=== PATIENT | female | born 1950 | race Caucasian/White ===

== ENCOUNTER 2017-09-16 13:12 | Emergency (ER) | payer MEDICARE, SELFPAY ==
[2017-09-16 13:31] VITALS: BP 121/88; PULSE 79; RESP 16; TEMP 36.8; O2SAT 97; BMI 25.8
--- NOTE | 2017-09-16 13:51 | HMH.EDUTC ---
[facility] Clinical Impression: Arm pain Disposition: Still a Patient Condition on Discharge: Good Referrals: Davey Nj MD [Primary Care Provider] - Time of Disposition: 14:27 Medical Decision Making - Medical Records Medical records reviewed: Yes: I reviewed the patient's medical records. Vital Signs: 09/16/17 13:31 Temperature 98.2 F Temperature Source Temporal Artery Scan Pulse Rate [Right] 79 Respiratory Rate 16 Blood Pressure [Right Arm] 121/88 Blood Pressure Mean [Right Arm] 99 Blood Pressure Source [Right Arm] Automatic Cuff Blood Pressure Position [Right Arm] Sitting 02 Sat by Pulse Oximetry 97 Oxygen Delivery Method Room Air - Adryan Inquiry Pt receiving controlled substance: No Adryan was queried for this patient: No - Reevaluation(s) Time: 14:22 Reevaluation #1: Patient appears very uncomfortable in exam chair, patient still denies chest pain, ekg done and due to pain in upper left arm and patient appearing so uncomfortable call ER physician Dr Marie and discussed patient and patient to be transfered to ER for further work up and evaluation to rule out Cardiac Report given to Dr Marie and patient transfered to ER room 6 [facility] [place] General Stated complaint: left arm pain Mode of Arrival: Ambulatory Source of Information: Patient Limitations: No Limitations Description of Symptoms (Recalled from Triage Doc. by RN): FELL 3 MONTHS AGO, LEFT ARM PAIN HEENT Symptoms (Recalled from RN notes): No Resp Symptoms (Recalled from RN notes): No Skin Symptoms (Recalled from RN notes): No MS Symptoms (Recalled from RN notes): Yes Functional Status (Recalled from RN notes): N - History of Present Illness Provider Complaint: Patient states that about 3 months ago she fell at home and landed on her left arm State that arm was sore for several days then felt better States that this morning when she woke up having dull achey toothache like pain in left arm that would radiate up into her shoulder, state she would have pain shoot up the arm when she would try to move it, state that pain in arm is like a dull ache State that at times feel like it goes up into her shoulder area state that she has taken over the counter Aleeve but no relief denies radiation to jaw area however state that pain has been constant. - Related Data Home Medications Medication Instructions Recorded Confirmed furosemide 20 mg tablet 10 mg PO QDAY tab 09/06/17 levothyroxine 25 mcg tablet 25 mcg PO QDAY tab 09/06/17 Allergies Allergy/AdvReac Type Severity Reaction Status Date / Time No Known Allergies Allergy Verified 09/16/17 13:35 - Worker's Comp Is this a Worker's Comp case?: No [facility] History I have reviewed the patient's past medical history: Yes Other Surgeries: Yes: Hysterectomy-Total - *Social History Smoking Status: Never smoker Alcohol Intake: never - Psychiatric History Expresses thoughts of harming self/others: None Suicide Plan Description: No Plan *Family Hx:: Hypertension, Heart Attack ROS Obtained: Yes All systems reviewed & no additional complaints - Cardiovascular Cardiovascular: Denies chest pain, Denies chest pain with activity - Musculoskeletal Musculoskeletal: Reports other (Dull achey pain in left upper arm and shoulder since around 3am this juanita) Physical Exam - General General appearance: alert, other (Moving around on exam table appears to be in pain) - Chest Chest inspection: Present: normal inspection, symmetric chest wall rise. Absent: tenderness - Respiratory Respiratory exam: Present: normal lung sounds bilaterally. Absent: respiratory distress - Cardiovascular Cardiovascular exam: Present: regular rate, normal rhythm. Absent: JVD - Extremities Exam Extremities exam: Present: other - Expanded Upper Extremity Exam Left Arm exam: Present: tenderness, other Vascular exam: Normal: capillary refill (Pain in left upper arm that worsens
--- NOTE | 2017-09-16 13:59 | ED_ITS ---
[facility] [place] Clinical Impression: Arm pain Disposition: Still a Patient Condition on Discharge: Good Referrals: Davey Nj MD [Primary Care Provider] - Time of Disposition: 14:27 Medical Decision Making - Medical Records Medical records reviewed: Yes: I reviewed the patient's medical records. Vital Signs: 09/16/17 13:31 Temperature 98.2 F Temperature Source Temporal Artery Scan Pulse Rate [Right] 79 Respiratory Rate 16 Blood Pressure [Right Arm] 121/88 Blood Pressure Mean [Right Arm] 99 Blood Pressure Source [Right Arm] Automatic Cuff Blood Pressure Position [Right Arm] Sitting 02 Sat by Pulse Oximetry 97 Oxygen Delivery Method Room Air - Adryan Inquiry Pt receiving controlled substance: No Adryan was queried for this patient: No - Reevaluation(s) Time: 14:22 Reevaluation #1: Patient appears very uncomfortable in exam chair, patient still denies chest pain, ekg done and due to pain in upper left arm and patient appearing so uncomfortable call ER physician Dr Marie and discussed patient and patient to be transfered to ER for further work up and evaluation to rule out Cardiac Report given to Dr Marie and patient transfered to ER room 6 [facility] [place] - General Stated complaint: left arm pain Mode of Arrival: Ambulatory Source of Information: Patient Limitations: No Limitations Description of Symptoms (Recalled from Triage Doc. by RN): FELL 3 MONTHS AGO, LEFT ARM PAIN HEENT Symptoms (Recalled from RN notes): No Resp Symptoms (Recalled from RN notes): No Skin Symptoms (Recalled from RN notes): No MS Symptoms (Recalled from RN notes): Yes Functional Status (Recalled from RN notes): N - History of Present Illness Provider Complaint: Patient states that about 3 months ago she fell at home and landed on her left arm State that arm was sore for several days then felt better States that this morning when she woke up having dull achey toothache like pain in left arm that would radiate up into her shoulder, state she would have pain shoot up the arm when she would try to move it, state that pain in arm is like a dull ache State that at times feel like it goes up into her shoulder area state that she has taken over the counter Aleeve but no relief denies radiation to jaw area however state that pain has been constant. - Related Data Home Medications Medication Instructions Recorded Confirmed furosemide 20 mg tablet 10 mg PO QDAY tab 09/06/17 levothyroxine 25 mcg tablet 25 mcg PO QDAY tab 09/06/17 Allergies Allergy/AdvReac Type Severity Reaction Status Date / Time No Known Allergies Allergy Verified 09/16/17 13:35 - Worker's Comp Is this a Worker's Comp case?: No [facility] History I have reviewed the patient's past medical history: Yes Other Surgeries: Yes: Hysterectomy-Total - *Social History Smoking Status: Never smoker Alcohol Intake: never - Psychiatric History Expresses thoughts of harming self/others: None Suicide Plan Description: No Plan *Family Hx:: Hypertension, Heart Attack ROS Obtained: Yes All systems reviewed & no additional complaints - Cardiovascular Cardiovascular: Denies chest pain, Denies chest pain with activity - Musculoskeletal Musculoskeletal: Reports other (Dull achey pain in left upper arm and shoulder since around 3am ilya grant) Physical Exam - General Gener
--- NOTE | 2017-09-16 14:06 | XR_ITS ---
XR humerus LT CLINICAL INDICATION: ITS.REASON: arm pain ORDERING PHYSICIAN: Rebekah Marie MD PATIENT AGE: 66 years COMPARISON: None FINDINGS: No fracture or dislocation. No lytic or blastic change. There is subacromial stenosis with some irregularity of the humeral head at the greater tuberosity consistent with subcortical cystic changes. These findings may be seen with rotator cuff disease and may be better evaluated with MRI if clinically warranted. Minimal osteoarthritic change of the glenohumeral joint. IMPRESSION: 1. Osteoarthritic change of the glenohumeral joint with subacromial stenosis and subcortical cystic change of the humeral head which may be seen with rotator cuff disease. 2. Otherwise negative left humerus
[2017-09-16 14:13] VITALS: BP 145/100; PULSE 80; RESP 19; O2SAT 99
--- NOTE | 2017-09-16 14:29 | XR_ITS ---
XR chest 2V HISTORY: ITS.REASON: LEFT ARM PAIN ORDERING PHYSICIAN: Rebekah Marie MD PATIENT AGE: 66 years COMPARISON: 06/28/2015 FINDINGS: The cardiomediastinal silhouette and pulmonary vascularity are within normal limits. The lungs are clear without infiltrates, suspicious nodules, or pleural effusions. No acute bony abnormalities. IMPRESSION: Negative chest, no acute finding
[2017-09-16 14:33] VITALS: BP 140/72; PULSE 85; RESP 16; TEMP 36.7; O2SAT 98; BMI 34.3
[2017-09-16 14:58] LABS: Basophils % 0.4 % (0.1-2.0); Eosinophils # 0.1 K/mm3 (0.0-0.4); Eosinophils % 1.8 % (0.1-12.0); Hematocrit 42.2 % (37.0-47.0); Hemoglobin 14.2 g/dL (12.2-16.2); Lymphocytes # 2.2 K/mm3 (0.7-4.5); Lymphocytes % 33.2 K/mm3 (10-50); Mean Corpuscular HGB Conc 33.7 g/dL (31.8-35.4); Mean Corpuscular Hemoglobin 31.6 pg (27.0-31.2); Mean Corpuscular Volume 93.8 fl (81-99); Mean Platelet Volume 7.7 fl (7.4-10.4); Monocytes # 0.5 K/mm3 (0.1-1.0); Monocytes % 6.9 % (1.7-9.3); Neutrophils # 3.8 K/mm3 (1.8-7.8); Neutrophils % 57.8 % (37.0-80.0); Platelet Count 288 K/mm3 (142-424); White Blood Count 6.5 K/mm3 (4.8-10.8)
--- NOTE | 2017-09-16 15:03 | HMH.EDGENADL ---
ED Disposition Clinical Impression: Arm pain Qualifiers: Laterality: left Qualified Code(s): M79.602 - Pain in left arm Disposition: Home, Self-Care Condition on Discharge: Good Instructions: DI for Acute Pain -- Adult Additional Instructions: Naproxen, moist heat, see Dr. Nj in one to two days for recheck and further evaluation. Prescriptions: Naproxen [EC-Naprosyn] 500 mg PO BID PRN #20 tablet.dr PALM Reason: Pain Per Pt ([employer] Use Only) Referrals: Davey Nj MD [Primary Care Provider] - - Critical Care Critical Care Time: No Attestation: On 09/16/17, the high probability of a clinically significant, sudden or life threatening deterioration of the following system(s) required my full and direct attention, intervention and personal management. The time I documented below is in addition to time spent performing reported procedures but includes the following listed in this critical care notation. Medical Decision Making Vital Signs: 09/16/17 13:31 09/16/17 14:13 09/16/17 14:33 Temperature 98.2 F 98.0 F Temperature Source Temporal Artery Scan Oral Pulse Rate [Right] 79 80 85 Respiratory Rate 16 19 16 Blood Pressure [Right Arm] 121/88 145/100 140/72 Blood Pressure Mean [Right Arm] 99 115 94 Blood Pressure Source [Right Arm] Automatic Cuff Automatic Cuff Automatic Cuff Blood Pressure Position [Right Arm] Sitting Sitting Sitting 02 Sat by Pulse Oximetry 97 99 98 Oxygen Delivery Method Room Air Room Air Room Air - Lab Data Lab results reviewed: Yes: I reviewed the patient's lab results. Lab Results 09/16/17 14:36: WBC 6.5, RBC 4.50, Hgb 14.2, Hct 42.2, MCV 93.8, MCH 31.6 H, MCHC 33.7, RDW 13.0, Plt Count 288, MPV 7.7, Neut % (Auto) 57.8, Lymph % (Auto) 33.2, [place] % (Auto) 6.9, Eos % (Auto) 1.8, Baso % (Auto) 0.4, Neut # (Auto) 3.8, Lymph # (Auto) 2.2, [place] # (Auto) 0.5, Eos # (Auto) 0.1, Baso # (Auto) 0.0 09/16/17 14:36: Sodium 141, Potassium 3.6, Chloride 104, Carbon Dioxide 28, Anion Gap 12.6, BUN 12, Creatinine 0.69, Estimated Creat Clear 79, Estimated GFR 85, Est GFR ( Amer) 103, Glucose 107 H, Calcium 9.1, Total Bilirubin 0.5, AST 21, ALT 27, Alkaline Phosphatase 75, Total Creatine Kinase 54, CK-MB (CK-2) < 0.5, CK-MB (CK-2) Rel Index 0.9, Troponin I < 0.02, Total Protein 7.6, Albumin 4.2, Globulin 3.4 H, Albumin/Globulin Ratio 1.2 Result diagrams: 09/16/17 14:36 09/16/17 14:36 Orders (Tests/Meds): ED MEDICATIONS Discontinued Medications Generic Name Dose Route Start Last Admin Trade Name Freq PRN Reason Stop Dose Admin Ketorolac Tromethamine 15 mg 09/16/17 16:17 Toradol 30mg/Ml Vial IV 09/16/17 16:18 ONCE ONE - Radiology Data #1 Image(s): Chest, Shoulder Image Reviewed: Yes I reviewed the patient's radiology results Preliminary Findings: Normal/NAD, No Fracture Seen, No Infiltrates Seen, Normal Lung Inflation Jd, Normal Heart Size (DJD) - ECG Data Tracing #1 I reviewed this ECG and interpreted as documented below: ECG initial impression date: 09/16/17 ECG initial impression time: 14:25 ECG normal with no acute: arrhythmias, ischemia, conduction abnormalities, chamber hypertrophy - Adryan Inquiry Pt receiving controlled substance: No Medical Decision Making Narrative: TC to lab at 1600; still running cardiac enzymes. General Adult HPI - General Chief complaint: PAIN Stated complaint: left arm pain Mode of Arrival: Wheelchair Limitations: No Limitations Description of Symptoms (Recalled from ER Triage Doc. by RN): LEFT ARM TOOTHACHE PAIN - History of Present Illness HPI narrative: She states that she woke up in the middle of the night last night with left arm pain that felt dull. Worse with change in vision. Acute trauma but she did fall some months ago, without any residual pain since then. She denies any short of breath or diaphoresis. Alex chest pain or palpitations. She denies any cardiac history. She denies
--- NOTE | 2017-09-16 15:06 | ED_ITS ---
ED Disposition Clinical Impression: Arm pain Qualifiers: Laterality: left Qualified Code(s): M79.602 - Pain in left arm Disposition: Home, Self-Care Condition on Discharge: Good Instructions: DI for Acute Pain -- Adult Additional Instructions: Naproxen, moist heat, see Dr. Nj in one to two days for recheck and further evaluation. Prescriptions: Naproxen [EC-Naprosyn] 500 mg PO BID PRN #20 tablet.dr PALM Reason: Pain Per Pt ([employer] Use Only) Referrals: Davey Nj MD [Primary Care Provider] - - Critical Care Critical Care Time: No Attestation: On 09/16/17, the high probability of a clinically significant, sudden or life threatening deterioration of the following system(s) required my full and direct attention, intervention and personal management. The time I documented below is in addition to time spent performing reported procedures but includes the following listed in this critical care notation. Medical Decision Making Vital Signs: 09/16/17 13:31 09/16/17 14:13 09/16/17 14:33 Temperature 98.2 F 98.0 F Temperature Source Temporal Artery Scan Oral Pulse Rate [Right] 79 80 85 Respiratory Rate 16 19 16 Blood Pressure [Right Arm] 121/88 145/100 140/72 Blood Pressure Mean [Right Arm] 99 115 94 Blood Pressure Source [Right Arm] Automatic Cuff Automatic Cuff Automatic Cuff Blood Pressure Position [Right Arm] Sitting Sitting Sitting 02 Sat by Pulse Oximetry 97 99 98 Oxygen Delivery Method Room Air Room Air Room Air - Lab Data Lab results reviewed: Yes: I reviewed the patient's lab results. Lab Results 09/16/17 14:36: WBC 6.5, RBC 4.50, Hgb 14.2, Hct 42.2, MCV 93.8, MCH 31.6 H, MCHC 33.7, RDW 13.0, Plt Count 288, MPV 7.7, Neut % (Auto) 57.8, Lymph % (Auto) 33.2, Brown % (Auto) 6.9, Eos % (Auto) 1.8, Baso % (Auto) 0.4, Neut # (Auto) 3.8 , Lymph # (Auto) 2.2, Brown # (Auto) 0.5, Eos # (Auto) 0.1, Baso # (Auto) 0.0 09/16/17 14:36: Sodium 141, Potassium 3.6, Chloride 104, Carbon Dioxide 28, Anion Gap 12.6, BUN 12, Creatinine 0.69, Estimated Creat Clear 79, Estimated GFR 85, Est GFR ( Amer) 103, Glucose 107 H, Calcium 9.1, Total Bilirubin 0.5, AST 21, ALT 27, Alkaline Phosphatase 75, Total Creatine Kinase 54, CK-MB ( CK-2) < 0.5, CK-MB (CK-2) Rel Index 0.9, Troponin I < 0.02, Total Protein 7.6, Albumin 4.2, Globulin 3.4 H, Albumin/Globulin Ratio 1.2 Result diagrams: 09/16/17 14:36 09/16/17 14:36 Orders (Tests/Meds): ED MEDICATIONS Discontinued Medications Generic Name Dose Route Start Last Admin Trade Name Freq PRN Reason Stop Dose Admin Ketorolac Tromethamine 15 mg 09/16/17 16:17 Toradol 30mg/Ml Vial IV 09/16/17 16:18 ONCE ONE - Radiology Data #1 Image(s): Chest, Shoulder Image Reviewed: Yes I reviewed the patient's radiology results Preliminary Findings: Normal/NAD, No Fracture Seen, No Infiltrates Seen, Normal Lung Inflation Jd, Normal Heart Size (DJD) - ECG Data Tracing #1 I reviewed this ECG and interpreted as documented below: ECG initial impression date: 09/16/17 ECG initial impression time: 14:25 ECG normal with no acute: arrhythmias, ischemia, conduction abnormalities, chamber hypertrophy - Adryan Inquiry Pt receiving controlled substance: No Medical Decision Making Narrative: TC to lab at 1600; still running cardiac enzymes. General Adult HPI - General Chief co
[2017-09-16 16:05] LABS: Alanine Aminotransferase 27 U/L (12-78); Albumin Level 4.2 gm/dL (3.4-5.0); Albumin/Globulin Ratio 1.2 (1.1-1.8); Alkaline Phosphatase 75 U/L (46-116); Anion Gap 12.6 mEq/L (5-15); Aspartate Amino Transferase 21 U/L (15-37); Bilirubin,Total 0.5 mg/dL (0.2-1.0); Blood Urea Nitrogen 12 mg/dL (7-18); CKMB Relative Index 0.9 U/L (0-4.0); Calcium 9.1 mg/dL (8.5-10.1); Carbon Dioxide 28 mmol/L (21.0-32.0); Chloride 104 mmol/L (98-107); Creatine Kinase 54 U/L (26-192); Creatine Kinase MB < 0.5 mg/ml (0.0-3.6); Creatinine Clearance Estimated 79 mL/min (0-300); Creatinine,Serum 0.69 mg/dL (0.55-1.02); Estimated Glomerular Filt Rate 85 ml/min (>60); GFR (African American) 103 ML/MIN (>60); Globulin 3.4 gm/dl (1.3-3.2); Glucose 107 mg/dL (74-106); Potassium 3.6 mmoL/L (3.5-5.1); Sodium 141 mmol/L (136-145); Total Protein,Serum 7.6 gm/dL (6.4-8.2); Troponin I < 0.02 ng/ml (0.00-0.06)
[2017-09-16 16:41] VITALS: BP 139/76; PULSE 80; O2SAT 98
== END 2017-09-16 16:41 | disposition home or self-care (01) ==
LOC: UTC 13:18 → ER 14:21
PROVIDERS: Emergency Provider Emergency Medicine; Family Provider Emergency Medicine; PCP Emergency Medicine
DX: M79.603 Pain in arm, unspecified (principal); Z90.710 Acquired absence of both cervix and uterus
CPT/HCPCS: 71046; 73060; 80053; 82550; 82553; 84484; 85025; 93005; 96372; 99283

== ENCOUNTER → 2018-07-19 09:59 | Outpatient (CLI) | payer MEDICARE, SELFPAY ==
--- NOTE | 2018-07-19 10:04 | XR_ITS ---
XR foot wt bearing RT 3V, XR foot wt bearing LT 3V Ordering Physician: Khushboo Franz DPM Patient Age: 67 years: Female HISTORY: ITS.REASON: pain Bilateral foot pain TECHNIQUE: . RIGHt Foot and LEFT Foot: 3 view weightbearing both feet : AP, lateral and oblique views both feet COMPARISON : None prior to today LEFT FOOT Moderate Hallux valgus deformity with degenerative arthritic changes first MTP joint .. Joint space narrowing at the first MTP joint with sclerosis and mild hypertrophic buttressing a reflects such degenerative arthritic changes Also Flexion developing hammertoe deformity noted here on the left-most evident at the left second toe. . metatarsals unremarkable. Tarsals satisfactory.adequate plantar arch bilaterally A nearly 9 mm plantar calcaneal spur also noted on the left. No irregularity no inflammation here. No foreign bodies IMPRESSION left foot moderate hallux valgus deformity at left foot. Developing arthritic changes first MTP joint. RIGHT FOOT . Degenerative arthritic changes developing at the first MTP joint. Joint space narrowing at the first MTP joint with sclerosis and mild hypertrophic buttressing a reflects degenerative arthritic change Nearly 9 mm plantar calcaneal spur. . Only Borderline hallux valgus on right withScant lateral tilt of the distal phalanx great toe. The toes appear intact, metatarsals unremarkable. Tarsals satisfactory.. IMPRESSION: Right foot Arthritic changes first MTP joint
== END ==
PROVIDERS: PCP Emergency Medicine; Visit Provider Podiatrist
DX: M79.672 Pain in left foot (principal); M79.673 Pain in unspecified foot
CPT/HCPCS: 73630

== ENCOUNTER → 2018-08-24 11:27 | Outpatient (CLI) | payer MEDICARE, SELFPAY ==
--- NOTE | 2018-08-24 11:31 | XR_ITS ---
XR hip LT 2-3V w/pelvis HISTORY: Low back and left hip pain ITS.REASON: pain ORDERING PHYSICIAN: Ginger Alberts PATIENT AGE: 67 years COMPARISON: None FINDINGS: No fracture or dislocation is evident. An AP view of the pelvis shows moderate osteoarthritic changes of the right hip. Left hip however have an unremarkable appearance. No fracture or dislocation. No lytic or blastic change. IMPRESSION: 1. Negative left hip. 2. Moderate osteoarthritis of the right hip
--- NOTE | 2018-08-24 11:31 | XR_ITS ---
EXAM: XR lumbar spine min 4V HISTORY: Low back pain ITS.REASON: pain ORDERING PHYSICIAN: Ginger Alberts PATIENT AGE: 67 years COMPARISON: None FINDINGS: Normal alignment. No fracture or dislocation. No lytic or blastic change. There is degenerative disc disease at L4-5 and L5-S1 and to a lesser degree at L2-L3. Mild degenerative disc disease is present in the lower thoracic spine. Incidental vascular calcification noted. There are mild osteoarthritic changes of the right hip. IMPRESSION: Degenerative changes of the lumbar spine and right hip
== END ==
PROVIDERS: PCP Emergency Medicine; Visit Provider Nurse Practitioner Family
DX: M25.552 Pain in left hip (principal); M54.9 Dorsalgia, unspecified
CPT/HCPCS: 72110; 73502

== ENCOUNTER → 2018-11-29 14:48 | Outpatient (CLI) | payer MEDICARE, SELFPAY ==
--- NOTE | 2018-11-29 14:51 | XR_ITS ---
XR chest 2V HISTORY: Shortness of air and cough ITS.REASON: cough ORDERING PHYSICIAN: Ginger Alberts PATIENT AGE: 68 years COMPARISON: 09/16/2017 FINDINGS: The cardiomediastinal silhouette and pulmonary vascularity are within normal limits. The lungs are clear without infiltrates, suspicious nodules, or pleural effusions. No acute bony abnormalities. IMPRESSION: Negative chest, no acute finding
[2018-11-29 15:49] LABS: Basophils % 0.8 % (0.1-2.0); Eosinophils # 0.1 K/mm3 (0.0-0.4); Eosinophils % 2.4 % (0.1-12.0); Hematocrit 41.6 % (37.0-47.0); Hemoglobin 14.2 g/dL (12.2-16.2); Lymphocytes % 37.4 % (10-50); Mean Corpuscular HGB Conc 34.1 g/dL (31.8-35.4); Mean Corpuscular Hemoglobin 31.8 pg (27.0-31.2); Mean Corpuscular Volume 93.2 fl (81-99); Mean Platelet Volume 7.3 fl (7.4-10.4); Monocytes # 0.2 K/mm3 (0.1-1.0); Monocytes % 4.2 % (1.7-9.3); Neutrophils # 2.9 K/mm3 (1.8-7.8); Neutrophils % 55.2 % (37.0-80.0); Platelet Count 252 K/mm3 (142-424); Red Blood Count 4.46 M/mm3 (4.20-5.40); Red Cell Distribution Width 13.5 % (11.5-17.5); White Blood Count 5.3 K/mm3 (4.8-10.8)
[2018-11-29 17:39] LABS: Alanine Aminotransferase 28 U/L (12-78); Albumin/Globulin Ratio 1.4 (1.1-1.8); Alkaline Phosphatase 71 U/L (46-116); Anion Gap 11.4 mEq/L (5-15); Aspartate Amino Transferase 19 U/L (15-37); Bilirubin,Total 0.4 mg/dL (0.2-1.0); Blood Urea Nitrogen 9 mg/dL (7-18); Calcium 9.4 mg/dL (8.5-10.1); Carbon Dioxide 30 mmol/L (21.0-32.0); Chloride 105 mmol/L (98-107); Creatinine,Serum 0.67 mg/dL (0.55-1.02); Estimated Glomerular Filt Rate 88 ml/min (>60); GFR (African American) 106 ML/MIN (>60); Globulin 2.9 gm/dl (1.3-3.2); Glucose 108 mg/dL (74-106); Potassium 3.4 mmoL/L (3.5-5.1); Sodium 143 mmol/L (136-145); Thyroid Stimulating Hormone 2.64 uIU/ml (0.358-3.740); Total Protein,Serum 6.9 gm/dL (6.4-8.2)
[2018-12-01 12:44] LABS: Vitamin D 25 Hydroxy 24.4 ng/mL (30.0-100.0)
== END ==
PROVIDERS: PCP Emergency Medicine; Visit Provider Nurse Practitioner Family
DX: R05 Cough (principal); R53.83 Other fatigue; E03.9 Hypothyroidism, unspecified; R06.02 Shortness of breath
CPT/HCPCS: 36415; 71046; 80053; 82652; 83880; 84443; 85025

== ENCOUNTER → 2019-02-08 15:22 | Outpatient (CLI) | payer MEDICARE, SELFPAY ==
--- NOTE | 2019-02-08 15:25 | US_ITS ---
US thyroid HISTORY: ITS.REASON: thyroi nodule ORDERING PHYSICIAN: Jack Montanez MD PATIENT AGE: 68 years Comparison: None FINDINGS: Right lobe measures 1.8 x 4.1 x 1.6 cm. Left lobe measures 1.8 x 3.9 x 1.8 cm. There is normal-appearing blood flow to both thyroid lobes and the echogenicity of the thyroid gland is stable and otherwise normal. It should be noted the measurement of the isthmus nodule on the prior study is axial measurement and was 1.0 cm however on today's study this is measured in the sagittal plane and measures 1.5 cm. Therefore this may not necessarily be larger since there is a difference in the measuring technique. The other small hypoechoic nodules bilaterally are stable however there is a subtle hypoechoic nodule in the lower posterior right thyroid lobe and this measures 0.56 cm. This was not identified on the prior study. IMPRESSION: Suggest another 6 month follow-up thyroid ultrasound with measurements of the isthmus nodule in the axial and sagittal plane since there is a difference between the measurements between the study on 04/01/2017 and 02/08/2019. Subtle small solid posterior right thyroid lobe nodule not mentioned on the prior study. There is no definite suspicious nodule at this time.
== END ==
PROVIDERS: PCP Emergency Medicine; Visit Provider Otolaryngology
DX: E03.9 Hypothyroidism, unspecified (principal); E04.1 Nontoxic single thyroid nodule
CPT/HCPCS: 76536

== ENCOUNTER → 2019-02-08 15:44 | Outpatient (CLI) | payer MEDICARE, SELFPAY ==
[2019-02-08 18:18] LABS: Free T4 (Free Thyroxine) 0.85 ng/dl (0.76-1.46); T4 (Thyroxine) 5.6 ug/dl (4.7-13.3); Thyroid Stimulating Hormone 3.04 uIU/ml (0.358-3.740); Triiodothryronine (T3) Uptake 35 % (31-39)
[2019-02-10 19:11] LABS: Thyroid Peroxidase Antibodies 34 IU/mL (0-34)
[2019-02-11 11:34] LABS: Thyroid Stimulating Immunoglob <0.10 IU/L (0.00-0.55)
== END ==
PROVIDERS: Visit Provider Otolaryngology
DX: E03.9 Hypothyroidism, unspecified (principal); E04.1 Nontoxic single thyroid nodule
CPT/HCPCS: 36415; 76536; 84436; 84439; 84443; 84445; 84479; 86376

== ENCOUNTER → 2019-02-14 09:29 | Outpatient (CLI) | payer MEDICARE, SELFPAY ==
--- NOTE | 2019-02-14 09:30 | FL_ITS ---
EXAM: Barium swallow/esophagram. INDICATION: ITS.REASON: Dysphagia ORDERING PHYSICIAN: Jack Montanez MD PATIENT AGE: 68 years COMPARISON: None TECHNIQUE: In the upright position the patient was observed to swallow barium in both the AP and lateral view. The cervical esophagus was examined under fluoroscopy with images obtained. The patient was then placed prone in the right anterior oblique position and was observed to swallow barium with Valsalva technique . FLUOROSCOPY TIME: 1 minute and 10 seconds FINDINGS: The cervical esophagus is midline without evidence of deviation. There is mild spasm of the cricopharyngeus muscle. There is a small sliding hiatal hernia. No annular constricting lesions. IMPRESSION: 1. Small sliding hiatal hernia. 2. Mild cricopharyngeal spasm
== END ==
PROVIDERS: PCP Emergency Medicine; Visit Provider Otolaryngology
DX: R13.10 Dysphagia, unspecified (principal)
CPT/HCPCS: 74220

== ENCOUNTER → 2019-05-04 13:01 | Outpatient (CLI) | payer MEDICARE, SELFPAY ==
--- NOTE | 2019-05-04 13:08 | XR_ITS ---
PROCEDURE: XR HIP RT 2-3V W/PELVIS CLINICAL INDICATION: right hip pain COMPARISON: [id number] XR hip LT 2-3V w/pelvis from 08/24/2018 FINDINGS: Severe osteoarthritic changes are present involving the right hip with decrease in joint space, osteosclerosis, and osteophyte formation. No fracture or dislocation. IMPRESSION: Severe osteoarthritis of the right hip not significantly changed Dictated by: Bob Henderson MD 05/04/2019 15:01 Electronically signed by Bob Henderson MD in [place] 05/04/2019 15:01
--- NOTE | 2019-05-04 13:08 | XR_ITS ---
PROCEDURE: XR KNEE LT 4V CLINICAL INDICATION: left knee pain COMPARISON: [id number] KNEE-4 OR 5 VIEWS-RT from 11/08/2014 FINDINGS: No fracture or dislocation. No lytic or blastic change. There is normal mineralization. There are mild osteoarthritic changes of the medial and lateral compartment. No fracture or dislocation is evident. There is a 9 mm loose body along the posterior and central aspect of the medial femoral condyle in the medial popliteal fossa region. IMPRESSION: Mild osteoarthritis. Small loose body overlies the posterior aspect of the medial femoral condyle proximally Dictated by: Bob Henderson MD 05/04/2019 15:06 Electronically signed by Bob Henderson MD in [place] 05/04/2019 15:06
--- NOTE | 2019-05-04 13:08 | XR_ITS ---
PROCEDURE: XR KNEE RT 4V CLINICAL INDICATION: right knee pain COMPARISON: [id number] KNEE-4 OR 5 VIEWS-RT from 11/08/2014 FINDINGS: There are mild osteoarthritic changes involving all 3 compartments slightly greater at the medial compartment. No fracture or dislocation. No lytic or blastic change. IMPRESSION: Mild osteoarthritis otherwise negative Dictated by: Bob Henderson MD 05/04/2019 15:03 Electronically signed by Bob Henderson MD in [place] 05/04/2019 15:03
== END ==
PROVIDERS: PCP Emergency Medicine; Visit Provider Orthopaedic Surgery
DX: M25.562 Pain in left knee (principal); M25.561 Pain in right knee; M25.551 Pain in right hip
CPT/HCPCS: 73502; 73564

== ENCOUNTER → 2019-05-30 09:27 | Outpatient (CLI) | payer MEDICARE, SELFPAY ==
--- NOTE | 2019-05-30 | CA_ITS ---
APPROVED REPORT Exam: Pharmacologic Technologist: Sonia Willams Ht: 5 ft 5 in Wt: 172 lbs BSA: 1.86 m2 HR: 64 bpm BP: 168/89 mmHg Indications: Chest pain, Edema, Dizziness Medical History Medications: Lisinopril,,,,, Levothyroxine,,,,, Aspirin,,,,, Escitalopram,,,,, FluTICASONE,,,,, Fanotidine,,,,, Stress Test Details Test: LEXISCAN HR Resting HR: 68 bpm Max Heart Rate (APMHR): 152 bpm Max HR Achieved: 122 bpm Target HR (85% APMHR): 129 bpm % of APMHR: 80 Recovery HR: 75 bpm BP Resting BP: 168.0/89.0 mmHg Max BP: 168.0/89.0 mmHg Recovery BP: 138.0/81.0 mmHg ECG Clinical Exercise duration: 04:06 min Highest Stage Achieved: Exercise capacity: 1.0 METs Stress ECG Conclusion Resting ECG: Sinus bradycardia Lexiscan portion complete. Patient complained of dizziness at peak infusion. Patient became hypotensive in recovery. Resolved 11 minutes in recovery. Symptoms: Dizziness at peak infusion. No chest pain, no shortness of breath. Arrhythmias/Ectopy: Occasional PVC. ST-T Changes: Less than 1.[address] depression. Conclusion: Non-diagnostic. Images to follow. Test Summary RECOVERY 08:00 . . 78 . 90/ 70 . . REST 03:57 . . 68 . 168/ 89 . . Stage 1 . . . . . . . Myoview Injected Stage 1 01:00 . . 115 . . . . Stage 2 01:00 . . 92 . 129/ 59 . . Stage 3 01:00 . . 79 . . . . Stage 4 01:00 . . 81 . 74/ 44 . . Stage 4 01:06 . . 78 . 74/ 44 . Stop exercise at 04:06 RECOVERY 01:00 . . 66 . 85/ 62 . . RECOVERY 02:00 . . 66 . 85/ 62 . . RECOVERY 03:00 . . 79 . 90/ 70 . . RECOVERY 04:00 . . 69 . 90/ 70 . . RECOVERY 05:00 . . 67 . 85/ 50 . . RECOVERY 06:00 . . 71 . 85/ 50 . . RECOVERY 07:00 . . 72 . 90/ 70 . . RECOVERY 08:00 . . 78 . 90/ 70 . . RECOVERY 09:00 . . 82 . 90/ 70 . . RECOVERY 10:00 . . 74 . 115/ 78 . . RECOVERY 11:00 . . 88 . 114/ 76 . . RECOVERY 11:18 . . 0 . 114/ 76 . . Electronically signed by : Shane Reyna, 05/30/2019 21:23:16
--- NOTE | 2019-05-30 09:29 | CA_ITS ---
APPROVED REPORT Auto Job Estimator: DAMARIS Laterality: Bilateral Study Quality: Good Indications: pre op, dizziness Doppler Spectral Velocity Analysis ECA (R) 86.40/ cm/s ECA (L) 68.40/ cm/s dICA (R) 99.80/38.50 cm/s dICA (L) 66.30/22.90 cm/s Thais (R) 70.70/26.70 cm/s Thais (L) 58.90/26.70 cm/s pICA (R) 72.30/24.40 cm/s pICA (L) 76.20/29.10 cm/s dCCA (R) 55.00/17.30 cm/s dCCA (L) 69.10/22.80 cm/s pCCA (R) 97.40/21.20 cm/s pCCA (L) 47.10/17.30 cm/s Vert (R) 42.40/ cm/s Vert (L) 27.50/ cm/s ICA/CCA 1.81 ICA/CCA 1.10 Findings Duplex evaluation demonstrates stenosis of the right proximal internal carotid artery <20% with PSV <140 cm/sec, EDV <100 cm/sec, and IC/CC Ratio <4.0.Duplex evaluation demonstrates stenosis of the left proximal internal carotid artery <20% with PSV <140 cm/sec, EDV <100 cm/sec, and IC/CC Ratio <4.0.Antegrade flow seen bilateral vertebral arteries. Conclusion No increased velocities to suggest hemodynamically significant stenosis in either internal carotid artery. Electronically signed by : Bob Henderson MD 05/31/2019 11:20:55
--- NOTE | 2019-05-30 09:29 | CA_ITS ---
APPROVED REPORT EXAM: Comprehensive 2D, Doppler, and color-flow Echocardiogram Fitness Sales Consultant: Moraima Tyler CRT Ht: 5 ft 5 in Wt: 172lbs BSA: 1.86 BP: 132/75 mmHg Indications: Chest Pain, Shortness of Breath, Hyperlipidemia, Hypertension/HDD, edema, brain tumor 2D Dimensions LVOT 1.80 cm (M/F) 1.5-2.5 M-Mode Dimensions RVDd 2.00 cm (0.9-2.6) LA Diam 3.80 cm (1.9-4.0) LVDd 4.50 cm (3.5-5.7) Ao Diam 2.80 cm (2.0-3.7) LVDs 2.80 cm (3.5-5.7) AV Cusp 2.00 cm (1.5-2.6) IVSd 1.40 cm (0.6-1.1) PWd 0.80 cm (0.6-1.1) EF (Teich) 68.00% FS 37.80% EDV (Teich) 92.40 mL ESV (Teich) 29.60 mL LV Diastology E/A Ratio 0.80 MED E' 4.78 (< 7 cm/sec) E'/MED E' Ratio 14.70 (>14) LAT E' 5.07 (<10 cm/sec) E/LAT E' Ratio 13.80 (>14) Aortic Valve AoV Peak Marek. 121.00 (50-130 cm/s) AI PHT 655.00 ms AO Peak GR. 6.00 mmHg Mitral Valve MV E Max Marek. 70.10 (40-130 cm/s) MV A Velocity 84.40 (40-130 cm/s) E/A Ratio 0.80 Pulmonary Valve PA Accel Time 169.00 (>120 msec) Tricuspid Valve TR P. Velocity 189.00 cm/s Left Ventricle Left atrium is mildly enlarged, left ventricle is normal size, mild concentric left ventricular hypertrophy, visually estimated ejection fraction 55% with no regional wall motion abnormality. Grade 1 diastolic dysfunction seen with tissue Doppler evidence of raise left atrial pressure. Right Ventricle Right atrium and right ventricular normal size and contractility. Aortic Valve Aortic valve is thickened and calcified leaflet continue to display good mobility, there is no aortic stenosis, there is mild aortic insufficiency. Mitral Valve Mitral valve is grossly normal, there is no mitral stenosis, there is mild mitral regurgitation. Tricuspid Valve Tricuspid valve is grossly normal, there is mild tricuspid regurgitation. Tricuspid regurgitation jet velocity is inadequate for calculation of the right ventricular systolic pressure. Pulmonic Valve Pulmonic valve is poorly visualized. Great Vessels Aortic root is normal size. Pericardium No significant pericardial effusion noted. Conclusion 1. Mildly enlarged left atrium, normal left ventricular size, mild concentric left ventricular hypertrophy, visually estimated ejection fraction 55% with no regional wall motion abnormality, grade 1 diastolic dysfunction seen with tissue Doppler evidence of raise left atrial pressure. 2. Thickened and calcified aortic valve without aortic stenosis, there is mild aortic insufficiency. 3. Mild mitral and tricuspid regurgitation 4. No significant pericardial effusion noted. Electronically signed by : Shane Reyna, 05/31/2019 06:09:38
--- NOTE | 2019-05-30 12:00 | NM_ITS ---
APPROVED REPORT Exam: Nuclear Stress Test Indication: hyperlipidemia, fm.hx., c.p., sob, syncope, fatique Patient Location: Outpatient [place] Tech:Aicha Avilez, MISAELT, RT (R)(N) Ht: 5 ft 5 in Wt: 172 lbs HR: 64 bpm BP: 168/89 mmHg BSA: 1.86 m2 BMI: 28.6 History: hyperlipidemia, fm.hx., c.p., sob, syncope, fatique Procedure: Patient received a 0.4 mg of intravenous Lexiscan, resting heart rate 64 bpm, resting blood pressure 168/89 mmHg, with Lexiscan maximum heart rate achived was 96 bpm which is Less than 85 % of the maximum predicted heart rate and blood pressure was 129/59 mmHg. With Lexiscan, patient denied any complaint of chest pain. Electrocardiogram Sinus rhythm nonspecific ST-T changes, with Lexiscan there is less than 1.[address] segment depression noted from the baseline EKG. The EKG portion of the Lexiscan Myoview is nondiagnostic. Cardiac Stress and Resting SPECT Images: Cardiac Stress and Resting SPECT images were obtained using technetium 99m Myoview 31.1 mCi stress and 10.88 mCi at rest. Gated SPECT with analysis of segmental wall motion and calculation of the ejection fraction also done. Cardiac stress and resting SPECT images show uniform myocardial activity without segmental perfusion abnormality, computer derived ejection fraction is over 65% with no regional wall motion abnormality, right ventricle is normal size and contractility. Conclusion: 1. The EKG portion of the Lexiscan Myoview is nondiagnostic. 2. No scintigraphic evidence of reversible ischemia seen, computer derived ejection fraction is over 65% with no regional wall motion abnormality. Right ventricle is normal size and contractility. 3. Normal Lexiscan Myoview study. Electronically signed by : Shane Reyna, 05/30/2019 21:25:15
--- NOTE | 2019-05-30 12:38 | HMH.ITSHM ---
Current Home Medications as stated by this patient Trang De Dios or sales support representative. []LISINOPRIL FANOTIDINE ESITALOPRAM LEVOTHYROXINE FLUTICANOSE ASA
== END ==
PROVIDERS: PCP Emergency Medicine; Visit Provider Internal Medicine Cardiovascular Disease
DX: R42 Dizziness and giddiness (principal); Z82.49 Family history of ischemic heart disease and other diseases of the circulatory system; Z01.818 Encounter for other preprocedural examination; I10 Essential (primary) hypertension; R06.02 Shortness of breath; R07.9 Chest pain, unspecified
CPT/HCPCS: 78452; 93017; 93306; 93880; A9502; J2785

== ENCOUNTER → 2019-07-09 09:17 | Outpatient (CLI) | payer MEDICARE, SELFPAY ==
[2019-07-09 09:20] LABS: Microscopic, Urine URINE MICROSCOPIC (MICROSCOPIC)
[2019-07-09 10:21] LABS: Appearance,Urine CLEAR (Clear); Bilirubin,Urine Negative (Negative); Blood, Urine Negative (Negative); Color,Urine YELLOW (Yellow); Glucose,Urine (UA) Negative (Negative); Ketones,Urine Negative (Negative); Leukocyte Esterase,Urine Negative (Negative); Nitrate,Urine Negative (Negative); Protein,Urine Negative (Negative); Specific Gravity, Urine 1.015 (1.005-1.030); Urobilinogen,Urine 0.2 EU/dl (0.2)
[2019-07-09 12:05] LABS: Bacteria,Urine Trace /lpf; Squamous Epithelial Cell,Urine Occasional #/hpf (0-5); WBC,Urine Occasional #/hpf (0-3)
== END ==
PROVIDERS: Visit Provider Orthopaedic Surgery
DX: Z01.818 Encounter for other preprocedural examination (principal); M16.11 Unilateral primary osteoarthritis, right hip
CPT/HCPCS: 81001

== ENCOUNTER → 2019-07-16 10:19 | Outpatient (CLI) | payer MEDICARE, SELFPAY | PROVIDERS: Visit Provider Orthopaedic Surgery | DX: Z01.818 Encounter for other preprocedural examination (principal) | CPT/HCPCS: 36415; 86850 ==

== ENCOUNTER 2019-07-18 08:18 | Inpatient (IN) ==
--- NOTE | 2019-07-18 09:34 | Progress Note ---
[facility] Anesthesia Checklist - Patient Identification Patient Identification: Arm Band, Verbal (Name & ) - Structural Data Admitted From: Home Planned Operative Procedure/s: Right ANAI Consent for Planned Operative Procedure(s) Verified: Yes Verified Documents: Surgical Consent, History and Physical, Cardiac Clearance - NPO Status Verified Time NPO: 19:30 - Chart Verification Results Verified: CBC, BMP - Additional verifications Anesthesia Reactions: No Hx Blood Transfusions: No Blood Transfusion Reaction: No - Airway Assessment C-Spine Mobility Assessed: Yes TMJ Mobility Assessed: Yes Dentition: Edentulous - Neurological Assessment Level of Consciousness: Awake, Alert, Appropriate, Follows Commands Hx Seizures: No Numbness or tingling in extremities: No - Anesthesia Plan Anesthesia Risk discussed: Yes Anesthesia Plan: Verified ASA Class: III Anesthesia Type: Spinal [facility] History I have reviewed the patient's past medical history: Yes Medical History: Reports:: Anxiety, Depression, Gastroesophageal Reflux Disease(GERD), Hyperlipidemia, Hypertension, Valvular Heart Disease (Aortic Insufficiency, diastolic dysfunction) Denies:: Cancer, Diabetes Mellitus Type 1, Diabetes Mellitus Type 2, Internal Pacemaker, Seizures, Transient Ischemic Attacks (TIA) *Have you ever received a pneumonia vaccine?: Yes *Have you received a flu vaccine this season?: Yes Other Medical History: Reports: Arthritis, Hypothyroidism. Denies: Blood Transfusion Reaction Anesthesia experience/problems:: no complications Laterality Cases: Bilateral: Other Other Surgeries: Yes: Hysterectomy-Total, Hysterectomy-Partial, Other. No: Pacemaker Amputation: No Fractures: No - *Social History Educational Level: Attended High School Smoking Status: Never smoker Alcohol Intake: never Substance Use Type: denies use *Occupational Status:: retired Housing: house Household Members: spouse *Travel in the last 8 weeks: None - Psychiatric History Pschychiatric History:: Reports:: Anxiety, Depression Family Hx:: Hypertension, Heart Attack, Stroke
[2019-07-18 10:23] LABS: Basophils % 0.9 % (0.1-2.0); Eosinophils # 0.1 K/mm3 (0.0-0.4); Hematocrit 42.7 % (37.0-47.0); Hemoglobin 13.8 g/dL (12.2-16.2); Lymphocytes # 1.7 K/mm3 (0.7-4.5); Lymphocytes % 35.8 % (10-50); Mean Corpuscular HGB Conc 32.3 g/dL (31.8-35.4); Mean Corpuscular Volume 97.5 fl (81-99); Mean Platelet Volume 7.6 fl (7.4-10.4); Monocytes # 0.3 K/mm3 (0.1-1.0); Monocytes % 6.1 % (1.7-9.3); Neutrophils # 2.7 K/mm3 (1.8-7.8); Neutrophils % 55.2 % (37.0-80.0); Platelet Count 232 K/mm3 (142-424); Red Blood Count 4.38 M/mm3 (4.20-5.40); Red Cell Distribution Width 13.4 % (11.5-17.5); White Blood Count 4.8 K/mm3 (4.8-10.8)
[2019-07-18 10:31] LABS: Anion Gap 10.6 mEq/L (5-15); Calcium 8.8 mg/dL (8.5-10.1)
--- NOTE | 2019-07-18 13:51 | Progress Note ---
[facility] Anesthesia Record Part I Intake, IV Amount: 1,800 Estimated blood loss (mL): 500 Urine output (mL): 250 Blood Products used (#): none Blood Pressure: 112/62 SaO2: 97 Pulse Rate: 103 Respiratory Rate: 16 Temperature: 97.0 F Patient is:: Awake, Drowsy, Stable Stable to PACU at:: 13:45
--- NOTE | 2019-07-18 13:52 | Progress Note ---
[facility] Anesthesia Record Part II Discharge Time: 14:15 Destination: Medical Surgical Department PACU nurse assessment reviewed?: Yes Patient Condition:: Good Anesthesia Complications:: None Swallowing reflex intact?: Yes Cyanosis?: No
--- NOTE | 2019-07-18 14:58 | Pharmacy Consult Notes ---
[facility] Pharmacy VTE Monitoring - Patient Demographics Admission date: 07/18/19 Report Date: 07/18/19 Time: 14:58 Allergies/Adverse Reactions: Patient Allergies No Known Allergies Allergy (Verified 07/18/19 08:40) Height: 1.63 m Weight: 77.111 kg - VTE Risk Labs: VTE Related Lab Results Hgb 13.8 g/dL (12.2-16.2) 07/18/19 10:11 Hct 42.7 % (37.0-47.0) 07/18/19 10:11 Plt Count 232 K/mm3 (142-424) 07/18/19 10:11 BUN 11 mg/dL (7-18) 07/18/19 10:11 Creatinine 0.63 mg/dL (0.55-1.02) 07/18/19 10:11 Estimated Creat Clear 66 mL/min (50-200) 07/18/19 10:11 - Prophylaxis VTE Prophylaxis Ordered?: Yes Types of VTE Prophylaxis: IPCS Thigh High, Pharmacological Location of Applied Device: Bilateral Lower Extremeties Pharmacologic Type: Other (XARELTO) - VTE Diagnosis Confirmed Treatment or plan recommended: Continue Current Treatment
--- NOTE | 2019-07-18 14:59 | Operative Note ---
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 The arthritis is causing severe pain and significant disability and has not responded well to conservative management. Her mobility, ability to work, and quality of life is severely impacted. The pain is also affecting her lifestyle, activities of daily living and significantly impacting her sleep. Also she is at a high risk of falls from the arthritis. Therefore a total hip arthroplasty is indicated to relieve pain and to reduce the disability and risk of falls. Please refer to my office note for full details. Operative findings:: Preoperative examination and x-ray findings were consistent with the above diagnosis. Intraoperatively, end-stage osteoarthritis of the hip joint is noted. The femoral head was grossly arthritic and misshapen and osteophytes were noted on both the acetabular and the femoral side. The capsule/soft tissues are contracted and very tight. The capsule was thickened and range of motion was markedly decreased. The bone quality is good. Operative note:: On the day of the procedure the patient and family were met in the preoperative area and the patient was positively identified. A physical examination was performed and documented. The operative site/side were appropriately marked and initialed by me. I have again reviewed the diagnosis, natural history and management options in detail including both nonsurgical and surgical. We discussed the proposed surgery, risks and benefits and alternatives in detail. The complications discussed include but are not limited to infection, bleeding, injury to nerves, blood vessels and tendons, DVT and PE, fracture, limb length inequality, dislocation, implant malpositioning, implant failure, squeaking, loosening, acetabular wear, osteolysis, periprosthetic femur fracture, heterotopic ossification, abductor weakness and limp, incomplete relief of pain, incomplete recovery of function, chronic pain, likely need for further surgery in future including revision, anesthetic complications including heart attack, stroke and even . We also discussed the postoperative recovery and rehabilitation. Patient understood the risks, agreed to proceed with surgery, signed the consent form and no guarantees or assurances were given or implied. The patient was brought to the operating room and a spinal anesthesia was administered by the pipe connector. The patient was then positioned in the LEFT lateral decubitus position with the RIGHT hip facing up. We used Wixon hip positioner for this. All the bony prominences were appropriately padded. The RIGHT hip was then prepped with isopropyl alcohol followed by chlorhexidine and draped in the usual sterile fashion. The entire operative team wore isolation suits and the Operating Room traffic was controlled. The skin incision was marked for a posterior approach to the hip joint. The perineum and the operative site were sealed off with Ioban drape. A preprocedure timeout was performed as per hospital protocol identifying the patient, correct surgery and correct site. Administration of prophylactic antibiotics (IV Ancef and vancomycin) was confirmed with the pipe connector. Before completion of the procedure 1 more gram of IV Ancef was administered as the operating time was over 2 hours. We have also administered IV tranexamic acid just before the incision and another dose at the end of the procedure, to reduce the preoperative bleeding. A posterior approach was used to the RIGHT hip joint. The skin incision was made centering over the posterior part of the greater trochanter extending posteriorly in a curved fashion across the buttock. An electrocautery was used for hemostasis. The dissection was carried through the subcutaneous tissue down to the fascia todd. The fascia todd and gluteus fascia were split in line with the skin incision and a Charnley retractor was placed. The trochanteric bursa was then removed with blunt dissection. The sciatic nerve was identified and kept out of harm's way throughout the rest of the procedure. The hip joint was internally rotated and the fat over the short external rotators was cleared with a sponge. The short external rotator muscles were identified, multiple Ethibond tag stitches were placed near their insertion and they were divided close to the trochanter with electrocautery. This exposed the joint capsule which was opened in a T-shaped incision after tag stitches were placed to both the leaves of the capsule. The hip joint was then dislocated. The femoral cutting guide was used to demarcate the appropriate level of the neck cut and the neck was osteotomized with an oscillating saw. The femoral head was removed, noted to be deformed and arthritic and saved on the back table for later use if needed. We then placed anterior and posterior Cobra retractors and proceeded to prepare the acetabulum. The soft tissue contents of the acetabulum including the ligamentum teres and the labrum were removed. We then proceeded to reaming the acetabulum. We started off with a size 45 reamer and then proceeded with reaming up to size 51 for a size 52 acetabular shell. We used a size 52 cup trial which could be seated firmly and was noted to be stable. We then removed the trial shell and placed a size 52 definitive acetabular cluster hole shell at approximately 45 degrees inclination and 20 degrees of anteversion. The press-fit fixation was quite solid and therefore, I did not need to place any screws for additional fixation. We then placed the metal liner into the shell and impacted into place. We then placed a Ray-Alex gauze in the acetabulum and proceeded to prepare the proximal femur. After removing the soft tissue from the medial aspect of the greater trochanter, a box osteotome was used to remove the bone from the proximal femur. A canal entry reamer was then used to open the femoral canal paying close attention to keep the reamer in a lateral position. Next we used the lateralizing drill. Next we performed femoral broaching starting with a small broach, making sure to lateralize the placement and maintain 15-20 degrees of femoral anteversion. The broaching was continued sequentially up to size 5 broach. We found this to be a very good fit without any rocking. We then finished the preparation of the proximal femur with a calcar reamer. We then attempted a trial reduction using a size 5 broach, 132 angle neck and 0 mm head. Following this the hip joint was taken through range of motion and tested in adduction, internal and external rotation as well as with a shuck and posteriorly directed force on a flexed hip. We placed the hip at 90 degrees of flexion and then we could internally rotate to beyond 60 degrees with no evidence of instability. Also in the sleep position of approximately 20 degrees of adduction and internal rotation of 60 degrees the hip was still stable. We also noted that the limb lengths were equal with these components. As the hip was noted to be very stable with these trial components throughout the range of motion, we decided on this as our final construct. Next the trial components were removed and the femoral canal was irrigated with the pulse lavage and suctioned out. The definitive femoral stem was then placed and seated to the appropriate level. This gave us a very good fit without any play whatsoever. We then irrigated and dried the Winters taper and then placed the definitive MDM femoral head assembly on the stem and tapped into place. The Ray-Alex was removed from the acetabulum and hip joint irrigated with the pulse lavage. The hip was then reduced and taken through range of motion and noted to be very stable. The limb length was also well corrected. The hip joint was then soaked with dilute Betadine (0.35 percent) solution for 3 minutes followed by suctioning of the solution and pulsatile lavage with 1 L of normal saline; good hemostasis was confirmed before proceeding with wound closure. The capsule was closed with #0 Vicryl sutures followed by the reattachment of the external rotators to the greater trochanter with #0 Vicryl sutures. Next the fascia todd and gluteus fascia were closed with #1 STRATAFIX knotless suture. The wound was then finally irrigated with pulse lavage and suctioned dry. Next the subcutaneous tissue was closed with #0 STRATAFIX suture. The skin was closed with subcuticular 3-0 STRATAFIX sutures and Dermabond prinio dressing. Sterile dressings were applied consisting of 4 x 4 and ABDs, secured in place with adhesive tape. No drains were placed. The patient was then transferred from the operating table onto the bed. The leg lengths were again checked in supine position and noted to be equal. An abduction foam was placed between the legs. The patient was then reversed from the anesthetic and transported to the postoperative recovery area in a stable condition. Patient tolerated the procedure well and there were no immediate complications. The swab, needle and instrument counts were correct according to the scrub team at the end of the procedure. Portable x-rays of the operated hip were obtained in the recovery area which showed satisfactory placement of the components and no evident complications. Postoperatively, we would institute and continue standard precautions for a posterior hip approach. Patient can be mobilized weightbearing as tolerated with the help of physical therapy and commence standard physical therapy for a posterior approach total hip arthroplasty on the first postoperative day. Implants: The following Lelia implants were used- Lelia Accolade 2 press-fit femoral stem, 132/127 degree neck angle, size 5 Trident 2 titanium clusterhole acetabular shell, 52 mm, E 42 mm E inner diameter MDM cementless liner Hindu MDM X3 insert , size 42 E Biolox delta ceramic head V 40 femoral head, size 28 mm x +0 mm neck length (Industry senior account representative: Eric Dillon from [employer]). Condition: stable Disposition: PACU Specimens:: None Complications:: None
[2019-07-19 06:30] LABS: Lymphocytes # 1.6 K/mm3 (0.7-4.5); Monocytes # 0.5 K/mm3 (0.1-1.0)
[2019-07-19 06:40] LABS: Basophils % 0.1 % (0.1-2.0); Eosinophils % 0.4 % (0.1-12.0); Hematocrit 31.8 % (37.0-47.0); Lymphocytes % 20.3 % (10-50); Mean Corpuscular HGB Conc 32.6 g/dL (31.8-35.4); Mean Platelet Volume 8.3 fl (7.4-10.4); Neutrophils # 5.8 K/mm3 (1.8-7.8); Platelet Count 182 K/mm3 (142-424); Red Blood Count 3.28 M/mm3 (4.20-5.40); Red Cell Distribution Width 13.4 % (11.5-17.5); White Blood Count 7.9 K/mm3 (4.8-10.8)
[2019-07-19 06:49] LABS: Anion Gap 9.7 mEq/L (5-15)
--- NOTE | 2019-07-19 08:50 | Consult Report ---
*Admission Date: 07/18/19 *Reason for consult:: medical consult *History of present illness: 68 yr old female s/p rt hip replacement. Patient sitting up in chair states pain and hip but states she feels better than expected. Patient would like Razo catheter removed so she can wear her underwear. [facility] History I have reviewed the patient's past medical history: Yes Medical History: Reports:: Anxiety, Depression, Gastroesophageal Reflux Disea se(GERD), Hyperlipidemia, Hypertension, Valvular Heart Disease (Aortic Insufficiency, diastolic dysfunction) Denies:: Cancer, Diabetes Mellitus Type 1, Diabetes Mellitus Type 2, Internal Pacemaker, Seizures, Transient Ischemic Attacks (TIA) *Have you ever received a pneumonia vaccine?: No *Have you received a flu vaccine this season?: Yes Other Medical History: Reports: Arthritis, Hypothyroidism. Denies: Blood Transfusion Reaction Anesthesia experience/problems:: no complications Laterality Cases: Bilateral: Other Other Surgeries: Yes: Hysterectomy-Total, Hysterectomy-Partial, Other. No: Pacemaker Amputation: No Fractures: No - *Social History Educational Level: Attended High School Smoking Status: Never smoker Alcohol Intake: never Substance Use Type: denies use *Occupational Status:: retired Housing: house Household Members: spouse *Travel in the last 8 weeks: None - Psychiatric History Pschychiatric History:: Reports:: Anxiety, Depression Family Hx:: Hypertension, Heart Attack, Stroke Review of Systems - Review of Systems Review of systems:: pertinent systems reviewed and negative unless documented below - Constitutional Denies body ache(s), Denies fatigue - Eyes Denies blurry vision - ENT Denies nose pain, Denies pain with swallowing - *Cardiovascular Denies chest pain at rest, Denies excessive sweating - *Respiratory Denies chest congestion - *Gastrointestinal Denies nausea, Denies vomiting - *Genitourinary Denies urinary incontinence - *Musculoskeletal Reports joint pain, Reports other - Integumentary/Breasts Denies rash - *Neurologic Denies dizziness - Psychiatric Denies lack of enjoyment - Endocrine Denies rapid, pounding, or irregular heartbeat - Hematologic/Lymphatic Denies enlarged lymph nodes - Allergic/Immunologic Denies itchy eyes Meds Home Medications Medication Instructions Recorded Confirmed Type aspirin 81 mg tablet,delayed 81 mg PO DAILY tab 02/08/18 07/13/19 History release lovastatin 20 mg tablet 20 mg PO DAILY 08/13/18 07/13/19 History Cetirizine HCl 10 mg PO DAILY 07/13/19 07/13/19 History Chlorhexidine Gluconate 1 applic TOPICAL ONCE 07/13/19 07/13/19 History Escitalopram Oxalate 20 mg PO DAILY 07/13/19 07/13/19 History Famotidine [Acid Net Manager] 20 mg PO BID 07/13/19 07/13/19 History Fluticasone Propionate [Flonase See Rx Instructions .ROUTE .COMPLEX 07/13/19 07/13/19 History 50mcg nasal spray 16gm] Furosemide [Furosemide 20mg Tab] 10 mg PO Q OTHER DAY 07/13/19 07/13/19 History Levothyroxine Sodium [Synthroid 25 mcg PO DAILY 07/13/19 07/19/19 History 25mcg (0.025mg) tablet] Lisinopril [Prinivil 5mg Tablet] 5 mg PO DAILY 07/13/19 07/13/19 History Mupirocin [Centany] 1 applic TOPICAL BID 07/13/19 07/13/19 History Allergies Allergy/AdvReac Type Severity Reaction Status Date / Time No Known Allergies Allergy Verified 07/18/19 17:28 Exam Vital signs and Labs for Last 24 Hours: Temp Pulse Resp BP Pulse Ox 98.2 F 92 H 20 142/73 H 96 07/19/19 08:00 07/19/19 08:00 07/19/19 08:00 07/19/19 08:00 07/19/19 08:00 Laboratory Results - last 24 hr 07/18/19 10:11: WBC 4.8, RBC 4.38, Hgb 13.8, Hct 42.7, MCV 97.5, MCH 31.5 H, MCHC 32.3, RDW 13.4, Plt Count 232, MPV 7.6, Neut % (Auto) 55.2, Lymph % (Auto) 35.8, [place] % (Auto) 6.1, Eos % (Auto) 2.0, Baso % (Auto) 0.9, Neut # (Auto) 2.7, Lymph # (Auto) 1.7, [place] # (Auto) 0.3, Eos # (Auto) 0.1, Baso # (Auto) 0.0 07/18/19 10:11: Sodium 142, Potassium 3.6, Chloride 104, Carbon Dioxide 31, Anion Gap 10.6, BUN 11, Creatinine 0.63, Estimated Creat Clear 66, Estimated GFR 94, Est GFR ( Amer) 114, Glucose 98, Calcium 8.8 07/18/19 10:45: Urine Color Yellow, Urine Appearance Clear, Urine pH 7.0, Ur Specific [place] 1.020, Urine Protein Negative, Urine Glucose (UA) Negative, Urine Ketones Negative, Urine Blood Negative, Urine Nitrate Negative, Urine Bilirubin Negative, Urine Urobilinogen 0.2, Ur Leukocyte Esterase Negative, Urine RBC None, Urine WBC None, Ur Squamous Epith Cells None, Urine Bacteria None 07/19/19 06:20: WBC 7.9 D, RBC 3.28 L D, Hct 31.8 L, MCV 97.0, MCH 31.6 H, MCHC 32.6, RDW 13.4, Plt Count 182, MPV 8.3, Neut % (Auto) 73.0, Lymph % (Auto) 20.3, [place] % (Auto) 6.0, Eos % (Auto) 0.4, Baso % (Auto) 0.1, Neut # (Auto) 5.8, Lymph # (Auto) 1.6, [place] # (Auto) 0.5, Eos # (Auto) 0.0, Baso # (Auto) 0.0 07/19/19 06:20: Sodium 141, Potassium 3.7, Chloride 107, Carbon Dioxide 28, Anion Gap 9.7, BUN 12, Creatinine 0.69, Estimated Creat Clear 67, Estimated GFR 85, Est GFR ( Amer) 102, Glucose 113 H, Calcium 8.0 L I & O for Last 24 hours: Intake & Output 07/16/19 07/17/19 07/18/19 07/19/19 11:59 11:59 11:59 11:59 Intake Total 2874 / 2874 Output Total 1350 / 1350 Balance 1524 / 1524 Weight 175 lb - Constitutional no acute distress - *Routine HEENT Exam Head: Present: normocephalic Eye: Present: PERRL ENT: Present: mucous membranes moist - *Routine Neck Exam Present: supple. Absent: lymphadenopathy - *Routine Respiratory Exam Present: CTA bilaterally - *Routine Cardiovascular Exam Present: RRR - *Routine Abdominal Exam Present: soft, normoactive bowel sounds. Absent: tenderness - *Routine Extremities Exam Present: normal capillary refill. Absent: cyanosis, clubbing, edema Comments: Dressing to right hip clean dry and intact - *Routine Skin Exam Present: warm. Absent: rash Comments: Dressing to right hip clean dry and intact - *Routine Neurological Exam Present: alert, oriented X3 - Routine Psychiatric Exam Present: normal affect Internal Medicine - CN: Reslt - Labs CBC & Chem 7: 07/19/19 06:20 07/19/19 06:20 Labs: Short CBC 07/18/19 07/19/19 Range/Units 10:11 06:20 WBC 4.8 7.9 D (4.8-10.8) K/mm3 Hgb 13.8 (12.2-16.2) g/dL Hct 42.7 31.8 L (37.0-47.0) % Plt Count 232 182 (142-424) K/mm3 BMP 07/18/19 07/19/19 10:11 06:20 Sodium 142 141 Potassium 3.6 3.7 Chloride 104 107 Carbon Dioxide 31 28 BUN 11 12 Creatinine 0.63 0.69 Glucose 98 113 H Calcium 8.8 8.0 L Urine 07/18/19 Range/Units 10:45 Urine Color Yellow (Yellow) Urine Appearance Clear (Clear) Urine pH 7.0 (5.0-8.5) Ur Specific [place] 1.020 (1.005-1.030) Urine Protein Negative (Negative) Urine Glucose (UA) Negative (Negative) Assessment and Plan - Assessment and plan all Dx Assessment and Plan for all problems:: Rounded with Dr. Nj all orders per Clem ARANGO Razo catheter per patient request Continue with physical therapy
[2019-07-19 10:18] LABS: Hemoglobin 10.3 g/dL (12.2-16.2)
--- NOTE | 2019-07-19 16:16 | Progress Note ---
Subjective Date: 07/19/19 Time: 12:00 Principal diagnosis: Status post total hip arthroplasty, right Interval history: Patient is status post right total hip arthroplasty post op day #1. Patient is lying down on the bed- says she is doing well and reports no problems. Patient has minimal pain and says it's well-controlled with medication. No history of any nausea or vomiting. No history of any cough, chest pain, shortness of breath or palpitations. Patient says she is eating and drinking well. No history of any distal tingling or numbness. She started physical therapy and mobilization today and says it went well. PN: Obj Ex Vital signs: Temp Pulse Resp BP Pulse Ox 98.7 F 85 18 121/75 98 07/19/19 11:40 07/19/19 11:40 07/19/19 11:40 07/19/19 11:40 07/19/19 11:40 Narrative: Laboratory Results - last 24 hr 07/19/19 06:20: WBC 7.9 D, RBC 3.28 L D, Hgb 10.3 L D, Hct 31.8 L, MCV 97.0, MCH 31.6 H, MCHC 32.6, RDW 13.4, Plt Count 182, MPV 8.3, Neut % (Auto) 73.0, Lymph % (Auto) 20.3, [place] % (Auto) 6.0, Eos % (Auto) 0.4, Baso % (Auto) 0.1, Neut # (Auto) 5.8, Lymph # (Auto) 1.6, [place] # (Auto) 0.5, Eos # (Auto) 0.0, Baso # (Auto) 0.0 07/19/19 06:20: Sodium 141, Potassium 3.7, Chloride 107, Carbon Dioxide 28, Anion Gap 9.7, BUN 12, Creatinine 0.69, Estimated Creat Clear 67, Estimated GFR 85, Est GFR ( Amer) 102, Glucose 113 H, Calcium 8.0 L Exam General appearance: alert, active, awake, no acute distress Cardiovascular: regular rate & rhythm, normal peripheral pulses Respiratory: No respiratory distress noted, speaks in full sentences ABD: soft and non tender Neuro: alert, awake, oriented x 3 Psych: normal mood and affect On examination of the lower extremities the limb lengths are equal. Thigh and calf are soft and nontender. On examination of the right hip the dressings are clean, dry and intact. No soakage or strikethrough noted. Distal pulses are 2+. Distal sensation is intact to light touch throughout. No motor deficits noted distally. Diagnostic imaging: Postoperative check x-ray satisfactory with good alignment and fixation of the components. No complications noted on the x-rays. - Urinary Catheter Management Razo Cath placed during this visit: no Progress Note: A&P (1) Primary osteoarthritis of right hip Status: Chronic Current Visit: Yes (2) History of total right hip arthroplasty Start date: 07/18/19 Status: Acute Current Visit: Yes Assessment and Plan for All Diagnoses:: I have reviewed the clinical and operative findings and procedure performed with the patient. I have given her a paper copy of the postoperative check x-ray. Patient is doing well and reports no problems. Patient is mobilizing well weightbearing as tolerated on the right side with the walker and to continue the same. Continue DVT prophylaxis. Continue abduction pillow when in bed and continue standard precautions for the posterior approach hip replacement. Discontinue IV fluids. Case management consult regarding discharge planning. Continue medical management as per Dr. Nj.
[2019-07-20 06:31] LABS: Basophils % 0.2 % (0.1-2.0); Eosinophils # 0.1 K/mm3 (0.0-0.4); Eosinophils % 0.7 % (0.1-12.0); Hematocrit 29.9 % (37.0-47.0); Hemoglobin 9.7 g/dL (12.2-16.2); Lymphocytes # 1.3 K/mm3 (0.7-4.5); Lymphocytes % 16.1 % (10-50); Mean Corpuscular HGB Conc 32.4 g/dL (31.8-35.4); Mean Platelet Volume 7.8 fl (7.4-10.4); Monocytes # 0.5 K/mm3 (0.1-1.0); Monocytes % 6.1 % (1.7-9.3); Neutrophils # 6.4 K/mm3 (1.8-7.8); Neutrophils % 76.9 % (37.0-80.0); Platelet Count 196 K/mm3 (142-424); Red Blood Count 3.06 M/mm3 (4.20-5.40); Red Cell Distribution Width 13.6 % (11.5-17.5); White Blood Count 8.3 K/mm3 (4.8-10.8)
[2019-07-20 06:40] LABS: Anion Gap 9.5 mEq/L (5-15); Calcium 7.9 mg/dL (8.5-10.1)
--- NOTE | 2019-07-20 13:56 | Progress Note ---
Internal Medicine - PN: Subj *Date: 07/20/19 *Time: 08:00 Interval history: feels ok - oob in chair - no c/o except hip pain Exam Vital signs and Labs for Last 24 Hours: Temp Pulse Resp BP Pulse Ox 98.4 F 89 16 122/58 L 91 L 07/20/19 08:00 07/20/19 08:00 07/20/19 08:00 07/20/19 08:00 07/20/19 08:00 Laboratory Results - last 24 hr 07/20/19 05:20: WBC 8.3, RBC 3.06 L, Hgb 9.7 L, Hct 29.9 L, MCV 98.0, MCH 31.7 H , MCHC 32.4, RDW 13.6, Plt Count 196, MPV 7.8, Neut % (Auto) 76.9, Lymph % (Auto) 16.1, [place] % (Auto) 6.1, Eos % (Auto) 0.7, Baso % (Auto) 0.2, Neut # (Auto) 6.4, Lymph # (Auto) 1.3, [place] # (Auto) 0.5, Eos # (Auto) 0.1, Baso # (Auto) 0.0 07/20/19 05:20: Sodium 140, Potassium 3.5, Chloride 107, Carbon Dioxide 27, Anion Gap 9.5, BUN 15, Creatinine 0.72, Estimated Creat Clear 69, Estimated GFR 81, Est GFR ( Amer) 97, Glucose 138 H D, Calcium 7.9 L I & O for Last 24 hours: Intake & Output 07/18/19 07/19/19 07/20/19 07/21/19 11:59 11:59 11:59 11:59 Intake Total 2874 / 2874 1200 / 1200 Output Total 1350 / 1350 2300 / 2300 Balance 1524 / 1524 -1100 / -1100 Weight 175 lb 179 lb 3 oz - Constitutional no acute distress - *Routine HEENT Exam Head: Present: normocephalic Eye: Present: EOMI, PERRL ENT: Present: mucous membranes dry - *Routine Neck Exam Absent: full ROM - *Routine Respiratory Exam Present: CTA bilaterally - *Routine Cardiovascular Exam Present: RRR, murmur - *Routine Abdominal Exam Present: soft - *Routine Extremities Exam Absent: tenderness - *Routine Skin Exam Present: intact - *Routine Neurological Exam Present: alert, CN II-XII intact - Routine Psychiatric Exam Present: normal affect Assessment and Plan (1) Primary osteoarthritis of right hip Current visit: Yes Status: Chronic Category: Medical Code(s): M16.11 - Unilateral primary osteoarthritis, right hip (2) History of total right hip arthroplasty Start date: 07/18/19 Current visit: Yes Status: Acute Category: Surgical Code(s): Z96.641 - Presence of right artificial hip joint
--- NOTE | 2019-07-21 08:44 | Progress Note ---
Internal Medicine - PN: Subj *Date: 07/21/19 *Time: 08:42 Interval history: pt sitting up in chair, states she feels well. Exam Vital signs and Labs for Last 24 Hours: Temp Pulse Resp BP Pulse Ox 98.6 F 90 16 111/59 L 92 L 07/21/19 04:00 07/21/19 04:00 07/21/19 04:00 07/21/19 04:00 07/21/19 04:00 I & O for Last 24 hours: Intake & Output 07/18/19 07/19/19 07/20/19 07/21/19 11:59 11:59 11:59 11:59 Intake Total 2874 / 2874 1200 / 1200 1219 / 1219 Output Total 1350 / 1350 2300 / 2300 650 / 650 Balance 1524 / 1524 -1100 / -1100 569 / 569 Weight 175 lb 179 lb 3 oz 181 lb 2.997 oz - Constitutional no acute distress - *Routine HEENT Exam Head: Present: normocephalic Eye: Present: PERRL ENT: Present: mucous membranes moist - *Routine Neck Exam Present: supple. Absent: lymphadenopathy - *Routine Respiratory Exam Present: CTA bilaterally - *Routine Cardiovascular Exam Present: RRR - *Routine Abdominal Exam Present: soft, normoactive bowel sounds. Absent: tenderness - *Routine Extremities Exam Absent: cyanosis, clubbing, edema Comments: dressing c/d/i suds in place - *Routine Skin Exam Present: warm. Absent: rash Comments: dressing c/d/i - *Routine Neurological Exam Present: alert, oriented X3 - Routine Psychiatric Exam Present: normal affect Assessment and Plan (1) Primary osteoarthritis of right hip Current visit: Yes Status: Chronic Category: Medical Code(s): M16.11 - Unilateral primary osteoarthritis, right hip (2) History of total right hip arthroplasty Start date: 07/18/19 Current visit: Yes Status: Acute Category: Surgical Code(s): Z96.641 - Presence of right artificial hip joint - Assessment and plan all Dx Assessment and Plan for all problems:: rounded with jason all orders per jason poss transfer to swing bed
--- NOTE | 2019-07-21 15:51 | Progress Note ---
Subjective Date: 07/21/19 Time: 11:30 Principal diagnosis: Status post total hip arthroplasty, right Interval history: Patient is status post right total hip arthroplasty post op day #3. Patient is lying down on the bed; says she is doing well and reports no problems. Patient has minimal pain and says it's well-controlled with medication. No history of any nausea or vomiting. No history of any cough, chest pain, shortness of breath or palpitations. Patient says she is eating and drinking well. No history of any distal tingling or numbness. PN: Obj Ex Vital signs: Temp Pulse Resp BP Pulse Ox 97.9 F 92 H 20 154/71 H 92 L 07/21/19 08:00 07/21/19 08:00 07/21/19 14:03 07/21/19 08:00 07/21/19 08:00 Narrative: Exam General appearance: alert, active, awake, no acute distress Cardiovascular: regular rate & rhythm, normal peripheral pulses Respiratory: No respiratory distress noted, speaks in full sentences ABD: soft and non tender Neuro: alert, awake, oriented x 3 Psych: normal mood and affect On examination of the lower extremities the limb lengths are equal. Thigh and calf are soft and nontender. On examination of the right hip the incision is clean, dry and healthy. No evidence of any infection or other complications are noted. Distal pulses are 2+. Distal sensation is intact to light touch throughout. No motor deficits noted distally. - Urinary Catheter Management Razo Cath placed during this visit: no Progress Note: A&P (1) Primary osteoarthritis of right hip Status: Chronic Current Visit: Yes (2) History of total right hip arthroplasty Status: Acute Current Visit: Yes Assessment and Plan for All Diagnoses:: I have reviewed the clinical findings and progress with the patient. Patient is doing well and reports no problems. Patient is mobilizing weightbearing as tolerated on the right side with the walker and to continue the same. She is still having some pain and muscle spasms on walking and her walking distance is limited because of this. Continue PT, OT, continue abduction pillow when in bed and continue standard precautions for the posterior approach hip replacement. Continue DVT prophylaxis. Case management looking into discharge planning. Patient is likely to be discharged to swing bed today if approved by her insurance provider. Continue medical management as per Dr. Nj.
--- NOTE | 2019-07-21 15:57 | Progress Note ---
Subjective Date: 07/20/19 Time: 12:15 Principal diagnosis: Status post total hip arthroplasty, right Interval history: Patient is status post right total hip arthroplasty post op day #2. Patient is lying down on the bed and says she is doing well. Patient has minimal pain and says it's well-controlled with medication. No history of any nausea or vomiting. No history of any cough, chest pain, shortness of breath or palpitations. Patient says she is eating and drinking well. No history of any distal tingling or numbness. Patient says she had muscle spasms and severe pain while walking with the physical therapist and they had to abandon the walking at that stage. PN: Obj Ex Vital signs: Temp Pulse Resp BP Pulse Ox 97.9 F 92 H 20 154/71 H 92 L 07/21/19 08:00 07/21/19 08:00 07/21/19 14:03 07/21/19 08:00 07/21/19 08:00 Narrative: Exam General appearance: alert, active, awake, no acute distress Cardiovascular: regular rate & rhythm, normal peripheral pulses Respiratory: No respiratory distress noted, speaks in full sentences ABD: soft and non tender Neuro: alert, awake, oriented x 3 Psych: normal mood and affect On examination of the lower extremities the limb lengths are equal. Thigh and calf are soft and nontender. On examination of the right hip the dressings are clean, dry and intact. The dressings are changed by me. There is no soakage of the dressings. The incision looks clean and healthy. The Dermabond Prineo dressing is in place. No evidence of any infection or other complications are noted. Distal pulses are 2+. Distal sensation is intact to light touch throughout. No motor deficits noted distally. - Urinary Catheter Management Razo Cath placed during this visit: no Progress Note: A&P (1) Primary osteoarthritis of right hip Status: Chronic Current Visit: Yes (2) History of total right hip arthroplasty Status: Acute Current Visit: Yes Assessment and Plan for All Diagnoses:: I have reviewed the clinical findings and progress with the patient. Patient is doing fairly well and reports no problems. She says her pain is better than the day before and is well controlled with medication. Patient is mobilizing weightbearing as tolerated on the right side with the walker and to continue the same. Continue DVT prophylaxis. Continue abduction pillow when in bed and continue standard precautions for the posterior approach hip replacement. Case management looking into discharge planning. Continue medical management as per Dr. Nj.
[2019-07-22 09:05] LABS: Basophils % 0.4 % (0.1-2.0); Eosinophils # 0.1 K/mm3 (0.0-0.4); Hematocrit 28.8 % (37.0-47.0); Hemoglobin 9.4 g/dL (12.2-16.2); Lymphocytes # 1.4 K/mm3 (0.7-4.5); Lymphocytes % 19.8 % (10-50); Mean Corpuscular HGB Conc 32.8 g/dL (31.8-35.4); Mean Corpuscular Volume 97.1 fl (81-99); Mean Platelet Volume 7.6 fl (7.4-10.4); Monocytes # 0.6 K/mm3 (0.1-1.0); Neutrophils # 4.8 K/mm3 (1.8-7.8); Neutrophils % 69.8 % (37.0-80.0); Platelet Count 280 K/mm3 (142-424); Red Blood Count 2.97 M/mm3 (4.20-5.40); Red Cell Distribution Width 13.4 % (11.5-17.5); White Blood Count 6.9 K/mm3 (4.8-10.8)
[2019-07-22 09:15] LABS: Anion Gap 9.8 mEq/L (5-15); Calcium 7.9 mg/dL (8.5-10.1)
--- OUTSIDE RECORDS SUMMARY | 2019-07-22 10:54 | External Medical Summary | Continuity of Care Document ---
:1950 Author Organization [facility] Address [address] [facility] [address] t ERLIN Morales [facility] Phone Care Team Providers Name Role Phone Will Nj Primary Care Provider Octavio Macdonald Attending Provider Nils Attending Provider Axel Attending Provider Axel Primary Care Provider Black Attending Provider Will Nj Attending Provider Allergies, Adverse Reactions, Alerts No known allergies. Medications Medication Status Dose Units Route Sig Qty Days Start End Instruct ions Date Date Aspirin Active 81 MG Oral Daily February 08, 2018 3:30pm Lovastatin Active 20 MG Oral Daily August 13, 2018 11:12am Cetirizine Hcl Active 10 MG Oral Daily July 13, 2019 10:52am Chlorhexidine Active 1 APPLIC LIQUID As November Gluconate Directed 2018 10:52am Escitalopram Active 20 MG Oral Daily June 10:52am Famotidine Active 20 MG Oral Twice a June 10:52am Fluticasone Active 1 SPRAY NASAL Daily June USE 1 SPRAY Propionate , 2018 NOSTRIL EVERY 10:52am DAY Furosemide Active 10 MG Oral Q48H July 13, 2019 10:52am Levothyroxine Active 25 MCG Oral Daily June 10:52am Lisinopril Active 5 MG Oral Daily July 13, 2019 10:52am Mupirocin Active 1 APPLIC Twice a June 10:52am Problems Active Problems Medical Problem Onset Date Status Vitamin D insufficiency Active Arm pain Active Encounter for pre-operative Active cardiovascular clearance Dizzy Active Aortic insufficiency Active HLD (hyperlipidemia) Active Diastolic dysfunction Active Sinusitis Active Bronchitis Active HTN (hypertension) Active Procedures Procedure Date Performed Status XR chest 2V June 27, 2019 completed XR knee LT 4V May 04, 2019 completed XR knee RT 4V May 04, 2019 completed XR hip RT 2-3V w/pelvis May 04, 2019 completed XR hip RT 2-3V w/pelvis July 18, 2019 completed Total Hip Arthroplasty (Right) July 18, 2019 11:08am co mpleted July 18, 2019 10:00am completed July 18, 2019 10:00am completed NM sergei perf SPECT rest & str May 30, 2019 completed Relevant Diagnostic Tests and/or Laboratory Data Laboratory Results Test Date/Time Result Interpretation Reference Result Perfo rming Range Comment Site White Blood Count June 5.4 K/mm3 4.8-10.[address] 36 2018 [facility] [address] 5:42am White Blood Count July 7.9 K/mm3 4.8-10.8 [place]: [address] 36 2018 4.8 on [facility] [address] 6:20am 07/18/19 Red Blood Count June 4.35 M/mm3 4.20-5.[address] 36 2018 [facility] [address] 5:42am Red Blood Count July 3.28 M/mm3 4.20-5.40 [place]: [address] 36 2018 4.38 on [facility] [address] 6:20am 07/18/19 Hemoglobin June 14.1 g/dL 12.2-16.2 [facility], [address] [place] [address] 36 E 2018 [place] [address] 5:42am Hemoglobin Kalia 10.3 g/dL 12.2-16.2 Delta: [facility], [address] [place] [address] 36 E 2018 13.8 on Andrew [place] [address] 6:20am 07/18/19 -1011 Hematocrit November 41.8 % 37.0-47.0 [facility], [address] [place] [address] 36 E 2018 [place] [address] 5:42am Hematocrit Kalia 31.8 % 37.0-47.0 [facility], [address] [place] [address] E 2018 [place] [address] 6:20am Mean Corpuscular November 96.2 fl 81-99 [facility], [address] [place] [address] E Volume 2018 [place] [address] 5:42am Mean Corpuscular Kalia 97.0 fl 81-99 [facility], [address] [place] [address] E Volume 2018 [place] [address] 6:20am Mean Corpuscular November 32.3 pg 27.0-31.2 [facility], [address] [place] [address] 36 E Hemoglobin 2018 C[place]arda [place] [address] 5:42am Mean Corpuscular Kalia 31.6 pg 27.0-31.2 [facility], [address] [place] [address] 36 E Hemoglobin 2018 [place] [address] 6:20am Mean Corpuscular November 33.6 g/dL 31.8-35.4 [facility], [address] [place] [address] 36 E Hemoglobin Concent 2018 [place] [address] 5:42am Mean Corpuscular Kalia 32.6 g/dL 31.8-35.4 [facility], [address] [place] [address] 36 E Hemoglobin Concent 2018 Gerard saunders [place] [address] 6:20am Red Cell November 13.4 % 11.5-17.5 [facility], [address] [place] [address] E Distribution Width 2018 [place] [address] 5:42am Red Cell Kalia 13.4 % 11.5-17.5 [facility], [address] [place] [address] 36 E Distribution Width 2018 Gerard chip [place] [address] 6:20am Platelet Count June 238 K/mm3 142-424 [facility], [address] [place] [address] 36 E 2018 [place] [address] 5:42am Platelet Count July 182 K/mm3 142-424 [facility], [address] [place] [address] 36 E 2018 [place] [address] 6:20am Mean Platelet June 7.6 fl 7.4-10.4 [facility], [address] [place] [address] 36 E Volume 2018 [place] [address] 5:42am Mean Platelet July 8.3 fl 7.4-10.4 [facility], [address] [place] [address] E Volume 2018 [place] [address] 6:20am Neutrophils (%) June 61.0 % 37.0-80.0 [facility], [address] [place] [address] 36 E (Auto) 2018 [place] [address] 5:42am Neutrophils (%) July 73.0 % 37.0-80.0 [facility], [address] [place] [address] 36 E (Auto) 2018 [place] [address] 6:20am Lymphocytes (%) June 28.0 % 10-50 [facility], [address] [place] [address] E (Auto) 2018 [place] [address] 5:42am Lymphocytes (%) July 20.3 % 10-50 [facility], [address] [place] [address] 36 E (Auto) 2018 [place] [address] 6:20am Monocytes (%) June 8.5 % 1.7-9.3 [facility], [address] [place] [address] 36 E (Auto) 2018 [place] [address] 5:42am Monocytes (%) July 6.0 % 1.7-9.3 [facility], [address] [place] [address] 36 E (Auto) 2018 [place] [address] 6:20am Eosinophils (%) June 1.4 % 0.1-12.[address] 36 E (Auto) 2018 [place] [address] 5:42am Eosinophils (%) Kalia 0.4 % 0.1-12.0 [facility], [address] [facility] 36 E (Auto) 2018 [place] [address] 6:20am Basophils (%) June 1.1 % 0.1-2.0 [place] [facility], [address] [place] [address] 36 E (Auto) 2018 [place] [address] 5:42am Basophils (%) Kalia 0.1 % 0.1-2.0 [place] [facility], [address] [place] [address] 36 E (Auto) 2018 [place] [address] 6:20am Neutrophils # June 3.3 K/mm3 1.8-7.8 [place] [facility], [address] [place] [address] E (Auto) 2018 [place]RL[place] 5:42am Neutrophils # July 5.8 K/mm3 1.8-7.8 [place] [facility], [address] [place] [address] 36 E (Auto) 2018 [place] [address] 6:20am Lymphocytes # June 1.5 K/mm3 0.7-4.5 [place] [facility], [address] [place] [address] 36 E (Auto) 2018 [place] 5:42am Lymphocytes # July 1.6 K/mm3 0.7-4.5 [place] [facility], [address] [place] [address] E (Auto) 2018 [place] [address] 6:20am Monocytes # (Auto) June 0.5 K/mm3 0.1-1.0 [facility], [address] [place] [address] 36 E 2018 [place] 5:42am Monocytes # (Auto) Kalia 0.5 K/mm3 0.1-1.0 [facility], [address] [place] [address] 36 E 2018 [place] 6:20am Eosinophils # June 0.1 K/mm3 0.0-0.4 [place] [facility], [address] [place] [address] 36 E (Auto) 2018 [place] 5:42am Eosinophils # Kalia 0.0 K/mm3 0.0-0.4 [place] [facility], [address] [place] [address] 36 E (Auto) 2018 [place] 6:20am Basophils # (Auto) November 0.1 K/mm3 0-0.2 [facility], [address] [place] [address] 36 E 2018 [place] [address] 5:42am Basophils # (Auto) Kalia 0.0 K/mm3 0-0.2 [facility], [address] [place] [address] 36 E 2018 [place] [address] 6:20am Urine Color November Yellow Yellow [facility], [address] [place] [address] 36 E 2018 [place] [address] 9:18am Urine Color Kalia Yellow Yellow [facility], [address] [place] [address] 36 E 2018 [place] [address] 10:45am Urine Appearance November Clear Clear [facility], [address] [place] [address] 36 E 2018 [place] [address] 9:18am Urine Appearance Kalia Clear Clear [facility], [address] [place] [address] 36 E 2018 Andrew [place] [address] 10:45am Urine pH November 7.0 5.0-8.5 [facility], [address] [place] [address] 36 E 2018 [place] [address] 9:18am Urine pH Kalia 7.0 5.0-8.5 [facility], [address] [place] [address] 36 E 2018 [place] [address] 10:45am Urine Specific November 1.015 1.005-1.03 [facility], [address] [place] [address] 36 E [place] 2018 0 Andrew [place] [address] 9:18am Urine Specific Kalia 1.020 1.005-1.03 [facility], [address] [place] [address] 36 E [place] 2018 0 Andrew [place] [address] 10:45am Urine Protein November Negative Negative [facility], [address] [place] [address] 36 E 2018 [place] [address] 9:18am Urine Protein Kalia Negative Negative [facility], [address] [place] [address] 36 E 2018 [place] [address] 10:45am Urine Glucose (UA) November Negative Negative [facility], [address] [place] [address] 36 E 2018 [place] [address] 9:18am Urine Glucose (UA) Kalia Negative Negative [facility], [address] [place] [address] 36 E 2018 [place] [address] 10:45am Urine Ketones November Negative Negative [facility], [address] [place] [address] 36 E 2018 [place] [address] 9:18am Urine Ketones Kalia Negative Negative [facility], [address] [place] [address] 36 E 2018 [place] [address] 10:45am Urine Blood November Negative Negative [facility], [address] [place] [address] 36 E 2018 [place] [address] 9:18am Urine Blood Kalia Negative Negative [facility], [address] [place] [address] 36 E 2018 [place] [address] 10:45am Urine Nitrate November Negative Negative [facility], [address] [place] [address] 36 E 2018 [place] [address] 9:18am Urine Nitrate Kalia Negative Negative [facility], [address] [place] [address] 36 E 2018 [place] [address] 10:45am Urine Bilirubin November Negative Negative [facility], [address] [place] [address] 36 E 2018 [place] [address] 9:18am Urine Bilirubin Kalia Negative Negative [facility], [address] [place] [address] 36 E 2018 [place] [address] 10:45am Urine Urobilinogen November 0.2 EU/dl [facility], [address] [place] [address] 36 E 2018 [place] [address] 9:18am Urine Urobilinogen Kalia 0.2 EU/dl [facility], [address] [place] [address] 36 E 2018 [place] [address] 10:45am Urine Leukocyte November Negative Negative [facility], [address] [place] [address] 36 E Esterase 2018 [place] [address] 9:18am Urine Leukocyte Kalia Negative Negative [facility], [address] [place] [address] 36 E Esterase 2018 [place] [address] 10:45am Urine RBC Kalia None # /hpf [facility], [address] [place] [address] 36 E 2018 [place] [address] 10:45am Urine WBC November Occasional [facility], [address] [place] [address] 36 E 2018 #/hpf [place] [address] 9:18am Urine WBC Kalia None #/hpf [facility], [address] [place] [address] 36 E 2018 [place] [address] 10:45am Urine Squamous November Occasional [facility], [address] [place] [address] 36 E Epithelial Cells 2018 #/hpf Cy ntlibby [place] [address] 9:18am Urine Squamous Kalia None #/hpf [facility], [address] [place] [address] 36 E Epithelial Cells 2018 Otoniel keyona [place] [address] 10:45am Urine Bacteria November Trace /lpf NONE [facility], [address] [place] [address] 36 E 2018 [place] [address] 9:18am Urine Bacteria Kalia None /lpf None [facility], [address] [place] [address] 36 E 2018 [place] [address] 10:45am Sodium Level November 138 mmol/L 136-145 [facility], [address] [place] [address] 36 E 2018 [place] [address] 5:42am Sodium Level Kalia 141 mmol/L 136-145 [facility], [address] [place] [address] 36 E 2018 [place] [address] 6:20am Potassium Level November 3.6 mmoL/L 3.5-5.1 [facility], [address] [place] [address] 36 E 2018 [place] [address] 5:42am Potassium Level Kalia 3.7 mmoL/L 3.5-5.1 [facility], [address] [place] [address] 36 E 2018 [place] [address] 6:20am Chloride Level November 103 mmol/L 98-107 [facility], [address] [place] [address] 36 E 2018 [place] [address] 5:42am Chloride Level Kalia 107 mmol/L 98-107 [facility], [address] [place] [address] 36 E 2018 [place] [address] 6:20am Carbon Dioxide June 25 mmol/L 21.0-32.0 [facility], [address] [place] [address] 36 E Level 2018 [place] [address] 5:42am Carbon Dioxide Kalia 28 mmol/L 21.0-32.0 [facility], [address] [place] [address] 36 E Level 2018 [place] [address] 6:20am Anion Gap November 13.6 mEq/L 12-29 [facility], [address] [place] [address] 36 E 2018 [place] [address] 5:42am Anion Gap Kalia 9.7 mEq/L 12-29 [facility], [address] [place] [address] 36 E 2018 [place] [address] 6:20am Blood Urea June 9 mg/dL 03-03 [facility], [address] [place] [address] 36 E Nitrogen 2018 [place] [address] 5:42am Blood Urea July 12 mg/dL 03-03 [facility], [address] [place] [address] 36 E Nitrogen 2018 [place] [address] 6:20am Creatinine June 0.70 mg/dL 0.55-1.02 [facility], [address] [place] [address] 36 E 2018 [place] [address] 5:42am Creatinine July 0.69 mg/dL 0.55-1.02 [facility], [address] [place] [address] 36 E 2018 [place] [address] 6:20am Estimated June 65 mL/min 0-300 [facility], [address] [place] [address] 36 E Creatinine 2018 Yaritza [place] [address] Clearance 5:42am Estimated July 67 mL/min 0-300 [facility], [address] [place] [address] 36 E Creatinine 2018 Andrew [place] [address] Clearance 6:20am Estimated GFR June 101 ML/MIN >59 [facility], [address] [place] [address] 36 E () 2018 [place] [address] 5:42am Estimated GFR July 102 ML/MIN >59 [facility], [address] [place] [address] 36 E () 2018 C chip [place] [address] 6:20am Estimat Glomerular June 83 ml/min >59 [facility], [address] [place] [address] 36 E Filtration Rate 2018 Otoniel [place] [address] 5:42am Estimat Glomerular July 85 ml/min >59 [facility], [address] [place] [address] 36 E Filtration Rate 2018 Olga [place] [address] 6:20am Glucose Level June 105 mg/dL 74-106 [facility], [address] [place] [address] 36 E 2018 [place] [address] 5:42am Glucose Level July 113 mg/dL 74-106 [facility], [address] [place] [address] 36 E 2018 [place] [address] 6:20am Calcium Level June 8.8 mg/dL 8.5-10.1 [facility], [address] [place] [address] 36 E 2018 [place] [address] 5:42am Calcium Level July 8.0 mg/dL 8.5-10.1 [facility], [address] [place] [address] 36 E 2018 [place] [address] 6:20am Total Bilirubin June 0.5 mg/dL 0.2-1.0 [facility], [address] [place] [address] 36 E 2018 [place] [address] 5:42am Aspartate Amino November 20 U/L 15-37 [facility], [address] [place] [address] 36 E Transf (AST/SGOT) 2018 C yntlibby [place] [address] 5:42am Alanine June 21 U/L 12-78 [facility], [address] [place] [address] 36 E Aminotransferase 2018 [place] [address]63 (ALT/SGPT) 5:42am Total Protein June 7.2 gm/dL 6.4-8.2 [facility], [address] [place] [address] E 2018 [place] [address] 5:42am Albumin November 3.9 gm/dL 3.4-5.0 [facility], [address] [place] [address] 36 E 2018 [place] [address] 5:42am Globulin November 3.3 gm/dl 1.3-3.2 [facility], [address] [place] [address] 36 E 2018 [place] [address] 5:42am Albumin/Globulin November 1.2 1.1-1.8 [facility], [address] [place] [address] 36 E Ratio 2018 [place] [address] 5:42am Alkaline November 82 U/L 46-116 [facility], [address] [place] [address] 36 E Phosphatase 2018 Elizabeth na [place] [address] 5:42am Influenza Type A November Negative Negative [facility], [address] [place] [address] E Antigen 2018 [place] [address] 5:42am Influenza Type B November Negative Negative [facility], [address] [place] [address] E Antigen 2018 [place] [address] 5:42am Diagnostic Imaging Reports Report Dictated Date/Time Dictated By Status Radiology Report May 04, 2019 Bob Henderson MD completed 1:29pm [address] 36 E [place]ruthi [place] [address] XRay R eport Sig christiano Patient: Trang De Dios MR#: [id number] : 1950 Acct:[id number] Age/Sex: 68 / F ADM Date: 9 Loc: RAD Attending Dr: Dustin Macdonald MD Ordering Physician: Dustin Macdonald MD Date of Service: 05/04/19 Procedure(s): XR hip RT 2-3V w/pelvis Accession Number(s): [id number] cc: Bob Henderson MD; Davey Nj MD~ PROCEDURE: XR HIP RT 2-3V W/PELVIS CLINICAL INDICATION: right hip pain COMPARISON: [id number] XR hip LT 2-3V w/p geoff from 08/24/2018 FINDINGS: Severe osteoarthritic changes are prese nt involving the right hip with decrease in joint space, osteoscle rosis, and osteophyte formation. No fracture or dislocation. IMPRESSION: Severe osteoarthritis of the right hip not significantly changed Dictated by: Bob Henderson MD 05/04/2019 15:01 Electronically signed by Bob Henderson in [place] 05/04/2019 15:01 Radiology Report May 04, 2019 Bob Henderson MD completed 1:29pm [address] 36 E Shruthi [place]ales [address] XRay R eport Sig christiano Patient: Trang De Dios MR#: [id number] : 1950 Acct:[id number] Age/Sex: 68 / F ADM Date: 9 Loc: RAD Attending Dr: Dustin Macdonald MD Ordering Physician: Dustin Macdonald MD Date of Service: 05/04/19 Procedure(s): XR knee RT 4V Accession Number(s): [id number] cc: Bob Henderson MD; Davey Nj MD~ PROCEDURE: XR KNEE RT 4V CLINICAL INDICATION: right knee pain COMPARISON: [id number] KNEE-4 OR 5 VIEWS- RT from 11/08/2014 FINDINGS: There are mild osteoarthritic changes i nvolving all 3 compartments slightly greater at the medial compartm ent. No fracture or dislocation. No lytic or blastic luque e. IMPRESSION: Mild osteoarthritis otherwise negative Dictated by: Bob Henderson MD 05/04/2019 15:03 Electronically signed by Bob Henderson in [place] 05/04/2019 15:03 Radiology Report May 04, 2019 Bob Henderson MD completed 1:29pm [facility] [address] [place] [facility] [address] [place] [address] XRay R eport Sig christiano Patient: Trang De Dios MR#: [id number] : 1950 Acct:[id number] Age/Sex: 68 / F ADM Date: 9 Loc: RAD Attending Dr: Dustin Macdonald MD Ordering Physician: Dustin Macdonald MD Date of Service: 05/04/19 Procedure(s): XR knee LT 4V Accession Number(s): [id number] cc: Bob Henderson MD; Davey Nj MD~ PROCEDURE: XR KNEE LT 4V CLINICAL INDICATION: left knee pain COMPARISON: [id number] KNEE-4 OR 5 VIEWS- RT from 11/08/2014 FINDINGS: No fracture or dislocation. No lytic or blastic change. There is normal mineralization. There are mild osteoarthritic changes o f the medial and lateral compartment. No fracture or dislocatio n is evident. There is a 9 mm loose body along the posterior and cent ral aspect of the medial femoral condyle in the medial popliteal fossa region. IMPRESSION: Mild osteoarthritis. Small loose body overlies the posterior aspect of the medial femoral condyle proximall y Dictated by: Bob Henderson MD 05/04/2019 15:06 Electronically signed by Bob Henderson in [place] 05/04/2019 15:06 Radiology Report May 30, 2019 Shane Reyna MD complete d 2:56pm [facility] [address] [place] [facility] 36 E Shruthi [place] [address] Nuclear Medi cine Report Sig christiano Patient: Trang De Dios MR#: [id number] : 1950 Acct:[id number] Age/Sex: 68 / F ADM Date: 9 Loc: RT Attending Dr: Shane Reyna MD Ordering Physician: Shane Reyna MD Date of Service: 05/30/19 Procedure(s): SD sergei perf SPECT rest & s tr Accession Number(s): [id number] cc: Davey Nj MD; Shane Reyna MD~ APPROVED REPORT -------- ------ Exam: Nuclear Stress Test Indication: hyperlipidemia, fm.hx., c.p ., sob, syncope, fatique Patient Location: Outpatient [place] [facility] (R)( N) Ht: 5 ft 5 in Wt: 172 lbs HR: 64 bpm BP: 168/89 mmHg BSA: 1.86 m2 BMI: 28.6 History: hyperlipidemia, fm.hx., c.p., sob, sync ope, fatique Procedure: Patient received a 0.4 mg of intravenou s Lexiscan, resting heart rate 64 bpm, resting blood pressure 168/89 m mHg, with Lexiscan maximum heart rate achived was 96 bpm which is Less than 85 % of the maximum predicted heart rate and blood pressure was 129/59 mmHg. With Lexiscan, patient denied any compl aint of chest pain. Electrocardiogram Sinus rhythm nonspecific ST-T changes, with Lexiscan there is less than 1.[address] segment depression noted from the baseline EKG. The EKG portion of the Lexiscan Myoview is nondiagnostic. Cardiac Stress and Resting SPECT Images : Cardiac Stress and Resting SPECT images were obtained using technetium 99m Myoview 31.1 mCi stress and 10.88 mCi at rest. Gated SPECT with analysis of segmental wall motion and calculation of the ejection fraction also done. Cardi ac stress and resting SPECT images show uniform myocardial activity without segmental perfusion abnormality, computer derived ejection fraction is over 65% with no regional wall motion abnormality, right ventricle is normal size and contractility. Conclusion: 1. The EKG portion of the Lexiscan Sergei view is nondiagnostic. 2. No scintigraphic evidence of revers ible ischemia seen, computer derived ejection fraction is over 65% w ith no regional wall motion abnormality. Right ventricle is normal size and contractility. 3. Normal Lexiscan Myoview study. Electronically signed by : Shane thomas, 05/30/2019 21:25:15 Radiology Report June 27, 2019 Bob Henderson MD completed 5:50am [address] 36 [place] [address] XRay R eport Sig christiano Patient: Trang De Dios MR#: [id number] : 1950 Acct:[id number] Age/Sex: 68 / F ADM Date: 9 Loc: ER Attending Dr: Ordering Physician: Davey Nj MD Date of Service: 06/27/19 Procedure(s): XR chest 2V Accession Number(s): [id number] cc: Bob Henderson MD; Davey Nj MD~ PROCEDURE: XR CHEST 2V CLINICAL HISTORY: cough COMPARISON: No exams were available fo r comparison FINDINGS: The cardiomediastinal silhouette and pu lmonary vascularity are within normal limits. The lungs are clear without infiltrates , suspicious nodules, or pleural effusions. No acute bony abnormalities. IMPRESSION: No acute findings. Dictated by: Bob Henderson MD 06/27/2019 07:03 Electronically signed by Bob Henderson in [place] 06/27/2019 07:03 Radiology Report July 18, 2019 Bob Henderson MD completed 2:04pm [address] 36 [place] [address] XRay R eport Sig christiano Patient: Trang De Dios MR#: [id number] : 1950 Acct:[id number] Age/Sex: 68 / F ADM Date: 9 Loc: [facility] 207- Attending Dr: Dustin Macdonald MD Ordering Physician: Dustin Macdonald MD Date of Service: 07/18/19 Procedure(s): XR hip RT 2-3V w/pelvis Accession Number(s): [id number] cc: Bob Henderson MD; Davey Nj MD~ PROCEDURE: XR HIP RT 2-3V W/PELVIS CLINICAL INDICATION: post surgical rig ht total hip arthroplasty Status post right hip arthroplasty foll ow-up COMPARISON: XR HIP RT 2-3V W/PELVIS fr om 05/04/2019 FINDINGS: Bipolar prosthesis has been placed with good alignment. There is postsurgical gas. IMPRESSION: Good alignment status post right bipola r prosthesis placement Dictated by: Bob Henderson MD 07/18/2019 16:39 Electronically signed by Bob Henderson in [place] 07/18/2019 16:39 Advance Directives Advance Directive Response Recorded Date/Time Living Will No July 18, 2019 4 :10pm Does the patient have an No June 23, 019 2:07pm advanced directive on file? Living Will No June 23, 2019 2 :07pm Does the patient have an No May 14, 2019 12:12pm advanced directive on file? Living Will No May 14, 2019 12:12pm Chief Complaint and Reason for Visit Chief Complaint xray, no accident Bilateral knee pain Surgery clearance needs sx clearance chest pain, edema,dizziness r42,r07.9 r60.00 cws sergei test fu Surgery clearance cough,headache,unable to sle ep,upper back pain Discuss RT [facility] WORK LAB WORK OR Encounters Encounter Location(s) Arrival/Admit Date Discharge/Depart Date Provider(s) Registered [facility] Physician May 04, Dustin chung Clinical Group-Radiology 2018 1:01pm MD Departed [facility] Physician May 04, May 04, 2019 Kyler Macdonald Physician/Provi Group-Surgical 2018 1:40pm 3:18pm MD lisha Office Suite Visit Departed [facility] Physician May 12, May 12, 2019 Laury Wray Physician/Provi Group-Primary 2018 2:06pm 4:10pm , K9 HANDLER lisha Office Care-Clem Visit Departed [facility] Physician May 20, 2019 May 20, 2019 Shane Reyna Physician/Provi Group-Cardiology 9:43am 10:28am MD lisha Office -[place] Visit Registered [facility] Physician May 30, 2019 Shane lopez Clinical Group-Respirator 9:27am MD y Therapy Registered [facility] Physician May 30, 2019 Shane lopez Inpatient Group-Cardiology 11:59pm MD Hameed Departed [facility] Physician June 07, 2019 June 07, 2019 As betty Melendrez Physician/Provi Group-Cardiology 9:07am 10:32am K9 HANDLER lisha Office -[place] Visit Departed [facility] Physician June 23, 2019 June 23, 2019 Sarmad Wray Physician/Provi Group-Primary 12:55pm 2:03pm , K9 HANDLER lisha Office Care-Clem Visit Departed [facility] Physician June 27, June 27, 2019 null Emergency Group-Emergency 2018 5:11am 6:58am Room Departed [facility] Physician July 05, July 05, 2019 Dustin Macdonald Physician/Provi Group-Surgical 2018 10:03am 11:33am MD lisha Office Suite Visit Registered [facility] Physician July 09, Dustin ambriz Clinical Group-Laboratory 2018 9:17am , Registered [facility] Physician July 16, Dustin ambriz Clinical Group-Laboratory 2018 10:19am , MD Admitted [facility] Physician July 18, 2019 Dustin Macdonald Inpatient Group-Second 8:24am MD Floor Registered [facility] Physician July 19, 2019 Davey Solis Inpatient Group- 10:22am MD Clem Assessments No Assessments Information Available Functional Status Observation Response Date Recorded Oral Care Ability Independent July 19, 2019 8 :01am Bathing Ability Assistance x1 July 19, 2019 6 :57am Eating (Feeding) Ability Independent July 18 019 4:10pm Toileting Ability Independent July 18, 2019 4 :10pm Ambulation Ability Independent July 18, 2019 4 :10pm Functional status ambulatory June 23, 2019 2 :07pm Functional status ambulatory June 07, 2019 1 2:20pm Functional status ambulatory May 20, 2019 10 :31am Functional status ambulatory May 14, 2019 12:12pm Functional status ambulatory July 07, 2019 11:17am Functional status ambulatory May 04, 2019 3:20pm Goals Ambulatory Goals Patient/Family will verbalize understand ing of disease process and healthy behaviors. Patient/Family will follow pl an of care. Immunizations Immunization Event Date Not Given Dose Pst Manager Lot Vac cine Reason Number Number Informatio n Statement (VIS) Deta il Fluzone June 07, High-Dose [id number]+ 2018 Hepatitis A July 21, Vaccine, adult 2018 dosage Quadrivalent April Mental Status Observation Response Date Recorded Comprehension Ability No Impairment July 19, 2019 6:39am Able to Read Yes July 18, 2019 4 :10pm Able to Write Yes July 18, 2019 4 :10pm Ability to Follow Directions Excellent July 4:10pm Eye Contact Maintains Eye Contact July 18, 2019 4:10pm Oral Expression Ability No Impairment July 18 4:10pm Medical Equipment No Medical Equipment Information available Insurance Providers Guarantor Trang De Dios Address [address] [place] [address] Contact Info. Home Phone: Payer Policy Id Coverage Id Subscriber's Subscriber Effective Expi ration Name Id Date Date [facility] [id number] Trang De Dios [id number] Healthcare Options [employer] [id number] Trang De Dios [id number] Medicare Medicare [id number] Trang Irinademario [id number] Medicare B [id number] Trang De Dios [id number] Self Pay Self N/A [facility] [id number] Trang De Dios Plan of Treatment cleared for surgery from pcp stand point will need cleared by cardiology refer to cardiology for clearance. Future Tests Future scheduled test information is unavailable Pending Tests Pending diagnostic test information is unavailable Future Visits Future appointment information is unavailable Referrals to Other Providers Reason for Referral Start Provider Provider Contact Provider Address Referral Date Information Admission to [facility] July [address] Future Procedures Future procedure information is unavailable Future Medications Future medication information is unavailable Patient Instructions Hip Replacement Vertigo High Triglycerides Essential Hypertension Heart-Healthy Diet Fat-Restricted Diet Effectiveness of Diets for Weight Loss DI for Dependent Edema DI for Shortness of Breath DI for Chest Pain High Triglycerides Heart Valve Replacement Essential Hypertension Heart-Healthy Diet Fat-Restricted Diet Effectiveness of Diets for Weight Loss Sinusitis Balanced Diet DI for Acute Bronchitis Osteoarthritis DI for Chronic Pain -- Adult DI for Knee Pain Social History Observation Status Date of Observation Not June 27, 2019 Assigned Sex Female Vital Signs Vital Reading Result Reference Range Collection Date/ Time Height 165.1 cm May 04, 2019 2:09pm Weight 77.11 kg May 04, 2019 2:09pm Body Temperature 97.3 [degF] 97.6-99.6 May 04, 2019 2:09pm Heart Rate 73 /min 60-90 May 04, 2019 2:09pm BP Systolic 156 mm[Hg] 110-140 May 04, 2019 2:09pm BP Diastolic 85 mm[Hg] 60-90 May 04, 2019 2:09pm BMI (Body Mass Index) 28.3 kg/m2 May 04, 2019 2:09pm Height 165.1 cm May 12, 2019 2:32pm Weight 77.11 kg May 12, 2019 2:32pm Body Temperature 98.4 [degF] 97.6-99.6 May 12, 2019 2:32pm Heart Rate 78 /min 60-90 May 12, 2019 2:32pm Respiratory rate 18 /min -May 12, 2019 2:32pm Oxygen saturation by 98 % 95-100 April 182018 Pulse oximetry 2:32pm BP Systolic 138 mm[Hg] 110-140 May 12, 2019 2:32pm BP Diastolic 72 mm[Hg] 60-90 May 12, 2019 2:32pm BMI (Body Mass Index) 28.3 kg/m2 May 12, 2019 2:32pm Height 165.1 cm May 20 9 10:01am Weight 78.01 kg May 20 9 10:01am Heart Rate 65 /min -May 20 9 10:01am Oxygen saturation by 98 % 95-100 May Pulse oximetry 10:01am BP Systolic 132 mm[Hg] 110-140 May 20 9 10:01am BP Diastolic 75 mm[Hg] 60-90 May 20 9 10:01am BMI (Body Mass Index) 28.6 kg/m2 May 10:01am Height 165.1 cm June 07 9:56am Weight 78.92 kg June 07 9:56am Heart Rate 59 /min -June 07 9:56am Oxygen saturation by 97 % 95-100 May Pulse oximetry 9:56am BP Systolic 138 mm[Hg] 110-140 June 07 9:56am BP Diastolic 72 mm[Hg] 60-90 June 07 9:56am BMI (Body Mass Index) 28.9 kg/m2 June 072018 9:56am Height 165.1 cm June 23 1:26pm Weight 78.01 kg June 23 1:26pm Body Temperature 98 [degF] 97.6-99.6 June 23, 2 019 1:26pm Heart Rate 72 /min -June 23 1:26pm Respiratory rate 16 /min -24 November 7th, 2 019 1:26pm Oxygen saturation by 98 % 95-100 June Pulse oximetry 1:26pm BP Systolic 134 mm[Hg] 110-140 June 23 1:26pm BP Diastolic 74 mm[Hg] 60-June 23 1:26pm BMI (Body Mass Index) 28.6 kg/m2 June 232018 1:26pm Height 165.1 cm June 27, 2 019 5:19am Weight 76.20 kg June 27, 2 019 5:19am Body Temperature 98.9 [degF] 97.6-99.6 June 27, 2019 6:56am Heart Rate 84 /min -June 27, 2 019 6:56am Respiratory rate 16 /min -June 27, 2019 6:56am Oxygen saturation by 97 % 95-100 June 272018 Pulse oximetry 6:15am BP Systolic 142 mm[Hg] 110-140 June 27, 2 019 6:56am BP Diastolic 81 mm[Hg] 60-90 June 27, 2 019 6:56am BMI (Body Mass Index) 27.9 kg/m2 June 172018 5:19am Height 165.1 cm July 05, 2 019 10:51am Weight 76.20 kg July 05, 2 019 10:51am Body Temperature 98.1 [degF] 97.6-99.6 July 05, 2019 10:51am Heart Rate 104 /min -July 05, 2 019 10:51am BP Systolic 148 mm[Hg] 110-140 July 05, 2 019 10:51am BP Diastolic 94 mm[Hg] 60-90 July 05, 2 019 10:51am BMI (Body Mass Index) 27.9 kg/m2 June 172018 10:51am Height 163 cm July 19 5:55am Weight 79.37 kg July 19 5:55am Body Temperature 98.2 [degF] 97.6-99.6 July 19, 2 019 8:00am Heart Rate 92 /min July 19 8:00am Respiratory rate 20 /min 08-09July 19, 2 019 8:00am Oxygen saturation by 96 % 95-100 July Pulse oximetry 8:00am BP Systolic 142 mm[Hg] 110-140 July 19 8:00am BP Diastolic 73 mm[Hg] 60-90 July 19 8:00am BMI (Body Mass Index) 29.8 kg/m2 July 192018 5:55am Inhaled oxygen 24 % July 18 concentration 7:00pm
--- NOTE | 2019-07-22 11:54 | Progress Note ---
Internal Medicine - PN: Subj *Date: 07/22/19 *Time: 11:48 Interval history: pt sitting up in chair states she has been walking. Pt states she has not had the dizzy spells with walking. Pt states she still is having pain. using IS, family at bedside. Pt states she feels safe to go home with assistance from family and home health. Exam Vital signs and Labs for Last 24 Hours: Temp Pulse Resp BP Pulse Ox 98.6 F 95 H 16 122/64 94 L 07/22/19 00:00 07/22/19 00:00 07/22/19 00:00 07/22/19 00:00 07/22/19 00:00 Laboratory Results - last 24 hr 07/22/19 08:50: WBC 6.9, RBC 2.97 L, Hgb 9.4 L, Hct 28.8 L, MCV 97.1, MCH 31.8 H , MCHC 32.8, RDW 13.4, Plt Count 280 D, MPV 7.6, Neut % (Auto) 69.8, Lymph % (Auto) 19.8, Sanders % (Auto) 8.0, Eos % (Auto) 2.0, Baso % (Auto) 0.4, Neut # (Auto) 4.8, Lymph # (Auto) 1.4, Sanders # (Auto) 0.6, Eos # (Auto) 0.1, Baso # (Auto) 0.0 07/22/19 08:50: Sodium 138, Potassium 3.8, Chloride 103, Carbon Dioxide 29, Anion Gap 9.8, BUN 10 D, Creatinine 0.66, Estimated Creat Clear 70, Estimated GFR 89, Est GFR ( Amer) 108, Glucose 129 H, Calcium 7.9 L I & O for Last 24 hours: Intake & Output 07/19/19 07/20/19 07/21/19 07/22/19 11:59 11:59 11:59 11:59 Intake Total 2874 / 2874 1200 / 1200 1459 / 1459 240 / 240 Output Total 1350 / 1350 2300 / 2300 1050 / 1050 550 / 550 Balance 1524 / 1524 -1100 / -1100 409 / 409 -310 / -310 Weight 175 lb 179 lb 3 oz 181 lb 2.997 oz 181 lb 2.997 oz - Constitutional no acute distress - *Routine HEENT Exam Head: Present: normocephalic Eye: Present: PERRL ENT: Present: mucous membranes moist - *Routine Neck Exam Present: supple. Absent: lymphadenopathy - *Routine Respiratory Exam Present: CTA bilaterally - *Routine Cardiovascular Exam Present: RRR - *Routine Abdominal Exam Present: soft, normoactive bowel sounds. Absent: tenderness - *Routine Extremities Exam Absent: cyanosis, clubbing, edema Comments: incision c/d/i no redness noted - *Routine Skin Exam Present: warm. Absent: rash Comments: incision c/d/i - *Routine Neurological Exam Present: alert, oriented X3 - Routine Psychiatric Exam Present: normal affect Assessment and Plan (1) Primary osteoarthritis of right hip Current visit: Yes Status: Chronic Category: Medical Code(s): M16.11 - Unilateral primary osteoarthritis, right hip (2) History of total right hip arthroplasty Start date: 07/18/19 Current visit: Yes Status: Acute Category: Surgical Code(s): Z96.641 - Presence of right artificial hip joint - Assessment and plan all Dx Assessment and Plan for all problems:: rounded with dr gomez all orders per jason
--- NOTE | 2019-07-22 13:27 | Discharge Summary ---
General - General Admission date:: 07/18/19 Discharge date: 07/22/19 HPI HPI: Patient is a 68-year-old female who has end-stage osteoarthritis of her right hip unresponsive to conservative management. Patient was admitted to hospital following an uncomplicated primary right total hip arthroplasty on 07/18/2019. She has had long-term problems with her right hip for the last 3 or 4 years. Her hip pain has been progressively worsening with radiation to the thigh and knee joint. Her x-rays showed severe right hip arthritis. Patient localizes the pain to anterior, posterior and lateral aspect of the right hip with radiation into the upper thigh and knee joint. She has failed to respond satisfactorily to nonsurgical management. She can hardly walk a few yards without support. She uses a cane to walk with. She reports night pain and sleep disturbance as well as difficulty with activities of daily living including caring for her feet, dressing and undressing and putting socks and shoes on. She also reports severe stiffness in her right hip. She also reports that the pain is worse in cold weather and also aggravated with walking, weightbearing and climbing stairs. No history of any distal tingling or numbness. No history of any radicular symptoms. Her hip gives out occasionally and she is at risk of falls. The arthritis is causing severe pain and significant disability and has not responded well to conservative management. The pain also is affecting her lifestyle, activities of daily living and significantly impacting her sleep. She is also at a high risk of falls from the arthritis. A total hip arthroplasty is indicated to relieve pain and the help prevent the disability and risk of falls. Please refer to my office note for full details. Hospital Course Hospital Course: Following uncomplicated primary total hip arthroplasty patient was admitted to the inpatient amado and has progressed well. Her postoperative check x-ray was satisfactory with good alignment and fixation of the components. She was advised to ambulate weightbearing as tolerated on the right side. Patient managed this very well using the walker. Her pain is well controlled with oral analgesics. The surgical incision is clean and dry without any active discharge or signs of infection. Her distal neurovascular status is intact. No clinical evidence of DVT. Patient is eating and drinking well without any problems. Patient is medically stable at the time of discharge and was medically cleared for discharge by Dr. Nj. The dressings were changed on the second postoperative day and the wound is healthy and healing well. No signs of any erythema, induration or discharge. Patient was started on Xarelto 10 mg daily for DVT prophylaxis after surgery. Her neurovascular status in both lower extremities is intact. Pedal pulses 2+ bilaterally and fully sensate distally. No clinical evidence of DVT noted. Patient was cleared for discharge by physical therapy. On the day of discharge, the wound is clean and dry. There is Dermabond Prineo dressing in place. The patient's vital signs have been stable throughout and she is afebrile at the time of discharge. Initially the care management team tried to find her a rehab place or a swing bed. However this was declined by her insurance provider. By today she has sufficiently improved to be discharged home with home health services. She is being discharged home with home health for postoperative rehab. Condition at discharge: improved and stable. Treatments and Procedures: Total hip arthroplasty, right hip; date of surgery 07/18/2019. Objective Vital signs: Temp Pulse Resp BP Pulse Ox 98.0 F 83 17 119/63 95 07/22/19 08:00 07/22/19 08:00 07/22/19 08:00 07/22/19 08:00 07/22/19 08:00 no acute distress - *Routine HEENT Exam Head: Present: normocephalic, atraumatic Eye: Present: EOMI ENT: Present: mucous membranes moist - *Routine Neck Exam Present: supple, full ROM, trachea midline - *Routine Respiratory Exam Present: CTA bilaterally - *Routine Cardiovascular Exam Present: RRR, Normal S1, Normal S2 - *Routine Abdominal Exam Present: soft, normoactive bowel sounds - *Routine Extremities Exam Comments: On examination of the lower extremities the limb lengths are equal. Thigh and calf are soft and nontender. On examination of the right hip patient has Dermabond Prineo dressing which is clean and intact; there is no discharge, erythema or induration; the surgical incision looks clean and healthy; no evidence of any infection or other complications noted. Distal pulses are 2+. Distal sensation is intact. She demonstrates good range of knee, foot and ankle movements. - *Routine Skin Exam Present: intact, warm - *Routine Neurological Exam Present: alert, oriented X3, moving all extremities - Routine Psychiatric Exam Present: normal affect, cooperative Results Labs on day of discharge: Labs from last 24 hours 07/22/19 07/22/19 08:50 08:50 WBC 6.9 RBC 2.97 L Hgb 9.4 L Hct 28.8 L MCV 97.1 MCH 31.8 H MCHC 32.8 RDW 13.4 Plt Count 280 D MPV 7.6 Neut % (Auto) 69.8 Lymph % (Auto) 19.8 Menard % (Auto) 8.0 Eos % (Auto) 2.0 Baso % (Auto) 0.4 Neut # (Auto) 4.8 Lymph # (Auto) 1.4 Menard # (Auto) 0.6 Eos # (Auto) 0.1 Baso # (Auto) 0.0 Sodium 138 Potassium 3.8 Chloride 103 Carbon Dioxide 29 Anion Gap 9.8 BUN 10 D Creatinine 0.66 Estimated Creat Clear 70 Estimated GFR 89 Est GFR ( Amer) 108 Glucose 129 H Calcium 7.9 L DS: Diagnosis - Discharge Diagnosis (1) Primary osteoarthritis of right hip Status: Chronic (2) History of total right hip arthroplasty Start date: 07/18/19 Status: Acute Discharge Plan - Patient Discharge Instructions ACTIVITY: Continue current activity, Ambulate as tolerated DIET: regular diet Patient Instructions: Hip Replacement, DI for Surgical Site Infection - Follow up Plan Follow up with: Dustin Macdonald MD [Staff Physician] - 2 weeks Disposition: Home Health Service Home Medications: Home Medications Medication Instructions Recorded Confirmed Type aspirin 81 mg tablet,delayed 81 mg PO DAILY tab 02/08/18 07/13/19 History release lovastatin 20 mg tablet 20 mg PO DAILY 08/13/18 07/13/19 History Cetirizine HCl 10 mg PO DAILY 07/13/19 07/13/19 History Chlorhexidine Gluconate 1 applic TOPICAL DIRECTED 07/13/19 07/19/19 History Escitalopram Oxalate 20 mg PO DAILY 07/13/19 07/13/19 History Famotidine [Acid Clubhouse Attendant] 20 mg PO BID 07/13/19 07/13/19 History Fluticasone Propionate [Flonase 1 spray NS DAILY 07/13/19 07/19/19 History 50mcg nasal spray 16gm] Furosemide [Furosemide 20mg Tab] 10 mg PO Q48H 07/13/19 07/19/19 History Levothyroxine Sodium [Synthroid 25 mcg PO DAILY 07/13/19 07/19/19 History 25mcg (0.025mg) tablet] Mupirocin [Centany] 1 applic TOPICAL BID 07/13/19 07/13/19 History lisinopriL [Prinivil 5mg Tablet] 5 mg PO DAILY 07/13/19 07/13/19 History Cyclobenzaprine HCl [Flexeril 10mg 5 mg PO Q8HP PRN #14 tab 07/22/19 Rx tablet] Docusate Sodium [Docusate Sodium 100 mg PO BID #20 cap 07/22/19 Rx 100mg Cap] Ferrous Sulfate [Ferrous Sulfate 325 mg PO BID #120 tab 07/22/19 Rx 325mg Tablet] Hydrocod/Acet 5/325 mg [Camas 1 - 2 tab PO Q4HP PRN #60 tab 07/22/19 Rx 5/325mg tablet] Rivaroxaban [Xarelto 10mg tablet] 10 mg PO DAILY #40 tab 07/22/19 Rx Prescriptions/Medication Reconciliation: New Hydrocod/Acet 5/325 mg [Camas 5/325mg tablet] 1 - 2 tab PO Q4HP PRN #60 tab PRN Reason: Moderate To Severe Pain Ferrous Sulfate [Ferrous Sulfate 325mg Tablet] 325 mg PO BID #120 tab Rivaroxaban [Xarelto 10mg tablet] 10 mg PO DAILY #40 tab Docusate Sodium [Docusate Sodium 100mg Cap] 100 mg PO BID #20 cap Cyclobenzaprine HCl [Flexeril 10mg tablet] 5 mg PO Q8HP PRN #14 tab PRN Reason: Muscle Spasm Continued lovastatin 20 mg tablet 20 mg PO DAILY lisinopriL [Prinivil 5mg Tablet] 5 mg PO DAILY Furosemide [Furosemide 20mg Tab] 10 mg PO Q48H Fluticasone Propionate [Flonase 50mcg nasal spray 16gm] 1 spray NS DAILY Famotidine [Acid Clubhouse Attendant] 20 mg PO BID Escitalopram Oxalate 20 mg PO DAILY Cetirizine HCl 10 mg PO DAILY Levothyroxine Sodium [Synthroid 25mcg (0.025mg) tablet] 25 mcg PO DAILY Held aspirin 81 mg tablet,delayed release 81 mg PO DAILY tab Discontinued Chlorhexidine Gluconate 1 applic TOPICAL DIRECTED Mupirocin [Centany] 1 applic TOPICAL BID - Problem Reconciliation Problems Reviewed?: Yes - Additional Information Additional Information: Our recommendations on discharge include physical therapy with weightbearing as tolerated and standard postoperative rehab for primary total hip replacement via posterior approach. Patient was also advised to keep the leg elevated and ice the hip on a regular basis. At this stage it is permissible to take a shower and allow the incision to get wet with shower water. After padding the area dry, the wound can be left open. Patient has Dermabond Prineo dressing in place and advised not to peel or remove it. To continue mobilizing weightbearing as tolerated on the right side with the walker and transition to a cane as she progresses. Standard physical therapy and postoperative precautions as for a posterior approach hip replacement. Keep the abduction wedge between the legs when patient is in bed and also during sleep for 6 weeks postop. Patient will follow up with me in the office in approximately about 2 weeks time for wound check and to remove the Dermabond Prineo dressing. Recommend 10 mg of Xarelto p.o. daily for 40 days for DVT prophylaxis. Please feel free to call our office at [phone] or via the hospital rotary drill rig operator [phone] for any orthopedic questions or concerns.
== END 2019-07-22 18:00 | disposition home health service (06) | DRG 470 ==
LOC: OR 08:18 → 2ND 08:18 → OBSVTOIN 08:24 → 2ND 14:32
PROVIDERS: ADMIT Orthopaedic Surgery; ATTEND Orthopaedic Surgery
CPT/HCPCS: 36415; 73502; 80048; 81001; 85025; 86850; 94761; 96374; 97116; 97161; 97166; 97530; 97535; C1713; C1776; J2405; J3370

== ENCOUNTER → 2019-08-30 13:06 | Outpatient (CLI) | payer MEDICARE, SELFPAY ==
--- NOTE | 2019-08-30 13:09 | XR_ITS ---
PROCEDURE: XR HIP RT 2-3V W/PELVIS CLINICAL INDICATION: sp RT total hip, dos 07/18/19 Follow-up hip replacement COMPARISON: XR HIP RT 2-3V W/PELVIS from 07/26/2019 FINDINGS: Status post bipolar prosthesis placement with good alignment and no evidence of orthopedic complication. IMPRESSION: No change status post right hip hemiarthroplasty Dictated by: Bob Henderson MD 08/30/2019 15:32 Electronically signed by Bob Henderson MD in [facility] 08/30/2019 15:33
== END ==
PROVIDERS: PCP Emergency Medicine; Visit Provider Orthopaedic Surgery
DX: Z96.641 Presence of right artificial hip joint (principal); M25.551 Pain in right hip
CPT/HCPCS: 73502

== ENCOUNTER → 2020-01-23 13:45 | Outpatient (CLI) | payer MEDICARE, SELFPAY ==
--- NOTE | 2020-01-23 13:54 | US_ITS ---
PROCEDURE: US THYROID CLINICAL INDICATION: Hypothyroidism Follow-up thyroid nodules COMPARISON: THY US thyroid from 02/08/2019 FINDINGS: There is diffuse heterogeneous echogenicity of the thyroid gland. The isthmus is enlarged measuring 5 mm in thickness. There is a slightly hyperechoic nodule along the left lateral aspect of the isthmus. There is nodular enlargement of the isthmus measuring up to 1.2 cm not significantly changed slightly hypoechoic in nature. The right lobe is 3.9 x 1.2 x 1.9 cm. There is diffuse heterogeneous echogenicity. An isoechoic 8 mm nodular lesion is present along the lower pole. The left lobe is 3.8 x 2.1 x 1.6 cm. A 5 mm slightly hypoechoic nodules noted anteriorly unchanged IMPRESSION: Overall stable appearance of the thyroid gland with heterogeneous echogenicity with nodular enlargement of the isthmus and stable nodular areas in both lobes. Dictated by: Bob Henderson MD 01/24/2020 09:22 Electronically signed by oBb Henderson MD in [facility] 01/24/2020 09:22
[2020-01-23 16:07] LABS: Free T4 (Free Thyroxine) 0.87 ng/dl (0.78-2.19)
[2020-01-23 16:22] LABS: Thyroid Stimulating Hormone 3.23 uIU/mL (0.465-4.68)
== END ==
PROVIDERS: PCP Emergency Medicine; Visit Provider Otolaryngology
DX: E03.9 Hypothyroidism, unspecified (principal)
CPT/HCPCS: 36415; 76536; 84439; 84443

== ENCOUNTER 2020-04-13 09:57 | Emergency (ER) | payer MEDICARE, SELFPAY ==
[2020-04-13 10:05] VITALS: BP 151/91; PULSE 85; RESP 16; TEMP 36.6; O2SAT 96; BMI 25.8
[2020-04-13 10:14] VITALS: BP 138/90; PULSE 81; O2SAT 96
--- NOTE | 2020-04-13 10:27 | HMH.EDGENADL ---
ED Disposition Clinical Impression: Hymenoptera sting Qualifiers: Encounter type: initial encounter Injury intent: accidental or unintentional Qualified Code(s): T63.481A - Toxic effect of venom of other arthropod, accidental (unintentional), initial encounter Wasp sting Qualifiers: Encounter type: initial encounter Injury intent: accidental or unintentional Qualified Code(s): T63.461A - Toxic effect of venom of wasps, accidental (unintentional), initial encounter Disposition: Home, Self-Care Condition on Discharge: Good Instructions: DI for Insect Bites and Stings Additional Instructions: Take Tylenol and ibuprofen for pain. Use topical hydrocortisone. Take Benadryl. Referrals: Davey Nj MD [Primary Care Provider] - Time of Disposition: 11:00 - Critical Care Critical Care Time: No Attestation: On 04/13/20, the high probability of a clinically significant, sudden or life threatening deterioration of the following system(s) required my full and direct attention, intervention and personal management. The time I documented below is in addition to time spent performing reported procedures but includes the following listed in this critical care notation. Medical Decision Making - Medical Records Medical records reviewed: Yes: I reviewed the patient's medical records. - Adryan Inquiry Pt receiving controlled substance: No Vital Signs: 04/13/20 10:05 04/13/20 10:14 04/13/20 10:33 Temperature 97.9 F Temperature Source Oral Pulse Rate [Right Radial] 85 81 71 Respiratory Rate 16 Blood Pressure [Right Arm] 151/91 H 138/90 150/86 H Blood Pressure Mean [Right Arm] 111 106 107 Blood Pressure Source [Right Arm] Automatic Cuff Automatic Cuff Automatic Cuff Blood Pressure Position [Right Arm] Sitting Sitting Sitting 02 Sat by Pulse Oximetry 96 96 97 Oxygen Delivery Method Room Air Room Air Room Air Orders (Tests/Meds): ED MEDICATIONS Discontinued Medications Generic Name Dose Route Start Last Admin Trade Name Freq PRN Reason Stop Dose Admin Dexamethasone Sodium Phosphate 8 mg 04/13/20 10:28 04/13/20 10:34 Decadron 4mg/Ml 5ml Mdv IM 04/13/20 10:29 8 mg ONCE ONE Administration Medical Decision Narrative: 69-year-old female presenting to the emergency department with pain, swelling, itching after an insect sting. She is clinically stable on arrival. Overall presentation is most consistent with a localized allergic reaction. No secondary signs of anaphylaxis. Symptoms have been present for less than 24 hours, no signs of overlying cellulitis. Patient counseled to continue using hydrocortisone cream. May take oral Benadryl, Tylenol, ibuprofen. Given 8 mg of IM dexamethasone. Recommended to follow-up with her primary care physician. Stable for discharge. General Adult HPI - General Chief complaint: Skin/Abscess/Foreign Body Stated complaint: wasp sting Time Seen by Provider: 04/13/20 10:18 Mode of Arrival: Ambulatory Limitations: No Limitations Description of Symptoms (Recalled from ER Triage Doc. by RN): Pt reports stung by a wasp yesterday on L wrist. Pt reports has used benadryl cream on the area but area continues to sting and burn . Redness and swelling noted to L anterior forearm. Pt denies and SOA - History of Present Illness HPI narrative: 69-year-old female presenting to the emergency department with an area of painful red swelling on her left wrist. Yesterday afternoon she was stung by an insect, she believes it was a yellow jacket. She had immediate pain, itching, burning, swelling at the site. She tried using topical hydrocortisone. Takes daily Flonase. Pain has not gotten any better. Continues to be red, swollen, burning and itching. No nausea, vomiting, cough, wheezing. Has never been stung by a bee or yellow jacket before that she can remember. No history of other allergies or anaphylaxis. - Related Data Home Medications Medication Instruct
[2020-04-13 10:33] VITALS: BP 150/86; PULSE 71; O2SAT 97
[2020-04-13 11:09] VITALS: BP 150/86; PULSE 71; RESP 16; TEMP 36.6; O2SAT 97
== END 2020-04-13 11:10 | disposition home or self-care (01) ==
PROVIDERS: Emergency Provider Emergency Medicine; PCP Emergency Medicine
DX: T63.481A Toxic effect of venom of other arthropod, accidental (unintentional), initial encounter (principal); T63.461A Toxic effect of venom of wasps, accidental (unintentional), initial encounter; F41.8 Other specified anxiety disorders; K21.9 Gastro-esophageal reflux disease without esophagitis; E78.5 Hyperlipidemia, unspecified; I10 Essential (primary) hypertension; E03.9 Hypothyroidism, unspecified; Z96.641 Presence of right artificial hip joint; Z90.710 Acquired absence of both cervix and uterus; Z79.899 Other long term (current) drug therapy
CPT/HCPCS: 96372; 99282

== ENCOUNTER → 2020-05-28 08:09 | Outpatient (CLI) | payer MEDICARE, SELFPAY ==
[2020-05-28 10:29] LABS: Coronavirus 19 IgG Antibody Negative (Negative)
[2020-05-28 10:30] LABS: Coronavirus 19 IgM Antibody Negative (Negative)
== END ==
PROVIDERS: Visit Provider Ophthalmology
DX: Z01.89 Encounter for other specified special examinations (principal)
CPT/HCPCS: 36415; 86328

== ENCOUNTER 2020-05-29 08:09 | Day surgery (SDC) | payer MEDICARE, SELFPAY ==
[2020-05-23 10:09] VITALS: BMI 26.6
[2020-05-29 09:56] VITALS: BP 185/91; PULSE 72; RESP 18; TEMP 36.1; O2SAT 97
[2020-05-29 10:30] VITALS: BP 166/73; PULSE 72; RESP 18; O2SAT 98
== END 2020-05-29 10:30 ==
LOC: OUTP 08:11
PROVIDERS: PCP Emergency Medicine; Visit Provider Ophthalmology
PROC: (CPT 66821; principal; 2020-05-29 09:30)
DX: H26.491 Other secondary cataract, right eye (principal); Z96.1 Presence of intraocular lens; I10 Essential (primary) hypertension; E78.5 Hyperlipidemia, unspecified; F41.9 Anxiety disorder, unspecified; M19.90 Unspecified osteoarthritis, unspecified site; F32.9 Major depressive disorder, single episode, unspecified; K21.9 Gastro-esophageal reflux disease without esophagitis; Z79.82 Long term (current) use of aspirin; Z79.899 Other long term (current) drug therapy; I35.1 Nonrheumatic aortic (valve) insufficiency
CPT/HCPCS: 66821

== ENCOUNTER 2020-07-03 15:18 | Emergency (ER) | payer MEDICARE, SELFPAY ==
[2020-07-03 15:21] VITALS: BP 154/90; PULSE 80; RESP 17; TEMP 36.5; O2SAT 97; BMI 28.3
--- NOTE | 2020-07-03 15:30 | CT_ITS ---
PROCEDURE: CT FACIAL BONES WO CON CLINICAL HISTORY: fall Blunt trauma with injury and pain, contusion/abrasion or hematoma following injury, injury with pain and abrasion to the forehead and nose COMPARISON: No exams were available for comparison TECHNIQUE: Axial images obtained with sagittal and coronal reformats. All CT scans at the facility use one or more dose reduction, viz: automated exposure control, ma/kV adjustment per patient size (including targeted exams where dose is matched to indication, i.e. head), or iterative reconstruction technique. FINDINGS: Bones: There is a non depressed fracture involving the tip of the nasal bone with minimal inferior angulation of the distal fracture fragment. Extracranial soft tissues: Soft tissue swelling is present in the right frontal region. Small amount of soft tissue gas is present at this area. Sinuses: There is mild mucosal thickening of the ethmoid sinuses. There is mild rightward nasal septal deviation. No sinus air-fluid levels evident. Orbits: Unremarkable. Other: Mild osteoarthritic changes are present at the TMJs IMPRESSION: 1. Nondisplaced fracture involves the tip of the nasal bone with minimal inferior angulation of the distal fracture fragment. 2. Right frontal scalp hematoma with laceration Dictated by: Bob Henderson MD 07/03/2020 16:06 Bob Henderson MD in [facility] 07/03/2020 16:06
--- NOTE | 2020-07-03 15:30 | CT_ITS ---
PROCEDURE: CT CERVICAL SPINE WO CON CLINICAL INDICATION: fall Neck injury with pain, contusion/abrasion or hematoma, cervical sprain/strain the COMPARISON: CT CSWO CT CERVICAL SPINE W/O CONT from 05/06/2014 TECHNIQUE: Axial images obtained with sagittal and coronal reformats. All CT scans at the facility use one or more dose reduction, viz: automated exposure control, ma/kV adjustment per patient size (including targeted exams where dose is matched to indication, i.e. head), or iterative reconstruction technique. Axial spiral CT scanning performed of the cervical spine beginning at the base of the skull and continuing to the upper T-spine. 3-D multiplanar reconstruction with 3-D manipulation of volumetric data set in image rendering was completed by the radiologist and/or technologist with the supervision of the radiologist on independent workstation. FINDINGS: There is normal alignment. The there is an extra bony ridge along the superior aspect of the odontoid process. This is well-circumscribed and not felt to represent an acute fracture of the skull base. This was present on an older exam and could represent an old fracture. There is normal alignment. No acute fracture or dislocation is evident. There is multilevel cervical spondylosis with degenerative disc disease, facet and uncovertebral hypertrophy, and some endplate hypertrophic change. Along the inferior endplate of C6 there is a Schmorl's node which contains a small amount of gas. Lung apices are clear. Scattered small nodes are present in the neck. The esophagus is dilated within the thoracic region with an air-fluid level IMPRESSION: 1. No acute fracture. 2. Multilevel cervical spondylosis. 3. Air-fluid level within mildly dilated mid upper thoracic esophagus. This could be seen with reflux along with distal obstruction Dictated by: Bob Henderson MD 07/03/2020 16:14 Bob Henderson MD in [facility] 07/03/2020 16:14
--- NOTE | 2020-07-03 15:30 | HMH.EDGENADL ---
ED Disposition Clinical Impression: Forehead laceration Qualifiers: Encounter type: initial encounter Qualified Code(s): S01.81XA - Laceration without foreign body of other part of head, initial encounter Facial abrasion Qualifiers: Encounter type: initial encounter Qualified Code(s): S00.81XA - Abrasion of other part of head, initial encounter Fall Qualifiers: Encounter type: initial encounter Qualified Code(s): W19.XXXA - Unspecified fall, initial encounter Disposition: Home, Self-Care Condition on Discharge: Good Instructions: How to Prevent Falls, DI for Closed Head Injury, DI for Nose Fracture, DI for Laceration Repair With Dermabond Additional Instructions: Call Dr. Montanez for follow-up of nasal bone fracture. Tylenol for pain. Ice for swelling. Additional instructions for HEAD INJURY: See your physician as soon as possible for further evaluation. Return immediately if severe headache, vomiting, problems with vision or speech, numbness or weakness of the extremities, or severe neck pain. Referrals: Davey Nj MD [Primary Care Provider] - - Critical Care Critical Care Time: No Attestation: On 07/03/20, the high probability of a clinically significant, sudden or life threatening deterioration of the following system(s) required my full and direct attention, intervention and personal management. The time I documented below is in addition to time spent performing reported procedures but includes the following listed in this critical care notation. Medical Decision Making - Adryan Inquiry Pt receiving controlled substance: No Vital Signs: 07/03/20 15:21 Temperature 97.7 F Temperature Source Oral Pulse Rate [Right Radial] 80 Respiratory Rate 17 Blood Pressure [Right Arm] 154/90 H Blood Pressure Mean [Right Arm] 111 02 Sat by Pulse Oximetry 97 Oxygen Delivery Method Room Air Orders (Tests/Meds): ED MEDICATIONS Discontinued Medications Generic Name Dose Route Start Last Admin Trade Name Freq PRN Reason Stop Dose Admin Acetaminophen 650 mg 07/03/20 16:09 Acetaminophen 325mg Tab PO 07/03/20 16:10 ONCE ONE - CT Data CT Scan: Head, C-Spine, Other (Facial) Time Received: 16:[address] Reviewed: Yes: I have viewed the radiologist's interpretation Findings Narrative: PROCEDURE: CT HEAD/BRAIN WO CON CLINICAL INDICATION: fall Head injury with headache/pain, contusion, abrasion or hematoma COMPARISON: CT HEADWO CT head/brain wo con from 12/23/2018 TECHNIQUE: Axial images obtained. All CT scans at the facility use one or more dose reduction, viz: automated exposure control, ma/kV adjustment per patient size (including targeted exams where dose is matched to indication, i.e. head), or iterative reconstruction technique. FINDINGS: No midline shift, mass effect, intracranial hemorrhage, hydrocephalus, or extra-axial fluid collection is evident. There is generalized atrophy with hypoattenuation of the periventricular white matter consistent with microangiopathic changes. The calvarium has an unremarkable appearance. No mastoid effusion. There is a small amount of soft tissue gas in the right frontal region of the scalp with some soft tissue swelling. IMPRESSION: 1. No acute intracranial findings. 2. Small right frontal scalp hematoma with laceration Dictated by: Bob Henderson MD 07/03/2020 16:07 Bob Henderson MD in [facility] 07/03/2020 16:07 PROCEDURE: CT FACIAL BONES WO CON CLINICAL HISTORY: fall Blunt trauma with injury and pain, contusion/abrasion or hematoma following injury, injury with pain and abrasion to the forehead and nose COMPARISON: No exams were available for comparison TECHNIQUE: Axial images obtained with sagittal and coronal reformats. All CT scans at the facility use one or more dose reduction, viz: automated exposure control, ma/kV adjustment per patient size (including targeted exams wher
[2020-07-03 16:37] VITALS: BP 145/74; PULSE 76; RESP 15; TEMP 36.7; O2SAT 98
== END 2020-07-03 16:38 | disposition home or self-care (01) ==
PROVIDERS: Emergency Provider Emergency Medicine; PCP Emergency Medicine
DX: S01.81XA Laceration without foreign body of other part of head, initial encounter (principal); W18.09XA Striking against other object with subsequent fall, initial encounter; Y92.480 Sidewalk as the place of occurrence of the external cause; I10 Essential (primary) hypertension; E78.5 Hyperlipidemia, unspecified; E03.9 Hypothyroidism, unspecified; F41.8 Other specified anxiety disorders; K21.9 Gastro-esophageal reflux disease without esophagitis; E55.9 Vitamin D deficiency, unspecified
CPT/HCPCS: 12011; 70450; 70486; 72125; 99282

== ENCOUNTER → 2020-07-17 10:27 | Outpatient (CLI) | payer MEDICARE, SELFPAY ==
--- NOTE | 2020-07-17 10:27 | US_ITS ---
PROCEDURE: US THYROID CLINICAL INDICATION: hx thyroid nodule Follow-up thyroid nodule COMPARISON: US US THYROID from 01/23/2020 FINDINGS: Right lobe: 1.8cm x 4.2cm x 1.5cm Left lobe: 1.8cm x 4.0cm x 2.0cm Isthmus: There is a 1.2 by 0.6 cm somewhat ill-defined hypoechoic nodule within the isthmus of the thyroid gland not significantly changed. Additional findings: There is some heterogeneous echogenicity of the right lobe of the thyroid gland. On the left there is a 7 mm hypoechoic nodule in the upper pole not significantly changed. IMPRESSION: Stable appearance of the thyroid gland with no change in the 12 mm nodule of the isthmus Dictated by: Bob Henderson MD 07/18/2020 12:27 Bob Henderson MD in [facility] 07/18/2020 12:27
== END ==
PROVIDERS: PCP Emergency Medicine; Visit Provider Otolaryngology
DX: E03.9 Hypothyroidism, unspecified (principal)
CPT/HCPCS: 76536

== ENCOUNTER → 2020-07-17 10:53 | Outpatient (CLI) | payer MEDICARE, SELFPAY ==
[2020-07-17 12:53] LABS: Free T4 (Free Thyroxine) 1.01 ng/dl (0.78-2.19)
[2020-07-17 13:06] LABS: Thyroid Stimulating Hormone 2.16 uIU/mL (0.465-4.68)
== END ==
PROVIDERS: Visit Provider Otolaryngology
DX: E03.9 Hypothyroidism, unspecified (principal); E04.1 Nontoxic single thyroid nodule
CPT/HCPCS: 36415; 76536; 84439; 84443

== ENCOUNTER 2020-09-05 13:02 | Emergency (ER) | payer MEDICARE, SELFPAY ==
[2020-09-05 13:02] VITALS: BP 135/95; PULSE 78; RESP 16; TEMP 36.6; O2SAT 95; BMI 28.3
--- NOTE | 2020-09-05 13:25 | HMH.EDUTC ---
[facility] Disposition Clinical Impression: Exposure to COVID-19 virus Disposition: Home, Self-Care Condition on Discharge: Good Instructions: Preventing the Spread of Coronavirus Discharge Instructions Additional Instructions: Drink plenty of fluids. Take tylenol for pain or fever. Return if you begin to have difficulty breathing. Follow up with your regular doctor. GO TO THE ER FOR ANY WORSENING SYMPTOMS Referrals: Davey Nj MD [Primary Care Provider] - Time of Disposition: 13:26 Medical Decision Making - Medical Records Medical records reviewed: No: I reviewed the patient's medical records. - Adryan Inquiry Pt receiving controlled substance: No Vital Signs: 09/05/20 13:02 09/05/20 13:31 Temperature 97.8 F 97.8 F Temperature Source Oral Oral Pulse Rate 78 Pulse Rate [Right] 78 Respiratory Rate 16 16 Blood Pressure 135/95 H Blood Pressure [Right Arm] 135/95 H Blood Pressure Mean [Right Arm] 108 02 Sat by Pulse Oximetry 95 Orders (Tests/Meds): ORDERS Category Date Time Status Covid-19 Nasal PCR Sendout [facility] Stat Lab 09/05/20 13:09 Ordered [facility] HPI - General Stated complaint: Covid test Time Seen by Provider: 09/05/20 13:25 Description of Symptoms (Recalled from Triage Doc. by RN): pt request COVID test pt has no symptoms HEENT Symptoms (Recalled from RN notes): No Resp Symptoms (Recalled from RN notes): No Skin Symptoms (Recalled from RN notes): No MS Symptoms (Recalled from RN notes): No Functional Status (Recalled from RN notes): wnl - History of Present Illness Provider Complaint: She states that she has been exposed to covid by a friend around 4 days ago. She denies any symptoms so far. - Related Data Home Medications Medication Instructions Recorded Confirmed aspirin 81 mg tablet,delayed 81 mg PO DAILY tab 02/08/18 08/22/20 release lovastatin 20 mg tablet 20 mg PO DAILY 08/13/18 08/22/20 Famotidine [Acid Potato Picker] 20 mg PO BID 07/13/19 08/22/20 Docusate Sodium [Docusate Sodium 100 mg PO BID 05/23/20 08/22/20 100mg Cap] Escitalopram Oxalate See Rx Instructions .ROUTE .COMPLEX 05/23/20 08/22/20 Ferrous Sulfate [Ferrous Sulfate 325 mg PO BID 05/23/20 08/22/20 325mg Tablet] Furosemide [Furosemide 20mg Tab*] See Rx Instructions .ROUTE .COMPLEX 05/23/20 08/22/20 Previous Rx's Medication Instructions Recorded fluticasone propionate 50 1 spray INTRANASAL DAILY #18.2 ml 01/11/20 mcg/actuation nasal spray,suspension lisinopril 5 mg tablet See Rx Instructions .ROUTE 05/31/20 .COMPLEX #90 tab loratadine 10 mg tablet 10 mg PO DAILY #30 tab 06/25/20 ibuprofen 600 mg tablet 600 mg PO Q8H PRN #30 tab 07/05/20 levothyroxine 50 mcg tablet 50 mcg PO DAILY #60 tab 07/24/20 clonazepam 0.5 mg tablet 0.5 mg PO BID PRN #20 tab 08/22/20 triamcinolone acetonide 0.025 % 1 applic TOPICAL BID #15 g 08/22/20 topical cream Allergies Allergy/AdvReac Type Severity Reaction Status Date / Time No Known Allergies Allergy Verified 09/05/20 13:23 - Worker's Comp Is this a Worker's Comp case?: No Is this an H Worker's Comp?: No Is this a Tuttle Worker's Comp?: No [facility] History - Hepatitis A Screen Drug use history?: No High risk sexual behaviors?: No History of sexually transmitted infection?: No Currently employed?: No Childcare worker?: No Do you have indoor plumbing?: Yes Do you have electricity?: Yes Attestation statement:: This patient has been screened for Hepatitis A risk factors. I have reviewed the patient's past medical history: Yes Medical History: Reports:: Anxiety, Depression, Gastroesophageal Reflux Disease(GERD), Hyperlipidemia, Hypertension, Valvular Heart Disease Denies:: Cancer, Diabetes Mellitus Type 1, Diabetes Mellitus Type 2, Internal Pacemaker, MRSA, Seizures, Transient Ischemic Attacks (TIA) Other Medical History: Reports: Arthritis, Hypothyroidism. Denies: Blood Transfusion Reaction Laterality Cases: Right: To
[2020-09-05 13:31] VITALS: BP 135/95; PULSE 78; RESP 16; TEMP 36.6; O2SAT 95
[2020-09-06 10:08] LABS: Covid-19 Nasal PCR Sendout P&C Negative
== END 2020-09-05 13:32 | disposition home or self-care (01) ==
PROVIDERS: Emergency Provider Nurse Practitioner Family; PCP Emergency Medicine
DX: Z20.822 Contact with and (suspected) exposure to COVID-19 (principal); F41.8 Other specified anxiety disorders; I10 Essential (primary) hypertension; E78.5 Hyperlipidemia, unspecified; K21.9 Gastro-esophageal reflux disease without esophagitis; E03.9 Hypothyroidism, unspecified; Z96.641 Presence of right artificial hip joint; Z79.899 Other long term (current) drug therapy
CPT/HCPCS: G0463; 99202; U0004

== ENCOUNTER 2020-09-25 21:12 | Observation (INO) | payer MEDICARE, SELFPAY ==
[2020-09-25 21:13] VITALS: BP 186/96; PULSE 101; RESP 24; TEMP 36.7; O2SAT 100; BMI 28.3
--- NOTE | 2020-09-25 21:26 | XR_ITS ---
PROCEDURE: XR CHEST 2V CLINICAL HISTORY: chest pain COMPARISON: CR CXR2V XR chest 2V from 09/16/2017 CR CXR2V XR chest 2V from 11/29/2018 CR XR CHEST 2V from 06/27/2019 FINDINGS: The cardiomediastinal silhouette and pulmonary vascularity are within normal limits. The lungs are clear without infiltrates, suspicious nodules, or pleural effusions. No acute bony abnormalities. IMPRESSION: No acute findings. Dictated by: Bob Henderson MD 09/26/2020 07:29 Bob Henderson MD in [facility] 09/26/2020 07:29
--- NOTE | 2020-09-25 21:26 | ECG_ITS ---
APPROVED REPORT Exam: Resting ECG HR:108 bpm ECG Measurements Heart Rate 108 AXES TN 174 P 72 QRSd 80 QRS 75 QT 338 T 51 QTc 452 Conclusion Sinus tachycardia Nonspecific T wave abnormality Abnormal ECG Electronically signed by : Jace Hassan, 09/25/2020 22:02:11
--- NOTE | 2020-09-25 21:26 | CT_ITS ---
PROCEDURE: CT ABDOMEN PELVIS W CON CLINICAL INDICATION: chest pain Nausea and vomiting with pain COMPARISON: No exams were available for comparison TECHNIQUE: IV Contrast: 75ML Isovue 370 Oral Contrast None Axial images obtained with sagittal and coronal reformats. All CT scans at the facility use one or more dose reduction, viz: automated exposure control, ma/kV adjustment per patient size (including targeted exams where dose is matched to indication, i.e. head), or iterative reconstruction technique. FINDINGS: LOWER THORAX: No acute finding ABDOMEN & PELVIS: Vague area of decreased attenuation is present in the right hepatic lobe just posterior to the gallbladder and could be due to focal fatty infiltration. Cannot exclude the possibility of a liver lesion. This measures 15 x 10 mm. There is mild diffuse a hepatic steatosis. The spleen, adrenal glands, and pancreas have an unremarkable appearance. There is mild ectasia of the renal collecting system on both sides and of the ureters. No ureteral calculi identified. No intestinal obstruction or free air. There are some fluid-filled loops of small bowel in the mid abdominal region with a few scattered air-fluid levels nonspecific but could be seen with enteritis. There is mild diffuse motion artifact which does somewhat obscure fine detail. No evidence of appendicitis. Colonic diverticulosis but no evidence of diverticulitis. Artifact is present from right hip prosthesis. There has been a prior hysterectomy. There is some increased soft tissue fullness in the pelvic region centrally at the hysterectomy site. This is nonspecific. Artifact does obscure this region. No obvious abscess. There are osteoarthritic changes of the left hip. Subchondral cystic changes are present in the acetabulum and femoral head. IMPRESSION: 1. Possible enteritis. Motion artifact does limit fine detail. If symptoms persist, consider repeat exam with both IV and adequate oral contrast with suspended respiration. 2. Prior hysterectomy with some soft tissue fullness in the hysterectomy bed nonspecific and may only be due to scarring and can be confirmed with follow-up. 3. Indeterminate 15 mm hypodensity in the right hepatic lobe which may be related to more focal fatty infiltration. Nonemergent MRI without and with enhancement may confirm Dictated by: Bob Henderson MD 09/26/2020 07:50 Bob Henderson MD in [facility] 09/26/2020 07:50
[2020-09-25 21:47] LABS: Basophils % 0.4 % (0.1-2.0); Eosinophils % 0.1 % (0.1-12.0); Hematocrit 43.2 % (37.0-47.0); Hemoglobin 14.2 g/dL (12.2-16.2); Lymphocytes % 21.2 % (10-50); Mean Corpuscular HGB Conc 32.8 g/dL (31.8-35.4); Mean Corpuscular Hemoglobin 31.5 pg (27.0-31.2); Monocytes # 0.1 K/mm3 (0.1-1.0); Monocytes % 1.4 % (1.7-9.3); Neutrophils # 3.7 K/mm3 (1.8-7.8); Neutrophils % 76.9 % (37.0-80.0); Platelet Count 300 K/mm3 (142-424); Red Blood Count 4.51 M/mm3 (4.20-5.40); Red Cell Distribution Width 13.6 % (11.5-17.5); White Blood Count 4.8 K/mm3 (4.8-10.8)
[2020-09-25 21:51] LABS: Alanine Aminotransferase 25 U/L (12-78); Albumin Level 4.6 g/dl (3.5-5.0); Alkaline Phosphatase 80 U/L (38-126); Amylase 71 U/L (30-110); Anion Gap 13.9 mEq/L (5-15); Aspartate Amino Transferase 39 U/L (14-36); Bilirubin,Direct 0.2 mg/dl (0.0-0.4); Bilirubin,Indirect 0.1 mg/dL (0.0-0.9); Bilirubin,Total 0.3 mg/dl (0.2-1.3); Bilirubin,Unconjugated 0.2 mg/dL (0.0-1.1); Blood Urea Nitrogen 15 mg/dl (7-17); Calcium 9.8 mg/dl (8.4-10.2); Carbon Dioxide 23 mmol/L (22.0-30.0); Chloride 107 mmol/L (98-107); Creatinine Clearance Estimated 64 mL/min (50-200); Estimated Glomerular Filt Rate 83 ml/min (>60); GFR (African American) 100 ML/MIN (>60); Glucose 221 mg/dl (74-100); Lipase 211 U/L (23-300); Potassium 3.9 mmoL/L (3.5-5.1); Sodium 140 mmol/L (136-145); Total Protein,Serum 7.6 g/dl (6.3-8.2)
[2020-09-25 21:56] LABS: C-Reactive Protein 1.6 mg/L (0-4)
[2020-09-25 22:00] VITALS: BP 163/90; PULSE 94; RESP 20; O2SAT 95
--- NOTE | 2020-09-25 22:01 | HMH.EDCP ---
ED Disposition Clinical Impression: Overweight (BMI 25.0-29.9) Chest pain Qualifiers: Chest pain type: precordial pain Qualified Code(s): R07.2 - Precordial pain HTN (hypertension) Qualifiers: Hypertension type: essential hypertension Qualified Code(s): I10 - Essential (primary) hypertension GERD (gastroesophageal reflux disease) Qualifiers: Esophagitis presence: esophagitis presence not specified Qualified Code(s): K21.9 - Gastro-esophageal reflux disease without esophagitis Hypothyroidism Qualifiers: Hypothyroidism type: acquired Qualified Code(s): E03.9 - Hypothyroidism, unspecified Disposition: Admitted as Observation Condition on Discharge: Good Referrals: Davey Nj MD [Primary Care Provider] - - Critical Care Critical Care Time: No Attestation: On 09/25/20, the high probability of a clinically significant, sudden or life threatening deterioration of the following system(s) required my full and direct attention, intervention and personal management. The time I documented below is in addition to time spent performing reported procedures but includes the following listed in this critical care notation. Medical Decision Making - Medical Records Medical records reviewed: Yes: I reviewed the patient's medical records. - Adryan Inquiry Pt receiving controlled substance: No Vital Signs: 09/25/20 21:13 Temperature 98.1 F Temperature Source Oral Pulse Rate [Right] 101 H Respiratory Rate 24 Blood Pressure [Right Arm] 186/96 H Blood Pressure Mean [Right Arm] 126 Blood Pressure Source [Right Arm] Automatic Cuff Blood Pressure Position [Right Arm] Sitting 02 Sat by Pulse Oximetry 100 Oxygen Delivery Method Room Air - Lab Data Lab results reviewed: Yes: I reviewed the patient's lab results. Lab Results 09/25/20 21:30: WBC 4.8, RBC 4.51, Hgb 14.2, Hct 43.2, MCV 96.0, MCH 31.5 H, MCHC 32.8, RDW 13.6, Plt Count 300, MPV 8.0, Neut % (Auto) 76.9, Lymph % (Auto) 21.2, [place] % (Auto) 1.4 L, Eos % (Auto) 0.1, Baso % (Auto) 0.4, Neut # (Auto) 3.7, Lymph # (Auto) 1.0, [place] # (Auto) 0.1, Eos # (Auto) 0.0, Baso # (Auto) 0.0, ESR 15 09/25/20 21:30: Sodium 140, Potassium 3.9, Chloride 107, Carbon Dioxide 23, Anion Gap 13.9, BUN 15, Creatinine 0.70, Estimated Creat Clear 64, Estimated GFR 83, Est GFR ( Amer) 100, Glucose 221 H, Calcium 9.8, Total Bilirubin 0.3, Direct Bilirubin 0.2, Conjugated Bilirubin 0.0, Indirect Bilirubin 0.1, Unconjugated Bilirubin 0.2, AST 39 H, ALT 25, Alkaline Phosphatase 80, Troponin I < 0.01, C-Reactive Protein 1.6, Total Protein 7.6, Albumin 4.6, Amylase 71, Lipase 211, TSH 1.06, Thyroxine (T4) 6.4 09/25/20 21:30: Procalcitonin < 0.030 Result diagrams: 09/25/20 21:30 09/25/20 21:30 Orders (Tests/Meds): ED MEDICATIONS Generic Name Dose Route Start Last Admin Trade Name Raheel PRN Reason Stop Dose Admin Sodium Chloride 1,000 mls @ 999 mls/hr 09/25/20 21:30 09/25/20 21:43 Sod Chlor 0.9% 1000ml Bag IV 09/25/20 22:30 999 mls/hr .Q1H1M FLAKO Administration Sodium Chloride 8 ml 09/25/20 21:26 Sodium Chloride 0.9% 10ml Vial IV 10/25/20 21:25 NEEDED PRN dilute pepcid Discontinued Medications Generic Name Dose Route Start Last Admin Trade Name Raheel PRN Reason Stop Dose Admin Aspirin 324 mg 09/25/20 21:26 09/25/20 21:42 Aspirin 81mg Chewable Tablet PO 09/25/20 21:27 324 mg ONCE ONE Administration Famotidine 20 mg 09/25/20 21:26 09/25/20 21:42 Famotidine 20mg/2ml Vial IV 09/25/20 21:27 20 mg ONCE ONE Administration Ketorolac Tromethamine 30 mg 09/25/20 21:26 09/25/20 21:42 Ketorolac 30mg/Ml Vial IV 09/25/20 21:27 30 mg ONCE ONE Administration Metoclopramide HCl 10 mg 09/25/20 21:26 09/25/20 21:42 Metoclopramide Hcl 10mg/2ml Vial IVP 09/25/20 21:27 10 mg ONCE ONE Administration Ondansetron HCl 4 mg 09/25/20 21:26 09/25/20 21:42 Ondansetron 4mg/2ml Vial IV 09/25/20 21:27 4 mg ONCE ON
[2020-09-25 22:10] LABS: T4 (Thyroxine) 6.4 ug/dl (5.53-11.0)
[2020-09-25 22:17] LABS: Procalcitonin < 0.030 ng/mL (0.0-2.0); Troponin I < 0.01 ng/ml (0.00-0.034)
[2020-09-25 22:23] LABS: Erythrocyte Sedimentation Rate 15 mm/hr (0-30)
[2020-09-25 22:24] LABS: Thyroid Stimulating Hormone 1.06 uIU/mL (0.465-4.68)
[2020-09-25 22:30] VITALS: BP 147/83; PULSE 83; RESP 18; O2SAT 93
[2020-09-25 23:00] VITALS: BP 122/67; PULSE 85; RESP 18; O2SAT 94
[2020-09-26] VITALS (26 sets, daily range): BP systolic 99–146; BP diastolic 59–90; PULSE 58–97; RESP 14–20; TEMP 36.4–36.7; O2SAT 92–100; BMI 28.6
--- NOTE | 2020-09-26 | IR_ITS ---
APPROVED REPORT Patient Location: Inpatient Strategy Specialist: NILTON Mckenzie RT (R) PROCEDURES Left heart catheterization Left ventriculogram Selective coronary angiogram Drug-eluting stent deployment to the LAD Drug-eluting stent deployment to the circumflex artery Drug-eluting stent deployment to the left main artery INDICATION Coronary artery disease, Unstable angina, Informed consent was obtained prior to the procedure. COMPLICATIONS none Estimated Blood Loss: less than 10 mls TECHNIQUE One percent lidocaine used to anesthetize the right anterior aspect of the wrist. The right radial artery was accessed via the Seldinger technique. A 6 [place] Islander sheath was placed in the right radial artery. 2.5 mg of verapamil, 800 mcg of nitroglycerin, 1mg Lidocaine and 5000 U Heparin were given through the arterial sheath. The trap catheter and a 6 [place] Islander JL 3 guide catheter were used to perform left heart catheterization, left ventriculogram and selective coronary angiogram. At the end of the procedure therapeutic heparin was administered giving a therapeutic ACT. The 6 [place]er JL 3 catheter was in the left main artery and a Choice PT extra-support wire was placed distally in the LAD. A 3 mm x 30 mm resolute Olga stent was deployed in the proximal LAD at 18 rosa elena. The wire was pulled back and placed into the circumflex artery where a 2.5 x 26 mm resolute Olga stent was deployed at 18 rosa elena. Following this the left main artery stenosis looked much more significant therefore 3.5 x 15 mm resolute Olga stent was placed in the left main artery extending into the proximal LAD and deployed at 20 rosa elena. The wire was was kept in the LAD and then a new wire placed in the circumflex artery where a 2 mm balloon was used to predilate the stenosis or struts in the circumflex artery. A 2.5 x 12 mm resolute olga stent was then placed in the left main artery extending into the circumflex artery and deployed at 20 rosa elena. The wire and balloon were then removed from the circumflex artery and a 3.75 x 6 mm balloon was then railed down the LAD wire and deployed in the proximal left anterior descending artery and distal left main artery at 20 rosa elena to make sure the circumflex artery stent struts were out of the main lumen. After achieving BRITTANI-3 flow down the vessel before and after the procedure and excellent angiographic results the apparatus was removed the sheath was removed good hemostasis was achieved using TR banding patient was transferred to the postop holding in stable condition ANGIOGRAPHIC RESULTS The left main artery Distal 50% stenosis The left anterior descending artery Has proximal 80% concentric stenosis followed by an additional mid vessel 50% stenosis. The remaining vessel is normal is large and wraps the apex The circumflex artery Is nondominant and has proximal 80% stenoses The right coronary artery Is a dominant vessel and has proximal and mid vessel 40 to 50% stenoses with distal 30 to 40% stenoses The VILLA ventriculogram reveals Normal 60% The left ventricular end-diastolic pressure 20 mmHg IMPRESSION Coronary disease as described above Successful stenting of the distal left main artery severe disease reduced to 0% with 1 drug-eluting stent Successful stenting of the ostial proximal LAD severe disease reduced to 0% with 1 drug-eluting stent Successful stenting of the ostial proximal circumflex artery severe disease reduced to 0% with 2 drug-eluting stents Persistent mid LAD stenosis moderate in severity Persistent proximal to mid right coronary artery stenosis moderate in severity Preserved ejection fraction Mild elevated LVEDP PLAN 1. Brilinta and aspirin 2. LDL less than 55 3. I recommend
--- NOTE | 2020-09-26 01:10 | PC.NURSE ---
PT ARRIVED TO THE FLOOR VIA W/C FROM ED W/STAFF AT 0105
[2020-09-26 01:29] LABS: Troponin I < 0.01 ng/ml (0.00-0.034)
[2020-09-26 01:29] LABS: Hemoglobin A1C 5.9 % (4.0-6.0)
--- NOTE | 2020-09-26 02:41 | PC.NURSE ---
PT IS RESTING IN BED. NO COMPLAINTS OF CHEST PAIN OR SOA. NSR ON THE MONITOR. PT HAS AMBULATED TO THE BATHROOM. ALERT AND ORIENTED X4. NITRO PASTE NOTED TO THE CHEST. LUNG SOUNDS CLEAR. ABDOMEN SOFT/NON TENDER WITH ACTIVE SOUNDS. VSS. WILL CONTINUE TO MONITOR.
[2020-09-26 04:27] LABS: Troponin I < 0.01 ng/ml (0.00-0.034)
[2020-09-26 04:40] LABS: Basophils % 0.4 % (0.1-2.0); Eosinophils % 0.4 % (0.1-12.0); Hematocrit 36.5 % (37.0-47.0); Lymphocytes # 1.7 K/mm3 (0.7-4.5); Lymphocytes % 27.6 % (10-50); Mean Corpuscular HGB Conc 32.9 g/dL (31.8-35.4); Mean Corpuscular Hemoglobin 31.6 pg (27.0-31.2); Mean Corpuscular Volume 95.8 fl (81-99); Mean Platelet Volume 7.5 fl (7.4-10.4); Monocytes # 0.4 K/mm3 (0.1-1.0); Monocytes % 5.7 % (1.7-9.3); Neutrophils # 4.1 K/mm3 (1.8-7.8); Platelet Count 244 K/mm3 (142-424); Red Blood Count 3.81 M/mm3 (4.20-5.40); Red Cell Distribution Width 13.5 % (11.5-17.5); White Blood Count 6.1 K/mm3 (4.8-10.8)
[2020-09-26 04:44] LABS: Magnesium 1.9 mg/dl (1.6-2.3)
--- NOTE | 2020-09-26 07:59 | HMH.PHAVTE ---
[facility] Pharmacy VTE Monitoring - Patient Demographics Admission date: 09/26/20 Report Date: 09/26/20 Time: 07:59 Allergies/Adverse Reactions: Patient Allergies No Known Allergies Allergy (Verified 09/25/20 10:52) Height: 1.65 m Weight: 78 kg Patient Problems: Current Active Problems Chest pain (Acute) Overweight (BMI 25.0-29.9) (Acute) GERD (gastroesophageal reflux disease) (Acute) Hypothyroidism (Acute) HTN (hypertension) (Chronic) - VTE Risk Labs: VTE Related Lab Results Hgb 14.2 g/dL (12.2-16.2) 09/25/20 21:30 Hct 36.5 % (37.0-47.0) L 09/26/20 04:00 Plt Count 244 K/mm3 (142-424) 09/26/20 04:00 BUN 15 mg/dl (7-17) 09/25/20 21:30 Creatinine 0.70 mg/dl (0.52-1.04) 09/25/20 21:30 Estimated Creat Clear 64 mL/min (50-200) 09/25/20 21:30 Was VTE Risk Assessment Performed: Yes VTE Score: 1 VTE Risk Level: Low Risk Clinical Trial Participant: No - Prophylaxis Types of VTE Prophylaxis: TEDS Knee High
--- NOTE | 2020-09-26 08:00 | CA_ITS ---
APPROVED REPORT EXAM: Comprehensive 2D, Doppler, and color-flow Echocardiogram Behavioral Analyst: Cate Capone RCS, RVS Ht: 5 ft 5 in Wt: 170lbs BSA: 1.85 BP: 99/59 mmHg Indications: Cp, Aortic insufficiency, Diastolic dysfunction, GERD, Murmur 2D Dimensions LVDd 4.72 cm LVEF (Visual) 67.20 % LVDs 2.96 cm LA Volume 57.50 mL Aortic Root 2.88 cm LA Volume Index 31.10 mL/m2 (M/F) 16-34 Left Atrium 3.19 cm LVOT 1.73 cm (M/F) 1.5-2.5 Ascending Aorta 2.16 cm M-Mode Dimensions RVDd 2.14 cm (0.9-2.6) LA Diam 3.34 cm (1.9-4.0) LVDd 5.29 cm (3.5-5.7) Ao Diam 3.10 cm (2.0-3.7) LVDs 3.00 cm (3.5-5.7) IVSd 0.86 cm (0.6-1.1) PWd 0.82 cm (0.6-1.1) EF (Teich) 74.00% EPSs 0.39 cm FS 43.30% EDV (Teich) 134.80 mL ESV (Teich) 35.00 mL LV Diastology E Decel Time 180.00 (160-240 msec) E/A Ratio 1.19 MED E' 10.40 (< 7 cm/sec) MED A' 10.90 cm/s E'/MED E' Ratio 7.92 (>14) LAT E' 10.00 (<10 cm/sec) LAT A' 8.90 cm/s E/LAT E' Ratio 8.24 (>14) Aortic Valve AI PHT 510.00 ms AO Peak GR. 6.90 mmHg Mitral Valve MV A Velocity 69.00 (40-130 cm/s) E/A Ratio 1.19 MV Decel. Time 180.00 (160-240 ms) Pulmonary Valve PV Peak Velocity 82.00 (50-150 cm/s) Tricuspid Valve TR P. Velocity 210.00 cm/s RAP Estimate 10.00 mmHg RVSP 27.60 mmHg Left Ventricle Left atrium is mildly enlarged, left ventricle is normal size, mild concentric left ventricular hypertrophy, visually estimated ejection fraction 55% with no regional wall motion abnormality, grade 1 diastolic dysfunction seen without tissue Doppler evidence of raise left atrial pressure. Right Ventricle Right atrium and right ventricle are normal size and contractility. Aortic Valve Aortic valve is minimally thickened and fibrosed, there is no aortic stenosis, there is mild aortic insufficiency. Mitral Valve Mitral valve leaflets are minimally thickened, there is mild mitral regurgitation. Tricuspid Valve Tricuspid valve grossly normal, there is mild tricuspid regurgitation, tricuspid regurgitation jet velocity is inadequate for calculation of the right ventricular systolic pressure. Pulmonic Valve Pulmonic valve is poorly visualized. Great Vessels Aortic root is normal size. Pericardium No significant pericardial effusion noted Conclusion 1. Mildly enlarged left atrium, normal left ventricular size, mild concentric left ventricular hypertrophy, visually estimated ejection fraction 55% with no regional wall motion abnormality, grade 1 diastolic dysfunction seen without tissue Doppler evidence of raise left atrial pressure. 2. Mild aortic, mild mitral and tricuspid regurgitation. 3. No significant pericardial effusion noted. Electronically signed by : Shane Reyna, 09/26/2020 18:08:38
--- NOTE | 2020-09-26 08:22 | HMH.CNCARD ---
History of Present Illness Consult date: 09/26/20 Requesting physician: Davey Nj Consult reason: chest pain Chief complaint: chest pain Additional Medical History:: 1. Atypical chest pain (09/26/20) a. Negative troponins b. chest pain radiating to left side of neck and down the left arm. c. Nitroglycerin relieves the pain. 2. Essential hypertension a. Controlled. 3. Diastolic dysfunction a. Mild ( echo 2020) 4. GERD 5. Hyperlipidemia a. Pt is on a statin. 6. Significant family history of CAD History of present illness: 70-year-old female presented to the ED last evening with midsternal chest pain radiating to the left portion of the neck and down the arm. Patient stated this pain started on Thursday evening while she was fixing supper. Patient stated she was seen by PCP yesterday and became very nervous. Patient stated the chest pain began again radiating down the left arm. Pain scale was 8 out of 10. Patient states she became short of breath accompanied with palpitations during this chest pain episode. Patient stated after taking 2 aspirins the pain had resolved. Patient states while in the ED, she began to develop chest pressure and became short of breath. Patient states she was started on a nitro patch. The nitroglycerin has relieved her pain. Patient is pain-free at this time. Patient denies shortness of breath. Patient states shortness of breath only appears when she is having the chest discomfort. Patient complains of dizziness at times especially with movement. Slight lower extremity edema noted. Patient has history of hypertension and GERD. Patient stated the pain did not feel like her GERD symptoms. Patient does have history of hyperlipidemia. Patient is on a statin and this is managed by PCP. Patient is a non-smoker. Patient states she has been under a lot of stress due to afraid of being evicted from her apartment. Patient was tearful in the room. Initial ED work-up was performed. Labs were unremarkable. Creatinine 0.70 and BUN 15. Chest x-ray revealed no acute findings. Troponins were negative. Echo (2018) revealed EF 55% with mild aortic insufficiency and mild MR and TR noted. Obtained echocardiogram to assess LV function and valve status this morning. Preliminary report states normal LV function, trace of mild aortic insufficiency, trivial MR and TR, no AV stenosis. Mild systolic dysfunction also noted. ECG revealed Sinus rhythm with no ischemic changes noted. Discussed with Dr. Kruger plan of care with patient. Recommended left heart catheterization due to atypical chest pain and family history of significant CAD. Discussed with patient the risk and benefits of undergoing a left heart catheterization today. Patient is agreeable to procedure. Road Commissioner was notified. Pending on the results of the left heart catheterization, recommendations and medication changes or treatment therapy may be recommended. Thank you for allowing cardiology to participate in the care of this patient. [facility] History I have reviewed the patient's past medical history: Yes Medical History: Reports:: Anxiety, Depression, Gastroesophageal Reflux Disease(GERD), Hyperlipidemia, Hypertension, Valvular Heart Disease Denies:: Cancer, Diabetes Mellitus Type 1, Diabetes Mellitus Type 2, Internal Pacemaker, MRSA, Seizures, Transient Ischemic Attacks (TIA) *Have you ever received a pneumonia vaccine?: No *Have you received a flu vaccine this season?: Yes Other Medical History: Reports: Arthritis, Hypothyroidism. Denies: Blood Transfusion Reaction Laterality Cases: Right: Total Hip Replacement, Bilateral: Other Other Surgeries: Yes: Hysterectomy-Total, Hysterectomy-Partial, Other. No: Pacemaker Amputation: No Fractures: No - *Social History Last grade of school completed: 11th or 12th Smoking Status: Never smoker Alcohol Intake: never Substance Use Type: denies use *Occupational Status:: re
--- NOTE | 2020-09-26 09:00 | HMH.HP ---
*Admission Date: 09/26/20 *Chief complaint: Chest Pain *History of present illness: 70-year-old female patient presented to the emergency department with midsternal chest pain radiating into the left neck through the left shoulder and down left arm. She reports this pain started 2 days prior when she was fixing supper and has been off and on since. She was seen by her PCP earlier today and afterwards reports she became very anxious. After the appointment she reported the chest pain began radiating further down her left arm and she was becoming short of breath and decided to come to the emergency department. At the emergency department initially she was pain-free then she developed chest pressure and shortness of breath she received nitro and reported the pain subsided. In the emergency department CBC revealed normal white blood cells and stable H/H Chemistry revealed electrolytes within normal, A1c 5.9, TSH 1.04, T4 6.4, and troponins negative x3 Chest x-ray revealed no acute findings 09/25/20 abdomen/pelvis CT: FINDINGS: LOWER THORAX: No acute finding ABDOMEN & PELVIS: Vague area of decreased attenuation is present in the right hepatic lobe just posterior to the gallbladder and could be due to focal fatty infiltration. Cannot exclude the possibility of a liver lesion. This measures 15 x 10 mm. There is mild diffuse a hepatic steatosis. The spleen, adrenal glands, and pancreas have an unremarkable appearance. There is mild ectasia of the renal collecting system on both sides and of the ureters. No ureteral calculi identified. No intestinal obstruction or free air. There are some fluid-filled loops of small bowel in the mid abdominal region with a few scattered air-fluid levels nonspecific but could be seen with enteritis. There is mild diffuse motion artifact which does somewhat obscure fine detail. No evidence of appendicitis. Colonic diverticulosis but no evidence of diverticulitis. Artifact is present from right hip prosthesis. There has been a prior hysterectomy. There is some increased soft tissue fullness in the pelvic region centrally at the hysterectomy site. This is nonspecific. Artifact does obscure this region. No obvious abscess. There are osteoarthritic changes of the left hip. Subchondral cystic changes are present in the acetabulum and femoral head. IMPRESSION: 1. Possible enteritis. Motion artifact does limit fine detail. If symptoms persist, consider repeat exam with both IV and adequate oral contrast with suspended respiration. 2. Prior hysterectomy with some soft tissue fullness in the hysterectomy bed nonspecific and may only be due to scarring and can be confirmed with follow-up. 3. Indeterminate 15 mm hypodensity in the right hepatic lobe which may be related to more focal fatty infiltration. Nonemergent MRI without and with enhancement may confirm Dictated by: Santiago, 70-year-old female patient sitting up in bed she denies any further chest pain or shortness of breath during the night. Oxygenation 98% on room air. Cardiology consulted and awaiting recommendations [facility] History I have reviewed the patient's past medical history: Yes Medical History: Reports:: Anxiety, Depression, Gastroesophageal Reflux Disease(GERD), Hyperlipidemia, Hypertension, Valvular Heart Disease Denies:: Cancer, Diabetes Mellitus Type 1, Diabetes Mellitus Type 2, Internal Pacemaker, MRSA, Seizures, Transient Ischemic Attacks (TIA) *Have you ever received a pneumonia vaccine?: No *Have you received a flu vaccine this season?: Yes Other Medical History: Reports: Arthritis, Hypothyroidism. Denies: Blood Transfusion Reaction Laterality Cases: Right: Total Hip Replacement, Bilateral: Other Other Surgeries: Yes: Hysterectomy-Total, Hysterectomy-Partial, Other. No: Pacemaker Amputation: No Fractures: No - *Social History Last grade of school completed: 11th or 12th Smoking Status: Never smoker Al
--- NOTE | 2020-09-26 10:33 | HMH.PHAINT ---
HOME MEDICAITON RECONCILIATION COMPLETED USING LIST FROM HOME PHARMACY, LIST FROM DR. GUIDO'S OFFICE AND PT INTERVIEW.
[2020-09-26 13:10] LABS: CATHL Activated Clotting Time 335 SEC (74-125)
--- NOTE | 2020-09-26 19:12 | PC.NURSE ---
Pt alert and oriented and able to make needs known. NAD, has done well since heart cath. Dsg- telfa and tegaderm is cdi without s/s of problems. VSS. S1,S2. Has ambulated to bathroom with sba. CB in reach.
--- NOTE | 2020-09-26 23:13 | PC.NURSE ---
Pt appeared to have a 21 beat run of vtach while sleeping. Upon going into pt's room, she was asymptomatic and VSS. MD Kruger paged and made aware, told this nurse keep an eye on it, and he will be in to see pt in the morning.
[2020-09-27] VITALS: PULSE 60
[2020-09-27 03:27] VITALS: BP 124/65; PULSE 66; RESP 18; TEMP 36.7; O2SAT 92
[2020-09-27 04:00] VITALS: PULSE 50
[2020-09-27 05:05] VITALS: BMI 28.6
--- NOTE | 2020-09-27 05:12 | PC.NURSE ---
Pt is A&Ox4. Rt radial cath site dressing remains CDI with no hematoma noted. Lung sounds CTA. No cough noted. VSS. Pt turns self in bed independently. No other acute changes or complaints at this time.
[2020-09-27 07:19] LABS: Basophils # 0.1 K/mm3 (0-0.2); Basophils % 0.6 % (0.1-2.0); Eosinophils # 0.2 K/mm3 (0.0-0.4); Eosinophils % 2.2 % (0.1-12.0); Hematocrit 39.8 % (37.0-47.0); Lymphocytes % 23.8 % (10-50); Mean Corpuscular HGB Conc 32.7 g/dL (31.8-35.4); Mean Corpuscular Hemoglobin 32.2 pg (27.0-31.2); Mean Corpuscular Volume 98.4 fl (81-99); Mean Platelet Volume 7.8 fl (7.4-10.4); Monocytes # 0.5 K/mm3 (0.1-1.0); Monocytes % 5.6 % (1.7-9.3); Neutrophils # 5.7 K/mm3 (1.8-7.8); Neutrophils % 67.7 % (37.0-80.0); Platelet Count 241 K/mm3 (142-424); Red Blood Count 4.04 M/mm3 (4.20-5.40); Red Cell Distribution Width 13.6 % (11.5-17.5); White Blood Count 8.4 K/mm3 (4.8-10.8)
[2020-09-27 07:23] LABS: Chloride 107 mmol/L (98-107); Sodium 138 mmol/L (136-145)
[2020-09-27 07:26] LABS: Blood Urea Nitrogen 12 mg/dl (7-17); Creatinine Clearance Estimated 64 mL/min (50-200); Estimated Glomerular Filt Rate 83 ml/min (>60); GFR (African American) 100 ML/MIN (>60)
[2020-09-27 07:27] LABS: Carbon Dioxide 28 mmol/L (22.0-30.0); Glucose 95 mg/dl (74-100)
[2020-09-27 08:00] VITALS: BP 147/68; PULSE 65; PULSE 68; PULSE 76; RESP 18; TEMP 36.7; O2SAT 96; O2SAT 98
--- NOTE | 2020-09-27 08:56 | HMH.DCSUM ---
General - General Admission date:: 09/26/20 Discharge date: 09/27/20 HPI HPI: 70-year-old female patient presented to the emergency department with midsternal chest pain radiating into the left neck through the left shoulder and down left arm. She reports this pain started 2 days prior when she was fixing supper and has been off and on since. She was seen by her PCP earlier today and afterwards reports she became very anxious. After the appointment she reported the chest pain began radiating further down her left arm and she was becoming short of breath and decided to come to the emergency department. At the emergency department initially she was pain-free then she developed chest pressure and shortness of breath she received nitro and reported the pain subsided. In the emergency department CBC revealed normal white blood cells and stable H/H Chemistry revealed electrolytes within normal, A1c 5.9, TSH 1.04, T4 6.4, and troponins negative x3 Chest x-ray revealed no acute findings 09/25/20 abdomen/pelvis CT: FINDINGS: LOWER THORAX: No acute finding ABDOMEN & PELVIS: Vague area of decreased attenuation is present in the right hepatic lobe just posterior to the gallbladder and could be due to focal fatty infiltration. Cannot exclude the possibility of a liver lesion. This measures 15 x 10 mm. There is mild diffuse a hepatic steatosis. The spleen, adrenal glands, and pancreas have an unremarkable appearance. There is mild ectasia of the renal collecting system on both sides and of the ureters. No ureteral calculi identified. No intestinal obstruction or free air. There are some fluid-filled loops of small bowel in the mid abdominal region with a few scattered air-fluid levels nonspecific but could be seen with enteritis. There is mild diffuse motion artifact which does somewhat obscure fine detail. No evidence of appendicitis. Colonic diverticulosis but no evidence of diverticulitis. Artifact is present from right hip prosthesis. There has been a prior hysterectomy. There is some increased soft tissue fullness in the pelvic region centrally at the hysterectomy site. This is nonspecific. Artifact does obscure this region. No obvious abscess. There are osteoarthritic changes of the left hip. Subchondral cystic changes are present in the acetabulum and femoral head. IMPRESSION: 1. Possible enteritis. Motion artifact does limit fine detail. If symptoms persist, consider repeat exam with both IV and adequate oral contrast with suspended respiration. 2. Prior hysterectomy with some soft tissue fullness in the hysterectomy bed nonspecific and may only be due to scarring and can be confirmed with follow-up. 3. Indeterminate 15 mm hypodensity in the right hepatic lobe which may be related to more focal fatty infiltration. Nonemergent MRI without and with enhancement may confirm Dictated by: Santiago, 70-year-old female patient sitting up in bed she denies any further chest pain or shortness of breath during the night. Oxygenation 98% on room air. Cardiology consulted and awaiting recommendations Hospital Course Hospital Course: pt with progressive chest pain over the last few days and was seen in the ed and admitted - pt was seen by card --year-old female presented to the ED last evening with midsternal chest pain radiating to the left portion of the neck and down the arm. Patient stated this pain started on Thursday evening while she was fixing supper. Patient stated she was seen by PCP yesterday and became very nervous. Patient stated the chest pain began again radiating down the left arm. Pain scale was 8 out of 10. Patient states she became short of breath accompanied with palpitations during this chest pain episode. Patient stated after taking 2 aspirins the pain had resolved. Patient states while in the ED, she began to develop chest pressure and became short of breath. P
[2020-09-27 12:00] VITALS: BP 132/85; PULSE 61; PULSE 65; RESP 16; TEMP 36.9; O2SAT 96
--- NOTE | 2020-09-27 12:27 | HMH.PNCARD ---
Subjective Date: 09/27/20 Time: 12:15 Principal diagnosis: chest pain Interval history: 70-year-old white female who presented to the emergency department with midsternal chest pain that was radiating up into her neck. She underwent left cardiac catheterization which showed: The left main artery Distal 50% stenosis The left anterior descending artery Has proximal 80% concentric stenosis followed by an additional mid vessel 50% stenosis. The remaining vessel is normal is large and wraps the apex The circumflex artery Is nondominant and has proximal 80% stenoses The right coronary artery Is a dominant vessel and has proximal and mid vessel 40 to 50% stenoses with distal 30 to 40% stenoses The VILLA ventriculogram reveals Normal 60% The left ventricular end-diastolic pressure 20 mmHg IMPRESSION Coronary disease as described above Successful stenting of the distal left main artery severe disease reduced to 0% with 1 drug-eluting stent Successful stenting of the ostial proximal LAD severe disease reduced to 0% with 1 drug-eluting stent Successful stenting of the ostial proximal circumflex artery severe disease reduced to 0% with 2 drug-eluting stents Persistent mid LAD stenosis moderate in severity Persistent proximal to mid right coronary artery stenosis moderate in severity Preserved ejection fraction Mild elevated LVEDP PLAN 1. Brilinta and aspirin 2. LDL less than 55 3. I recommend Lexiscan Myoview in 6 weeks to determine if the mid LAD stenosis or proximal right coronary stenosis have hemodynamic significance 4. Standard therapy for ischemic heart disease 5. Cardiac rehabilitation 6. Avoidance of tobacco products Patient states that her chest pain has resolved and she is no longer having pain in her neck either. She states that she feels much better today. She denies any chest pain or pressure. She denies any shortness of breath. She has chronic bilateral lower extremity edema secondary to varicose veins. She denies any fever, chills, nausea, vomiting, diarrhea, PND or orthopnea. The patient did have a 21 beat run of ventricular tachycardia last night that was reported to Dr. Kruger. At this time he states she just needs to continue her beta-yamile and no further changes at this time as she was asymptomatic. Will need a Lexiscan Myoview stress test in 6 weeks to determine if her mid LAD stenosis or proximal right coronary artery is hemodynamically significant. Exam Vital signs and Labs for Last 24 Hours: Temp Pulse Resp BP Pulse Ox 98.1 F 61 18 147/68 H 96 09/27/20 08:00 09/27/20 12:00 09/27/20 08:00 09/27/20 08:00 09/27/20 08:00 Laboratory Results - last 24 hr 09/26/20 13:39: Activated Clotting Time 335 H* 09/27/20 06:14: WBC 8.4 D, RBC 4.04 L, Hgb 13.0, Hct 39.8, MCV 98.4, MCH 32.2 H, MCHC 32.7, RDW 13.6, Plt Count 241, MPV 7.8, Neut % (Auto) 67.7, Lymph % (Auto) 23.8, [place] % (Auto) 5.6, Eos % (Auto) 2.2, Baso % (Auto) 0.6, Neut # (Auto) 5.7, Lymph # (Auto) 2.0, [place] # (Auto) 0.5, Eos # (Auto) 0.2, Baso # (Auto) 0.1 09/27/20 06:14: Sodium 138, Potassium 4.0, Chloride 107, Carbon Dioxide 28 D, Anion Gap 7.0, BUN 12, Creatinine 0.70, Estimated Creat Clear 64, Estimated GFR 83, Est GFR ( Amer) 100, Glucose 95, Calcium 9.0 I & O for Last 24 hours: Intake & Output 09/24/20 09/25/20 09/26/20 09/27/20 23:59 23:59 23:59 23:59 Intake Total 1800 / 1920 480 / 480 Balance 1800 / 1920 480 / 480 Weight 170 lb 171 lb 15.369 oz 172 lb Narrative: Echo shows: 1. Mildly enlarged left atrium, normal left ventricular size, mild concentric left ventricular hypertrophy, visually estimated ejection fraction 55% with no regional wall motion abnormality, grade 1 diastolic dysfunction seen without tissue Doppler evidence of raise left atrial pressure. 2. Mild aortic, mild mitral and tricuspid regurgitation. 3. No significant pericardial effusion noted. - Constitutional no acute distr
--- NOTE | 2020-09-27 13:35 | HMH.PHACLD ---
Trang De Dios has received discharge medication counseling on the following medications: NEW MEDICATIONS: BRILINTA, ATORVASTATIN, BISOPROLOL, CONTINUED MEDICATIONS: ASPIRIN DOSE INCREASE: LISINOPRIL STOPPED MEDICATIONS: LOVASTATIN PATIENT VERBALIZED UNDERSTANDING AND DID NOT HAVE ANY QUESTIONS.
== END 2020-09-27 14:15 | disposition home or self-care (01) ==
LOC: ER 23:57 → 2ND 09-26 01:10
PROVIDERS: Internal Medicine; Admitting Provider Emergency Medicine; Emergency Provider Emergency Medicine; PCP Emergency Medicine; Visit Provider Emergency Medicine
DX: I25.110 Atherosclerotic heart disease of native coronary artery with unstable angina pectoris (principal); I11.0 Hypertensive heart disease with heart failure; I50.30 Unspecified diastolic (congestive) heart failure; Z82.49 Family history of ischemic heart disease and other diseases of the circulatory system; I24.9 Acute ischemic heart disease, unspecified; Z79.899 Other long term (current) drug therapy; Z79.82 Long term (current) use of aspirin
CPT/HCPCS: 71046; 74177; 80048; 80076; 82150; 83036; 83690; 83735; 84145; 84436; 84443; 84484; 85025; 85347; 85651; 86140; 92928; 93005; 93306; 93458; 96365; 96375; 99152; 99153; 99284; C1725; C1769; C1874; C1876; C9600; G0378; J1644; J2405; Q9967; U0003

== ENCOUNTER → 2020-10-08 13:42 | Outpatient (CLI) | payer MEDICARE, SELFPAY ==
[2020-10-08 14:08] LABS: Blood Urea Nitrogen 15 mg/dl (7-17); Estimated Glomerular Filt Rate 71 ml/min (>60); GFR (African American) 86 ML/MIN (>60)
== END ==
PROVIDERS: Visit Provider Internal Medicine
DX: E78.2 Mixed hyperlipidemia (principal); I25.10 Atherosclerotic heart disease of native coronary artery without angina pectoris; I10 Essential (primary) hypertension; I35.1 Nonrheumatic aortic (valve) insufficiency; K21.9 Gastro-esophageal reflux disease without esophagitis
CPT/HCPCS: 36415; 82565; 84520

== ENCOUNTER → 2020-10-09 09:35 | Outpatient (CLI) | payer MEDICARE, SELFPAY ==
--- NOTE | 2020-10-09 09:38 | CA_ITS ---
APPROVED REPORT Fire Prevention Officer: UZIEL Laterality: Bilateral Study Quality: Good Indications: right carotid bruit Risk Factors CAD, recent Coronary stenting x4 Doppler Spectral Velocity Analysis ECA (R) 98.40/16.00 cm/s ECA (L) 85.70/12.90 cm/s dICA (R) 102.70/32.10 cm/s dICA (L) 113.10/28.30 cm/s Thais (R) 79.10/24.60 cm/s Thais (L) 78.00/27.40 cm/s pICA (R) 89.80/17.10 cm/s pICA (L) 64.30/18.80 cm/s dCCA (R) 81.30/18.20 cm/s dCCA (L) 61.00/10.90 cm/s pCCA (R) 101.60/21.40 cm/s pCCA (L) 92.80/15.70 cm/s Vert (R) 29.50/8.30 cm/s Vert (L) 35.30/7.50 cm/s ICA/CCA 1.00 ICA/CCA 1.21 Findings Duplex evaluation demonstrates stenosis of the right proximal internal carotid artery in the range of 20-49% with PSV <140 cm/sec, EDV <100 cm/sec, and IC/CC Ratio <4.0.Duplex evaluation demonstrates stenosis of the left proximal internal carotid artery <20% with PSV <140 cm/sec, EDV <100 cm/sec, and IC/CC Ratio <4.0. Heterogenous plaque formation noted in right bulb. Bilateral vertebral arteries display antegrade flow. Conclusion Duplex evaluation demonstrates stenosis of the right proximal internal carotid artery in the range of 20-49% with PSV <140 cm/sec, EDV <100 cm/sec, and IC/CC Ratio <4.0.Duplex evaluation demonstrates stenosis of the left proximal internal carotid artery <20% with PSV <140 cm/sec, EDV <100 cm/sec, and IC/CC Ratio <4.0. Heterogenous plaque formation noted in right bulb. Bilateral vertebral arteries display antegrade flow. Electronically signed by : Bob Henderson MD 10/09/2020 17:45:20
[2020-10-09 11:46] LABS: Chloride 106 mmol/L (98-107)
[2020-10-09 11:47] LABS: Potassium 4.4 mmoL/L (3.5-5.1); Sodium 142 mmol/L (136-145)
[2020-10-09 11:49] LABS: Alanine Aminotransferase 19 U/L (12-78); Anion Gap 10.4 mEq/L (5-15); Aspartate Amino Transferase 29 U/L (14-36); Bilirubin,Unconjugated 0.6 mg/dL (0.0-1.1); Blood Urea Nitrogen 14 mg/dl (7-17); Carbon Dioxide 30 mmol/L (22.0-30.0); Estimated Glomerular Filt Rate 71 ml/min (>60); GFR (African American) 86 ML/MIN (>60)
[2020-10-09 11:50] LABS: Albumin Level 4.3 g/dl (3.5-5.0); Alkaline Phosphatase 77 U/L (38-126); Bilirubin,Direct 0.1 mg/dl (0.0-0.4); Bilirubin,Indirect 0.6 mg/dL (0.0-0.9); Bilirubin,Total 0.7 mg/dl (0.2-1.3); Chol/HDL Ratio 2.9 (1-3.5); Cholesterol 134 mg/dl (140-200); Glucose 97 mg/dl (74-100); HDL Cholesterol 47 mg/dl (40-60); Total Protein,Serum 6.6 g/dl (6.3-8.2); Triglycerides 80 mg/dl (30-150); VLDL Cholesterol 16 mg/dL (0-40)
== END ==
PROVIDERS: PCP Emergency Medicine; Visit Provider Physician Assistant
DX: R09.89 Other specified symptoms and signs involving the circulatory and respiratory systems (principal); I25.10 Atherosclerotic heart disease of native coronary artery without angina pectoris; E78.2 Mixed hyperlipidemia; I10 Essential (primary) hypertension; I35.1 Nonrheumatic aortic (valve) insufficiency; K21.9 Gastro-esophageal reflux disease without esophagitis
CPT/HCPCS: 36415; 80048; 80061; 80076; 93880

== ENCOUNTER → 2021-02-05 09:01 | Outpatient (CLI) | payer MEDICARE, SELFPAY ==
--- NOTE | 2021-02-05 09:01 | US_ITS ---
PROCEDURE: US THYROID CLINICAL INDICATION: Follow-up thyroid nodules COMPARISON: US THY US THYROID from 04/01/2017 US US THYROID from 07/17/2020 FINDINGS: Right lobe: 3.7 x 1.6 x 1.3 cm. Heterogeneous echogenicity with ill-defined areas of decreased echogenicity not significantly changed. Left lobe: 3.7 x 2.2 x 1.8 cm. Heterogeneous echogenicity. Ill-defined area of decreased echogenicity in the mid aspect of the left lobe at 4 mm slightly smaller. Complex cystic nodule lower pole at 3 mm with an internal septation. Isthmus: Hypoechoic nodule is present in the isthmus measuring 14 x 5 mm. This is not significantly changed. Additional findings: IMPRESSION: No change in the dominant nodule in the isthmus. Other vague areas of decreased echogenicity once again noted unchanged. Dictated by: Bob Henderson MD 02/05/2021 12:46 Bob Henderson MD in [facility] 02/05/2021 12:46
== END ==
PROVIDERS: PCP Emergency Medicine; Visit Provider Otolaryngology
DX: E03.9 Hypothyroidism, unspecified (principal)
CPT/HCPCS: 76536

== ENCOUNTER → 2021-02-15 10:54 | Outpatient (CLI) | payer MEDICARE, SELFPAY ==
--- NOTE | 2021-02-15 10:58 | MM_ITS ---
PROCEDURE INFORMATION: Exam: Diagnostic Breast Tomosynthesis Exam date and time: 02/15/2021 10:58 AM Age: 70 years old Clinical indication: Palpable abnormality in the right breast TECHNIQUE: Imaging protocol: Diagnostic tomosynthesis and 2D mammography including computer-aided detection (CAD) when performed. Unilateral or bilateral exam. COMPARISON: [facility] DIG MAMM-SCREEN SHARON 05/18/2014 8:55 AM FINDINGS: MAMMOGRAPHY: The breast tissue is composed of scattered areas of fibroglandular density. A skin marker was placed over the palpable abnormality in the posterior right upper outer quadrant . There is no stellate mass, architectural distortion or suspicious microcalcifications in either breast to suggest malignancy. No skin thickening or axillary adenopathy. IMPRESSION: Patient to be recalled for right breast ultrasound for full evaluation of the patient's complaint of a palpable abnormality. ASSESSMENT: BI-RADS Category 0: Incomplete- Need Additional Imaging Evaluation and/or Prior Mammograms for Comparison
== END ==
PROVIDERS: PCP Emergency Medicine; Visit Provider Emergency Medicine
DX: Z12.31 Encounter for screening mammogram for malignant neoplasm of breast (principal)
CPT/HCPCS: 77063; 77067

== ENCOUNTER → 2021-03-04 12:14 | Outpatient (CLI) | payer MEDICARE, SELFPAY ==
--- NOTE | 2021-03-04 12:14 | US_ITS ---
PROCEDURE: US BREAST RT COMPLETE CLINICAL INDICATION: abnormal mamogram COMPARISON: Screening mammogram of February 15, 2021 FINDINGS: No focal mass lesions or suspicious findings. Right axillary lymph nodes measuring up to 1.8 centimeters are noted, demonstrate normal morphology and central fatty hilum IMPRESSION: . BI-RADS category 2, benign findings. Axillary lymph nodes. Recommendation: Routine screening mammogram in 12 months is recommended. Dictated by: Francia Macdonald 03/05/2021 08:46 Francia Macdonald in [facility] 03/05/2021 08:46
== END ==
LOC: RAD 12:14
PROVIDERS: PCP Emergency Medicine; Visit Provider Emergency Medicine
DX: R92.8 Other abnormal and inconclusive findings on diagnostic imaging of breast (principal)
CPT/HCPCS: 76641

== ENCOUNTER → 2021-04-30 11:41 | Outpatient (CLI) | payer MEDICARE, SELFPAY ==
[2021-04-30 13:32] LABS: Free T4 (Free Thyroxine) 1.12 ng/dl (0.78-2.19)
[2021-04-30 13:45] LABS: Thyroid Stimulating Hormone 1.43 uIU/mL (0.465-4.68)
[2021-05-02 08:32] LABS: Thyroid Peroxidase Antibodies 8 IU/mL (0-34)
[2021-05-03 10:45] LABS: Thyroid Stimulating Immunoglob <0.10 IU/L (0.00-0.55)
== END ==
PROVIDERS: Visit Provider Otolaryngology
DX: E03.9 Hypothyroidism, unspecified (principal)
CPT/HCPCS: 36415; 84439; 84443; 84445; 86376

== ENCOUNTER 2021-10-08 11:30 | Emergency (ER) | payer MEDICARE, SELFPAY ==
[2021-10-08] VITALS (9 sets, daily range): BP systolic 121–173; BP diastolic 65–92; PULSE 49–56; RESP 18; TEMP 36.6; O2SAT 96–100; BMI 29.4
--- NOTE | 2021-10-08 11:25 | ECG_ITS ---
APPROVED REPORT Exam: Resting ECG HR:58 bpm ECG Measurements Heart Rate 58 AXES OH 195 P 31 QRSd 85 QRS 6 QT 410 T 14 QTc 408 Conclusion SINUS BRADYCARDIA MINIMAL ST DEPRESSION [0.025+ mV ST DEPRESSION] BORDERLINE ECG INTERPRETATION BASED ON A DEFAULT AGE OF 40 YEARS UNCONFIRMED REPORT Electronically signed by : Jace Hassan MD 10/09/2021 21:56:40
--- NOTE | 2021-10-08 11:39 | XR_ITS ---
FINAL REPORT TECHNIQUE: Chest PA & Lateral CLINICAL HISTORY: chest pain COMPARISON: September 25, 2020 FINDINGS: 2 views of the chest were performed. The heart size is normal. The mediastinum is within normal limits. There is no acute cardiopulmonary process. There are no pleural effusions. There is no pneumothorax. The bony thorax appears intact. IMPRESSION: No acute cardiopulmonary process. Reviewed, Interpreted and Dictated by Emilio Ernandez MD Transcribed by Khari Craig Authenticated by Emilio Ernandez MD on 10/08/2021 12:44:43 PM [facility]
[2021-10-08 11:48] LABS: Chloride 103 mmol/L (98-107); Sodium 136 mmol/L (136-145)
[2021-10-08 11:51] LABS: Blood Urea Nitrogen 14 mg/dl (7-17); Calcium 8.6 mg/dl (8.4-10.2); Carbon Dioxide 25 mmol/L (22.0-30.0); Creatinine Clearance Estimated 65 mL/min (50-200); Estimated Glomerular Filt Rate 99 ml/min (>60); GFR (African American) 119 ML/MIN (>60); Glucose 91 mg/dl (74-100)
[2021-10-08 11:53] LABS: Basophils # 0.1 K/mm3 (0-0.2); Basophils % 2.7 % (0.1-2.0); Eosinophils # 0.2 K/mm3 (0.0-0.4); Eosinophils % 3.4 % (0.1-12.0); Hematocrit 43.3 % (37.0-47.0); Hemoglobin 13.9 g/dL (12.2-16.2); Lymphocytes # 1.8 K/mm3 (0.7-4.5); Lymphocytes % 34.7 % (10-50); Mean Corpuscular Hemoglobin 31.8 pg (27.0-31.2); Mean Corpuscular Volume 99.2 fl (81-99); Mean Platelet Volume 8.6 fl (7.4-10.4); Monocytes # 0.4 K/mm3 (0.1-1.0); Monocytes % 7.2 % (1.7-9.3); Neutrophils # 2.8 K/mm3 (1.8-7.8); Neutrophils % 52.1 % (37.0-80.0); Platelet Count 260 K/mm3 (142-424); Red Blood Count 4.36 M/mm3 (4.20-5.40); Red Cell Distribution Width 13.8 % (11.5-17.5); White Blood Count 5.3 K/mm3 (4.8-10.8)
[2021-10-08 12:09] LABS: Troponin I < 0.01 ng/ml (0.00-0.034)
--- NOTE | 2021-10-08 13:28 | PC.NURSE ---
Patient to ambulatory to restroom
--- NOTE | 2021-10-08 14:56 | HMH.EDCP ---
ED Disposition Clinical Impression: Atypical chest pain Disposition: Home, Self-Care Condition on Discharge: Good Instructions: DI for Atypical Chest Pain Referrals: Davey Nj MD [Primary Care Provider] - - Critical Care Critical Care Time: No Attestation: On 10/08/21, the high probability of a clinically significant, sudden or life threatening deterioration of the following system(s) required my full and direct attention, intervention and personal management. The time I documented below is in addition to time spent performing reported procedures but includes the following listed in this critical care notation. Medical Decision Making - Medical Records Medical records reviewed: Yes: I reviewed the patient's medical records. - Adryan Inquiry Pt receiving controlled substance: No Vital Signs: 10/08/21 11:30 10/08/21 15:14 Temperature 98 F Temperature Source Oral Pulse Rate 50 L Pulse Rate [Left Radial] 52 L Respiratory Rate 18 Blood Pressure 150/71 H Blood Pressure [Right Arm] 142/84 H Blood Pressure Mean [Right Arm] 103 Blood Pressure Source [Right Arm] Automatic Cuff Blood Pressure Position [Right Arm] Sitting 02 Sat by Pulse Oximetry 98 97 Oxygen Delivery Method Room Air Room Air - Lab Data Lab Results 10/08/21 11:30: WBC 5.3, RBC 4.36, Hgb 13.9, Hct 43.3, MCV 99.2 H, MCH 31.8 H, MCHC 32.0, RDW 13.8, Plt Count 260, MPV 8.6, Neut % (Auto) 52.1, Lymph % (Auto) 34.7, [place] % (Auto) 7.2, Eos % (Auto) 3.4, Baso % (Auto) 2.7 H, Neut # (Auto) 2.8, Lymph # (Auto) 1.8, [place] # (Auto) 0.4, Eos # (Auto) 0.2, Baso # (Auto) 0.1 10/08/21 11:30: Sodium 136, Potassium 4.0, Chloride 103, Carbon Dioxide 25, Anion Gap 12.0, BUN 14, Creatinine 0.60, Estimated Creat Clear 65, Estimated GFR 99, Est GFR ( Amer) 119, Glucose 91, Calcium 8.6, Troponin I < 0.01 10/08/21 14:47: Troponin I < 0.01 Result diagrams: 10/08/21 11:30 10/08/21 11:30 Orders (Tests/Meds): ED MEDICATIONS Generic Name Dose Route Start Last Admin Trade Name Freq PRN Reason Stop Dose Admin Sodium Chloride 10 ml 10/08/21 11:39 Sodium Chloride 0.9% 10ml Flush Syringe IV 11/07/21 11:38 NEEDED PRN Maintain IV Site Discontinued Medications Generic Name Dose Route Start Last Admin Trade Name Freq PRN Reason Stop Dose Admin Morphine Sulfate 4 mg 10/08/21 11:56 Morphine 4mg/Ml Syringe IV 10/08/21 11:57 ONCE ONE Ondansetron HCl 4 mg 10/08/21 11:56 Ondansetron 4mg/2ml Vial IV 10/08/21 11:57 ONCE ONE ORDERS Category Date Time Status Troponin I Q3H Lab 10/08/21 17:45 Ordered - Radiology Data #1 Image(s): Chest Image Reviewed: Yes I reviewed the patient's radiology results, Yes I reviewed the patient's radiology image, Yes I have reviewed radiologist's interpretation Preliminary Findings: Normal/NAD - ECG Data Tracing #1 I reviewed this ECG and interpreted as documented below: No ventricular rate of 58 bpm, DC interval of 195 ms. Normal QTC. Sinus bradycardia with nonspecific ST changes. ECG initial impression date: 10/08/21 ECG initial impression time: 11:25 - Reevaluation(s) Time: 15:38 Reevaluation #1: On reevaluation, the patient is feeling much better. Pain-free. 2 - troponins. Chest x-ray is unremarkable. Patient has a follow-up with PCP in 48 hours. Given strict return precautions. Verbalized understanding. Medical Decision Narrative: 71-year-old female presented to the emergency department with some chest discomfort. Atypical in nature. Symptoms have been consistent for the last 48 hours. Work-up initiated. Chest Pain HPI - General Chief Complaint: Chest Pain Stated Complaint: chest pain Time Seen by Provider: 10/08/21 11:35 Mode of Arrival: Wheelchair Limitations: No Limitations Description of Symptoms (Recalled from ER Triage Doc. by RN): c/o chest pain under left breast since yesterday - History of Present Illness HPI narrat
[2021-10-08 15:32] LABS: Troponin I < 0.01 ng/ml (0.00-0.034)
== END 2021-10-08 16:39 | disposition home or self-care (01) ==
PROVIDERS: Emergency Provider Emergency Medicine; PCP Emergency Medicine
DX: R07.89 Other chest pain (principal); K21.9 Gastro-esophageal reflux disease without esophagitis; E78.5 Hyperlipidemia, unspecified; I10 Essential (primary) hypertension; F41.8 Other specified anxiety disorders; E03.9 Hypothyroidism, unspecified; Z79.899 Other long term (current) drug therapy
CPT/HCPCS: 71046; 80048; 84484; 85025; 93005; 99283; 99284

== ENCOUNTER 2021-10-09 12:21 | Emergency (ER) | payer MEDICARE, SELFPAY ==
--- NOTE | 2021-10-09 12:21 | ECG_ITS ---
APPROVED REPORT Exam: Resting ECG HR:61 bpm ECG Measurements Heart Rate 61 AXES ID 174 P 40 QRSd 90 QRS 90 QT 406 T 36 QTc 409 Conclusion SINUS RHYTHM LATERAL MYOCARDIAL INFARCTION , PROBABLY OLD [40+ ms Q WAVE AND/OR ST/T ABNORMALITY IN I/aVL/V5/V6] ABNORMAL ECG UNCONFIRMED REPORT Electronically signed by : Jace Hassan MD 10/09/2021 21:54:13
[2021-10-09 12:28] VITALS: BP 143/84; PULSE 64; RESP 18; TEMP 36.4; O2SAT 98; BMI 28.3
--- NOTE | 2021-10-09 12:36 | XR_ITS ---
FINAL REPORT CLINICAL HISTORY: chest pain COMPARISON: October 08, 2021 FINDINGS: The heart size is normal. The mediastinum is normal. There is no focal infiltrate or edema. There are no pleural effusions. There is no pneumothorax. There is no osseous abnormality. IMPRESSION: No acute cardiopulmonary process Reviewed, Interpreted and Dictated by Emilio Ernandez MD Transcribed by ALEXIS Adrian Authenticated by Emilio Ernandez MD on 10/09/2021 01:46:43 PM [facility]
--- NOTE | 2021-10-09 12:53 | HMH.EDGENADL ---
ED Disposition Clinical Impression: Back pain Qualifiers: Back pain location: thoracic back pain Chronicity: unspecified Back pain laterality: left Qualified Code(s): M54.6 - Pain in thoracic spine Disposition: Home, Self-Care Condition on Discharge: Good Referrals: Davey Nj MD [Primary Care Provider] - - Critical Care Critical Care Time: No Attestation: On 10/09/21, the high probability of a clinically significant, sudden or life threatening deterioration of the following system(s) required my full and direct attention, intervention and personal management. The time I documented below is in addition to time spent performing reported procedures but includes the following listed in this critical care notation. Medical Decision Making - Adryan Inquiry Pt receiving controlled substance: No Vital Signs: 10/09/21 12:28 Temperature 97.6 F Temperature Source Oral Pulse Rate [Right Radial] 64 Respiratory Rate 18 Blood Pressure [Right Arm] 143/84 H Blood Pressure Mean [Right Arm] 103 Blood Pressure Source [Right Arm] Automatic Cuff Blood Pressure Position [Right Arm] Sitting 02 Sat by Pulse Oximetry 98 Oxygen Delivery Method Room Air - Lab Data Lab Results 10/09/21 12:30: WBC 5.6, RBC 4.38, Hgb 14.0, Hct 43.3, MCV 98.7, MCH 32.0 H, MCHC 32.4, RDW 13.7, Plt Count 236, MPV 8.4, Neut % (Auto) 57.3, Lymph % (Auto) 33.0, [place] % (Auto) 5.3, Eos % (Auto) 3.3, Baso % (Auto) 1.1, Neut # (Auto) 3.2, Lymph # (Auto) 1.8, [place] # (Auto) 0.3, Eos # (Auto) 0.2, Baso # (Auto) 0.1 10/09/21 12:30: Sodium 141, Potassium 4.0, Chloride 106, Carbon Dioxide 30, Anion Gap 9.0, BUN 17, Creatinine 0.70, Estimated Creat Clear 63, Estimated GFR 82, Est GFR ( Amer) 100, Glucose 107 H, Calcium 9.2, Troponin I < 0.01 10/09/21 12:30: D-Dimer 0.86 H 10/09/21 12:51: Urine Color Yellow, Urine Appearance Clear, Urine pH 6.0, Ur Specific [place] 1.020, Urine Protein Negative, Urine Glucose (UA) Negative, Urine Ketones Negative, Urine Blood Negative, Urine Nitrate Negative, Urine Bilirubin Negative, Urine Urobilinogen 0.2, Ur Leukocyte Esterase Negative 10/09/21 15:15: Troponin I < 0.01 Result diagrams: 10/09/21 12:30 10/09/21 12:30 Orders (Tests/Meds): ED MEDICATIONS Generic Name Dose Route Start Last Admin Trade Name Freq PRN Reason Stop Dose Admin Sodium Chloride 10 ml 10/09/21 12:36 Sodium Chloride 0.9% 10ml Flush Syringe IV 11/08/21 12:35 NEEDED PRN Maintain IV Site Sodium Chloride 10 ml 10/09/21 14:33 10/09/21 14:25 Sodium Chloride 0.9% 10ml Syr (Rad Only) IV 11/08/21 14:32 10 ml NEEDED PRN Administration Maintain IV Site Discontinued Medications Generic Name Dose Route Start Last Admin Trade Name Freq PRN Reason Stop Dose Admin Acetaminophen 1,000 mg 10/09/21 15:05 10/09/21 15:24 Acetaminophen 500mg Tab PO 10/09/21 15:06 1,000 mg ONCE ONE Administration Iopamidol 70 ml 10/09/21 14:33 10/09/21 14:25 Iopamidol-370 (76%);100ml Bottle IV 10/09/21 14:34 70 ml ONCE ONE Administration Methocarbamol 750 mg 10/09/21 15:05 10/09/21 15:24 Methocarbamol 500mg Tablet PO 10/09/21 15:06 750 mg ONCE ONE Administration Sodium Chloride 20 ml 10/09/21 14:33 10/09/21 14:25 0.9% Sodium Chloride 20ml Vial IV 10/09/21 14:34 20 ml ONCE ONE Administration Sodium Chloride 20 ml 10/09/21 14:34 10/09/21 14:25 0.9% Sodium Chloride 20ml Vial IV 10/09/21 14:35 20 ml ONCE ONE Administration ORDERS Category Date Time Status Troponin I Q3H Lab 10/09/21 18:30 Ordered UA [Urinalysis and Microscopic] Stat Lab 10/09/21 12:51 Results - ECG Data Tracing #1 ECG reviewed and interpreted in the emergency department by emergency medicine physician showing normal sinus rhythm with regular rate, without significant ST deviations or concern for acute coronary syndrome at this time. - KATELIN Score for Non-Stemi Age of Patient: 70-79 years ol
[2021-10-09 12:56] LABS: Basophils # 0.1 K/mm3 (0-0.2); Basophils % 1.1 % (0.1-2.0); Eosinophils # 0.2 K/mm3 (0.0-0.4); Eosinophils % 3.3 % (0.1-12.0); Hematocrit 43.3 % (37.0-47.0); Lymphocytes # 1.8 K/mm3 (0.7-4.5); Mean Corpuscular HGB Conc 32.4 g/dL (31.8-35.4); Mean Corpuscular Volume 98.7 fl (81-99); Mean Platelet Volume 8.4 fl (7.4-10.4); Monocytes # 0.3 K/mm3 (0.1-1.0); Monocytes % 5.3 % (1.7-9.3); Neutrophils # 3.2 K/mm3 (1.8-7.8); Neutrophils % 57.3 % (37.0-80.0); Platelet Count 236 K/mm3 (142-424); Red Blood Count 4.38 M/mm3 (4.20-5.40); Red Cell Distribution Width 13.7 % (11.5-17.5); White Blood Count 5.6 K/mm3 (4.8-10.8)
[2021-10-09 13:01] VITALS: BP 132/76; PULSE 63; RESP 16; O2SAT 97
[2021-10-09 13:02] LABS: Blood Urea Nitrogen 17 mg/dl (7-17); Calcium 9.2 mg/dl (8.4-10.2); Carbon Dioxide 30 mmol/L (22.0-30.0); Chloride 106 mmol/L (98-107); Creatinine Clearance Estimated 63 mL/min (50-200); Estimated Glomerular Filt Rate 82 ml/min (>60); GFR (African American) 100 ML/MIN (>60); Glucose 107 mg/dl (74-100); Sodium 141 mmol/L (136-145)
[2021-10-09 13:09] LABS: D-Dimer 0.86 ug/mL (0.0-0.5)
[2021-10-09 13:14] LABS: Troponin I < 0.01 ng/ml (0.00-0.034)
[2021-10-09 13:31] VITALS: BP 128/75; PULSE 61; RESP 16; O2SAT 97
[2021-10-09 14:00] VITALS: BP 123/67; PULSE 55; O2SAT 94
--- NOTE | 2021-10-09 14:03 | CT_ITS ---
FINAL REPORT TECHNIQUE: Thin section axial CT images were performed from the lung apices to the upper abdomen after the administration of IV contrast. 3-D and MIP reconstructions performed. This study was performed with techniques to keep radiation doses as low as reasonably achievable (ALARA). Individualized dose reduction techniques using automated exposure control or adjustment of mA and/or kV according to the patient''s size were employed. CLINICAL HISTORY: elevated dimer, pleuritic cp FINDINGS: There is no evidence for pulmonary embolism. The thoracic aorta is patent without evidence of dissection. The mediastinal vasculature is well opacified. There is an aberrant right subclavian artery which appears patent. There are moderate coronary artery calcifications. There is no axillary adenopathy. There is no mediastinal or hilar adenopathy. The heart size is normal. There is no pleural or pericardial effusion. Lung window images demonstrate no suspicious pulmonary nodule or infiltrate. There is a small sliding type hiatal hernia. Limited images of the upper abdomen are unremarkable. IMPRESSION: No evidence of pulmonary embolism or aortic dissection. Aberrant right subclavian artery which appears patent. Reviewed, Interpreted and Dictated by Emilio Ernandez MD Transcribed by Dulce Maria Schmid Authenticated by Emilio Ernandez MD on 10/09/2021 02:54:14 PM [facility]
[2021-10-09 14:35] LABS: Microscopic, Urine URINE MICROSCOPIC (MICROSCOPIC)
[2021-10-09 14:44] LABS: Appearance,Urine CLEAR (Clear); Bilirubin,Urine Negative (Negative); Blood, Urine Negative (Negative); Color,Urine YELLOW (Yellow); Glucose,Urine (UA) Negative (Negative); Ketones,Urine Negative (Negative); Leukocyte Esterase,Urine Negative (Negative); Nitrate,Urine Negative (Negative); Protein,Urine Negative (Negative); Urobilinogen,Urine 0.2 EU/dl (0.2)
[2021-10-09 15:20] VITALS: BP 158/92
[2021-10-09 16:04] LABS: Troponin I < 0.01 ng/ml (0.00-0.034)
[2021-10-09 16:45] VITALS: BP 118/80; PULSE 60; RESP 18; TEMP 36.4; O2SAT 95
[2021-10-09 19:10] LABS: Squamous Epithelial Cell,Urine Occasional #/hpf (0-5); WBC,Urine Occasional #/hpf (0-3)
== END 2021-10-09 16:45 | disposition home or self-care (01) ==
PROVIDERS: Emergency Provider Student in an Organized Health Care Education/Training Program; PCP Emergency Medicine
DX: M54.6 Pain in thoracic spine (principal); R07.9 Chest pain, unspecified; F41.8 Other specified anxiety disorders; K21.9 Gastro-esophageal reflux disease without esophagitis; I10 Essential (primary) hypertension; E78.5 Hyperlipidemia, unspecified; E03.9 Hypothyroidism, unspecified
CPT/HCPCS: 36415; 71045; 71275; 80048; 81001; 84484; 85025; 85378; 93005; 99283; Q9967

== ENCOUNTER → 2021-10-16 10:00 | Outpatient (CLI) | payer MEDICARE, SELFPAY | PROVIDERS: Visit Provider Physician Assistant | DX: E66.3 Overweight (principal); E78.2 Mixed hyperlipidemia; I10 Essential (primary) hypertension; I25.118 Atherosclerotic heart disease of native coronary artery with other forms of angina pectoris; I35.1 Nonrheumatic aortic (valve) insufficiency; I65.23 Occlusion and stenosis of bilateral carotid arteries; R42 Dizziness and giddiness; Z01.812 Encounter for preprocedural laboratory examination; Z11.52 Encounter for screening for COVID-19; Z68.30 Body mass index [BMI] 30.0-30.9, adult | CPT/HCPCS: C9803; U0003; U0005 ==

== ENCOUNTER 2021-10-17 08:43 | Day surgery (SDC) | payer MEDICARE, SELFPAY ==
[2021-10-17] VITALS (11 sets, daily range): BP systolic 104–196; BP diastolic 60–94; PULSE 50–70; RESP 16–20; TEMP 36.6–36.9; O2SAT 93–98; BMI 30.2
--- NOTE | 2021-10-17 06:59 | IR_ITS ---
APPROVED REPORT Patient Location: Outpatient PROCEDURES Left heart catheterization Left ventriculogram Selective coronary angiogram Drug-eluting stent deployment to the ostial proximal circumflex artery Angioplasty to the left main artery Angioplasty to the proximal LAD INDICATION Abnormal stress test, Coronary artery disease, Recurrent angina pectoris Informed consent was obtained prior to the procedure. COMPLICATIONS None Estimated Blood Loss: Less than 10 mls TECHNIQUE One percent lidocaine used to anesthetize the right anterior aspect of the wrist. The right radial artery was accessed via the Seldinger technique. A 6 Maori sheath was placed in the right radial artery. 2.5 mg of verapamil, 800 mcg of nitroglycerin, 1mg Lidocaine and 5000 U Heparin were given through the arterial sheath. The papa catheter was also used to perform left heart catheterization, left ventriculogram and selective coronary angiogram. At the end the diagnostic angiogram therapeutic heparin was administered giving a therapeutic ACT and the guide catheter was placed in the left main artery where a Choice PT extra-support wire was placed on the circumflex artery. A 2.5 mm balloon was used to predilate the ostial stenosis. A Choice PT extra-support wire was then placed into the LAD and a 3 mm x 12 mm resolute Jovani stent was placed in the ostial proximal circumflex artery deployed at 24 rosa elena reducing the critical stenosis to 0%. 3.5 mm balloon could not be passed into the LAD therefore a 1.5 mm balloon was deployed in the distal left main artery in the proximal LAD followed by a 2 mm balloon followed by a 2.5 mm balloon which then allowed passage of a 3.5 x 15 mm noncompliant balloon to be deployed at 24 rosa elena reducing the stenosis to 0%. There are excellent angiographic results with BRITTANI-3 flow down the vessel before and after the procedure at the end of the procedure the apparatus was removed the sheath was removed and hemostasis achieved using TR banding patient was transferred to the postop already in stable condition ANGIOGRAPHIC RESULTS The left main artery Has a stent in the proximal segment which extends into the proximal LAD which is widely patent free of in-stent restenosis The left anterior descending artery Has a stent in the proximal LAD which is widely patent with a distal concentric 30% stenosis distal to the stent transitioning The circumflex artery Has a stent which bifurcates off the left main artery and has an ostial concentric greater than 90% stenosis The right coronary artery Is a large nondominant vessel and has diffuse proximal and mid vessel 30 to 40% stenosis The VILLA ventriculogram reveals Hyperdynamic 75% The left ventricular end-diastolic pressure 20 mmHg IMPRESSION Coronary disease as described above with successful stenting of the critically diseased circumflex artery followed by post stent angioplasty of the left main artery and ostial proximal LAD Hyperdynamic ventricle consistent with hypertensive heart disease with diastolic dysfunction Elevated LVEDP consistent with diastolic dysfunction PLAN 1. Dual antiplatelet therapy 2. Risk factor modification 3. Cardiac rehabilitation 4. Avoidance of tobacco products 5. LDL less than 55 to be achieved with high intensity statin 6. Treatment of diastolic heart disease Electronically signed by : Jose Kruger MD 10/17/2021 16:06:41
--- NOTE | 2021-10-17 14:58 | HMH.PHACLD ---
Trang De Dios has received discharge medication counseling on the following medications: PATIENT IS CURRENTLY TAKING ASPIRIN ER 81 MG DAILY, BISOPROLOL 5 MG DAILY, ATORVASTIN 40 MG HS, AND CLOPIDOGREL 75 MG DAILY. MD NOT WANTING TO START JOSE C/ARB ON PATIENT AT THIS TIME.
[2021-10-17 17:05] LABS: CATHL Activated Clotting Time 338 SEC (74-125)
== END 2021-10-17 15:59 | disposition home or self-care (01) ==
LOC: CATHLAB 08:45
PROVIDERS: PCP Emergency Medicine; Visit Provider Internal Medicine
DX: E66.3 Overweight (principal); E78.2 Mixed hyperlipidemia; I10 Essential (primary) hypertension; I25.118 Atherosclerotic heart disease of native coronary artery with other forms of angina pectoris; I35.1 Nonrheumatic aortic (valve) insufficiency; I65.23 Occlusion and stenosis of bilateral carotid arteries; Z79.899 Other long term (current) drug therapy; Z79.01 Long term (current) use of anticoagulants; Z95.5 Presence of coronary angioplasty implant and graft; E03.9 Hypothyroidism, unspecified
CPT/HCPCS: 85347; 92920; 92928; 93458; 99152; 99153; C1725; C1769; C1876; C9600; J1644; Q9967

== ENCOUNTER → 2021-12-12 07:49 | Outpatient (CLI) | payer MEDICARE, SELFPAY ==
--- NOTE | 2021-12-12 07:49 | US_ITS ---
FINAL REPORT CLINICAL HISTORY: GERD FINDINGS: Ultrasound images of the right upper quadrant were obtained. The liver parenchyma is normal in echogenicity. There are multiple small echogenic foci along the wall of the gallbladder probably due to polyps. There is minimal sludge in the gallbladder. There are no gallstones. The common duct is normal. Limited images of the right kidney are unremarkable. IMPRESSION: Minimal sludge with probable small polyps in the gallbladder. Reviewed, Interpreted and Dictated by Emilio Ernandez MD Transcribed by Khari Craig Authenticated by Emilio Ernandez MD on 12/12/2021 10:56:47 AM [facility]
== END ==
PROVIDERS: PCP Emergency Medicine; Visit Provider Internal Medicine
DX: E78.2 Mixed hyperlipidemia (principal); I10 Essential (primary) hypertension; I25.118 Atherosclerotic heart disease of native coronary artery with other forms of angina pectoris; I35.1 Nonrheumatic aortic (valve) insufficiency; I65.23 Occlusion and stenosis of bilateral carotid arteries; K21.9 Gastro-esophageal reflux disease without esophagitis; R09.89 Other specified symptoms and signs involving the circulatory and respiratory systems
CPT/HCPCS: 76705

== ENCOUNTER 2021-12-19 12:25 | Emergency (ER) | payer MEDICARE, SELFPAY ==
[2021-12-19 13:10] VITALS: BP 124/56; PULSE 61; RESP 18; TEMP 36.6; O2SAT 95; BMI 30.4
--- NOTE | 2021-12-19 13:49 | HMH.EDUTC ---
[facility] Disposition Clinical Impression: Sinusitis Qualifiers: Sinusitis location: unspecified location Chronicity: unspecified Qualified Code(s): J32.9 - Chronic sinusitis, unspecified Disposition: Home, Self-Care Condition on Discharge: Good Instructions: Sore Throat, Sinusitis, DI for Sinusitis Additional Instructions: *Monitor Temp, Over the counter Motrin or Tylenol as directed/as needed Tylenol every 4 hours and Motrin every 6 hours (as long as your family doctor has told you that you can take it) for fever or pain. and straight to ER if unable to lower temp less than 101.0 after medication given *Warm salt water gargles may help to soothe the throat *Throat Lozenges *Warm fluids like tea with honey may help to soothe the throat *Sleep elevated *Humidifier/Vaporizer *Flonase 2 sprays in each nostril daily but be aware that it may take 2-3 days before you notice improvement Follow up IMMEDIATELY for new or worsening symptoms or no Noticeable improvement over the next 48-72 hours. 911 for difficulty breathing or swallowing Prescriptions: predniSONE [Prednisone 20mg Tab] 20 mg PO BID 5 Days #10 tab Transmission Status: Pending to [facility] Azithromycin [Z-Maynor 250mg Tab] 250 mg PO DIRECTED #6 tab Transmission Status: Pending to [facility] Referrals: Davey Nj MD [Primary Care Provider] - As needed Time of Disposition: 14:03 Medical Decision Making - Adryan Inquiry Pt receiving controlled substance: No Adryan was queried for this patient: No Vital Signs: 12/19/21 13:10 Temperature 97.8 F Temperature Source Oral Pulse Rate [Left Brachial] 61 Respiratory Rate 18 Blood Pressure [Left Arm] 124/56 L Blood Pressure Mean [Left Arm] 78 Blood Pressure Source [Left Arm] Automatic Cuff Blood Pressure Position [Left Arm] Sitting 02 Sat by Pulse Oximetry 95 Oxygen Delivery Method Room Air Medical Decision Narrative: Patient states that she has taken azithromycin and prednisone in the past without complications or reactions [facility] HPI - General Stated complaint: sinus congestion/drainage, cough Time Seen by Provider: 12/19/21 13:54 Mode of Arrival: Ambulatory Source of Information: Patient Limitations: No Limitations Description of Symptoms (Recalled from Triage Doc. by RN): PATIENT C/O SINUS CONGESTION AND DRAINAGE THAT STARTED TODAY HEENT Symptoms (Recalled from RN notes): Yes Resp Symptoms (Recalled from RN notes): No Skin Symptoms (Recalled from RN notes): No MS Symptoms (Recalled from RN notes): No Functional Status (Recalled from RN notes): WNL - History of Present Illness Provider Complaint: Patient states that she has been having stuffy nose and congestion with pressure behind her eyes for over a week States that today she feels like she is feeling worse States that she started having some drainage in the back of her throat and her throat started hurting today she she gets bronchitis sometimes so she wanted to come in and get checked before it got too bad - Related Data Home Medications Medication Instructions Recorded Confirmed Aspirin [Aspirin 81mg EC Tab] 81 mg PO DAILY 09/26/20 12/16/21 Atorvastatin Calcium [Lipitor 40mg 40 mg PO HS 10/17/21 12/16/21 Tab] Clopidogrel Bisulfate [Plavix] 75 mg PO DAILY 10/17/21 12/16/21 Furosemide [Furosemide 20mg Tab*] 20 mg PO DAILY 10/17/21 12/16/21 Levothyroxine Sodium [Synthroid 50 mcg PO DAILY 10/17/21 12/16/21 50mcg (0.05mg) tab] bisoproloL fumarate [Bisoprolol See Rx Instructions .ROUTE .COMPLEX 10/17/21 12/16/21 Fumarate] Previous Rx's Medication Instructions Recorded albuterol sulfate 90 mcg/actuation 2 inh INHALATION Q8H PRN #8.5 g 12/10/20 aerosol inhaler escitalopram oxalate 20 mg tablet 20 mg PO DAILY #90 tab 10/01/21 nitroglycerin 0.4 mg sublingual 0.4 mg SUBLINGUAL Q5M PRN #25 tab 10/16/21 tablet amlodipine 5 mg tablet 5 mg PO DAILY #90 tab 12/02/21 isosorbide mononitrate 3
[2021-12-19 14:05] VITALS: BP 124/56; PULSE 61; RESP 18; TEMP 36.6; O2SAT 95
== END 2021-12-19 14:08 | disposition home or self-care (01) ==
PROVIDERS: Emergency Provider Nurse Practitioner; PCP Emergency Medicine
DX: J32.9 Chronic sinusitis, unspecified (principal); F41.8 Other specified anxiety disorders; K21.9 Gastro-esophageal reflux disease without esophagitis; I10 Essential (primary) hypertension; E78.5 Hyperlipidemia, unspecified; E03.9 Hypothyroidism, unspecified
CPT/HCPCS: 99212; G0463

== ENCOUNTER → 2021-12-26 07:10 | Outpatient (CLI) | payer MEDICARE, SELFPAY ==
--- NOTE | 2021-12-26 | CA_ITS ---
APPROVED REPORT Exam: Pharmacologic Technologist: Karen Monroe, Ht: 5 ft 4 in Wt: 177 lbs BSA: 1.86 m2 HR: 55 bpm BP: 148/75 mmHg Rhythm: sinus andres, NS ST-T abns inferiorly Medical History Medical History: HTN, Hyperlipidemia Medications: Amlodipine,,,,, Isosorbide,,,,, Aspirin,,,,, Escitalopram,,,,, Albuterol,,,,, Protonix,,,,, CloPIdogrel,,,,, KloNOPIN,,,,, BisOPROLOL,,,,, AtorvaASTATIN,,,,, LevothRYROXINE,,,,, Furosemide,,,,, Cardiac Risk Factors: HTN, Hyperlipidemia Stress Test Details Test: LEXISCAN HR Resting HR: 65 bpm Max Heart Rate (APMHR): 149.796510 bpm Max HR Achieved: 89 bpm Target HR (85% APMHR): 126.093581 bpm % of APMHR: 59.73 Recovery HR: 56 bpm BP Resting BP: 148/75 mmHg Max BP: 148/75 mmHg Recovery BP: 100.0/64.0 mmHg ECG Resting ECG: sinus andres, NS ST-T abn inferiorly Clinical Exercise duration: 04:45 min Highest Stage Achieved: Stress ECG Conclusion During lexiscan pt experinced mild SOA, nausea, malaise, lightheaded. No CP noted. Rare PVC noted. Mild NS ST changes. Nausea with decrease in BP and HR suggested vagal response. Pt placed in trandelenberg position. Aminophylline 100mg slow IV given in 1 minute recovery and 50mg given in 3 minute recovery. No significant EKG changes. Myoview images reported separately. Test Summary RECOVERY 12:00 . . 60 . 125/ 72 . . REST 03:10 . . 65 . 148/ 75 . . Stage 1 01:00 . . 86 . . . . Stage 2 01:00 . . 69 . 118/ 55 . . Stage 3 01:00 . . 55 . . . . Stage 4 01:00 . . 50 . 92/ 45 . . Stage 4 01:45 . . 53 . 94/ 52 . Stop exercise at 04:45 RECOVERY 01:00 . . 60 . 100/ 64 . . RECOVERY 02:00 . . 67 . 124/ 75 . . RECOVERY 03:00 . . 73 . 124/ 75 . . RECOVERY 04:00 . . 64 . 123/ 74 . . RECOVERY 05:00 . . 64 . 126/ 67 . . RECOVERY 06:00 . . 63 . 126/ 67 . . RECOVERY 07:00 . . 64 . 126/ 67 . . RECOVERY 08:00 . . 62 . 126/ 67 . . RECOVERY 09:00 . . 67 . 120/ 69 . . RECOVERY 10:00 . . 66 . 120/ 69 . . RECOVERY 11:00 . . 60 . 120/ 69 . . RECOVERY 12:00 . . 60 . 125/ 72 . . RECOVERY 13:00 . . 60 . 126/ 68 . . RECOVERY 14:00 . . 60 . 126/ 68 . . RECOVERY 15:00 . . 65 . 126/ 68 . . RECOVERY 16:00 . . 68 . 139/ 74 . . RECOVERY 16:01 . . 68 . 139/ 74 . . Electronically signed by : Shane Reyna MD 12/27/2021 10:46:21
--- NOTE | 2021-12-26 07:10 | NM_ITS ---
APPROVED REPORT Exam: Nuclear Stress Test Indication: chest pain..short of breath..fatigue Patient Location: Outpatient Stress Tech: Karen Monroe Ht: 5 ft 4 in Wt: 170 lbs Bra Size: 40c HR: 65 bpm BP: 148/75 mmHg BSA: 1.83 m2 TID: 65 BMI: 29.1 History: chest pain..short of breath..fatigue Procedure: Patient received a 0.4 mg of intravenous Lexiscan, resting heart rate 65 bpm, resting blood pressure 148/75 mmHg, with Lexiscan maximum heart rate achived was 89 bpm which is Less than 85 % of the maximum predicted heart rate and blood pressure was 148/75 mmHg. With Lexiscan, patient denied any complaint of chest pain. Electrocardiogram Resting electrocardiogram shows sinus rhythm, with Lexiscan there is less than 1.[address] segment depression from the baseline EKG. The EKG portion of the Lexiscan is nondiagnostic. Cardiac Stress and Resting SPECT Images: Cardiac Stress and Resting SPECT images were obtained using technetium 99m Myoview 30.0 mCi stress and 10.76 mCi at rest. Gated SPECT for analysis of segmental wall motion and calculation of the ejection fraction also done, prone images were also obtained. Cardiac stress and rest SPECT images show uniform myocardial activity without segmental perfusion abnormality, computer derived ejection fraction is 65% with no regional wall motion abnormality, right ventricle is normal size and contractility. Conclusion: 1. The EKG portion of the Lexiscan is nondiagnostic. 2. No scintigraphic evidence of reversible ischemia seen, compared to ejection fraction 65% with no regional wall motion abnormality, right ventricle is normal size and contractility. 3. Normal Lexiscan Myoview study. Electronically signed by : Shane Reyna MD 12/27/2021 13:09:55
== END ==
PROVIDERS: PCP Emergency Medicine; Visit Provider Nurse Practitioner Family
DX: E78.2 Mixed hyperlipidemia (principal); I10 Essential (primary) hypertension; I25.118 Atherosclerotic heart disease of native coronary artery with other forms of angina pectoris; I35.1 Nonrheumatic aortic (valve) insufficiency; I65.23 Occlusion and stenosis of bilateral carotid arteries; K21.9 Gastro-esophageal reflux disease without esophagitis; K82.8 Other specified diseases of gallbladder; R06.00 Dyspnea, unspecified; R09.89 Other specified symptoms and signs involving the circulatory and respiratory systems
CPT/HCPCS: 78452; 93017; A9502; J0280; J2785

== ENCOUNTER 2021-12-27 08:58 | Emergency (ER) | payer MEDICARE, SELFPAY ==
[2021-12-27 09:05] VITALS: BP 99/66; PULSE 80; RESP 22; TEMP 36.6; O2SAT 96; BMI 29.2
--- NOTE | 2021-12-27 09:34 | HMH.EDUTC ---
[facility] [place] Clinical Impression: Acute bronchitis Qualifiers: Bronchitis organism: unspecified organism Qualified Code(s): J20.9 - Acute bronchitis, unspecified Sinusitis Qualifiers: Sinusitis location: unspecified location Chronicity: acute Recurrence: non-recurrent Qualified Code(s): J01.90 - Acute sinusitis, unspecified Disposition: Home, Self-Care Condition on Discharge: Good Instructions: DI for Sinusitis, DI for Acute Bronchitis Additional Instructions: Drink plenty of fluids. Take tylenol or ibuprofen for pain or fever. Take the medications as directed. Follow up with your regular doctor. GO TO THE ER FOR ANY WORSENING SYMPTOMS Don't start the oral steroids until tomorrow, since you had the shot here today. Prescriptions: Benzonatate [Benzonatate 100mg cap] 100 mg PO TIDP PRN #30 cap PRN Reason: Cough [facility] predniSONE [Deltasone 10mg tablet] 10 mg PO DAILY 9 Days #21 tab Transmission Status: [facility] Cefdinir [Omnicef 300mg Capsule] 300 mg PO BID #20 cap Transmission Status: [facility] Referrals: Davey Nj MD [Primary Care Provider] - Time of Disposition: 10:35 Medical Decision Making - Medical Records Medical records reviewed: No: I reviewed the patient's medical records. - Adryan Inquiry Pt receiving controlled substance: No Vital Signs: 12/27/21 09:05 12/27/21 10:30 Temperature 97.8 F 97.8 F Temperature Source Oral Pulse Rate 80 Pulse Rate [Right Brachial] 80 Respiratory Rate 22 22 Blood Pressure 99/66 L Blood Pressure [Right Arm] 99/66 L Blood Pressure Mean [Right Arm] 77 Blood Pressure Source [Right Arm] Automatic Cuff Blood Pressure Position [Right Arm] Sitting 02 Sat by Pulse Oximetry 96 Oxygen Delivery Method Room Air - Lab Data Lab results reviewed: Yes: I reviewed the patient's lab results. Lab Results 12/27/21 09:58: Chlamy pneumoniae PCR Not detected, Adenovirus (PCR) Not detected, B. pertussis DNA (PCR) Not detected, Coronavirus OC43 (PCR) Not detected, Coronavirus HKU1 (PCR) Not detected, Coronavirus 229E (PCR) Not detected, SARS-CoV-2 (PCR) Not detected, Coronavirus NL63 (PCR) Not detected, Human Metapneumovir PCR Not detected, Influenza A (H1) PCR Not detected, Influ A (H1N1/09) PCR Not detected, Influenza A (H3) PCR Not detected, Influenza Type A (PCR) Not detected, Influenza Type B (PCR) Not detected, M. pneumoniae (PCR) Not detected, Parainfluenza 1 (PCR) Not detected, Parainfluenza 2 (PCR) Not detected, Parainfluenza 3 (PCR) Not detected, Parainfluenza 4 (PCR) Not detected, RSV (PCR) Not detected, Entero/Rhino (PCR) Not detected Orders (Tests/Meds): ED MEDICATIONS Discontinued Medications Generic Name Dose Route Start Last Admin Trade Name Freq PRN Reason Stop Dose Admin Ceftriaxone Sodium 1 gm 12/27/21 09:56 12/27/21 10:25 Ceftriaxone 1gm Vial IM 12/27/21 09:57 1 gm ONCE ONE Administration Lidocaine HCl 0 ml 12/27/21 09:56 12/27/21 10:25 Lidocaine 1% 5ml Pf Vial IM 12/27/21 09:57 2 ml ONCE ONE Administration Methylprednisolone Sodium Succinate 125 mg 12/27/21 09:56 12/27/21 10:25 Methylprednisolone Sod Succ 125mg Vial IM 12/27/21 09:57 125 mg ONCE ONE Administration [facility] [place] HPI - General Stated complaint: cough, chest congestion Time Seen by Provider: 12/27/21 09:34 - History of Present Illness Provider Complaint: She states that she has had sinus congestion and chest congestion for the past 4 days. - Related Data Home Medications Medication Instructions Recorded Confirmed Aspirin [Aspirin 81mg EC Tab] 81 mg PO DAILY 09/26/20 12/16/21 Atorvastatin Calcium [Lipitor 40mg 40 mg PO HS 10/17/21 12/16/21 Tab] Clopidogrel Bisulfate [Plavix] 75 mg PO DAILY 10/17/21 12/16/21 Furosemide [Furosemide 20mg Tab*] 20 mg PO DAILY 10/17/21 12/16/21 Levothyroxin
--- NOTE | 2021-12-27 10:00 | XR_ITS ---
FINAL REPORT CLINICAL HISTORY: cough, congestion COMPARISON: 10/09/2021 FINDINGS: Two views of the chest were obtained. The heart size and pulmonary vascularity are within normal limits. The mediastinum is normal. No acute pulmonary abnormality is identified. There is no pneumothorax. The bony thorax is intact. IMPRESSION: No active cardiopulmonary disease. Reviewed, Interpreted and Dictated by Shade Prajapati III, MD Transcribed by Khari Craig Authenticated by Shade Prajapati III, MD on 12/27/2021 11:08:26 AM [facility]
[2021-12-27 10:30] VITALS: BP 99/66; PULSE 80; RESP 22; TEMP 36.6; O2SAT 96
[2021-12-27 10:44] LABS: Adenovirus,PCR Not Detected (NotDetected); Bordetella Pertussis Not Detected (NotDetected); Chlamydophila Pneumoniae, PCR Not Detected (NotDetected); Coronavirus 19, PCR Not Detected (NotDetected); Coronavirus 229E Not Detected (NotDetected); Coronavirus NL63 Not Detected (NotDetected); Coronavirus OC43 Not Detected (NotDetected); Coronovirus HKU1,PCR Not Detected (NotDetected); Human Metapneumovirus Not Detected (NotDetected); Influenza A, PCR Not Detected (NotDetected); Influenza AH1, 2009 Not Detected (NotDetected); Influenza AH1, PCR Not Detected (NotDetected); Influenza AH3,PCR Not Detected (NotDetected); Influenza B, PCR Not Detected (NotDetected); Mycoplasma Pneumoniae, PCR Not Detected (NotDetected); Parainfluenza 1, PCR Not Detected (NotDetected); Parainfluenza 2, PCR Not Detected (NotDetected); Parainfluenza 3, PCR Not Detected (NotDetected); Parainfluenza 4, PCR Not Detected (NotDetected); Respiratory Syncytial Virus Not Detected (NotDetected); Rhinovirus/Enterovirus Not Detected (NotDetected)
== END 2021-12-27 10:40 | disposition home or self-care (01) ==
PROVIDERS: Emergency Provider Nurse Practitioner Family; PCP Emergency Medicine
DX: J20.9 Acute bronchitis, unspecified (principal); J01.90 Acute sinusitis, unspecified
CPT/HCPCS: 71046; 87581; 87632; 87798; 96372; 99212; C9803; G0463; J0696; U0003; U0005

== ENCOUNTER → 2022-01-14 13:03 | Outpatient (CLI) | payer MEDICARE, SELFPAY ==
[2022-01-14 13:50] VITALS: PULSE 79; PULSE 81
== END ==
PROVIDERS: PCP Emergency Medicine; Visit Provider Nurse Practitioner Family
DX: R05.9 Cough, unspecified (principal)
CPT/HCPCS: 94060; 94640; 94727; 94729

== ENCOUNTER → 2022-01-24 14:02 | Outpatient (CLI) | payer MEDICARE, SELFPAY ==
--- NOTE | 2022-01-24 14:03 | CA_ITS ---
APPROVED REPORT EXAM: Comprehensive 2D, Doppler, and color-flow Echocardiogram Senior Principal Software Engineer: Mary Foote RT(R) Ht: 5 ft 5 in Wt: 180lbs BSA: 1.89 BP: 129/60 mmHg Indications: cad, gerd, HTN, edema, obesity, hyperlipidemia. 2D Dimensions LVOT 1.74 cm (M/F) 1.5-2.5 LA Volume 26.50 mL LA Volume Index 14.02 mL/m2 (M/F) 16-34 M-Mode Dimensions RVDd 2.93 cm (0.9-2.6) LA Diam 3.70 cm (1.9-4.0) LVDd 4.59 cm (3.5-5.7) Ao Diam 2.92 cm (2.0-3.7) LVDs 3.18 cm (3.5-5.7) IVSd 0.81 cm (0.6-1.1) PWd 0.75 cm (0.6-1.1) EF (Teich) 58.40% FS 30.70% EDV (Teich) 96.80 mL ESV (Teich) 40.30 mL LV Diastology E Decel Time 240.00 (160-240 msec) E/A Ratio 0.9 MED E' 7.00 (< 7 cm/sec) E'/MED E' Ratio 9.83 (>14) LAT E' 9.00 (<10 cm/sec) E/LAT E' Ratio 7.64 (>14) Mitral Valve MV E Max Marek. 69.00 (40-130 cm/s) MV A Velocity 80.00 (40-130 cm/s) E/A Ratio 0.85 MV Decel. Time 240.00 (160-240 ms) MV PHT 70.00 ms Left Ventricle Left atrium is mildly enlarged, left ventricle is normal size, mild concentric left ventricular hypertrophy, estimated ejection fraction 55% with no regional wall motion abnormality, grade 1 diastolic dysfunction seen without tissue Doppler evidence of raise left atrial pressure. Right Ventricle Right atrium and right ventricle are normal size and contractility. Aortic Valve Aortic valve is minimally thickened and fibrosed, there is no aortic stenosis or aortic insufficiency. Mitral Valve Mitral valve grossly normal, there is trace mitral regurgitation. Tricuspid Valve Tricuspid valve grossly normal, there is trace tricuspid regurgitation, tricuspid regurgitation jet velocity is inadequate for calculation of the right ventricular systolic pressure. Pulmonic Valve Pulmonic valve is poorly visualized. Great Vessels Aortic root is normal size. Inferior vena cava normal size with normal inspiratory collapse. Pericardium No significant pericardial effusion noted. Conclusion 1. Mild biatrial enlargement, normal left ventricular size, mild concentric left ventricular hypertrophy, estimated ejection fraction 55% with no regional wall motion abnormality, grade 1 diastolic dysfunction seen without tissue Doppler evidence of raise left atrial pressure. 2. Mildly enlarged right ventricle with normal contractility. 3. Trace mitral and tricuspid regurgitation. 4. No significant pericardial effusion noted. 5. Inferior vena cava normal size with normal inspiratory collapse. Electronically signed by : Shane Reyna MD 01/27/2022 14:19:41
[2022-01-24 16:52] LABS: Anion Gap 8.1 mEq/L (5-15); Blood Urea Nitrogen 15 mg/dl (7-17); Calcium 9.1 mg/dl (8.4-10.2); Carbon Dioxide 30 mmol/L (22.0-30.0); Chloride 106 mmol/L (98-107); Estimated Glomerular Filt Rate 71 ml/min (>60); GFR (African American) 86 ML/MIN (>60); Glucose 115 mg/dl (74-100); Potassium 4.1 mmoL/L (3.5-5.1); Sodium 140 mmol/L (136-145)
== END ==
PROVIDERS: PCP Emergency Medicine; Visit Provider Nurse Practitioner Family
DX: I51.89 Other ill-defined heart diseases; I25.10 Atherosclerotic heart disease of native coronary artery without angina pectoris; I35.1 Nonrheumatic aortic (valve) insufficiency; I65.23 Occlusion and stenosis of bilateral carotid arteries; E78.5 Hyperlipidemia, unspecified; K21.9 Gastro-esophageal reflux disease without esophagitis; K82.8 Other specified diseases of gallbladder; R09.89 Other specified symptoms and signs involving the circulatory and respiratory systems
CPT/HCPCS: 36415; 80048; 93306

== ENCOUNTER 2022-02-08 09:10 | Emergency (ER) | payer MEDICARE, SELFPAY ==
[2022-02-08 10:00] VITALS: BP 131/77; PULSE 77; RESP 19; TEMP 36.6; O2SAT 97; BMI 31.3
[2022-02-08 10:10] LABS: Apearance,Urine Cloudy (Clear); Bilirubin,Urine 2+ (Negative); Blood, Urine Trace (Negative); Color,Urine Red (Yellow); Glucose,Urine (UA) 250 (Negative); Ketones,Urine 15 (Negative); Protein,Urine 2+ (Negative); UTC Leukocyte Esterase,Urine 3+ (Negative); UTC Nitrate,Urine Positive (Negative); Urobilinogen,Urine >=8 EU/dl (0.2)
--- NOTE | 2022-02-08 10:11 | HMH.EDUTC ---
[facility] [place] Disposition Clinical Impression: UTI (urinary tract infection) Qualifiers: Urinary tract infection type: acute cystitis Hematuria presence: with hematuria Qualified Code(s): N30.01 - Acute cystitis with hematuria Disposition: Home, Self-Care Condition on Discharge: Good Instructions: DI for Urinary Tract Infection (UTI) Additional Instructions: Increase fluids, water and not soda or tea. Can drink cranberry juice or cranberry extract. White front to back Wear cotton underwear Empty bladder after intercourse Start antibiotics immediately and make sure you take the full course although you may start to see improvement over the next 48 hours. You can eat yogurt or take probiotics to decrease diarrhea or yeast infection caused by the antibiotic Be sure to follow-up anytime for new or worsening symptoms in 48 hours for wound urine culture results be sure to let you PCP no recent urine for culture so they can request records and ensure that you have appropriate antibiotic if you are not getting better or getting worse. If symptoms worsen or do not improve return or be seen in the ER. Follow-up with primary care this week. Prescriptions: cephALEXin [Cephalexin 500mg Tab] 500 mg PO BID 7 Days #14 tab Transmission Status: Pending to [facility] Referrals: Davey Nj MD [Primary Care Provider] - Time of Disposition: 10:21 Medical Decision Making - Adryan Inquiry Pt receiving controlled substance: No Vital Signs: 02/08/22 10:00 Temperature 97.8 F Temperature Source Oral Pulse Rate [Right Brachial] 77 Respiratory Rate 19 Blood Pressure [Right Arm] 131/77 Blood Pressure Mean [Right Arm] 95 Blood Pressure Source [Right Arm] Automatic Cuff Blood Pressure Position [Right Arm] Sitting 02 Sat by Pulse Oximetry 97 Oxygen Delivery Method Room Air - Lab Data Lab Results 02/08/22 09:55: Urine Color Red, Urine Appearance Cloudy, Urine pH 5.0, Ur Specific [place] 1.010, Urine Protein 2+, Urine Glucose (UA) 250, Urine Ketones 15, Urine Blood Trace, Urine Nitrate Positive A, Urine Bilirubin 2+ A, Urine Urobilinogen >=8, Ur Leukocyte Esterase 3+ A Orders (Tests/Meds): ORDERS Category Date Time Status Urine Culture Stat Micro 02/08/22 10:05 Ordered [facility] HPI - General Chief complaint: Urgent [facility] Center Stated complaint: frequency and burning Time Seen by Provider: 02/08/22 10:11 Mode of Arrival: Ambulatory Source of Information: Patient Limitations: No Limitations Description of Symptoms (Recalled from Triage Doc. by RN): PATIENT C/O BLADDER SPASMS, LOWER ABDOMINAL PAIN, AND BURNING WITH URINATION X 3 DAYS HEENT Symptoms (Recalled from RN notes): No Resp Symptoms (Recalled from RN notes): No Skin Symptoms (Recalled from RN notes): No MS Symptoms (Recalled from RN notes): No Functional Status (Recalled from RN notes): WNL - History of Present Illness Provider Complaint: 71 yr old female presents for burning,freq,urgency, and lower abd pain for 3 days. pt states she has been taking azo - Related Data Home Medications Medication Instructions Recorded Confirmed Aspirin [Aspirin 81mg EC Tab] 81 mg PO DAILY 09/26/20 01/20/22 Atorvastatin Calcium [Lipitor 40mg 40 mg PO HS 10/17/21 01/20/22 Tab] Clopidogrel Bisulfate [Plavix] 75 mg PO DAILY 10/17/21 01/20/22 Levothyroxine Sodium [Synthroid 50 mcg PO DAILY 10/17/21 01/20/22 50mcg (0.05mg) tab] Previous Rx's Medication Instructions Recorded escitalopram oxalate 20 mg tablet 20 mg PO DAILY #90 tab 10/01/21 nitroglycerin 0.4 mg sublingual 0.4 mg SUBLINGUAL Q5M PRN #25 tab 10/16/21 tablet amlodipine 5 mg tablet 5 mg PO DAILY #90 tab 12/02/21 pantoprazole 40 mg tablet,delayed 40 mg PO DAILY #30 tab 12/09/21 release Benzonatate [Benzonatate 100mg 100 mg PO TIDP PRN #30 cap 12/27/21 cap] bisoprolol fumarate 5 mg tablet 5 mg PO DAILY #90 tab 01/06/22 clonazepam 0.5 mg tablet 0.5 mg PO BID PRN #20 tab 0
[2022-02-08 10:25] VITALS: BP 131/77; PULSE 77; RESP 19; TEMP 36.6; O2SAT 97
== END 2022-02-08 10:28 | disposition home or self-care (01) ==
PROVIDERS: Emergency Provider Nurse Practitioner Family; PCP Emergency Medicine
DX: N30.01 Acute cystitis with hematuria (principal)
CPT/HCPCS: 81003; 87086; 87088; 87186; 99212; G0463

== ENCOUNTER 2022-05-22 11:30 | Emergency (ER) | payer MEDICARE, SELFPAY ==
[2022-05-22] VITALS (7 sets, daily range): BP systolic 86–110; BP diastolic 51–65; PULSE 54–67; RESP 14–18; TEMP 36.4–36.7; O2SAT 95–98; BMI 29.2
--- NOTE | 2022-05-22 11:51 | XR_ITS ---
FINAL REPORT CLINICAL HISTORY: syncope COMPARISON: January 14, 2022 FINDINGS: The heart size is normal. The mediastinum is within normal limits. There is no acute cardiopulmonary process. There is no pleural effusion. There is no pneumothorax. The bony thorax is intact. IMPRESSION: No acute cardiopulmonary process. Reviewed, Interpreted and Dictated by Shade Prajapati III, MD Transcribed by Khari Craig Authenticated and [facility]
--- NOTE | 2022-05-22 11:54 | HMH.EDGENADL ---
Discharge Plan Disposition Patient Disposition: Home, Self-Care Condition: Good Chief Complaint: Syncope Prescriptions Prescriptions: No Action escitalopram oxalate 20 mg tablet 20 mg PO DAILY Qty: 90 0RF Rx Instructions: TAKE 1 TABLET EVERY DAY FOR DEPRESSION nitroglycerin 0.4 mg tablet, sublingual 0.4 mg SUBLINGUAL Q5M PRN (Reason: chest pain) Qty: 25 0RF Rx Instructions: do not exceed 3 doses per episode bisoprolol fumarate 5 mg tablet 5 mg PO DAILY Qty: 90 3RF clonazepam [Klonopin] 0.5 mg tablet 0.5 mg PO BID PRN (Reason: anxiety) Qty: 20 0RF albuterol sulfate 90 mcg/actuation HFA aerosol inhaler 2 inh INHALATION Q8H PRN (Reason: shortness of breath or wheezing) Qty: 8.5 10RF aspirin 81 MG tablet,delayed release (DR/EC) 81 mg PO DAILY furosemide [Lasix] 40 mg tablet 40 mg PO DAILY fluticasone propion-salmeterol [Advair Diskus] 250-50 mcg/dose blister with device 1 inh IH BID isosorbide mononitrate 30 mg tablet extended release 24 hr 60 mg PO DAILY amlodipine 5 mg tablet 5 mg PO DAILY pantoprazole [Protonix] 40 mg tablet,delayed release (DR/EC) 40 mg PO DAILY montelukast 10 mg tablet 10 mg PO DAILY azelastine 137 mcg (0.1 %) aerosol,spray 1 spray NS BID Rx Instructions: administer into each nostril fluticasone propionate 50 mcg/actuation spray,suspension 1 spray NS BID Rx Instructions: administer into each nostril atorvastatin 40 MG tablet 40 mg PO HS clopidogrel 75 MG tablet 75 mg PO DAILY levothyroxine 50 MCG tablet 50 mcg PO DAILY Referrals Follow up/Referrals: Davey Nj MD [Primary Care Provider] - See instructions Activity Restrictions/Add. Instructions Additional Instructions/Restrictions: Do not take furosemide today or tomorrow. Rest and drink plenty of fluids. Follow-up with primary care provider, call for appointment. Return to the emergency department if symptoms worsen. Clinical Impressions Clinical Impression: Orthostatic syncope, Acute dehydration Instructions Patient Instructions: DI for Syncope in Adults (Fainting), DI for Dehydration -- Adult Discharge ED Provider: Carlos Langston Adult HPI General Chief complaint: Syncope Stated complaint: Low BP Time Seen by Provider: 05/22/22 11:45 History of Present Illness HPI narrative: Complains of syncope, weakness. States that she woke up this morning feeling tired and weak. She was in [place] getting her hair done. While sitting in a chair she says that she went out . She did not have any chest pain or any other short of discomfort. No shortness of breath. She says that 911 was called and EMS personnel told her that her blood pressure bottomed out . She apparently refused transport and says that she thought she would go home and rest and everything would be okay, but continued to feel weak and tired and therefore comes to the emergency department. States that she has not recently been ill. No new medications. She took her usual medications this morning except she did not take her usual water pill. She did eat this morning. Related Data Home Medications Medication Instructions Recorded Confirmed aspirin 81 mg tablet,delayed 81 mg PO DAILY Heart disease 09/26/20 05/22/22 release atorvastatin 40 mg tablet 40 mg PO HS Cholesterol 10/17/21 05/22/22 clopidogrel 75 mg tablet 75 mg PO DAILY antiplatelet 10/17/21 05/22/22 levothyroxine 50 mcg tablet 50 mcg PO DAILY thyroid 10/17/21 05/22/22 amlodipine 5 mg tablet 5 mg PO DAILY BLOOD PRESSURE 05/22/22 05/22/22 azelastine 137 mcg (0.1 %) nasal 1 spray intranasal BID Breathing 05/22/22 05/22/22 spray aerosol problems fluticasone 250 mcg-salmeterol 50 1 inh inhalation BID Breathing 05/22/22 05/22/22 mcg/dose blistr powdr for problems inhalation (Advair Diskus) fluticasone propionate 50 1 spray intranasal BID ALLERGIES 1
--- NOTE | 2022-05-22 11:55 | ECG_ITS ---
APPROVED REPORT Exam: Resting ECG HR:51 bpm ECG Measurements Heart Rate 51 AXES SC 205 P 48 QRSd 88 QRS 38 QT 471 T 26 QTc 449 Conclusion SINUS BRADYCARDIA LOW QRS VOLTAGE IN PRECORDIAL LEADS [QRS DEFLECTION < 1.0 mV IN CHEST LEADS] MODERATE ST DEPRESSION [0.05+ mV ST DEPRESSION] ABNORMAL ECG UNCONFIRMED REPORT Electronically signed by : Jace Hassan MD 05/24/2022 17:42:31
[2022-05-22 12:01] LABS: Basophils # 0.1 K/mm3 (0-0.2); Basophils % 1.9 % (0.1-2.0); Eosinophils # 0.3 K/mm3 (0.0-0.4); Eosinophils % 4.9 % (0.1-12.0); Hemoglobin 13.2 g/dL (12.2-16.2); Lymphocytes # 2.2 K/mm3 (0.7-4.5); Lymphocytes % 34.8 % (10-50); Mean Corpuscular Hemoglobin 31.8 pg (27.0-31.2); Mean Corpuscular Volume 96.4 fl (81-99); Monocytes # 0.5 K/mm3 (0.1-1.0); Monocytes % 7.6 % (1.7-9.3); Neutrophils # 3.3 K/mm3 (1.8-7.8); Neutrophils % 50.8 % (37.0-80.0); Platelet Count 304 K/mm3 (142-424); Red Blood Count 4.15 M/mm3 (4.20-5.40); Red Cell Distribution Width 14.2 % (11.5-17.5); White Blood Count 6.4 K/mm3 (4.8-10.8)
[2022-05-22 12:03] LABS: Chloride 103 mmol/L (98-107); Potassium 4.3 mmoL/L (3.5-5.1); Sodium 139 mmol/L (136-145)
[2022-05-22 12:05] LABS: Alanine Aminotransferase 20 U/L (12-78); Alkaline Phosphatase 83 U/L (38-126); Aspartate Amino Transferase 38 U/L (14-36); Bilirubin,Total 0.4 mg/dl (0.2-1.3); Blood Urea Nitrogen 23 mg/dl (7-17); Estimated Glomerular Filt Rate 71 ml/min (>60); GFR (African American) 86 ML/MIN (>60)
[2022-05-22 12:06] LABS: Albumin Level 4.3 g/dl (3.5-5.0); Albumin/Globulin Ratio 1.8 (1.1-1.8); Anion Gap 10.3 mEq/L (5-15); Calcium 8.9 mg/dl (8.4-10.2); Carbon Dioxide 30 mmol/L (22.0-30.0); Globulin 2.4 g/dL (1.3-3.2); Glucose 126 mg/dl (74-100); Total Protein,Serum 6.7 g/dl (6.3-8.2)
--- NOTE | 2022-05-22 12:10 | PC.NURSE ---
portable rad at the bedside
--- NOTE | 2022-05-22 12:20 | PC.NURSE ---
blood cultures and lactic sent to the lab. SO at the bedside with pt.
[2022-05-22 12:24] LABS: Coronavirus 19, PCR Not Detected (NotDetected); Influenza A, PCR Not Detected (NotDetected); Influenza B, PCR Not Detected (NotDetected)
[2022-05-22 12:32] LABS: Troponin I < 0.01 ng/ml (0.00-0.034)
[2022-05-22 12:33] LABS: Lactic Acid 1.5 mmol/L (0.7-2.1)
--- NOTE | 2022-05-22 12:34 | PC.NURSE ---
pt aware of pending ua order. pt reports she does not have to go yet
[2022-05-22 13:34] LABS: Microscopic, Urine URINE MICROSCOPIC (MICROSCOPIC)
[2022-05-22 13:41] LABS: Appearance,Urine CLEAR (Clear); Bilirubin,Urine Negative (Negative); Blood, Urine Negative (Negative); Color,Urine YELLOW (Yellow); Glucose,Urine (UA) Negative (Negative); Ketones,Urine Negative (Negative); Leukocyte Esterase,Urine Negative (Negative); Nitrate,Urine Negative (Negative); Protein,Urine Negative (Negative); Specific Gravity, Urine >= 1.030 (1.005-1.030); Urobilinogen,Urine 0.2 EU/dl (0.2)
[2022-05-22 14:07] LABS: WBC,Urine Occasional #/hpf (0-3)
== END 2022-05-22 14:30 | disposition home or self-care (01) ==
PROVIDERS: Emergency Provider Emergency Medicine; PCP Emergency Medicine
DX: I95.1 Orthostatic hypotension (principal); E86.0 Dehydration; Z79.02 Long term (current) use of antithrombotics/antiplatelets; Z79.899 Other long term (current) drug therapy; I65.29 Occlusion and stenosis of unspecified carotid artery; J45.30 Mild persistent asthma, uncomplicated; Z87.19 Personal history of other diseases of the digestive system; Z83.3 Family history of diabetes mellitus; Z82.49 Family history of ischemic heart disease and other diseases of the circulatory system
CPT/HCPCS: 71045; 80053; 81001; 83605; 84484; 85025; 87040; 93005; 96360; 99284; C9803; U0003; U0005

== ENCOUNTER → 2022-05-26 14:25 | Outpatient (CLI) | payer MEDICARE, SELFPAY | PROVIDERS: PCP Emergency Medicine; Visit Provider Nurse Practitioner Family | DX: R55 Syncope and collapse (principal) ==

== ENCOUNTER → 2022-11-03 11:26 | Outpatient (CLI) | payer MEDICARE, SELFPAY ==
--- NOTE | 2022-11-03 11:31 | NM_ITS ---
APPROVED REPORT Exam: Nuclear Stress Test Indication: short of breath..fatigue Patient Location: Outpatient Stress Tech: Heather Morrissey [place] Tech:Airam MartinezNILTON RT(R)(N) Ht: 5 ft 5 in Wt: 170 lbs HR: 60 bpm BP: 147/77 mmHg BSA: 1.85 m2 TID: 1.27 BMI: 28.2 History: short of breath..fatigue Procedure: Patient received 0.4 mg of intravenous Lexiscan, resting heart rate 60 bpm, resting blood pressure 147/77 mmHg, with Lexiscan maximum heart rate achieved was 88 bpm which is Less than 85 % of the maximum predicted heart rate and blood pressure was 86/45 mmHg. With Lexiscan, patient denied any complaint of chest pain. The patient in not able to lay on her belly for the prone images. Electrocardiogram Resting electrocardiogram shows sinus rhythm, with Lexiscan there is less than 1.[address] segment depression noted from the baseline EKG. The EKG portion of the Lexiscan is nondiagnostic. Cardiac Stress and Resting SPECT Images: Cardiac Stress and Resting SPECT images were obtained using technetium 99m Myoview 31.7 mCi stress and 10.86 mCi at rest. Gated SPECT analysis of segmental wall motion and calculation of the ejection fraction also done. Cardiac stress and rest respectively show uniform myocardial activity without segmental perfusion abnormality, computer derived ejection fraction is 64% with no regional wall motion abnormality, right ventricle is mildly enlarged with normal contractility. Conclusion: 1. The EKG portion of the Lexiscan is nondiagnostic. 2. No scintigraphic evidence of reversible ischemia seen, computer derived ejection fraction is 64% with no regional wall motion abnormality, right ventricle is mildly enlarged with normal contractility. 3. Normal Lexiscan Myoview study. Electronically signed by : Shane Reyna MD 11/03/2022 16:18:21
--- NOTE | 2022-11-03 13:00 | CA_ITS ---
APPROVED REPORT EXAM: Comprehensive 2D, Doppler, and color-flow Echocardiogram Machine Plug Shaper: Moraima Tyler CRT Ht: 5 ft 5 in Wt: 181lbs BSA: 1.90 BP: 118/85 mmHg Indications: Chest Pain, Shortness of Breath, Obesity, Peripheral Edema, Hyperlipidemia, Hypertension/HDD, GERD, Stents 2D Dimensions LVOT 1.71 cm (M/F) 1.5-2.5 LA Volume 23.30 mL LA Volume Index 12.00 mL/m2 (M/F) 16-34 M-Mode Dimensions RVDd 2.91 cm (0.9-2.6) LA Diam 3.56 cm (1.9-4.0) LVDd 4.09 cm (3.5-5.7) Ao Diam 3.35 cm (2.0-3.7) LVDs 3.40 cm (3.5-5.7) IVSd 1.59 cm (0.6-1.1) PWd 1.05 cm (0.6-1.1) EF (Teich) 35.80% FS 16.90% EDV (Teich) 73.80 mL TAPSE 2.66 (<1.7) ESV (Teich) 47.40 mL LV Diastology E Decel Time 190.00 (160-240 msec) E/A Ratio 0.81 MED E' 8.60 (< 7 cm/sec) MED A' 11.00 cm/s E'/MED E' Ratio 7.43 (>14) LAT E' 9.60 (<10 cm/sec) LAT A' 9.70 cm/s E/LAT E' Ratio 6.66 (>14) Aortic Valve AO Peak GR. 6.60 mmHg Mitral Valve MV A Velocity 79.00 (40-130 cm/s) E/A Ratio 0.81 MV Decel. Time 190.00 (160-240 ms) Pulmonary Valve PV Peak Velocity 61.00 (50-150 cm/s) Tricuspid Valve TR P. Velocity 227.00 cm/s RAP Estimate 10.00 mmHg RVSP 30.70 mmHg Left Ventricle Left atrium is mildly enlarged, left ventricle is normal size mild concentric left ventricular hypertrophy, estimated ejection fraction 55% with no regional wall motion abnormality, grade 1 diastolic dysfunction seen without tissue Doppler evidence of raise left atrial pressure. Right Ventricle Right atrium and right ventricular normal size and contractility. Aortic Valve Aortic valve is minimally thickened fibrosed there is no aortic stenosis aortic insufficiency. Mitral Valve Mitral valve is grossly normal, there is trace mitral regurgitation. Tricuspid Valve Tricuspid grossly normal, there is trace tricuspid regurgitation, tricuspid regurgitation jet velocity is inadequate for calculation of the right ventricular systolic pressure. Pulmonic Valve Pulmonic valve is poorly visualized. Great Vessels Aortic root is normal size. Inferior vena cava is poorly visualized. Pericardium No significant pericardial effusion noted. Conclusion 1. Mildly enlarged left and, normal left ventricular size, mild concentric left ventricular hypertrophy, estimated ejection fraction 55% with no regional wall motion abnormality, grade 1 diastolic dysfunction seen without tissue Doppler evidence of raise left atrial pressure. 2. Trace mitral and tricuspid regurgitation. 3. No significant pericardial effusion noted. 4. Inferior vena cava is poorly visualized. Electronically signed by : Shane Reyna MD 11/03/2022 15:20:10
--- NOTE | 2022-11-03 14:12 | CA_ITS ---
APPROVED REPORT Exam: Pharmacologic Technologist: Heather Wilder, Ht: 5 ft 5 in Wt: 181 lbs BSA: 1.90 m2 HR: 60 bpm BP: 147/77 mmHg Medical History Medications: Amlodipine,,,,, Omeprazole,,,,, Levothyroxine,,,,, Aspirin,,,,, Atorvastatin,,,,, Flonase,,,,, Lasix,,,,, Albuterol,,,,, Montelukast,,,,, ADVAIR,,,,, Protonix,,,,, CloPIdogrel,,,,, Stress Test Details Test: LEXISCAN Reason for pharmacologic stress test: physical limitation. HR Resting HR: 65 bpm Max Heart Rate (APMHR): 148.705453 bpm Max HR Achieved: 91 bpm Target HR (85% APMHR): 125.346126 bpm % of APMHR: 61.49 Recovery HR: 61 bpm BP Resting BP: 147.0/77.0 mmHg Max BP: 147.0/77.0 mmHg Recovery BP: 111.0/65.0 mmHg ECG Resting ECG: SR Clinical Exercise duration: 04:09 min Highest Stage Achieved: Stress ECG Conclusion Symptoms: SOA w/ Lexiscan. Weakness, fatigue, chest pain in recovery. Arrhythmias/Ectopy: None ST-T Changes: <1.5mm ST Segment depression. Test Summary REST . . . . . . . Resting REST 05:08 . . 65 . 147/ 77 . . Stage 1 01:00 . . 87 . . . . Stage 2 01:00 . . 65 . . . . Stage 3 01:00 . . 55 . 86/ 45 . . Stage 4 01:00 . . 48 . 79/ 35 . . Stage 4 01:09 . . 51 . 79/ 35 . Stop exercise at 04:09 RECOVERY 01:00 . . 68 . 68/ 35 . . RECOVERY 02:00 . . 44 . 68/ 35 . . RECOVERY 03:00 . . 55 . 71/ 32 . . RECOVERY 04:00 . . 45 . 72/ 33 . . RECOVERY 05:00 . . 45 . 72/ 33 . . RECOVERY 06:00 . . 47 . 68/ 32 . . RECOVERY 07:00 . . 52 . 66/ 30 . . RECOVERY 08:00 . . 52 . 66/ 30 . . RECOVERY 09:00 . . 52 . 77/ 38 . . RECOVERY 10:00 . . 63 . 77/ 38 . . RECOVERY 11:00 . . 65 . 102/ 50 . . RECOVERY 12:00 . . 65 . 119/ 62 . . RECOVERY 13:00 . . 63 . 119/ 62 . . RECOVERY 13:45 . . 60 . 111/ 65 . . Electronically signed by : Shane Reyna MD 11/03/2022 14:59:24
== END ==
PROVIDERS: PCP Emergency Medicine; Visit Provider Physician Assistant
DX: E78.2 Mixed hyperlipidemia (principal); I10 Essential (primary) hypertension; I20.8 Other forms of angina pectoris
CPT/HCPCS: 78452; 93017; 93306; A9502; J2785

== ENCOUNTER → 2023-01-22 10:08 | Outpatient (CLI) | payer MEDICARE, SELFPAY ==
[2023-01-22 13:19] LABS: Basophils # 0.1 K/mm3 (0-0.2); Basophils % 0.8 % (0.1-2.0); Eosinophils # 0.3 K/mm3 (0.0-0.4); Eosinophils % 4.4 % (0.1-12.0); Hemoglobin 13.6 g/dL (12.2-16.2); Lymphocytes % 35.9 % (10-50); Mean Corpuscular HGB Conc 32.3 g/dL (31.8-35.4); Mean Corpuscular Hemoglobin 30.6 pg (27.0-31.2); Mean Corpuscular Volume 94.8 fl (81-99); Mean Platelet Volume 8.5 fl (7.4-10.4); Monocytes # 0.4 K/mm3 (0.1-1.0); Neutrophils # 2.9 K/mm3 (1.8-7.8); Neutrophils % 51.9 % (37.0-80.0); Platelet Count 246 K/mm3 (142-424); Red Blood Count 4.43 M/mm3 (4.20-5.40); White Blood Count 5.6 K/mm3 (4.8-10.8)
[2023-01-22 13:41] LABS: Alanine Aminotransferase 20 U/L (12-78); Albumin Level 4.3 g/dl (3.5-5.0); Albumin/Globulin Ratio 1.7 (1.1-1.8); Alkaline Phosphatase 88 U/L (38-126); Aspartate Amino Transferase 29 U/L (14-36); Bilirubin,Total 0.5 mg/dl (0.2-1.3); Blood Urea Nitrogen 14 mg/dl (7-17); Carbon Dioxide 27 mmol/L (22.0-30.0); Chloride 103 mmol/L (98-107); Chol/HDL Ratio 5.1 (1-3.5); Cholesterol 267 mg/dl (140-200); Estimated Glomerular Filt Rate 82 ml/min (>60); GFR (African American) 100 ML/MIN (>60); Globulin 2.5 g/dL (1.3-3.2); Glucose 93 mg/dl (74-100); HDL Cholesterol 52 mg/dl (40-60); Sodium 140 mmol/L (136-145); Total Protein,Serum 6.8 g/dl (6.3-8.2); Triglycerides 157 mg/dl (30-150); VLDL Cholesterol 31 mg/dL (0-40)
[2023-01-22 13:53] LABS: Direct LDL Cholesterol 146.81 mg/dL (100-129)
[2023-01-22 13:59] LABS: 25-OH Vitamin D, Total 27.6 ng/mL (30-100)
[2023-01-22 14:14] LABS: Thyroid Stimulating Hormone 1.94 uIU/mL (0.465-4.68)
== END ==
PROVIDERS: PCP Nurse Practitioner Family; Visit Provider Nurse Practitioner Family
DX: M79.602 Pain in left arm (principal); E55.9 Vitamin D deficiency, unspecified; I10 Essential (primary) hypertension; R07.2 Precordial pain; E03.9 Hypothyroidism, unspecified
CPT/HCPCS: 80053; 80061; 82306; 84443; 85025

== ENCOUNTER → 2023-01-22 13:24 | Outpatient (CLI) | payer MEDICARE, SELFPAY | PROVIDERS: PCP Nurse Practitioner Family; Visit Provider Nurse Practitioner Family | DX: M79.602 Pain in left arm (principal) ==

== ENCOUNTER 2023-03-24 09:16 | Emergency (ER) | payer MEDICARE, SELFPAY ==
--- NOTE | 2023-03-24 09:26 | XR_ITS ---
FINAL REPORT CLINICAL HISTORY: non traumatic pain COMPARISON: None FINDINGS: RIGHT FOOT: Three views of the right foot were obtained. There is no acute fracture or dislocation. Mild degenerative change is present. There is a moderate hallux valgus deformity. A plantar calcaneal spur and calcification in the posterior plantar aponeurosis is present. IMPRESSION: No acute bony abnormality. Moderate hallux valgus deformity. Plantar calcaneal spur and calcification in the posterior plantar aponeurosis. Reviewed, Interpreted and Dictated by Shade Prajapati III, MD Transcribed by Rashmi Cummins Authenticated and [facility]
--- NOTE | 2023-03-24 09:26 | XR_ITS ---
FINAL REPORT CLINICAL HISTORY: non traumatic pain COMPARISON: None FINDINGS: Left ankle 2 views: AP and lateral views of the left ankle reveal a plantar calcaneal spur. No fracture or dislocation is seen. Soft tissue swelling is present. There is calcification in the posterior plantar aponeurosis. Mild degenerative changes present. IMPRESSION: No acute bony abnormality. Plantar calcaneal spur, and calcification in the posterior plantar aponeurosis. Reviewed, Interpreted and Dictated by Shade Prajapati III, MD Transcribed by Rashmi Cummins Authenticated and [facility]
--- NOTE | 2023-03-24 09:26 | CA_ITS ---
FINAL REPORT TECHNIQUE: Color Doppler, duplex Doppler and compression sonography of the left lower extremity deep venous systems was performed. CLINICAL HISTORY: LLE PAIN, VARICOSITIES FINDINGS: There is no evidence of deep venous thrombosis from the level of the groin to the calf. The veins are patent and compressible. IMPRESSION: No evidence of deep venous thrombosis left lower extremity. Reviewed, Interpreted and Dictated by Shade Prajapati III, MD Transcribed by Lida Duran Authenticated and [facility]
[2023-03-24 09:28] VITALS: BP 116/93; PULSE 72; RESP 20; TEMP 36.8; O2SAT 96; BMI 29.6
[2023-03-24 09:30] VITALS: BP 156/75; PULSE 73; O2SAT 97
--- NOTE | 2023-03-24 09:31 | HMH.EDGENADL ---
Discharge Plan Disposition Patient Disposition: Home, Self-Care Prescriptions Prescriptions: No Action clonazepam [Klonopin] 0.5 mg tablet 0.5 mg PO BID PRN (Reason: anxiety) Qty: 60 0RF nitroglycerin 0.4 mg tablet, sublingual 0.4 mg SUBLINGUAL Q5M PRN (Reason: chest pain) Qty: 25 0RF Rx Instructions: do not exceed 3 doses per episode bisoprolol fumarate 5 mg tablet 5 mg PO DAILY Qty: 90 3RF melatonin 5 mg tablet 5 mg PO HS PRN isosorbide mononitrate 60 mg tablet extended release 24 hr 60 mg PO DAILY Qty: 90 1RF furosemide [Lasix] 20 mg tablet 20 mg PO BID Qty: 60 2RF albuterol sulfate 90 mcg/actuation HFA aerosol inhaler 2 inh INHALATION Q8H PRN (Reason: shortness of breath or wheezing) Qty: 8.5 10RF pantoprazole [Protonix] 40 mg tablet,delayed release (DR/EC) 40 mg PO DAILY Qty: 90 1RF clopidogrel 75 mg tablet See Rx Instructions .ROUTE .COMPLEX Qty: 90 0RF Dose Instruction: TAKE 1 TABLET EVERY DAY Rx Instructions: TAKE 1 TABLET EVERY DAY aspirin 81 MG tablet,delayed release (DR/EC) 81 mg PO DAILY fluticasone propion-salmeterol [Advair Diskus] 250-50 mcg/dose blister with device 1 inh IH BID amlodipine 5 mg tablet 5 mg PO DAILY montelukast 10 mg tablet 10 mg PO DAILY azelastine 137 mcg (0.1 %) aerosol,spray 1 spray NS BID Rx Instructions: administer into each nostril fluticasone propionate 50 mcg/actuation spray,suspension 1 spray NS BID Rx Instructions: administer into each nostril atorvastatin 40 MG tablet 40 mg PO HS levothyroxine 50 MCG tablet 50 mcg PO DAILY Referrals Follow up/Referrals: Israel Stanley APRN [Primary Care Provider] - See instructions Activity Restrictions/Add. Instructions Additional Instructions/Restrictions: There is no evidence of arterial insufficiency, deep vein thrombosis, acute fracture or dislocation, infection, etc. on your evaluation today. This is not consistent with an emergent medical condition please follow-up with your primary care doctor and return with any significant change in your symptoms. Take [id number] pain medication elevation and compression for your chronic swelling. Clinical Impressions Clinical Impression: Acute pain of left foot Discharge ED Provider: Kimi Castillo General Adult HPI General Chief complaint: PAIN Stated complaint: left leg/ankle pain, no accident Time Seen by Provider: 03/24/23 09:18 History of Present Illness HPI narrative: Patient is a 72-year-old female here with nontraumatic left foot and ankle pain. States it began hurting yesterday evening but she woke up this morning and the pain was excruciating. She denies any known injuries. There is been no different swelling redness fevers chills or any more proximal symptoms in her leg. She has a history of varicose veins and chronic lower extremity swelling she wears compression stockings which have not been helping her symptoms. No history of DVT or PE. No chest pain or shortness of breath today. She took Tylenol this morning without any significant improvement. She is chronically on dual antiplatelet therapy. Related Data Home Medications Medication Instructions Recorded Confirmed aspirin 81 mg tablet,delayed 81 mg PO DAILY Heart disease 09/26/20 03/12/23 release atorvastatin 40 mg tablet 40 mg PO HS Cholesterol 10/17/21 03/12/23 levothyroxine 50 mcg tablet 50 mcg PO DAILY thyroid 10/17/21 03/12/23 amlodipine 5 mg tablet 5 mg PO DAILY BLOOD PRESSURE 05/22/22 03/12/23 azelastine 137 mcg (0.1 %) nasal 1 spray intranasal BID Breathing 05/22/22 03/12/23 spray aerosol problems fluticasone 250 mcg-salmeterol 50 1 inh inhalation BID Breathing 05/22/22 03/12/23 mcg/dose blistr powdr for problems inhalation (Advair Diskus) fluticasone propionate 50 1 spray intranasal BID ALLERGIES 05/22/22 03/12/23 mcg/actuation nasal spray,suspension
--- NOTE | 2023-03-24 09:41 | PC.NURSE ---
platform power technician at the bedside for doppler
[2023-03-24 11:18] VITALS: BP 130/72; PULSE 64; RESP 20; TEMP 36.8; O2SAT 95
== END 2023-03-24 11:20 | disposition home or self-care (01) ==
PROVIDERS: Emergency Provider Student in an Organized Health Care Education/Training Program; PCP Nurse Practitioner Family
DX: M79.672 Pain in left foot (principal); M79.662 Pain in left lower leg; J45.30 Mild persistent asthma, uncomplicated; I20.9 Angina pectoris, unspecified; I65.29 Occlusion and stenosis of unspecified carotid artery
CPT/HCPCS: 73600; 73630; 93971; 99284

== ENCOUNTER 2023-03-25 14:04 | Outpatient (RCR) | payer MEDICARE, SELFPAY ==
--- NOTE | 2023-03-25 16:44 | HMH.PTOPWND ---
Rehab Outpt Wound Evaluation Rehab OP Wound Evaluation Start: 03/25/23 16:35 Freq: Status: Active Protocol: Document 03/25/23 16:35 MAGALY (Rec: 03/25/23 16:44 PHOALLY [id number]) E-signed By Dashawn Ellis, PT Subjective/History History History this is the initial PT eval for Mari De Dios, 72 yowf who presents with c/o B LE edema increased x ~ 1 yr with insidious onset of symptoms. She presents with significant amounts of varicosities to B LE and reports a familial hx of the same. She reports minimal pain at rest, but states, I was at the ED yesterday because my foot was hurting really bad and they think I pulled a tendon or something. She reports hx of HTN, CAD with stents x 4, R ANAI, asthma. Subjective Subjective Currently pain in the L foot is 8/10, but not related to increased edema. 1/4 TTP noted to B LE this date. 1+ pitting edema, increased 'doughy' edema noted. Lymphedema Eval Classification of Lymphedema Secondary Lymphedema Yes: CVI Stemmer's sign Stemmer's Sign no Stage of Lymphedema Lymphedema stages Stage II (Pitting edema, increased fibrosis w/ decreased pitting) Skin Changes Dry Skin Yes Skin Folds Yes Redness Yes Discoloration of Skin Yes Other Changes Yes: severe varicose veins Pain Scale Pain Scale (0-10) 8 Affected Extremities Areas Affected by Lymphedema/Edema Right Lower Extremity,Left Lower Extremity Manual Lymphatic Drainage Treatment Area MLD Treatment Area Right Lower Extremity,Left Lower Extremity Wound Problems/Impairments Impairments Problems/Impairmments Palpation Tenderness,Impaired Endurance,Impaired Transfers, Impaired Gait Pattern,Impaired Walking,Impaired Standing, Impaired Shower/Bathing, Impaired Household Care, Impaired Recreational
== END 2023-03-25 14:10 | disposition home or self-care (01) ==
LOC: PT 14:04
PROVIDERS: PCP Nurse Practitioner Family; Visit Provider Nurse Practitioner Family
DX: R60.0 Localized edema (principal)
CPT/HCPCS: 97163

== ENCOUNTER → 2023-04-17 12:38 | Outpatient (CLI) | payer MEDICARE, SELFPAY ==
--- NOTE | 2023-04-17 12:43 | XR_ITS ---
FINAL REPORT CLINICAL HISTORY: left ankle pain COMPARISON: None FINDINGS: LEFT ANKLE Three views demonstrate no acute fracture or dislocation. The visualized joint spaces are normally aligned. There is moderate soft tissue swelling. Note is made of a moderate-sized plantar calcaneal spur. IMPRESSION: No acute bony abnormality. Reviewed, Interpreted and Dictated by Emilio Ernandez MD Transcribed by Rashmi Cummins Authenticated and . [facility]
== END ==
LOC: RAD 12:39
PROVIDERS: PCP Nurse Practitioner Family; Visit Provider Nurse Practitioner Family
DX: M25.572 Pain in left ankle and joints of left foot (principal)
CPT/HCPCS: 73610

== ENCOUNTER 2023-04-27 10:18 | Day surgery (SDC) | payer MEDICARE, SELFPAY ==
[2023-04-27] VITALS (13 sets, daily range): BP systolic 74–172; BP diastolic 43–101; PULSE 51–76; RESP 16–20; TEMP 36.1; O2SAT 92–97; BMI 31.2
--- NOTE | 2023-04-27 10:24 | IR_ITS ---
APPROVED REPORT Patient Location: Outpatient Meat Stocker: NILTON Tse RT (R) PROCEDURES Left heart catheterization Left ventriculogram Selective coronary angiogram Drug-eluting stent deployment to the ostial proximal circumflex artery Drug-eluting stent deployment to the proximal mid dominant right coronary INDICATION Coronary artery disease, Unstable angina, Informed consent was obtained prior to the procedure. COMPLICATIONS None Estimated Blood Loss: Less than 10 mls TECHNIQUE One percent lidocaine used to anesthetize the right anterior aspect of the wrist. The right radial artery was accessed via the Seldinger technique. A 6 Persian sheath was placed in the right radial artery. 2.5 mg of Verapamil, 800 mcg of nitroglycerin, 1mg Lidocaine and 5000 U Heparin were given through the arterial sheath. The papa catheter was also used to perform left heart catheterization, left ventriculogram and selective coronary angiogram. At the end the diagnostic angiogram therapeutic heparin was administered giving a therapeutic ACT and the guide catheter was placed in left main artery followed by an Choice PT extra-support wire being placed on both the LAD and the circumflex artery. A 2.5 x 8 mm noncompliant balloon was deployed in the proximal circumflex artery at 20 rosa elena reducing the stenosis. A 3.25 x 18 mm Xience drug-eluting stent was deployed at 24 rosa elena reducing the critical stenosis to 0%. BRITTANI-3 flow was present down the circumflex artery before and after the procedure. Following this the apparatus was taken out of the left main artery and placed in the right coronary followed by Choice PT extra-support wire. A 3.5 x 38 mm Jovani frontier stent was placed in the proximal to mid right coronary artery and deployed at 24 rosa elena reducing this severe stenosis to 0%. BRITTANI-3 flow was present before and after the procedure. At the end the procedure the apparatus was removed the sheath was removed and hemostasis was achieved using TR banding patient was transferred to the postop putting in stable condition ANGIOGRAPHIC RESULTS The left main artery Has a stent in the mid to distal segment which is widely patent free of in-stent restenosis The left anterior descending artery Is a stent which originates off the left main artery and extends in the mid segment. The stent is widely patent free of in-stent restenosis with excellent proximal distal transitioning. The remaining vessel has mild atheromatous plaque The circumflex artery Is a nondominant vessel and has an ostial greater than 90% stenosis followed by widely patent proximal stent. The right coronary artery Is a large dominant vessel and has proximal 60 to 70% stenosis followed by additional 50% stenoses The VILLA ventriculogram reveals Normal ejection fraction at 65% The left ventricular end-diastolic pressure 10 mmHg IMPRESSION Severe circumflex artery in-stent restenosis as described above with successful stenting reducing the critical stenosis to 0% with 1 drug-eluting stent Severe stenosis in the proximal dominant right coronary with successful stenting reducing the disease to 0% with 1 drug-eluting stent Normal ejection fraction Normal left ventricular end-diastolic pressure PLAN 1. Dual antiplatelet therapy 2. Cardiac rehabilitation 3. Avoidance of tobacco products 4. Risk factor modification 5. LDL less than 55 to be achieved with high intensity statin Electronically signed by : Jose Kruger MD 04/27/2023 12:51:27
[2023-04-27 10:40] LABS: Basophils # 0.1 K/mm3 (0-0.2); Eosinophils # 0.2 K/mm3 (0.0-0.4); Eosinophils % 3.1 % (0.1-12.0); Hemoglobin 14.7 g/dL (12.2-16.2); Lymphocytes # 2.1 K/mm3 (0.7-4.5); Lymphocytes % 35.7 % (10-50); Mean Corpuscular HGB Conc 31.9 g/dL (31.8-35.4); Mean Corpuscular Volume 97.1 fl (81-99); Mean Platelet Volume 8.4 fl (7.4-10.4); Monocytes # 0.4 K/mm3 (0.1-1.0); Monocytes % 6.6 % (1.7-9.3); Neutrophils # 3.1 K/mm3 (1.8-7.8); Neutrophils % 53.7 % (37.0-80.0); Platelet Count 286 K/mm3 (142-424); Red Blood Count 4.73 M/mm3 (4.20-5.40); Red Cell Distribution Width 13.5 % (11.5-17.5); White Blood Count 5.8 K/mm3 (4.8-10.8)
[2023-04-27 10:59] LABS: Chloride 102 mmol/L (98-107); Sodium 142 mmol/L (136-145)
[2023-04-27 11:00] LABS: Potassium 3.8 mmoL/L (3.5-5.1)
[2023-04-27 11:02] LABS: Blood Urea Nitrogen 15 mg/dl (7-17); Creatinine Clearance Estimated 66 mL/min (50-200); Estimated Glomerular Filt Rate 62 ml/min (>60); GFR (African American) 74 ML/MIN (>60)
[2023-04-27 11:03] LABS: Anion Gap 10.8 mEq/L (5-15); Calcium 9.9 mg/dl (8.4-10.2); Carbon Dioxide 33 mmol/L (22.0-30.0); Glucose 96 mg/dl (74-100)
[2023-04-27 11:23] LABS: Troponin I < 0.01 ng/ml (0.00-0.034)
[2023-04-27 13:11] LABS: CATHL Activated Clotting Time 315 SEC (74-125)
--- NOTE | 2023-04-27 16:10 | HMH.PHACL ---
PHA Taxation Accountant Discharge Med Inventory Control Coordinator: Mari De Dios has received discharge medication counseling on the following medications: -ASPIRIN (ON PREVIOUSLY, NO QUESTIONS) -ATORVASTATIN (ON PREVIOUSLY, NO QUESTIONS) -BISOPROLOL (ON PREVIOUSLY, NO QUESTIONS) -PLAVIX (ON PREVIOUSLY, NO QUESTIONS) -NO JOSE C/ARB PER MD.
--- NOTE | 2023-04-27 16:16 | SUR.PHASEII ---
Patient had a vagel reaction just prior to discharge. Monitored patient, condition improving.
== END 2023-04-27 16:41 | disposition home or self-care (01) ==
PROVIDERS: PCP Nurse Practitioner Family; Visit Provider Internal Medicine
DX: E78.5 Hyperlipidemia, unspecified (principal); I10 Essential (primary) hypertension; I25.110 Atherosclerotic heart disease of native coronary artery with unstable angina pectoris; R06.00 Dyspnea, unspecified; Z79.899 Other long term (current) drug therapy
CPT/HCPCS: 36415; 80048; 84484; 85025; 85347; 92928; 93458; 99152; 99153; C1725; C1769; C1876; C9600; J1644; J2405

== ENCOUNTER 2023-05-20 16:00 | Outpatient (RCR) | payer MEDICARE, SELFPAY ==
--- NOTE | 2023-05-12 11:46 | HMH.PTOPWND ---
Rehab Outpt Wound Evaluation Rehab OP Wound Evaluation Start: 05/12/23 11:37 Freq: Status: Active Protocol: Document 05/12/23 11:37 MAGALY (Rec: 05/12/23 11:46 PHORDOE [id number]) E-signed By Dashawn Ellis, PT Subjective/History History History This is the initial PT eval for Mari De Dios, 72 yowf who presents with c/o B LE edema x 4-5 mos, L worse than R, with insidious onset. She reports intermittent worsening of symptoms, especially with prolonged dependent positioning. She also reports she has performed ankle pumps daily, compression garments and elevation of B LE without decrease in her edema for > 4 wks. She reports PMH of HTN, HLD, CAD with stents x 6, asthma, L ANAI. LLIS score= 30 Subjective Subjective Currently no c/o pain, 0/10, at worst pain is 8/10. She also c/o intermittent numbness /tingling. She presents with 1 + pitting edema and moderate fibrotic edema in B lower legs . She also presents with sever varicose veins noted B. New diagnosis of cancer in past 12 No months? Lymphedema Eval Classification of Lymphedema Secondary Lymphedema Yes Stemmer's sign Stemmer's Sign no Stage of Lymphedema Lymphedema stages Stage II (Pitting edema, increased fibrosis w/ decreased pitting) Skin Changes Dry Skin Yes Skin Folds Yes Discoloration of Skin Yes Other Changes Yes Pain Scale Pain Scale (0-10) 8 Affected Extremities Areas Affected by Lymphedema/Edema Right Lower Extremity,Left Lower Extremity Manual Lymphatic Drainage Treatment Area MLD Treatment Area Right Lower Extremity,Left Lower Extremity Wound Problems/Impairments Impairments Problems/Impairmments Palpation Tenderness,Impaired Gait Pattern,Impaired Walking, Impaired Standing,Impaired Household Care,Impaired Recreational Activities,
== END 2023-05-20 16:05 | disposition home or self-care (01) ==
LOC: PT 16:00
PROVIDERS: PCP Nurse Practitioner Family; Visit Provider Nurse Practitioner Family
DX: R60.0 Localized edema (principal)
CPT/HCPCS: 97163

== ENCOUNTER 2023-05-21 09:00 | Outpatient (RCR) | payer MEDICARE, SELFPAY ==
--- NOTE | 2023-05-07 16:42 | HMH.PTOPEV ---
PT Outpatient Evaluation Rehab PT Outpatient Evaluation Start: 05/07/23 15:45 Freq: Status: Active Protocol: Document 05/07/23 15:45 JANAE (Rec: 05/07/23 16:42 JANAE [id number]) E-signed By Polly Ibanez, PT Outpatient Therapy Subjective History Subjective History Pt is a 72 y/o female who reports onset of left medial ankle/foot pain 5-6 months ago . Pt denies trauma or injury to the ankle. Pt reports gradual onset of pain that has neither improved nor worsened . Pt reports intermittent tingling of the inside of the foot as well that is worse with increased activity and swelling. Pt reports she has noticed swelling of bilateral ankle/feet. Pt had a left ankle xray at [facility] on 04/17/23 with findings of no acute fracture or dislocation. The visualized joint spaces are normally aligned. There is moderate soft tissue swelling. Note is made of a moderate- sized plantar calcaneal spur. Pt reports pain is aggravated by prolonged standing/walking , stairs and rolling over on the left foot at night. Pt reports she has discussed shoe wear and insoles with her doctor. Pt reports she had a heart attack 2 weeks ago and had 2 stents placed and had a previous heart attack 3 years ago with 4 stents placed. Medical History: Allergic rhinitis, unspecified, Bilateral carotid artery stenosis, Dyspnea on exertion, Gallbladder sludge, Mild persistent asthma, Right carotid bruit, Typical angina, Unstable angina, R ANAI replaced 4 years ago Observation: pes planus noted bilaterally L ankle girth: 54.5 cm New diagnosis of cancer in past 12 No months? Chief Complaint Pain,Swelling Symptom Type Sharp,Tingling,Shooting Symptoms Relieved By Rest/Positioning,OTC Meds, Elevation Symptoms Aggravated By Physical Activity,Walking Prior Functional Limitations None Current Functional Limitations Sleeping,Standing,Walking, Stairs,Balance Symptom Description Constant but Variable Level of pain today (0-10) 7 Pain scale - at its best (0-10) 3 Pain scale - at its worst (0-10) 9 Ankle/Foot Eval Gait Observation General Gait Pattern Observation Antalgic Gait,Wide Based Gait Assistive Device Ambulation Assistive Device None Palpation Tenderness left Ankle/Foot Palpation Findings Tenderness Ankle/Foot Palpation Overall Comment 1st MTP, medial malleoli, posterior tibialis 3/4 ROM Ankle/Foot Dorsiflexion w/Knee Extended 10 Active Range Motion (degrees) Ankle/Foot Plantar Flexion Active Range 28 of Motion (degrees) Ankle/Foot Eversion Active Range of 9 Motion (degrees) Ankle/Foot Inversion Active Range of 22 Motion (degrees) MMT Ankle Dorsiflexion Strength Grade 4- Good- Ankle Plantarflexion Strength Grade 3+ Fair+ Foot Eversion Strength Grade 4 Good Foot Inversion Strength Grade 4- Good- Outpatient Therapy Assessment Impairments Problems/Impairmments Palpation Tenderness,Impaired Range of Motion,Impaired Strength,Impaired Walking, Impaired Standing,Impaired Stair Climbing,Impaired Stepping on Uneven Surface, Subjective C/O Pain,Impaired Self Care/Self Management Prognosis Rehab Potential Good Clinical Impression Consistent with Diagnosis Yes Short Term Goals Number of Weeks 3 Increase Range of Motion Yes Increase Strength Yes: Improve MMT by half grade to assist with function Decrease Subjective C/O Pain Yes: Improve pain at worst to 7/10 improve overall QOL Improve Self Care/Self Management Yes Patient to be Ind w/ HEP Yes Telephone Collector Goals Number of Weeks 6 Decreased Palpation Tenderness Yes: 1-2/4 TTP of the L medial foot/ankle complex Increase Range of Motion Yes: Improve L ankle AROM to WNL Increase Strength Yes: Improve L ankle MMT to 4+ /5 grossly to assist with function Increase Ability to Walk Yes: >1 with pain 5/10 or less Increase Ability to Stand Yes: >1 hr with pain 5/10 or less Improve Ability to Climb Stairs Yes: 1 flight with 1 HR with pain 5/10 or less Decrease Edema Yes Decrease Subjective C/O Pain Yes: Improve pain at worst to 5/10 to improve overall QOL Improve Self Care/Self Management Yes Patient to be Ind w/ Advanced HEP Yes Outpatient Therapy Plan of Care Treatment Plan May Include Therapeutic Exercise Including Home Yes Exercise Program Manual Therapy Techniques Yes Neuromuscular Re-education Yes Therapeutic Activities to Return to Yes Previous Functional/Work Level Gait Training Yes ADL/Self Care Education Yes Dry Needling Yes Thermal Modalities Yes Electrical Stimulation Yes Ultrasound/Phonophoresis Yes Iontophoresis Yes Orthotics/Bracing/Splinting Yes Vasopneumatic Compression Pump Yes Massage Yes Manual Lymphatic Drainage Yes Group Therapy for Medicare Yes Eval/Re-Eval Yes Frequency Times per week 2 Duration Number of Weeks 4-6 Addendums This patient is a candidate for social No or vocational rehab? Patient/Guardian verbally acknowledges Yes understanding of treatment program and consents to further treatment? Patient/Guardian verbally acknowledges Yes understanding of diagnosis, prognosis and goals for treatment? Eval Complexity PT Charges 36989 - Moderate Complexity Shoulder/Elbow Eval Shoulder Objective Measurements Elbow Objective Measurements PHYSICIAN CERTIFICATION: I certify the specified therapy services for Mari Lanre are required, authorized, and reviewed every 30 days.
== END 2023-05-21 10:00 | disposition home or self-care (01) ==
LOC: PT 09:00
PROVIDERS: PCP Nurse Practitioner Family; Visit Provider Nurse Practitioner Family
DX: M79.671 Pain in right foot (principal); M79.672 Pain in left foot; M21.41 Flat foot [pes planus] (acquired), right foot; M21.42 Flat foot [pes planus] (acquired), left foot; M77.42 Metatarsalgia, left foot
CPT/HCPCS: 97163

== ENCOUNTER 2023-06-22 11:10 | Emergency (ER) | payer MEDICARE, SELFPAY ==
[2023-06-22 11:25] VITALS: BP 136/76; PULSE 76; RESP 20; TEMP 36.7; O2SAT 95; BMI 30.9
--- NOTE | 2023-06-22 11:39 | EXP.UTC ---
Discharge Plan Disposition Patient Disposition: Home, Self-Care Condition: Good Prescriptions Prescriptions: New azithromycin [Zithromax Z-Maynor] 250 mg tablet See Rx Instructions .ROUTE .COMPLEX 5 Days Qty: 6 0RF Rx Instructions: For 250 mg dose pack: take 500 mg today (day 1), then 250 mg for 4 days (days 2-5) benzonatate 100 mg capsule 100 mg PO TID PRN (Reason: cough) Qty: 30 0RF No Action clonazepam [Klonopin] 0.5 mg tablet 0.5 mg PO BID PRN (Reason: anxiety) Qty: 60 0RF nitroglycerin 0.4 mg tablet, sublingual 0.4 mg SUBLINGUAL Q5M PRN (Reason: chest pain) Qty: 25 0RF Rx Instructions: do not exceed 3 doses per episode melatonin 5 mg tablet 5 mg PO HS PRN (Reason: Sleep) albuterol sulfate 90 mcg/actuation HFA aerosol inhaler 2 inh INHALATION Q8H PRN (Reason: shortness of breath or wheezing) Qty: 8.5 10RF pantoprazole [Protonix] 40 mg tablet,delayed release (DR/EC) 40 mg PO DAILY Qty: 90 1RF atorvastatin 40 mg tablet 40 mg PO HS Qty: 90 3RF bisoprolol fumarate 5 mg tablet 5 mg PO DAILY Qty: 90 3RF levothyroxine 50 mcg tablet 50 mcg PO DAILY Qty: 90 3RF clopidogrel 75 mg tablet See Rx Instructions .ROUTE .COMPLEX Qty: 90 0RF Rx Instructions: TAKE 1 TABLET EVERY DAY furosemide [Lasix] 20 mg tablet 20 mg PO BID Qty: 60 2RF montelukast 10 mg tablet 10 mg PO DAILY Qty: 90 0RF aspirin 81 MG tablet,delayed release (DR/EC) 81 mg PO DAILY fluticasone propion-salmeterol [Advair Diskus] 250-50 mcg/dose blister with device 1 inh IH BID azelastine 137 mcg (0.1 %) aerosol,spray 1 spray NS BID Rx Instructions: administer into each nostril fluticasone propionate 50 mcg/actuation spray,suspension 1 spray NS BID Rx Instructions: administer into each nostril amlodipine 5 mg tablet See Rx Instructions .ROUTE .COMPLEX Rx Instructions: TAKE 1 TABLET EVERY DAY isosorbide mononitrate 60 mg tablet extended release 24 hr 60 mg PO DAILY Referrals Follow up/Referrals: Israel Stanley APRN [Primary Care Provider] - See instructions Activity Restrictions/Add. Instructions Additional Instructions/Restrictions: Start antibiotic today. Be sure to complete entire prescription even if feeling better Monitor temp. Tylenol every 4 hours as needed and / or ibuprofen every 6 hours as needed ( As long as your primary care physician has told you that it ok to take both. For fever/aches/pains ER if no less than 101 despite Tylenol or Motrin Humidifier/vaporizer or hot steamy shower Inhaler every 4-6 hours as needed like we discussed. If unsure how to use it, ask pharmacist to demonstrate how. Should help open airways and improve cough, wheezing, and shortness of breath Mucinex during the day for your cough and cough suppressant only at night. Be sure to drink lots of water. *Tessalon Perles will not cause drowsiness but use at bedtime to help stop cough so that you may get some rest. Follow up IMMEDIATELY for new or worsening of symptoms OR no noticeable improvement over the next 48-72 hours. 911 immediately for any life threatening symptoms such as chest pain or difficulty breathing Clinical Impressions Clinical Impression: Sinusitis Qualifiers: Sinusitis location: unspecified location Chronicity: unspecified Qualified Code(s): J32.9 - Chronic sinusitis, unspecified Instructions Patient Instructions: Sinusitis, DI for Sinusitis Discharge ED Provider: Idalia Sierra [facility] HPI General Stated complaint: MONAHAN, cough, chest congestion Mode of Arrival: Ambulatory Source of Information: Patient Limitations: No Limitations Time Seen by Provider: 06/22/23 11:39 Description of Symptoms (Recalled from Triage Doc. by RN): PATIENT C/O COUGH AND HEADACHE SINCE THURSDAY HEENT Symptoms (Recalled from RN notes): Yes Resp Symptoms (Recalled from RN
[2023-06-22 12:07] VITALS: BP 136/76; PULSE 76; RESP 20; TEMP 36.7; O2SAT 95
== END 2023-06-22 12:25 | disposition home or self-care (01) ==
PROVIDERS: Emergency Provider Nurse Practitioner; PCP Nurse Practitioner Family
DX: J01.90 Acute sinusitis, unspecified (principal); J45.909 Unspecified asthma, uncomplicated; I25.119 Atherosclerotic heart disease of native coronary artery with unspecified angina pectoris; I11.9 Hypertensive heart disease without heart failure; Z95.5 Presence of coronary angioplasty implant and graft
CPT/HCPCS: 96372; 99212; 99214; G0463; J0696

== ENCOUNTER → 2023-06-25 16:22 | Outpatient (CLI) | payer MEDICARE, SELFPAY ==
--- NOTE | 2023-06-25 16:25 | XR_ITS ---
PROCEDURE INFORMATION: Exam: XR Chest Exam date and time: 06/25/2023 4:30 PM Age: 72 years old Clinical indication: Cough TECHNIQUE: Imaging protocol: Radiologic exam of the chest. Views: 2 views. COMPARISON: CR XR CHEST PORTABLE 05/22/2022 12:09 PM FINDINGS: Lungs: Unremarkable. No consolidation. Pleural spaces: Unremarkable. No pleural effusion. No pneumothorax. Heart/Mediastinum: Unremarkable. No cardiomegaly. Bones/joints: Unremarkable. IMPRESSION: No acute findings.
== END ==
LOC: RAD 16:23
PROVIDERS: PCP Nurse Practitioner Family; Visit Provider Nurse Practitioner Family
DX: R05.9 Cough, unspecified (principal)
CPT/HCPCS: 71046

== ENCOUNTER 2023-10-29 11:07 | Outpatient (CLI) | payer MEDICARE, SELFPAY | END 2023-10-29 23:59 | LOC: LAB.DROPOF 11:07 | PROVIDERS: PCP Family Medicine; Visit Provider Family Medicine | DX: N39.0 Urinary tract infection, site not specified (principal); B96.1 Klebsiella pneumoniae [K. pneumoniae] as the cause of diseases classified elsewhere | CPT/HCPCS: 87086 ==

== ENCOUNTER 2023-11-13 15:36 | Outpatient (CLI) | payer MEDICARE, SELFPAY ==
--- NOTE | 2023-11-13 15:37 | MM_ITS ---
PROCEDURE INFORMATION: Exam: MG Bilateral Screening 3D Mammography Exam date and time: 11/13/2023 3:24 PM Age: 73 years old Clinical indication: Screening. History of benign left excisional biopsy. TECHNIQUE: Imaging protocol: Bilateral Screening tomosynthesis and 2D mammography including computer-aided detection (CAD) when performed. COMPARISON: 1. MG MM DIG SCREENING MAMM BI W/CAD 02/15/2021 11:06 AM 2. MG DMSB DIG MAMM-SCREEN SHARON 05/18/2014 8:55 AM 3. MG DMSB DIG MAMM-SCREEN SHARON 05/20/2013 9:34 AM 4. MG DMSB DIGITAL MAMM-SCREEN BILATERAL 02/21/2011 8:46 AM FINDINGS: MAMMOGRAPHY: Breast composition: There are scattered areas of fibroglandular density. Mass: No suspicious mass. Architectural distortion: None. Calcifications: No suspicious calcifications. Asymmetric density: None. Skin thickening: None. Axillary adenopathy: None. IMPRESSION: No mammographic evidence of malignancy. Annual screening is recommended unless otherwise clinically indicated. ASSESSMENT: BI-RADS Category 1: Negative
== END 2023-11-13 23:59 ==
LOC: RAD 15:37
PROVIDERS: PCP Nurse Practitioner Family; Visit Provider Family Medicine
DX: Z12.31 Encounter for screening mammogram for malignant neoplasm of breast (principal)
CPT/HCPCS: 77063; 77067

== ENCOUNTER 2023-12-23 12:34 | Outpatient (CLI) | payer MEDICARE, SELFPAY ==
--- NOTE | 2023-12-23 12:40 | XR_ITS ---
FINAL REPORT CLINICAL HISTORY: Low Back pain, fall COMPARISON: No FINDINGS: SACRUM COCCYX 3 views demonstrate no acute fracture or dislocation. The sacral arches are intact. The sacroiliac joints are unremarkable. No soft tissue abnormality is seen. Postoperative change from right hip arthroplasty. Degenerative change of the left hip. IMPRESSION: No acute process. Reviewed, Interpreted and Dictated by Shade Prajapati III, MD Transcribed by Iris Naik Authenticated and [facility]
== END 2023-12-23 23:59 | disposition home or self-care (01) ==
LOC: RAD 12:36
PROVIDERS: PCP Nurse Practitioner Family; Visit Provider Nurse Practitioner Family
DX: M53.3 Sacrococcygeal disorders, not elsewhere classified; M54.59 Other low back pain; W19.XXXA Unspecified fall, initial encounter
CPT/HCPCS: 72220

== ENCOUNTER 2024-02-08 14:58 | Outpatient (CLI) | payer MEDICARE, SELFPAY | END 2024-02-08 23:59 | disposition home or self-care (01) | LOC: LAB.DROPOF 14:59 | PROVIDERS: Visit Provider Family Medicine | DX: L29.9 Pruritus, unspecified (principal); N39.0 Urinary tract infection, site not specified | CPT/HCPCS: 87086; 87210 ==

== ENCOUNTER 2024-02-23 09:51 | Outpatient (RCR) | payer MEDICARE, SELFPAY | END 2024-02-23 09:55 | disposition home or self-care (01) | LOC: PT 09:51 | PROVIDERS: Visit Provider Nurse Practitioner Family | DX: R60.0 Localized edema (principal) | CPT/HCPCS: 97163 ==

== ENCOUNTER 2024-03-23 08:18 | Emergency (ER) | payer MEDICARE, SELFPAY ==
[2024-03-23 08:25] VITALS: BP 137/81; PULSE 89; RESP 20; TEMP 37; O2SAT 94; BMI 30.9
--- NOTE | 2024-03-23 08:37 | ED_ITS ---
Discharge Plan Disposition Patient Disposition: Home, Self-Care Condition: Good Prescriptions Prescriptions: New ondansetron 4 mg tablet,disintegrating 4 mg PO Q8H PRN (Reason: nausea and vomiting) 4 Days Qty: 12 0RF No Action albuterol sulfate 90 mcg/actuation HFA aerosol inhaler 2 inh INHALATION Q4-6H PRN (Reason: shortness of breath or wheezing) Qty: 8.5 10RF phenazopyridine [Pyridium] 100 mg tablet 100 mg PO Q8H 0 Days Qty: 14 0RF nitrofurantoin monohyd/m-cryst [Macrobid] 100 mg capsule 100 mg PO BID 7 Days Qty: 14 0RF Rx Instructions: must administer with a meal/food melatonin 5 mg tablet 5 mg PO HS PRN (Reason: Sleep) atorvastatin 80 mg tablet 80 mg PO DAILY Qty: 30 2RF Preparation H (Witch Yunior) 50 % pads, medicated 1 pad topical BID PRN (Reason: skin cleansing) Qty: 10 0RF Preparation H(pe,cb) 0.25-88.44 % suppository 1 supp RI BID PRN (Reason: hemorrhoids) Qty: 12 0RF pantoprazole [Protonix] 40 mg tablet,delayed release (DR/EC) 40 mg PO DAILY Qty: 90 1RF levothyroxine 50 mcg tablet 50 mcg PO DAILY Qty: 90 3RF nitroglycerin 0.4 mg tablet, sublingual 0.4 mg SUBLINGUAL Q5M PRN (Reason: chest pain) Qty: 25 0RF Rx Instructions: do not exceed 3 doses per episode bisoprolol fumarate 5 mg tablet 5 mg PO DAILY Qty: 30 0RF furosemide [Lasix] 20 mg tablet 20 mg PO BID Qty: 60 0RF montelukast 10 mg tablet 10 mg PO DAILY Qty: 90 0RF clopidogrel 75 mg tablet See Rx Instructions .ROUTE .COMPLEX Qty: 90 0RF Rx Instructions: TAKE 1 TABLET EVERY DAY Clenpiq 10 mg-3.5 gram- 12 gram/175 mL solution 175 ml PO DAILY Qty: 350 0RF Rx Instructions: take first dose at 5-9PM evening before colonoscopy; 2nd dose the next day approximately 5 hrs before colonoscopy sodium,potassium,mag sulfates [Suprep Bowel Prep Kit] 17.5-3.13-1.6 gram recon soln See Rx Instructions PO .COMPLEX Qty: 354 0RF Rx Instructions: DILUTE; drink full amount early evening before AND next morning at least 2 hr before procedure; follow w 960 mL water PO peg 3350-electrolytes [Golytely] 236-22.74-6.74 -5.86 gram recon soln 240 ml PO Q10M Qty: 4000 0RF Rx Instructions: until fecal effluent is clear aspirin 81 MG tablet,delayed release (DR/EC) 81 mg PO DAILY fluticasone propion-salmeterol [Advair Diskus] 250-50 mcg/dose blister with device 1 inh IH BID azelastine 137 mcg (0.1 %) aerosol,spray 1 spray NS BID Rx Instructions: administer into each nostril amlodipine 5 mg tablet See Rx Instructions .ROUTE .COMPLEX Rx Instructions: TAKE 1 TABLET EVERY DAY Referrals Follow up/Referrals: Israel Stanley APRN [Primary Care Provider] - See instructions Activity Restrictions/Add. Instructions Additional Instructions/Restrictions: You were evaluated in the emergency department today and diagnosed with COVID- 19. Please take Tylenol and ibuprofen every 4-6 hours as needed at home for pain and/or fever. technical support assistant your prescription for Zofran and take as needed for nausea and vomiting. Follow-up closely with your primary care provider. Return to the emergency department for new or worsening symptoms. Clinical Impressions Clinical Impression: COVID-19, Headache Instructions Patient Instructions: DI for Headache, DI for COVID-19 (Suspected or Confirmed ) Print Language Print Language: Senegalese Discharge ED Provider: Polly Rees [facility] General Chief complaint: Headache Stated complaint: nausea, headache, Mode of Arrival: Ambulatory Source of Information: Patient Limitations: No Limitations Time Seen by Provider: 03/23/24 08:38 Description of Symptoms (Recalled from Triage Doc. by RN): PATIENT C/O HEADACHE AND NAUSEA. SHE STATES THE HEADACHE WOKE HER UP AT 0100 THIS MORNING AND IS SEVERE AND MADE HER ALMOST PASS OUT. SHE DENIES A HISTORY OF MIGRAINES AND STATES THIS IS THE WORSE HEADACHE SHE HAS EVER HAD HEENT Symptoms (Recalled from RN notes): Yes Resp Symptoms (Recalled from RN notes): No Skin Symptoms (Recalled from RN notes): No MS Symptoms (Recalled from RN notes): No Functional Status (Recalled from RN notes): WNL History of Present Illness Provider Complaint: Patient states that she was awoken around 1am this morning with severe headache that was across her forehead and in the top of her head, states that she got up to go to the bathroom and felt like she was going to pass out so she laid back down, states that the headache has continued and is the worse headache of her life, States that her vision has been blurry and feeling sick at her stomach so this morning when it was still hurting she came in to get checked Denies recent illness Denies recent fall denies hx of migraine headaches Related Data Home Medications ?Medication ?Instructions ?Recorded ?Confirmed aspirin 81 mg tablet,delayed 81 mg PO DAILY Heart disease 09/26/20 03/02/24 release azelastine 137 mcg (0.1 %) nasal 1 spray intranasal BID Breathing 05/22/22 03/02/24 spray problems fluticasone 250 mcg-salmeterol 50 1 inh inhalation BID Breathing 05/22/22 03/02/24 mcg/dose blistr powdr for problems inhalation (Advair Diskus) melatonin 5 mg tablet 5 mg PO HS PRN Sleep 05/26/22 03/02/24 amlodipine 5 mg tablet See Rx Instructions .Route 04/27/23 03/02/24 .COMPLEX htn Previous Rx's ?Medication ?Instructions ?Recorded pantoprazole 40 mg tablet,delayed 40 mg PO DAILY GERD #90 tabs 12/10/22 release (Protonix) levothyroxine 50 mcg tablet 50 mcg PO DAILY thyroid #90 tabs 04/23/23 albuterol sulfate 90 mcg/actuation 2 inh inhalation Q4-6H PRN 06/26/23 aerosol inhaler shortness of breath or wheezing #8.5 grams nitroglycerin 0.4 mg sublingual 0.4 mg sublingual Q5M PRN chest 11/19/23 tablet pain #25 tabs atorvastatin 80 mg tablet 80 mg PO DAILY #30 tabs 12/02/23 bisoprolol fumarate 5 mg tablet 5 mg PO DAILY High blood pressure 12/22/23 #30 tabs furosemide 20 mg tablet (Lasix) 20 mg PO BID lasix #60 tabs 12/22/23 phenylephrine 0.25 %-cocoa butter 1 supp RI BID PRN hemorrhoids #12 12/23/23 88.44 % rectal suppository ea (Preparation H(phenyleph,cocoa buttr)) witch yunior 50 % topical pads 1 pad topical BID PRN skin 12/23/23 (Preparation H (Witch Yunior)) cleansing #10 ea montelukast 10 mg tablet 10 mg PO DAILY ALLERGIES #90 tabs 01/08/24 clopidogrel 75 mg tablet See Rx Instructions .Route 02/03/24 .COMPLEX stent #90 tabs nitrofurantoin 100 mg PO BID 7 days #14 caps 02/08/24 monohydrate/macrocrystals 100 mg capsule (Macrobid) phenazopyridine 100 mg tablet 100 mg PO Q8H 6 doses #14 tabs 02/08/24 (Pyridium) sod picosulf 10 mg-magnes 3.5 175 ml PO DAILY 2 doses #350 mL 03/15/24 gram-citric 12 gram/175 mL oral solution (Clenpiq) peg 3350-electrolytes 236 240 ml PO Q10M #4,000 mL 03/16/24 gram-22.74 gram-6.74 gram-5.86 gram solution (Golytely) sodium,potassium,mag sulfates 17.5 See Rx Instructions PO .COMPLEX 03/16/24 gram-3.13 gram-1.6 gram oral soln #354 mL (Suprep Bowel Prep Kit) ondansetron 4 mg disintegrating 4 mg PO Q8H PRN nausea and 03/23/24 tablet vomiting 4 days #12 tabs Allergies Allergy/AdvReac Type Severity Reaction Status Date / Time No Known Allergies Allergy Verified 03/02/24 14:00 Worker's Comp Is this a Worker's Comp case?: No [facility] Disclaimer: The information contained in this section may have been updated after the patient was seen, as this information can be updated by other users. Medical History Unstable angina Dyspnea Typical angina Mild persistent asthma Allergic rhinitis, unspecified Dyspnea on exertion Gallbladder sludge Bilateral carotid artery stenosis Right carotid bruit Surgical History Hx of heart artery stent History of breast biopsy History of total hip replacement Family History Other Diabetes Heart attack Social History Smoking Status: Never smoker second hand exposure: No alcohol intake: never substance use type: denies use current occupational status: retired Travel in the last 8 weeks: Inside the [place] household members: none housing: house current occupational exposures/hazards: No caffeine: Yes ROS Obtained: Yes All systems reviewed & no additional complaints except as documented and Yes Systems reviewed as appropriate & no additional complaints except as documented Constitutional Constitutional: Reports system reviewed and no additional complaints, except as documented, Reports as per HPI, Denies body ache, Denies chills, Denies fatigue, Denies fever(s) and Reports headache(s) Eyes Eyes: Reports system reviewed and no additional complaints, except as documented, Reports as per HPI, Reports blurry vision and Denies loss of vision ENT Ears, Nose, Mouth, and Throat: Reports system reviewed and no additional complaints, except as documented, Reports as per HPI, Denies abnormal hearing, Denies disequilibrium, Denies dizziness, Reports headache(s), Denies sinus pain, Denies sinus pressure and Denies vertigo Cardiovascular Cardiovascular: Reports system reviewed and no additional complaints, except as documented and Reports as per HPI Respiratory Respiratory: Reports system reviewed and no additional complaints, except as documented and Reports as per HPI Gastrointestinal Gastrointestingal: Reports system reviewed and no additional complaints, except as documented and as per HPI Musculoskeletal Musculoskeletal: Reports system reviewed and no additional complaints, except as documented and Reports as per HPI Neurologic Neurologic: Reports system reviewed and no additional complaints, except as documented, Reports as per HPI, Denies abnormal hearing, Denies abnormal movements, Denies abnormal speech, Denies confusion, Denies disequilibrium, Denies dizziness, Denies focal weakness, Reports headache(s), Denies loss of vision, Denies memory loss and Denies vertigo Endocrine Endocrine: Reports system reviewed and no additional complaints, except as documented, Reports as per HPI and Denies fatigue Physical Exam General General appearance: alert and in no apparent distress Respiratory Respiratory exam: Present normal lung sounds bilaterally; Absent respiratory distress or wheezes Cardiovascular Cardiovascular exam: Present regular rate, normal rhythm and normal heart sounds Neurological Exam Neurological exam: Present alert, oriented X3 and normal gait Medical Decision Making Adryan Inquiry Pt receiving controlled substance: No Adryan was queried for this patient: No Vital Signs: 03/23/24 08:25 Temperature 98.6 F Temperature Source Oral Pulse Rate [Right Brachial] 89 Respiratory Rate 20 Blood Pressure [Right Arm] 137/81 Blood Pressure Mean [Right Arm] 99 Blood Pressure Source [Right Arm] Automatic Cuff Blood Pressure Position [Right Arm] Sitting 02 Sat by Pulse Oximetry 94 L Oxygen Delivery Method Room Air Lab Data 03/23/24 08:46 03/23/24 08:46 Medical Decision Narrative: Patient reports that she was awoken this am around 1am with the worse headache of her life, blurry vision, nausea and felt like she was going to pass out States she laid back down and when she got back up this morning there was no improvement headache had got worse Discussed with patient and due to no hx of migraines and patient reports worse headache of her life that she be transferred to the ED for further work up and evaluation and she agreed Called ED and patient was moved to room 9
--- NOTE | 2024-03-23 08:42 | PC.NURSE ---
PATIENT SENT TO ER PER Indu TURCIOS APRN FOR FURTHER EVALUATION. REPORT GIVEN TO DR. POTTS BY Indu TURCIOS APRN. PATIENT TRANSPORTED TO ER VIA WHEELCHAIR WITH [facility] STAFF ASSIST. AT BEDSIDE
[2024-03-23 08:45] VITALS: BP 122/58; PULSE 83; O2SAT 97
--- NOTE | 2024-03-23 08:45 | CT_ITS ---
FINAL REPORT TECHNIQUE: Thin-section axial CT with IV contrast supplemented with multi planar reconstruction under CT angiogram protocol was performed of the neck. This study was performed technique to keep radiation doses as low as reasonably achievable, (ALARA). NASCET criteria was utilized during interpretation. CLINICAL HISTORY: severe MONAHAN, woke up from sleep, no h/o MONAHAN COMPARISON: None FINDINGS: Aortic arch: Arch shows no significant narrowing. Great vessel origins are widely patent. Note is made of an aberrant right subclavian artery. Right carotid: No significant stenosis is seen at the cervical common or internal carotid artery. There is calcified plaque present at the carotid bulb, without significant stenosis. Left carotid: No significant stenosis is seen at the cervical common or internal carotid artery. There is calcified plaque present at the carotid bulb, without significant stenosis. Vertebrals: Left vertebral artery is dominant. No significant stenosis is present. IMPRESSION: No evidence of significant stenosis or major branch occlusion. Reviewed, Interpreted and Dictated by Shade Prajapati III, MD Transcribed by Rashmi Cummins Authenticated and [facility]
--- NOTE | 2024-03-23 08:45 | CT_ITS ---
FINAL REPORT TECHNIQUE: Thin section axial CT with IV contrast supplemented with multiplanar reconstruction under CT angiogram protocol. 3-D reconstructions were performed. This study was performed with techniques to keep radiation doses as low as reasonably achievable (ALARA). Individualized dose reduction techniques using automated exposure control or adjustment of mA and/or kV according to the patient's size were employed. CLINICAL HISTORY: severe MONAHAN, woke up from sleep, no h/o MONAHAN COMPARISON: None FINDINGS: The distal vertebral, basilar and distal internal carotid arteries have an unremarkable appearance. No aneurysm is seen. Major intracranial vessels are patent without significant stenosis. IMPRESSION: No acute intracranial vascular abnormality is identified. Reviewed, Interpreted and Dictated by Shade Prajapati III, MD Transcribed by Rashmi Cummins Authenticated and [facility]
--- NOTE | 2024-03-23 08:45 | CT_ITS ---
FINAL REPORT TECHNIQUE: Axial images were performed through the brain.This study was performed with techniques to keep radiation doses as low as reasonably achievable, (ALARA). Individualized dose reduction techniques using automated exposure control or adjustment of mA and/or kV according to the patient's size were employed. CLINICAL HISTORY: severe MONAHAN, woke up from sleep, no h/o MONAHAN COMPARISON: 07/03/2020 FINDINGS: CT HEAD WITHOUT CONTRAST: There is moderate global atrophy, slightly more prominent than seen on the prior CT of 2019. The ventricles are normal in size for the degree of atrophy. There is no extra-axial fluid or midline shift. There is no evidence of acute hemorrhage or mass. IMPRESSION: Moderate atrophy. No acute intracranial process. Reviewed, Interpreted and Dictated by Shade Prajapati III, MD Transcribed by Rashmi Cummins Authenticated and [facility]
[2024-03-23 08:47] VITALS: BP 122/58; PULSE 81; RESP 18; TEMP 37.2; O2SAT 93; BMI 30.7
--- NOTE | 2024-03-23 08:47 | ED_ITS ---
Discharge Plan Disposition Patient Disposition: Home, Self-Care Condition: Good Prescriptions Prescriptions: New ondansetron 4 mg tablet,disintegrating 4 mg PO Q8H PRN (Reason: nausea and vomiting) 4 Days Qty: 12 0RF No Action albuterol sulfate 90 mcg/actuation HFA aerosol inhaler 2 inh INHALATION Q4-6H PRN (Reason: shortness of breath or wheezing) Qty: 8.5 10RF phenazopyridine [Pyridium] 100 mg tablet 100 mg PO Q8H 0 Days Qty: 14 0RF nitrofurantoin monohyd/m-cryst [Macrobid] 100 mg capsule 100 mg PO BID 7 Days Qty: 14 0RF Rx Instructions: must administer with a meal/food melatonin 5 mg tablet 5 mg PO HS PRN (Reason: Sleep) atorvastatin 80 mg tablet 80 mg PO DAILY Qty: 30 2RF Preparation H (Witch Yunior) 50 % pads, medicated 1 pad topical BID PRN (Reason: skin cleansing) Qty: 10 0RF Preparation H(pe,cb) 0.25-88.44 % suppository 1 supp [place] BID PRN (Reason: hemorrhoids) Qty: 12 0RF pantoprazole [Protonix] 40 mg tablet,delayed release (DR/EC) 40 mg PO DAILY Qty: 90 1RF levothyroxine 50 mcg tablet 50 mcg PO DAILY Qty: 90 3RF nitroglycerin 0.4 mg tablet, sublingual 0.4 mg SUBLINGUAL Q5M PRN (Reason: chest pain) Qty: 25 0RF Rx Instructions: do not exceed 3 doses per episode bisoprolol fumarate 5 mg tablet 5 mg PO DAILY Qty: 30 0RF furosemide [Lasix] 20 mg tablet 20 mg PO BID Qty: 60 0RF montelukast 10 mg tablet 10 mg PO DAILY Qty: 90 0RF clopidogrel 75 mg tablet See Rx Instructions .ROUTE .COMPLEX Qty: 90 0RF Rx Instructions: TAKE 1 TABLET EVERY DAY Clenpiq 10 mg-3.5 gram- 12 gram/175 mL solution 175 ml PO DAILY Qty: 350 0RF Rx Instructions: take first dose at 5-9PM evening before colonoscopy; 2nd dose the next day approximately 5 hrs before colonoscopy sodium,potassium,mag sulfates [Suprep Bowel Prep Kit] 17.5-3.13-1.6 gram recon soln See Rx Instructions PO .COMPLEX Qty: 354 0RF Rx Instructions: DILUTE; drink full amount early evening before AND next morning at least 2 hr before procedure; follow w 960 mL water PO peg 3350-electrolytes [Golytely] 236-22.74-6.74 -5.86 gram recon soln 240 ml PO Q10M Qty: 4000 0RF Rx Instructions: until fecal effluent is clear aspirin 81 MG tablet,delayed release (DR/EC) 81 mg PO DAILY fluticasone propion-salmeterol [Advair Diskus] 250-50 mcg/dose blister with device 1 inh IH BID azelastine 137 mcg (0.1 %) aerosol,spray 1 spray NS BID Rx Instructions: administer into each nostril amlodipine 5 mg tablet See Rx Instructions .ROUTE .COMPLEX Rx Instructions: TAKE 1 TABLET EVERY DAY Referrals Follow up/Referrals: Israel Stanley APRN [Primary Care Provider] - See instructions Activity Restrictions/Add. Instructions Additional Instructions/Restrictions: You were evaluated in the emergency department today and diagnosed with COVID- 19. Please take Tylenol and ibuprofen every 4-6 hours as needed at home for pain and/or fever. 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 Follow-up closely with your primary care provider. Return to the emergency department for new or worsening symptoms. Clinical Impressions Clinical Impression: COVID-19, Headache Instructions Patient Instructions: DI for Headache, DI for COVID-19 (Suspected or Confirmed ) Print Language Print Language: [place] Discharge ED Provider: Polly Rees General Adult HPI General Chief complaint: Headache Stated complaint: nausea, headache, Time Seen by Provider: 03/23/24 08:38 Mode of Arrival: Ambulatory Source of Information: Patient Limitations: No Limitations Description of Symptoms (Recalled from ER Triage Doc. by RN): PATIENT C/O HEADACHE AND NAUSEA. SHE STATES THE HEADACHE WOKE HER UP AT 0100 THIS MORNING AND IS SEVERE AND MADE HER ALMOST PASS OUT. SHE DENIES A HISTORY OF MIGRAINES AND STATES THIS IS THE WORSE HEADACHE SHE HAS EVER HAD History of Present Illness HPI narrative: This patient is a 73-year-old female with a history of CAD status post stenting on aspirin and Plavix, hypertension, hyperlipidemia, hypothyroidism presented to the emergency department for evaluation with concern for headache. Patient reports that she was asleep when the headache woke her up from sleep around 1:00 in the morning. She denies any history of having frequent headaches or migraines, and she notes this is the worst headache that she is ever had. She states that it is all over her head, especially behind her eyes. No visual disturbances, numbness, tingling, weakness, or other concerns. No fevers or neck pain. She does note that she has got a sore throat and congestion which are new, but no other concerns. She initially went to [facility] for evaluation, and I had an interactive discussion with their provider who sent the patient over here for evaluation as she was concerned given that the patient does not have a history of headache, is having the worst headache of her life, and it woke her up from sleep. Related Data Home Medications ?Medication ?Instructions ?Recorded ?Confirmed aspirin 81 mg tablet,delayed 81 mg PO DAILY Heart disease 09/26/20 03/02/24 release azelastine 137 mcg (0.1 %) nasal 1 spray intranasal BID Breathing 05/22/22 03/02/24 spray problems fluticasone 250 mcg-salmeterol 50 1 inh inhalation BID Breathing 05/22/22 03/02/24 mcg/dose blistr powdr for problems inhalation (Advair Diskus) melatonin 5 mg tablet 5 mg PO HS PRN Sleep 05/26/22 03/02/24 amlodipine 5 mg tablet See Rx Instructions .Route 04/27/23 03/02/24 .COMPLEX htn Previous Rx's ?Medication ?Instructions ?Recorded pantoprazole 40 mg tablet,delayed 40 mg PO DAILY GERD #90 tabs 12/10/22 release (Protonix) levothyroxine 50 mcg tablet 50 mcg PO DAILY thyroid #90 tabs 04/23/23 albuterol sulfate 90 mcg/actuation 2 inh inhalation Q4-6H PRN 06/26/23 aerosol inhaler shortness of breath or wheezing #8.5 grams nitroglycerin 0.4 mg sublingual 0.4 mg sublingual Q5M PRN chest 11/19/23 tablet pain #25 tabs atorvastatin 80 mg tablet 80 mg PO DAILY #30 tabs 12/02/23 bisoprolol fumarate 5 mg tablet 5 mg PO DAILY High blood pressure 12/22/23 #30 tabs furosemide 20 mg tablet (Lasix) 20 mg PO BID lasix #60 tabs 12/22/23 phenylephrine 0.25 %-cocoa butter 1 supp [place] BID PRN hemorrhoids #12 12/23/23 88.44 % rectal suppository ea (Preparation H(phenyleph,cocoa buttr)) witch yunior 50 % topical pads 1 pad topical BID PRN skin 12/23/23 (Preparation H (Witch Yunior)) cleansing #10 ea montelukast 10 mg tablet 10 mg PO DAILY ALLERGIES #90 tabs 01/08/24 clopidogrel 75 mg tablet See Rx Instructions .Route 02/03/24 .COMPLEX stent #90 tabs nitrofurantoin 100 mg PO BID 7 days #14 caps 02/08/24 monohydrate/macrocrystals 100 mg capsule (Macrobid) phenazopyridine 100 mg tablet 100 mg PO Q8H 6 doses #14 tabs 02/08/24 (Pyridium) sod picosulf 10 mg-magnes 3.5 175 ml PO DAILY 2 doses #350 mL 03/15/24 gram-citric 12 gram/175 mL oral solution (Clenpiq) peg 3350-electrolytes 236 240 ml PO Q10M #4,000 mL 03/16/24 gram-22.74 gram-6.74 gram-5.86 gram solution (Golytely) sodium,potassium,mag sulfates 17.5 See Rx Instructions PO .COMPLEX 03/16/24 gram-3.13 gram-1.6 gram oral soln #354 mL (Suprep Bowel Prep Kit) ondansetron 4 mg disintegrating 4 mg PO Q8H PRN nausea and 03/23/24 tablet vomiting 4 days #12 tabs Allergies Allergy/AdvReac Type Severity Reaction Status Date / Time No Known Allergies Allergy Verified 03/02/24 14:00 [facility] Disclaimer: The information contained in this section may have been updated after the patient was seen, as this information can be updated by other users. Medical History Unstable angina Dyspnea Typical angina Mild persistent asthma Allergic rhinitis, unspecified Dyspnea on exertion Gallbladder sludge Bilateral carotid artery stenosis Right carotid bruit Surgical History Hx of heart artery stent History of breast biopsy History of total hip replacement Family History Other Diabetes Heart attack Social History Smoking Status: Never smoker second hand exposure: No alcohol intake: never substance use type: denies use current occupational status: retired Travel in the last 8 weeks: Inside the [place] household members: none housing: house current occupational exposures/hazards: No caffeine: Yes ROS Obtained: Yes All systems reviewed & no additional complaints except as documented Physical Exam General General appearance: alert Comment: Uncomfortable appearing Head Head exam: atraumatic and normocephalic Eye Eye exam: Present normal appearance, PERRL and EOMI ENT ENT exam: Present normal exam, normal oropharynx, mucous membranes moist and normal external ear exam Neck Neck exam: Present normal inspection, full ROM and trachea midline; Absent tenderness Chest Chest inspection: Present normal inspection and symmetric chest wall rise; Absent tenderness Respiratory Respiratory exam: Present normal lung sounds bilaterally; Absent respiratory distress, wheezes, stridor or accessory muscle use Cardiovascular Cardiovascular exam: Present regular rate and normal rhythm Abdominal Exam Abdominal exam: Present soft; Absent distention, tenderness or guarding Extremities Exam Extremities exam: Present normal inspection, full ROM and normal capillary refill; Absent tenderness or edema Back Exam Back exam: Present normal inspection and full ROM; Absent tenderness Neurological Exam Neurological exam: Present alert, oriented X3, CN II-XII intact and normal gait; Absent motor sensory deficit Psychiatric Psychiatric exam: Present normal affect and normal mood Skin Skin exam: Present warm and dry Medical Decision Making Medical Records Medical records reviewed: Yes I reviewed the patient's medical records. [place]ryan Inquiry Pt receiving controlled substance: No Vital Signs: 03/23/24 08:25 03/23/24 08:45 03/23/24 08:47 Temperature 98.6 F 98.9 F Temperature Source Oral Oral Pulse Rate 83 Pulse Rate [Right Brachial] 89 81 Respiratory Rate 20 18 Blood Pressure 122/58 L Blood Pressure [Right Arm] 137/81 122/58 L Blood Pressure Mean [Right Arm] 99 79 Blood Pressure Source Blood Pressure Source [Right Arm] Automatic Cuff Automatic Cuff Blood Pressure Position Blood Pressure Position [Right Arm] Sitting Sitting 02 Sat by Pulse Oximetry 94 L 97 93 L Oxygen Delivery Method Room Air Room Air Room Air 03/23/24 09:00 03/23/24 12:07 Temperature 98.9 F Temperature Source Oral Pulse Rate 85 85 Pulse Rate [Right Brachial] Respiratory Rate 18 Blood Pressure 131/72 131/72 Blood Pressure [Right Arm] Blood Pressure Mean [Right Arm] Blood Pressure Source Automatic Cuff Blood Pressure Source [Right Arm] Blood Pressure Position Sitting Blood Pressure Position [Right Arm] 02 Sat by Pulse Oximetry 96 Oxygen Delivery Method Room Air Room Air Lab Data Lab results reviewed: Yes I reviewed the patient's lab results. Lab Results 03/23/24 08:46: WBC 9.9, RBC 4.33, Hgb 14.1, Hct 42.3, MCV 97.7, MCH 32.5 H, MCHC 33.2, RDW 14.1, Plt Count 237, MPV 8.1, Neut % (Auto) 85.8 H, Lymph % (Auto) 9.4 L, Teller % (Auto) 3.2, Eos % (Auto) 1.1, Baso % (Auto) 0.5, Neut # (Auto) 8.5 H, Lymph # (Auto) 0.9, Teller # (Auto) 0.3, Eos # (Auto) 0.1, Baso # (Auto) 0.1, Total Counted 100, Neutrophils % (Manual) 79 H, Lymphocytes % (Manual) 15, Atypical Lymphs % 5.0, Monocytes % (Manual) 1 L, Platelet Estimate Normal, RBC Morphology Normal, Sodium 140, Potassium 3.8, Chloride 104, Carbon Dioxide 28, Anion Gap 11.8, BUN 16, Creatinine 0.80, Estimated Creat Clear 65, Estimated GFR 70, Est GFR ( Amer) 85, Glucose 122 H, Calcium 9.1, Total Bilirubin 1.2, AST 32, ALT 25, Alkaline Phosphatase 70, Total Protein 7.4, Albumin 4.7, Globulin 2.7, Albumin/Globulin Ratio 1.7, SARS-CoV-2 (PCR) Detected A, Influenza A Untype (PCR) Not detected, Influenza Type B (PCR) Not detected 03/23/24 09:29: Urine Color Yellow, Urine Appearance Clear, Urine pH 6.5, Ur Specific [place] 1.015, Urine Protein Negative, Urine Glucose (UA) Negative, Urine Ketones Negative, Urine Blood Negative, Urine Nitrate Negative, Urine Bilirubin Negative, Urine Urobilinogen 0.2, Ur Leukocyte Esterase Negative, Urine RBC Occasional, Urine WBC Occasional, Ur Squamous Epith Cells Occasional, Urine Bacteria Trace 03/23/24 08:46 03/23/24 08:46 Orders (Tests/Meds): ED MEDICATIONS Discontinued Medications Generic Name Dose Route Start Last Admin Trade Name Raheel PRN Reason Stop Dose Admin Acetaminophen 1,000 mg 03/23/24 08:44 03/23/24 08:50 Acetaminophen 1,000mg/100ml Vial IV 03/23/24 08:45 1,000 mg ONCE ONE Administration Lactated Ringer's 1,000 mls @ 999 mls/hr 03/23/24 08:44 03/23/24 08:50 Lactated Ringer's 1000 Ml Bag IV 03/23/24 09:44 999 mls/hr .Q1H1M ONE Administration Iopamidol 100 ml 03/23/24 09:51 03/23/24 09:52 Iopamidol-370 (76%);100ml Bottle IV 03/23/24 09:52 100 ml ONCE ONE Administration Ketorolac Tromethamine 15 mg 03/23/24 11:18 03/23/24 11:24 Ketorolac 30mg/Ml Vial IV 03/23/24 11:19 15 mg ONCE ONE Administration Metoclopramide HCl 5 mg 03/23/24 08:44 03/23/24 08:49 Metoclopramide Hcl 10mg/2ml Vial IVP 03/23/24 08:45 5 mg ONCE ONE Administration Sodium Chloride 40 ml 03/23/24 09:51 03/23/24 09:52 0.9 % Sodium Chloride 50 Ml Vial IV 03/23/24 09:52 40 ml ONCE ONE Administration Sodium Chloride 10 ml 03/23/24 09:51 03/23/24 09:52 Sodium Chloride 0.9% 10ml Syr (Rad Only) IV 03/23/24 09:52 10 ml ONCE ONE Administration ORDERS Category Date Time Status CT angio head Stat Cat Scan 03/23/24 08:[address] angio neck Stat Cat Scan 03/23/24 08:[address] head/brain wo con Stat Cat Scan 03/23/24 08:45 Completed Complete Blood Count Auto Diff Stat Lab 03/23/24 08:46 Completed Comprehensive Metabolic Panel Stat Lab 03/23/24 08:46 Completed Rapid PCR Covid and Flu A/B Stat Lab 03/23/24 08:46 Completed UA [Urinalysis and Microscopic] Stat Lab 03/23/24 09:29 Completed Medical Decision Narrative: In summary, this patient is a 73-year-old female presenting to the Emergency Department for evaluation of severe headache. Differential diagnoses considered include but are not limited to intracranial hemorrhage, intracranial mass, migraine, tension headache, viral syndrome, urinary tract infection. Ruling out the most morbid conditions drove assessment. It should be noted patient's history includes CAD on aspirin and Plavix, hypertension, hyperlipidemia, hypothyroidism which may or may not be at goal therapy. This complicates all aspects of care by increasing patient's risk for morbidity. On exam, the patient is uncomfortable appearing but is lying in bed in no acute distress. She is alert and oriented and is neurologically intact. She also complains of sore throat and congestion, so it is possible this could be viral. No fevers or meningismus to suggest meningitis or encephalitis. Workup included CBC, CMP, viral swab, urinalysis, CT head without contrast, and CT angiogram of the head and neck. She was given a bolus of IV fluids as well as IV acetaminophen and Reglan for symptomatic improvement. Will administer Toradol for migraine cocktail once we have ensure she does not have any intracranial bleeding. I independently interpreted CT scan prior to the radiologist read and noted no obvious intracranial hemorrhage. Please see their read for final interpretation. Labs were obtained that demonstrated positive COVID-19 test without other acutely concerning abnormalities. On reassessment, patient had great improvement after administration of interventions above. She is feeling much better. Toradol also helped improve her symptoms. She remains neurologically intact with reassuring vital signs and cardiac telemetry. I did notified her of her results and her positive test for COVID-19. I feel that she appropriate for discharge home with instructions for close outpatient follow-up, supportive management, and strict return precautions.. She was discharged with prescription for Zofran after all questions were answered. Critical Care Critical Care Time Critical Care Time: No
[2024-03-23] MEDS: METOCLOPRAMIDE HCL 10MG/2ML VIAL 5 MG IVP (08:49)
[2024-03-23 08:50] LABS: Influenza A, PCR Not Detected (NotDetected); Influenza B, PCR Not Detected (NotDetected)
[2024-03-23] MEDS: LACTATED RINGERS 1000ML 1,000 ML 999 ML IV (08:50)
[2024-03-23] MEDS: ACETAMINOPHEN 1,000MG/100ML VIAL 1000 MG IV (08:50)
[2024-03-23 09:00] VITALS: BP 131/72; PULSE 85; O2SAT 96
[2024-03-23 09:01] LABS: Basophils # 0.1 K/mm3 (0-0.2); Basophils % 0.5 % (0.1-2.0); Eosinophils # 0.1 K/mm3 (0.0-0.4); Eosinophils % 1.1 % (0.1-12.0); Hematocrit 42.3 % (37.0-47.0); Hemoglobin 14.1 g/dL (12.2-16.2); Lymphocytes # 0.9 K/mm3 (0.7-4.5); Lymphocytes % 9.4 % (10-50); Mean Corpuscular HGB Conc 33.2 g/dL (31.8-35.4); Mean Corpuscular Hemoglobin 32.5 pg (27.0-31.2); Mean Corpuscular Volume 97.7 fl (81-99); Mean Platelet Volume 8.1 fl (7.4-10.4); Monocytes # 0.3 K/mm3 (0.1-1.0); Monocytes % 3.2 % (1.7-9.3); Neutrophils # 8.5 K/mm3 (1.8-7.8); Neutrophils % 85.8 % (37.0-80.0); Platelet Count 237 K/mm3 (142-424); Red Blood Count 4.33 M/mm3 (4.20-5.40); Red Cell Distribution Width 14.1 % (11.5-17.5); White Blood Count 9.9 K/mm3 (4.8-10.8)
[2024-03-23 09:02] LABS: MANUAL DIFFERENTIAL MANUAL DIFFERENTIAL (MANUAL DIFF)
[2024-03-23 09:13] LABS: Albumin Level 4.7 g/dl (3.5-5.0); Chloride 104 mmol/L (98-107)
[2024-03-23 09:14] LABS: Potassium 3.8 mmoL/L (3.5-5.1); Sodium 140 mmol/L (136-145)
[2024-03-23 09:16] LABS: Alanine Aminotransferase 25 U/L (12-78); Albumin/Globulin Ratio 1.7 (1.1-1.8); Alkaline Phosphatase 70 U/L (38-126); Anion Gap 11.8 mEq/L (5-15); Aspartate Amino Transferase 32 U/L (14-36); Bilirubin,Total 1.2 mg/dl (0.2-1.3); Blood Urea Nitrogen 16 mg/dl (7-17); Carbon Dioxide 28 mmol/L (22.0-30.0); Creatinine Clearance Estimated 65 mL/min (50-200); Estimated Glomerular Filt Rate 70 ml/min (>60); GFR (African American) 85 ML/MIN (>60); Globulin 2.7 g/dL (1.3-3.2); Total Protein,Serum 7.4 g/dl (6.3-8.2)
[2024-03-23 09:17] LABS: Calcium 9.1 mg/dl (8.4-10.2); Glucose 122 mg/dl (74-100)
[2024-03-23 09:35] LABS: Microscopic, Urine URINE MICROSCOPIC (MICROSCOPIC)
--- NOTE | 2024-03-23 09:36 | PC.NURSE ---
pt up to the bathroom with no issues
[2024-03-23 09:44] LABS: Coronavirus 19, PCR Detected (NotDetected)
[2024-03-23] MEDS: 0.9 % SODIUM CHLORIDE 50 ML VIAL 40 ML IV (09:52)
[2024-03-23] MEDS: IOPAMIDOL-370 (76%);100ML BOTTLE 100 ML IV (09:52)
[2024-03-23] MEDS: SODIUM CHLORIDE 0.9% 10ML SYR (RAD ONLY) 10 ML IV (09:52)
[2024-03-23 09:55] LABS: Appearance,Urine CLEAR (Clear); Bilirubin,Urine Negative (Negative); Blood, Urine Negative (Negative); Color,Urine YELLOW (Yellow); Glucose,Urine (UA) Negative (Negative); Ketones,Urine Negative (Negative); Leukocyte Esterase,Urine Negative (Negative); Nitrate,Urine Negative (Negative); PH,Urine 6.5 (5.0-8.5); Protein,Urine Negative (Negative); Specific Gravity, Urine 1.015 (1.005-1.030); Urobilinogen,Urine 0.2 EU/dl (0.2)
[2024-03-23 10:04] LABS: Lymphocytes % 15 % (10-50); Monocytes % 1 % (2-9); Neutrophils % 79 % (42-76); Total Cells Counted 100
[2024-03-23 10:05] LABS: Platelet Estimate Normal; RBC Morphology Normal
[2024-03-23 10:07] LABS: Bacteria,Urine Trace /lpf; RBC,Urine Occasional #/hpf (0-3); Squamous Epithelial Cell,Urine Occasional #/hpf (0-5); WBC,Urine Occasional #/hpf (0-3)
[2024-03-23] MEDS: KETOROLAC 30MG/ML VIAL 15 MG IV (11:24)
[2024-03-23 12:07] VITALS: BP 131/72; PULSE 85; RESP 18; TEMP 37.2; O2SAT 96
== END 2024-03-23 12:08 | disposition home or self-care (01) ==
LOC: UTC 08:41 → ER 08:43
PROVIDERS: Emergency Provider Emergency Medicine; PCP Nurse Practitioner Family
DX: U07.1 COVID-19 (principal); R51.9 Headache, unspecified; R11.0 Nausea; H53.8 Other visual disturbances; R07.0 Pain in throat; R09.81 Nasal congestion; I11.9 Hypertensive heart disease without heart failure; I25.119 Atherosclerotic heart disease of native coronary artery with unspecified angina pectoris; E78.5 Hyperlipidemia, unspecified; Z79.01 Long term (current) use of anticoagulants; E03.9 Hypothyroidism, unspecified; I65.23 Occlusion and stenosis of bilateral carotid arteries; Z95.5 Presence of coronary angioplasty implant and graft
CPT/HCPCS: 70450; 70496; 70498; 80053; 81001; 85007; 85025; 85027; 87636; 96361; 96374; 96375; 99285; J0131; J1885; J2765; J7120; Q9967

== ENCOUNTER 2024-05-30 10:24 | Emergency (ER) | payer MEDICARE, SELFPAY ==
[2024-05-30] VITALS (14 sets, daily range): BP systolic 111–150; BP diastolic 58–88; PULSE 56–71; RESP 16–18; TEMP 36.4–36.7; O2SAT 92–100; BMI 29.9
--- NOTE | 2024-05-30 10:25 | ECG_ITS ---
APPROVED REPORT Exam: Resting ECG HR:64 bpm ECG Measurements Heart Rate 64 AXES IA 193 P 26 QRSd 89 QRS 4 QT 401 T 32 QTc 411 Conclusion SINUS RHYTHM NORMAL ECG UNCONFIRMED REPORT Electronically signed by : Janak Castillo, 05/31/2024 14:53:40
[2024-05-30 10:56] LABS: Basophils # 0.1 K/mm3 (0-0.2); Basophils % 1.5 % (0.1-2.0); Eosinophils # 0.2 K/mm3 (0.0-0.4); Eosinophils % 3.7 % (0.1-12.0); Hematocrit 40.8 % (37.0-47.0); Hemoglobin 14.2 g/dL (12.2-16.2); Lymphocytes # 1.7 K/mm3 (0.7-4.5); Lymphocytes % 32.9 % (10-50); Mean Corpuscular HGB Conc 34.7 g/dL (31.8-35.4); Mean Corpuscular Hemoglobin 32.9 pg (27.0-31.2); Mean Corpuscular Volume 94.8 fl (81-99); Mean Platelet Volume 7.9 fl (7.4-10.4); Monocytes # 0.4 K/mm3 (0.1-1.0); Monocytes % 7.2 % (1.7-9.3); Neutrophils # 2.9 K/mm3 (1.8-7.8); Neutrophils % 54.8 % (37.0-80.0); Platelet Count 240 K/mm3 (142-424); Red Cell Distribution Width 14.4 % (11.5-17.5); White Blood Count 5.2 K/mm3 (4.8-10.8)
--- NOTE | 2024-05-30 11:01 | XR_ITS ---
FINAL REPORT CLINICAL HISTORY: chest pain COMPARISON: 06/25/2023 FINDINGS: The heart size is normal. The mediastinum is normal. There is no focal infiltrate or edema. There are no pleural effusions. There is no pneumothorax. There is no osseous abnormality. IMPRESSION: No acute cardiopulmonary process Reviewed, Interpreted and Dictated by Emilio Ernandez MD Transcribed by Rashmi Cummins Authenticated and [facility]
[2024-05-30 11:11] LABS: Albumin Level 4.4 g/dl (3.5-5.0); Chloride 106 mmol/L (98-107); Potassium 3.7 mmoL/L (3.5-5.1); Sodium 141 mmol/L (136-145)
[2024-05-30 11:13] LABS: Blood Urea Nitrogen 18 mg/dl (7-17); Creatinine Clearance Estimated 65 mL/min (50-200); Estimated Glomerular Filt Rate 82 ml/min (>60); GFR (African American) 99 ML/MIN (>60)
[2024-05-30 11:14] LABS: Alanine Aminotransferase 26 U/L (12-78); Albumin/Globulin Ratio 1.7 (1.1-1.8); Alkaline Phosphatase 67 U/L (38-126); Anion Gap 8.7 mEq/L (5-15); Aspartate Amino Transferase 32 U/L (14-36); Calcium 9.3 mg/dl (8.4-10.2); Carbon Dioxide 30 mmol/L (22.0-30.0); Globulin 2.6 g/dL (1.3-3.2); Glucose 113 mg/dl (74-100)
[2024-05-30 11:23] LABS: NT Pro Brain Natriuretic Pep. 304 pg/mL (0-125)
--- NOTE | 2024-05-30 11:30 | HMH.EDCP ---
Discharge Plan Disposition Patient Disposition: Home, Self-Care Condition: Good Prescriptions Prescriptions: No Action albuterol sulfate 90 mcg/actuation HFA aerosol inhaler 2 inh INHALATION Q4-6H PRN (Reason: shortness of breath or wheezing) Qty: 8.5 10RF fluticasone propion-salmeterol [Advair Diskus] 250-50 mcg/dose blister with device 1 inh IH BID Qty: 60 3RF prednisone 20 mg tablet 20 mg PO BID 5 Days Qty: 10 0RF naproxen 500 mg tablet 500 mg PO BID Qty: 30 0RF melatonin 5 mg tablet 5 mg PO HS PRN (Reason: Sleep) Preparation H (Witch Yunior) 50 % pads, medicated 1 pad topical BID PRN (Reason: skin cleansing) Qty: 10 0RF pantoprazole [Protonix] 40 mg tablet,delayed release (DR/EC) 40 mg PO DAILY Qty: 90 1RF levothyroxine 50 mcg tablet 50 mcg PO DAILY Qty: 90 3RF nitroglycerin 0.4 mg tablet, sublingual 0.4 mg SUBLINGUAL Q5M PRN (Reason: chest pain) Qty: 25 0RF Rx Instructions: do not exceed 3 doses per episode clopidogrel 75 mg tablet See Rx Instructions .ROUTE .COMPLEX Qty: 90 0RF Rx Instructions: TAKE 1 TABLET EVERY DAY Clenpiq 10 mg-3.5 gram- 12 gram/175 mL solution 175 ml PO DAILY Qty: 350 0RF Rx Instructions: take first dose at 5-9PM evening before colonoscopy; 2nd dose the next day approximately 5 hrs before colonoscopy sodium,potassium,mag sulfates [Suprep Bowel Prep Kit] 17.5-3.13-1.6 gram recon soln See Rx Instructions PO .COMPLEX Qty: 354 0RF Rx Instructions: DILUTE; drink full amount early evening before AND next morning at least 2 hr before procedure; follow w 960 mL water PO peg 3350-electrolytes [Golytely] 236-22.74-6.74 -5.86 gram recon soln 240 ml PO Q10M Qty: 4000 0RF Rx Instructions: until fecal effluent is clear montelukast 10 mg tablet See Rx Instructions .ROUTE .COMPLEX Qty: 90 0RF Dose Instruction: TAKE 1 TABLET BY MOUTH ONCE DAILY FOR ALLERGIES Rx Instructions: TAKE 1 TABLET BY MOUTH ONCE DAILY FOR ALLERGIES atorvastatin 80 mg tablet 80 mg PO DAILY Qty: 90 2RF furosemide 20 mg tablet See Rx Instructions .ROUTE .COMPLEX Qty: 60 0RF Dose Instruction: Take 1 tablet by mouth twice daily Rx Instructions: Take 1 tablet by mouth twice daily bisoprolol fumarate 5 mg tablet See Rx Instructions .ROUTE .COMPLEX Qty: 30 0RF Dose Instruction: TAKE 1 TABLET BY MOUTH ONCE DAILY FOR HIGH BLOOD PRESSURE Rx Instructions: TAKE 1 TABLET BY MOUTH ONCE DAILY FOR HIGH BLOOD PRESSURE azelastine 137 mcg (0.1 %) aerosol,spray 1 spray NS BID Rx Instructions: administer into each nostril ondansetron 4 mg tablet,disintegrating 4 mg PO Q8H PRN (Reason: nausea and vomiting) 4 Days Qty: 12 0RF amlodipine 5 mg tablet See Rx Instructions .ROUTE .COMPLEX Rx Instructions: TAKE 1 TABLET EVERY DAY Referrals Follow up/Referrals: Jose Kruger MD [Staff Physician] - See instructions Provider,MD Cesar [Primary Care Provider] - See instructions Activity Restrictions/Add. Instructions Additional Instructions/Restrictions: No evidence of an acute cardiopulmonary emergency please keep a close follow-up appoint with Dr. Kruger as discussed and return with any worsening symptoms. Clinical Impressions Clinical Impression: Fatigue, Chest pain, Near syncope Print Language Print Language: Indonesian Discharge ED Provider: Kimi Castillo [facility] General Chief Complaint: Chest Pain Stated Complaint: Chest Pain Time Seen by Provider: 05/30/24 11:12 Mode of Arrival: Wheelchair Source of Information: Patient and Significant Other Limitations: No Limitations Description of Symptoms (Recalled from ER Triage Doc. by RN): c/o chest pain that started one hour ago while sititing on the couch. took one nitro pill before arrival states this helped the pain. History of Present Illness HPI narrative: 73-year-old with a history of coronary disease and multiple stents presents today with significant fatigue near syncope and chest pain. States that she woke up and felt very out of it from an energy standpoint but did develop chest pain about 1 hour prior to arrival. Nonexertional no shortness of breath or emesis associated with this. No fevers or chills or other flulike symptoms. Related Data Home Medications ?Medication ?Instructions ?Recorded ?Confirmed azelastine 137 mcg (0.1 %) nasal 1 spray intranasal BID Breathing 05/22/22 03/29/24 spray problems melatonin 5 mg tablet 5 mg PO HS PRN Sleep 05/26/22 03/29/24 amlodipine 5 mg tablet See Rx Instructions .Route 04/27/23 03/29/24 .COMPLEX htn Previous Rx's ?Medication ?Instructions ?Recorded pantoprazole 40 mg tablet,delayed 40 mg PO DAILY GERD #90 tabs 12/10/22 release (Protonix) levothyroxine 50 mcg tablet 50 mcg PO DAILY thyroid #90 tabs 04/23/23 nitroglycerin 0.4 mg sublingual 0.4 mg sublingual Q5M PRN chest 11/19/23 tablet pain #25 tabs witch yunior 50 % topical pads 1 pad topical BID PRN skin 12/23/23 (Preparation H (Witch Yunior)) cleansing #10 ea clopidogrel 75 mg tablet See Rx Instructions .Route 02/03/24 .COMPLEX stent #90 tabs sod picosulf 10 mg-magnes 3.5 175 ml PO DAILY 2 doses #350 mL 03/15/24 gram-citric 12 gram/175 mL oral solution (Clenpiq) peg 3350-electrolytes 236 240 ml PO Q10M #4,000 mL 03/16/24 gram-22.74 gram-6.74 gram-5.86 gram solution (Golytely) sodium,potassium,mag sulfates 17.5 See Rx Instructions PO .COMPLEX 03/16/24 gram-3.13 gram-1.6 gram oral soln #354 mL (Suprep Bowel Prep Kit) ondansetron 4 mg disintegrating 4 mg PO Q8H PRN nausea and 03/23/24 tablet vomiting 4 days #12 tabs albuterol sulfate 90 mcg/actuation 2 inh inhalation Q4-6H PRN 03/29/24 aerosol inhaler shortness of breath or wheezing #8.5 grams fluticasone 250 mcg-salmeterol 50 1 inh inhalation BID Breathing 03/29/24 mcg/dose blistr powdr for problems #60 ea inhalation (Advair Diskus) naproxen 500 mg tablet 500 mg PO BID #30 tabs 03/29/24 prednisone 20 mg tablet 20 mg PO BID 5 days #10 tabs 03/29/24 montelukast 10 mg tablet See Rx Instructions .Route 04/22/24 .COMPLEX #90 tabs atorvastatin 80 mg tablet 80 mg PO DAILY #90 tabs 05/02/24 bisoprolol fumarate 5 mg tablet See Rx Instructions .Route 05/23/24 .COMPLEX #30 tabs furosemide 20 mg tablet See Rx Instructions .Route 05/23/24 .COMPLEX #60 tabs Allergies Allergy/AdvReac Type Severity Reaction Status Date / Time No Known Allergies Allergy Verified 03/29/24 09:21 [facility] Disclaimer: The information contained in this section may have been updated after the patient was seen, as this information can be updated by other users. Medical History Unstable angina Dyspnea Typical angina Mild persistent asthma Allergic rhinitis, unspecified Dyspnea on exertion Gallbladder sludge Bilateral carotid artery stenosis Right carotid bruit Surgical History Hx of heart artery stent History of breast biopsy History of total hip replacement Family History Other Diabetes Heart attack Social History Smoking Status: Never smoker second hand exposure: No alcohol intake: never substance use type: denies use current occupational status: retired Travel in the last 8 weeks: [place] [employer] household members: none housing: house current occupational exposures/hazards: No caffeine: Yes Other Medical History Have you received the Flu Vaccine for this season: Yes Have you received the Pneumonia Vaccine: No ROS Obtained: Yes All systems reviewed & no additional complaints except as documented Physical Exam General General appearance: alert and in no apparent distress Respiratory Respiratory exam: Present normal lung sounds bilaterally; Absent respiratory distress Cardiovascular Cardiovascular exam: Present regular rate and normal rhythm Neurological Exam Neurological exam: Present alert and oriented X3 HEART Score HEART Score HEART Score assessment performed?: Yes History (anamnesis): Slightly suspicious ECG: Non-specific disturbance Age: >65 years Risk factors: Atherosclerosis history Troponin: </= normal limit HEART Score: 5 Critical Care Critical Care Time Critical Care Time: No Medical Decision Making Adryan Inquiry Pt receiving controlled substance: No Vital Signs Vital Signs: 05/30/24 10:24 05/30/24 11:00 05/30/24 11:30 Temperature 97.5 F L Temperature Source Oral Pulse Rate 56 L 59 L Pulse Rate [Left Radial] 60 Respiratory Rate 18 16 16 Blood Pressure 111/70 142/72 H Blood Pressure [Right Arm] 134/88 Blood Pressure Mean 80 89 Blood Pressure Mean [Right Arm] 103 Blood Pressure Source Blood Pressure Source [Right Arm] Automatic Cuff Blood Pressure Position Blood Pressure Position [Right Arm] Sitting 02 Sat by Pulse Oximetry 100 95 95 Oxygen Delivery Method Room Air 05/30/24 11:45 05/30/24 12:00 05/30/24 12:15 Temperature Temperature Source Pulse Rate 58 L 61 59 L Pulse Rate [Left Radial] Respiratory Rate 16 18 16 Blood Pressure 128/69 130/76 128/70 Blood Pressure [Right Arm] Blood Pressure Mean 94 87 83 Blood Pressure Mean [Right Arm] Blood Pressure Source Blood Pressure Source [Right Arm] Blood Pressure Position Blood Pressure Position [Right Arm] 02 Sat by Pulse Oximetry 92 L 94 L 93 L Oxygen Delivery Method 05/30/24 12:30 05/30/24 12:45 05/30/24 13:01 Temperature Temperature Source Pulse Rate 59 L 59 L 62 Pulse Rate [Left Radial] Respiratory Rate 18 16 Blood Pressure 130/70 134/64 150/81 H Blood Pressure [Right Arm] Blood Pressure Mean 89 85 Blood Pressure Mean [Right Arm] Blood Pressure Source Blood Pressure Source [Right Arm] Blood Pressure Position Blood Pressure Position [Right Arm] 02 Sat by Pulse Oximetry 93 L 96 97 Oxygen Delivery Method Room Air 05/30/24 13:30 05/30/24 13:45 05/30/24 14:00 Temperature Temperature Source Pulse Rate 64 61 68 Pulse Rate [Left Radial] Respiratory Rate 18 16 Blood Pressure 139/65 149/82 H 147/77 H Blood Pressure [Right Arm] Blood Pressure Mean 94 87 Blood Pressure Mean [Right Arm] Blood Pressure Source Blood Pressure Source [Right Arm] Blood Pressure Position Blood Pressure Position [Right Arm] 02 Sat by Pulse Oximetry 98 97 96 Oxygen Delivery Method Room Air 05/30/24 14:15 05/30/24 14:36 Temperature 98.0 F Temperature Source Oral Pulse Rate 71 70 Pulse Rate [Left Radial] Respiratory Rate 18 Blood Pressure 128/58 L 127/60 Blood Pressure [Right Arm] Blood Pressure Mean Blood Pressure Mean [Right Arm] Blood Pressure Source Automatic Cuff Blood Pressure Source [Right Arm] Blood Pressure Position Sitting Blood Pressure Position [Right Arm] 02 Sat by Pulse Oximetry 97 Oxygen Delivery Method Room Air Room Air Lab Data Lab results reviewed: Yes I reviewed the patient's lab results. Labs: Lab Results 05/30/24 10:28: WBC 5.2, RBC 4.30, Hgb 14.2, Hct 40.8, MCV 94.8, MCH 32.9 H, MCHC 34.7, RDW 14.4, Plt Count 240, MPV 7.9, Neut % (Auto) 54.8, Lymph % (Auto) 32.9, [place] % (Auto) 7.2, Eos % (Auto) 3.7, Baso % (Auto) 1.5, Neut # (Auto) 2.9, Lymph # (Auto) 1.7, [place] # (Auto) 0.4, Eos # (Auto) 0.2, Baso # (Auto) 0.1, Sodium 141, Potassium 3.7, Chloride 106, Carbon Dioxide 30, Anion Gap 8.7, BUN 18 H, Creatinine 0.70, Estimated Creat Clear 65, Estimated GFR 82, Est GFR ( Amer) 99, Glucose 113 H, Calcium 9.3, Total Bilirubin 1.0, AST 32, ALT 26, Alkaline Phosphatase 67, Troponin I < 0.01, Total Protein 7.0, Albumin 4.4, Globulin 2.6, Albumin/Globulin Ratio 1.7 05/30/24 10:29: D-Dimer 0.44, NT-Pro-B Natriuret Pep 304 H, HIV 1&2 Antibody Rapid Nonreactive 05/30/24 13:35: Troponin I < 0.01 05/30/24 10:28 05/30/24 10:28 Response Orders (Tests/Meds): ORDERS Category Date Time Status Chest XR -- portable [XR chest portable] Stat Exams 05/30/24 11:01 Completed Complete Blood Count Auto Diff Stat Lab 05/30/24 10:28 Completed Comprehensive Metabolic Panel Stat Lab 05/30/24 10:28 Completed D-Dimer Stat Lab 05/30/24 10:29 Completed HIV (1&2) Antibody Rapid Stat Lab 05/30/24 10:29 Completed Hep C Ab with Reflex to RNA Stat Lab 05/30/24 10:29 Received NT Pro Brain Natriuretic Pep. Stat Lab 05/30/24 10:29 Completed Troponin I Q3H Lab 05/30/24 13:35 Completed Troponin I Stat Lab 05/30/24 10:28 Completed ECG Data Tracing #1: Attestation: I reviewed this ECG and interpreted as documented below: ECG Narrative: Poor baseline but ventricular of 64 sinus rhythm no acute ischemic ST elevations or depressions there is normal axis no significant conduction abnormalities noted MDM Narrative Medical Decision Narrative: 73-year-old with above history and physical. She complained of fatigue and chest pain. She is nontoxic on my exam and she has an objective normal exam. EKG is nonischemic. Will get serial troponins given the onset of her symptoms. Vital signs appear normal she does not have any signs or symptoms of a GI bleed. She did not lose consciousness and while I cannot rule out an arrhythmia a malignant or severe arrhythmia is unlikely right now. Assuming that her serial troponins are negative she will be stable for outpatient management with her chair spring assembler. Given her age cannot use pulmonary embolism rule out criteria and will get a D-dimer and use a cutoff of 1.0 with years criteria to obtain a CT PE. First set of blood work was unremarkable including troponin and D-dimer patient was placed in ED observation. Chest x-ray was performed I personally interpreted which showed no acute cardiopulmonary emergencies. Labs otherwise unremarkable after several hours of observation second troponin came back and was unremarkable and undetectably low. Patient was feeling much better and was able to eat while in the emergency department and she will follow-up closely with Dr. Kruger her chair spring assembler.
[2024-05-30 11:34] LABS: Troponin I < 0.01 ng/ml (0.00-0.034)
[2024-05-30 11:52] LABS: D-Dimer 0.44 ug/mL (0.0-0.5)
[2024-05-30 14:19] LABS: Troponin I < 0.01 ng/ml (0.00-0.034)
[2024-05-30 14:46] LABS: HIV (1&2) Antibody Rapid NONREACTIVE (NONREACTIVE)
[2024-05-31 08:19] LABS: HCV Ab Non Reactive (Non Reactive)
== END 2024-05-30 14:38 | disposition home or self-care (01) ==
PROVIDERS: Emergency Provider Student in an Organized Health Care Education/Training Program
DX: R07.9 Chest pain, unspecified (principal); R53.83 Other fatigue; R55 Syncope and collapse
CPT/HCPCS: 71045; 80053; 83880; 84484; 85025; 85378; 86803; 87389; 93005; 99284

== ENCOUNTER 2024-05-31 09:58 | Observation (INO) | payer MEDICARE, SELFPAY ==
[2024-05-31] VITALS (16 sets, daily range): BP systolic 108–168; BP diastolic 61–85; PULSE 55–73; RESP 16–19; TEMP 36.4–36.5; O2SAT 92–97; BMI 30.2
--- NOTE | 2024-05-31 10:16 | PC.NURSE ---
arrived by w/c from front lobby admissions
--- NOTE | 2024-05-31 11:18 | CA_ITS ---
APPROVED REPORT EXAM: Comprehensive 2D, Doppler, and color-flow Echocardiogram Master Cook: Cate Capone, MICHELE, RVS Ht: 5 ft 4 in Wt: 182lbs BSA: 1.88 BP: 110/62 mmHg Indications: CP, SOB, S/p cardiac cath-supine throughout exam, TYSON, CAD, CHF, Near syncope 2D Dimensions Aortic Root 2.72 cm LA Volume 76.40 mL Left Atrium 2.97 cm LA Volume Index 40.317270 mL/m2 (M/F) 16-34 RVID Base (AP4) 3.02 cm (M/F) 2.5-4.1 EF AP4 59.40 % LVOT 1.84 cm (M/F) 1.5-2.5 GL Strain -23.2 % M-Mode Dimensions RVDd 2.58 cm (0.9-2.6) LVDd 4.33 cm (3.5-5.7) Ao Diam 2.99 cm (2.0-3.7) LVDs 2.55 cm (3.5-5.7) IVSd 1.27 cm (0.6-1.1) PWd 1.31 cm (0.6-1.1) EF (Teich) 72.30% EPSs 0.20 cm FS 41.10% EDV (Teich) 84.40 mL TAPSE 2.59 (<1.7) ESV (Teich) 23.40 mL LV Diastology E Decel Time 211 (160-240 msec) E/A Ratio 1.11 MED E' 6.5 (>= 7 cm/sec) MED A' 10.70 cm/s E'/MED E' Ratio 14.23 (<= 14) LAT E' 10.5 (>= 10 cm/sec) LAT A' 8.30 cm/s E/LAT E' Ratio 8.81 (<= 14) Aortic Valve LVOT Max 116.0 (70-110 cm/s) REMIGIO Index 1.07 cm2/m2 LVOT VTI 29.19 cm AoV Peak Marek. 154.0 (50-130 cm/s) AI PHT 437.00 ms AO Mean GR. 4.70 (<5 mmHg) AO VTI 38.3 (18-25 cm) REMIGIO (VTI) 2.02 (2.5-4.5 cm2) Mitral Valve MV E Max Marek. 93.0 (40-130 cm/s) MV A Velocity 83.0 (40-130 cm/s) E/A Ratio 1.11 MV Decel. Time 211 (160-240 ms) Tricuspid Valve TR P. Velocity 219.00 cm/s RAP Estimate 10.00 mmHg RVSP 29.20 mmHg Left Ventricle The left ventricle is normal size. The left ventricular systolic function is normal. The left ventricular ejection fraction is within the normal range. Proximal septal thickening is noted. There is normal LV segmental wall motion. Diastolic function is indeterminate. LVEF is 55%. Right Ventricle The right ventricle is normal size. The right ventricular systolic function is normal. Atria Left atrium is mildly dilated. The right atrium size is normal. There is no Doppler evidence of interatrial shunt. Aortic Valve The aortic valve is mildly thickened. Mild aortic regurgitation. There is no aortic valvular stenosis. Mitral Valve The mitral valve leaflets are mildly thickened. Trace mitral regurgitation. No evidence of mitral valve stenosis. Tricuspid Valve The tricuspid valve leaflets are thin and pliable. Mild tricuspid regurgitation. RVSP is 20 mmHg plus RA pressure. Pulmonic Valve The pulmonary valve is normal in structure. Trace pulmonic regurgitation. Great Vessels The aortic root is normal in size. The ascending aorta is not well-visualized. The IVC is not well-visualized. Pericardium There is no pericardial effusion. Other Information Study Quality: Fair Conclusion Normal biventricular systolic function. Mild LA dilation. Mild AI, mild TR. Electronically signed by : Mine Cordova MD 06/01/2024 09:44:24
--- NOTE | 2024-05-31 11:40 | HMH.PHAINT1 ---
Pharmacy Intervention Comments: Home medications verified using list from pharmacy.
--- NOTE | 2024-05-31 11:49 | IR_ITS ---
APPROVED REPORT Patient Location: Inpatient Beverage Host: Davey Randall, RT (R) PROCEDURES Selective coronary angiogram INDICATION Known coronary artery disease, Unstable angina Informed consent was obtained prior to the procedure. COMPLICATIONS None Estimated Blood Loss: Less than 10 mls TECHNIQUE One percent lidocaine used to anesthetize the right anterior aspect of the wrist. The right radial artery was accessed via the Seldinger technique. A 6 [place]ian sheath was placed in the right radial artery. 2.5 mg of Verapamil, 800 mcg of nitroglycerin, 1mg Lidocaine and 5000 U Heparin were given through the arterial sheath. The JL 3 guide catheter was used to perform selective coronary angiogram. At the end of the procedure the sheath was removed good hemostasis was achieved using Traclet band, patient was transferred to the postop holding area in stable condition. ANGIOGRAPHIC RESULTS The left main artery Has a stent in the proximal segment which is widely patent and extends into the LAD The left anterior descending artery Has a stent originating from the left main artery which is widely patent free of in-stent restenosis with excellent proximal distal transitioning. The remaining LAD has a mid vessel 30% concentric stenosis The circumflex artery Is nondominant has a stent originating off the left main artery which is widely patent with minimal distal 20 to 30% concentric stenosis. There is excellent distal transitioning The right coronary artery Is dominant and has stents in the proximal to mid segment which are widely patent with minimal in-stent restenosis and excellent proximal distal transitioning The VILLA ventriculogram reveals Not performed The left ventricular end-diastolic pressure Not measured IMPRESSION Widely patent coronary stents as described above PLAN 1. Maximize antianginal medications and evaluate for noncardiac symptoms 2. Continue risk factor modification Electronically signed by : Jose Kruger MD 05/31/2024 12:59:46
[2024-05-31] MEDS: LIDOCAINE 1% 10ML MDV 20 ML IJ (11:55)
[2024-05-31] MEDS: HEPARIN 1,000 UNITS/500ML NS (CATH LAB) 3000 UNIT IV (11:55)
[2024-05-31] MEDS: 0.9 % SODIUM CHLORIDE 500 ML 25 ML IV (11:55)
[2024-05-31] MEDS: NITROGLYCERIN 800MCG/8ML SYR (CATH LAB) 800 MCG IA (11:56)
[2024-05-31] MEDS: VERAPAMIL 2.5MG/ML 2ML VIAL 2.5 MG IV (11:56)
[2024-05-31] MEDS: HEPARIN 1,000 UNITS/ML 10ML VIAL (CATH LAB) 10000 UNIT IV (11:56)
[2024-05-31] MEDS: diphenhydrAMINE 50MG/ML VIAL 50 MG IV (11:56)
[2024-05-31] MEDS: MIDAZOLAM HCL 1MG/1ML 5ML VIAL 1 MG IV (12:33)
[2024-05-31] MEDS: FENTANYL 100MCG/2ML VIAL 50 MCG IV (12:34)
--- NOTE | 2024-05-31 13:20 | EXP.CARD.PN ---
Subjective Subjective Date: 05/31/24 Time: 13:20 Principal diagnosis: CAD Interval history: Patient admitted from the cardiology office for unstable angina. She underwent left cardiac catheterization and has widely patent coronary artery disease. She is currently still somewhat sedated from her procedure. Denies chest pain or pressure. No shortness of breath or edema. No fever, chills, nausea, vomiting, diarrhea, PND orthopnea. LHC shows: The left main artery Has a stent in the proximal segment which is widely patent and extends into the LAD The left anterior descending artery Has a stent originating from the left main artery which is widely patent free of in-stent restenosis with excellent proximal distal transitioning. The remaining LAD has a mid vessel 30% concentric stenosis The circumflex artery Is nondominant has a stent originating off the left main artery which is widely patent with minimal distal 20 to 30% concentric stenosis. There is excellent distal transitioning The right coronary artery Is dominant and has stents in the proximal to mid segment which are widely patent with minimal in-stent restenosis and excellent proximal distal transitioning The VILLA ventriculogram reveals Not performed The left ventricular end-diastolic pressure Not measured IMPRESSION Widely patent coronary stents as described above PLAN 1. Maximize antianginal medications and evaluate for noncardiac symptoms 2. Continue risk factor modification Exam Data for Last 24 hours Vital signs and Labs for Last 24 Hours: Temp Pulse Resp BP Pulse Ox O2 Del Method 97.7 F 58 L 19 115/69 95 Room Air 05/31/24 10:16 05/31/24 13:00 05/31/24 13:00 05/31/24 13:00 05/31/24 13:00 05/31/24 13:00 I & O for Last 24 hours: Intake & Output 05/28/24 05/29/24 05/30/24 05/31/24 23:59 23:59 23:59 23:59 Weight 181 lb 5 oz Constitutional Constitutional: no acute distress and average body habitus *Routine HEENT Exam Head: Present normocephalic and atraumatic ENT: Present mucous membranes moist *Routine Neck Exam Neck: Present supple, full ROM and normal carotid upstroke; Absent JVD, carotid bruit or lymphadenopathy *Routine Respiratory Exam Respiratory: Present CTA bilaterally, normal respiratory effort, able to speak in complete sentences and symmetric chest movement *Routine Cardiovascular Exam Cardiovascular: Present RRR, Normal S1 and Normal S2; Absent murmur or gallop *Routine Abdominal Exam Abdominal: Present soft and normoactive bowel sounds; Absent tenderness, distended or organomegaly *Routine Extremities Exam Extremities: Present full ROM, pulses intact and normal capillary refill; Absent cyanosis, clubbing or edema *Routine Skin Exam Skin: Present intact and warm; Absent erythema *Routine Neurological Exam Neurological: Present alert, oriented X3 and CN II-XII intact; Absent sensory deficit or motor deficit Routine Psychiatric Exam Psychiatric: Present normal affect Progress Note: A&P Assessment and plan (1) CAD (coronary artery disease): Status: Acute (2) HTN (hypertension): Status: Chronic (3) HLD (hyperlipidemia): Status: Chronic Assessment and Plan Assessment and Plan for All Diagnoses:: Plan: 1. The patient was admitted to the hospital from outpatient cardiology clinic due to concerns of unstable angina. The patient underwent left cardiac catheterization and has widely patent coronary artery disease. Continue aspirin 81 mg daily and Plavix 75 mg daily for dual antiplatelet therapy. 2. Will maximize antianginals due to her chest pain. Start Ranexa 500 mg p.o. twice daily. 3. The patient's blood pressure is well-controlled. Continue bisoprolol. 4. Her LDL goal is less than 55. She is on high-dose statin. Continue atorvastatin. 5. Continue Lasix. 6. No further recommendations at this time from a cardiac standpoint. The patient is stable for discharge home from a cardiac standpoint once she is fully recovered from her access site from the left cardiac catheterization. She will need to follow-up in cardiology clinic in 2 weeks. The patient can be discharged on the following cardiac medications: Aspirin 81 mg daily, atorvastatin 80 mg daily, bisoprolol 5 mg daily, Plavix 75 mg daily, Lasix 20 mg p.o. twice daily, Ranexa 500 mg p.o. twice daily. Thank you for the opportunity to help participate in the care of this patient. All recommendations and orders are per Dr. Cordova.
[2024-05-31] MEDS: IOPAMIDOL-370 (76%);100ML BOTTLE 40 ML IV (13:44)
[2024-05-31] MEDS: ASPIRIN EC 81MG TABLET 81 MG PO (13:45)
[2024-05-31 14:14] LABS: Albumin Level 3.9 g/dl (3.5-5.0)
[2024-05-31 14:16] LABS: Alanine Aminotransferase 23 U/L (12-78); Aspartate Amino Transferase 28 U/L (14-36); Bilirubin,Unconjugated 0.6 mg/dL (0.0-1.1); Total Protein,Serum 6.2 g/dl (6.3-8.2)
[2024-05-31 14:17] LABS: Alkaline Phosphatase 68 U/L (38-126); Bilirubin,Direct 0.1 mg/dl (0.0-0.4); Bilirubin,Indirect 0.6 mg/dL (0.0-0.9); Bilirubin,Total 0.7 mg/dl (0.2-1.3)
--- NOTE | 2024-05-31 14:37 | HMH.PHAINT1 ---
Pharmacy Intervention Comments: Home medication list verified using
[2024-05-31] MEDS: RANOLAZINE 500MG ER TABLET 500 MG PO (14:39)
[2024-05-31 15:22] LABS: Troponin I < 0.01 ng/ml (0.00-0.034)
[2024-05-31] MEDS: FUROSEMIDE 20MG TABLET 20 MG PO (16:39)
--- NOTE | 2024-05-31 17:18 | P.DS_ITS ---
General Admission date:: 05/31/24 Hospital Course Hospital Course Hospital Course: Possible GERD, chest tightness occurred shortly after eating chicken salad Exam Data for Last 24 hours Vital signs and Labs for Last 24 Hours: Temp Pulse Resp BP Pulse Ox O2 Del Method 97.6 F 60 16 134/75 96 Room Air 05/31/24 13:15 05/31/24 16:00 05/31/24 15:30 05/31/24 15:30 05/31/24 15:30 05/31/24 15:30 Laboratory Results - last 24 hr 05/31/24 13:51: Total Bilirubin 0.7, Direct Bilirubin 0.1, Conjugated Bilirubin 0.0, Indirect Bilirubin 0.6, Unconjugated Bilirubin 0.6, AST 28, ALT 23, Alkaline Phosphatase 68, Total Protein 6.2 L, Albumin 3.9 D 05/31/24 14:50: Troponin I < 0.01 I & O for Last 24 hours: Intake & Output 05/28/24 05/29/24 05/30/24 05/31/24 23:59 23:59 23:59 23:59 Weight 82.242 kg Results Data Completed and Pending Labs on day of discharge: Labs from last 24 hours 05/31/24 05/31/24 14:50 13:51 Total Bilirubin 0.7 Direct Bilirubin 0.1 Conjugated Bilirubin 0.0 Indirect Bilirubin 0.6 Unconjugated Bilirubin 0.6 AST 28 ALT 23 Alkaline Phosphatase 68 Troponin I < 0.01 Total Protein 6.2 L Albumin 3.9 D DS: Diagnosis Discharge Diagnosis (1) CAD (coronary artery disease): Status: Acute Code(s): I25.10 - Atherosclerotic heart disease of [place] coronary artery without angina pectoris Qualifiers: Coronary Disease-Associated Artery/Lesion type: [place] artery [place] vs. transplanted heart: [place] heart Associated angina: with unstable angina Qualified Code(s): I25.110 - Atherosclerotic heart disease of [place] coronary artery with unstable angina pectoris (2) HTN (hypertension): Status: Chronic Code(s): I10 - Essential (primary) hypertension Qualifiers: Hypertension type: essential hypertension Qualified Code(s): I10 - Essential (primary) hypertension (3) HLD (hyperlipidemia): Status: Chronic Code(s): E78.5 - Hyperlipidemia, unspecified Qualifiers: Hyperlipidemia type: mixed hyperlipidemia Qualified Code(s): E78.2 - Mixed hyperlipidemia Meds Home Medications and Allergies Home Medications ?Medication ?Instructions ?Recorded ?Confirmed ?Type melatonin 5 mg tablet 5 mg PO HS PRN Sleep 05/26/22 05/31/24 History albuterol sulfate 90 mcg/actuation 2 inh inhalation Q4-6H PRN 03/29/24 05/31/24 Rx aerosol inhaler shortness of breath or wheezing #8.5 grams atorvastatin 80 mg tablet 80 mg PO DAILY #90 tabs 05/02/24 05/31/24 Rx bisoprolol fumarate 5 mg tablet 5 mg PO DAILY 05/31/24 05/31/24 History clopidogrel 75 mg tablet 75 mg PO DAILY 05/31/24 05/31/24 History fluticasone 250 mcg-salmeterol 50 1 inh inhalation BID 05/31/24 05/31/24 History mcg/dose blistr powdr for inhalation (Advair Diskus) furosemide 20 mg tablet 20 mg PO BID 05/31/24 05/31/24 History montelukast 10 mg tablet 10 mg PO DAILY 05/31/24 05/31/24 History ranolazine 500 mg tablet,extended 500 mg PO BID 30 days #60 tabs 05/31/24 Rx release,12 hr New Prescriptions to Start Prescriptions: ranolazine Roderick Olvera Allergies Allergy/AdvReac Type Severity Reaction Status Date / Time No Known Allergies Allergy Verified 05/31/24 09:07 Discharge Plan Disposition Patient Disposition: Home, Self-Care Follow up Plan Follow up with: Jocelyn Melendrez APRN [Nurse Practitioner] - Enter time for follow up (Within 2 weeks) Israel Stanley APRN [Primary Care Provider] - Enter time for follow up (Within 1 week) Prescriptions/Medication Reconciliation: New ranolazine 500 mg Tablet Extended Release 12 Hr 500 mg PO BID 30 Days Qty: 60 0RF Continued albuterol sulfate 90 mcg/actuation HFA aerosol inhaler 2 inh INHALATION Q4-6H PRN (Reason: shortness of breath or wheezing) Qty: 8.5 10RF melatonin 5 mg tablet 5 mg PO HS PRN (Reason: Sleep) atorvastatin 80 mg tablet 80 mg PO DAILY Qty: 90 2RF fluticasone propion-salmeterol [Advair Diskus] 250-50 mcg/dose blister with device 1 inh IH BID clopidogrel 75 mg tablet 75 mg PO DAILY bisoprolol fumarate 5 mg tablet 5 mg PO DAILY montelukast 10 mg tablet 10 mg PO DAILY furosemide 20 mg tablet 20 mg PO BID Patient Discharge Instructions Patient Instructions: Angina, DI for Angina, DI for Cardiac Catheterization, DI for Surgical Site Infection Print Language: Frisian Providers Primary Care Provider: Israel Stanley Admit Provider: Roderick Olvera Attending Provider: Roderick Olvera
--- NOTE | 2024-05-31 17:27 | P.HPDS_ITS ---
General Admission date:: 05/31/24 *Admission Date: 05/31/24 *Chief complaint: Chest pain *History of present illness: Patient admitted from the cardiology office for unstable angina. She states chest pain was midsternal without radiation. She states she ate some chicken salad shortly before. Denies chest pain or pressure at this time. No shortness of breath or edema. No fever, chills, nausea, vomiting, diarrhea, PND orthopnea. [facility] Disclaimer: The information contained in this section may have been updated after the patient was seen, as this information can be updated by other users. Medical History Anxiety and depression History of gastroesophageal reflux (GERD) Hypothyroid Hypertension Hyperlipidemia Unstable angina Dyspnea Typical angina Mild persistent asthma Allergic rhinitis, unspecified Dyspnea on exertion Gallbladder sludge Bilateral carotid artery stenosis Right carotid bruit Surgical History History of hysterectomy Hx of heart artery stent History of breast biopsy History of total hip replacement Family History Other Diabetes Heart attack Social History Smoking Status: Never smoker second hand exposure: No alcohol intake: never substance use type: denies use current occupational status: disabled Travel in the last 8 weeks: None household members: none housing: house current occupational exposures/hazards: No caffeine: Yes Other Medical History Have you received the Flu Vaccine for this season: Yes Have you received the Pneumonia Vaccine: No Exam Data for Last 24 hours Vital signs and Labs for Last 24 Hours: Temp Pulse Resp BP Pulse Ox O2 Del Method 97.6 F 60 16 134/75 96 Room Air 05/31/24 13:15 05/31/24 16:00 05/31/24 15:30 05/31/24 15:30 05/31/24 15:30 05/31/24 15:30 Laboratory Results - last 24 hr 05/31/24 13:51: Total Bilirubin 0.7, Direct Bilirubin 0.1, Conjugated Bilirubin 0.0, Indirect Bilirubin 0.6, Unconjugated Bilirubin 0.6, AST 28, ALT 23, Alkaline Phosphatase 68, Total Protein 6.2 L, Albumin 3.9 D 05/31/24 14:50: Troponin I < 0.01 I & O for Last 24 hours: Intake & Output 05/28/24 05/29/24 05/30/24 05/31/24 23:59 23:59 23:59 23:59 Weight 82.242 kg Constitutional Constitutional: no acute distress *Routine HEENT Exam Head: Present normocephalic Eye: Present EOMI and PERRL ENT: Present mucous membranes moist *Routine Neck Exam Neck: Present supple; Absent lymphadenopathy *Routine Respiratory Exam Respiratory: Present CTA bilaterally *Routine Cardiovascular Exam Cardiovascular: Present RRR *Routine Abdominal Exam Abdominal: Present soft and normoactive bowel sounds; Absent tenderness *Routine Rectal Exam Rectal:: deferred *Routine Genitalia Exam Genitalia:: deferred *Routine Extremities Exam Extremities: Absent cyanosis, clubbing or edema Comments: No bleeding at right radial incision site. *Routine Skin Exam Skin: Present warm; Absent rash *Routine Neurological Exam Neurological: Present alert and oriented X3 Meds Home Medications and Allergies Home Medications ?Medication ?Instructions ?Recorded ?Confirmed ?Type melatonin 5 mg tablet 5 mg PO HS PRN Sleep 05/26/22 06/07/24 History albuterol sulfate 90 mcg/actuation 2 inh inhalation Q4-6H PRN 03/29/24 06/07/24 Rx aerosol inhaler shortness of breath or wheezing #8.5 grams atorvastatin 80 mg tablet 80 mg PO DAILY #90 tabs 05/02/24 06/07/24 Rx bisoprolol fumarate 5 mg tablet 5 mg PO DAILY 05/31/24 06/07/24 History clopidogrel 75 mg tablet 75 mg PO DAILY 05/31/24 06/07/24 History fluticasone 250 mcg-salmeterol 50 1 inh inhalation BID 05/31/24 06/07/24 History mcg/dose blistr powdr for inhalation (Advair Diskus) furosemide 20 mg tablet 20 mg PO BID 05/31/24 06/07/24 History montelukast 10 mg tablet 10 mg PO DAILY 05/31/24 06/07/24 History pantoprazole 40 mg tablet,delayed See Rx Instructions .Route 05/31/24 06/07/24 Rx release (Protonix) .COMPLEX #30 tabs ranolazine 500 mg tablet,extended 500 mg PO BID 30 days #60 tabs 05/31/24 06/07/24 Rx release,12 hr New Prescriptions to Start Prescriptions: pantoprazole [Protonix] EmilyjosefinamauraRoderick ranolazine JameelmauraRoderick Allergies Allergy/AdvReac Type Severity Reaction Status Date / Time No Known Allergies Allergy Verified 06/07/24 11:05 Hospital Course Hospital Course Hospital Course: Patient admitted from the cardiology office for unstable angina. She states chest pain was midsternal without radiation. She states she ate some chicken salad shortly before. Denies chest pain or pressure at this time. No shortness of breath or edema. No fever, chills, nausea, vomiting, diarrhea, PND orthopnea. #CAD - H/o April 2023 severe circumflex artery in-stent restenosis with successful stenting, severe stenosis in the proximal dominant RCA with successful stenting. OCTOBER 2021 successful stenting of the critically diseased circumflex artery followed by post stent angioplasty of the left main artery and ostial proximal LAD (2020). GANESH LEFT MAIN/LAD/CX. - S/p LHC today with widely patent CAD. No stents. - Cardiology consulted, continue aspirin 81mg, Plavix 75mg, atorvastatin 80mg. Started Ranexa 500mg BID. - Discharged with above meds. Will follow-up with cardiology within 1 week. #GERD - Chest pain may respresent unctrolled GERD, endorses intermittent heartburn. - Started Protonix 40mg on empty stomach in the morning. Results Data Completed and Pending Labs on day of discharge: Labs from last 24 hours 05/31/24 05/31/24 14:50 13:51 Total Bilirubin 0.7 Direct Bilirubin 0.1 Conjugated Bilirubin 0.0 Indirect Bilirubin 0.6 Unconjugated Bilirubin 0.6 AST 28 ALT 23 Alkaline Phosphatase 68 Troponin I < 0.01 Total Protein 6.2 L Albumin 3.9 D DS: Diagnosis Discharge Diagnosis (1) CAD (coronary artery disease): Status: Acute Code(s): I25.10 - Atherosclerotic heart disease of [place] coronary artery without angina pectoris Qualifiers: Associated angina: with unstable angina Coronary Disease-Associated Artery/Lesion type: [place] artery [place] vs. transplanted heart: [place] heart Qualified Code(s): I25.110 - Atherosclerotic heart disease of [place] coronary artery with unstable angina pectoris (2) HTN (hypertension): Status: Chronic Code(s): I10 - Essential (primary) hypertension Qualifiers: Hypertension type: essential hypertension Qualified Code(s): I10 - Essential (primary) hypertension (3) HLD (hyperlipidemia): Status: Chronic Code(s): E78.5 - Hyperlipidemia, unspecified Qualifiers: Hyperlipidemia type: mixed hyperlipidemia Qualified Code(s): E78.2 - Mixed hyperlipidemia (4) GERD (gastroesophageal reflux disease): Status: Acute Code(s): K21.9 - Gastro-esophageal reflux disease without esophagitis Qualifiers: Esophagitis presence: esophagitis presence not specified Qualified Code(s): K21.9 - Gastro-esophageal reflux disease without esophagitis Discharge Plan Disposition Patient Disposition: Home, Self-Care Follow up Plan Follow up with: Jocelyn Melendrez APRN [Nurse Practitioner] - Enter time for follow up (Within 2 weeks please call for appointment) Israel Stanley APRN [Primary Care Provider] - Enter time for follow up (Within 1 week please call for appointment) Prescriptions/Medication Reconciliation: New ranolazine 500 mg Tablet Extended Release 12 Hr 500 mg PO BID 30 Days Qty: 60 0RF pantoprazole [Protonix] 40 mg tablet,delayed release (DR/EC) See Rx Instructions .ROUTE .COMPLEX Qty: 30 0RF Rx Instructions: Take on empty stomach at least 40 minutes before a meal. Continued albuterol sulfate 90 mcg/actuation HFA aerosol inhaler 2 inh INHALATION Q4-6H PRN (Reason: shortness of breath or wheezing) Qty: 8.5 10RF melatonin 5 mg tablet 5 mg PO HS PRN (Reason: Sleep) atorvastatin 80 mg tablet 80 mg PO DAILY Qty: 90 2RF fluticasone propion-salmeterol [Advair Diskus] 250-50 mcg/dose blister with device 1 inh IH BID clopidogrel 75 mg tablet 75 mg PO DAILY bisoprolol fumarate 5 mg tablet 5 mg PO DAILY montelukast 10 mg tablet 10 mg PO DAILY furosemide 20 mg tablet 20 mg PO BID Problem Reconciliation Problems Reviewed?: Yes Patient Discharge Instructions ACTIVITY: Continue current activity DIET: cardiac Patient Instructions: Angina, DI for Angina, DI for Cardiac Catheterization, DI for Surgical Site Infection Print Language: [place] Providers Primary Care Provider: Israel Stanley Admit Provider: Roderick Olvera Attending Provider: Roderick Olvera
--- NOTE | 2024-05-31 17:53 | PC.NURSE ---
non adherent dressing placed to right wrist with a tegaderm.
--- NOTE | 2024-06-01 09:49 | CARE MANAGER ---
Contacted patient related to hospital discharge. She is going to fruit picker new medications within the next hour from pharmacy. She has made her follow up appointments and denies any questions or concerns at this time. PAMELA Evans
== END 2024-05-31 18:09 | disposition home or self-care (01) ==
PROVIDERS: Internal Medicine; Nurse Practitioner Family; Admitting Provider Student in an Organized Health Care Education/Training Program; PCP Nurse Practitioner Family; Visit Provider Student in an Organized Health Care Education/Training Program
DX: I25.110 Atherosclerotic heart disease of native coronary artery with unstable angina pectoris (principal); I10 Essential (primary) hypertension; E78.2 Mixed hyperlipidemia; I65.23 Occlusion and stenosis of bilateral carotid arteries; Z95.5 Presence of coronary angioplasty implant and graft; Z79.899 Other long term (current) drug therapy; K21.9 Gastro-esophageal reflux disease without esophagitis
CPT/HCPCS: 80076; 84484; 93306; 93454; 99152; 99153; C1725; C1769; G0378; J1200; J1644; J2250; J3010; Q9967

== ENCOUNTER 2024-06-07 10:51 | Day surgery (SDC) | payer MEDICARE, SELFPAY ==
[2024-06-06 13:08] VITALS: BMI 29.6
[2024-06-07 11:07] VITALS: BP 163/94; PULSE 76; RESP 16; TEMP 36.1; O2SAT 96
--- NOTE | 2024-06-07 11:35 | EXP.ANES.CKL ---
[facility] Disclaimer: The information contained in this section may have been updated after the patient was seen, as this information can be updated by other users. Medical History Anxiety and depression History of gastroesophageal reflux (GERD) Hypothyroid Hypertension Hyperlipidemia Unstable angina Dyspnea Typical angina Mild persistent asthma Allergic rhinitis, unspecified Dyspnea on exertion Gallbladder sludge Bilateral carotid artery stenosis Right carotid bruit Surgical History History of hysterectomy Hx of heart artery stent History of breast biopsy History of total hip replacement Family History Other Diabetes Heart attack Social History Smoking Status: Never smoker second hand exposure: No alcohol intake: never substance use type: denies use current occupational status: disabled Travel in the last 8 weeks: None household members: none housing: house current occupational exposures/hazards: No caffeine: Yes [facility] Anesthesia Checklist Patient Identification Patient Identification: Arm Band and Verbal (Name & ) Structural Data Admitted From: Home Planned Operative Procedure/s: Colonoscopy Consent for Planned Operative Procedure(s) Verified: Yes Verified Documents: Surgical Consent and History and Physical NPO Status Verified Time NPO: 06:00 (Black coffee) Additional verifications Anesthesia Reactions: No Hx Blood Transfusions: No Blood Transfusion Reaction: No Airway Assessment Mallampati Score:: Class III C-Spine Mobility Assessed: Yes TMJ Mobility Assessed: Yes Dentition: Dentures-poor fitting (Removed) Neurological Assessment Level of Consciousness: Awake Hx Seizures: No Numbness or tingling in extremities: No Anesthesia Plan Anesthesia Risk discussed: Yes Anesthesia Plan: Verified ASA Class: III Anesthesia Type: MAC
--- NOTE | 2024-06-07 11:38 | HMH.SCOPE ---
Procedure: Date: 06/07/24 Patient Date of :: 1950 Procedure Performed:: Colonoscopy with polypectomy Indications:: Screening Performing Provider:: Brian Mcintyre MD Referring Provider:: . Sedation:: Monitored anesthesia care Procedure:: After informed consent was obtained the patient was taken to the endoscopy suite. Sedation ensued after the patient was transferred to the left lateral decubitus position. Pulse, blood pressure, and oxygen saturation were monitored throughout the procedure. Digital rectal exam revealed no significant abnormality. The colonoscope was placed in position. The entire colon was evaluated. The colonoscope was carefully removed and the patient was transferred to recovery in stable condition. Please see findings and specimens below for detail. Findings:: Bowel preparation moderate Profound tortuosity (particularly sigmoid) Significant spasticity/lack of relaxation Complex polyps (see specimens) Specimens:: Lobulated sessile 8 mm hepatic flexure polyp (cold snare) Lobulated sessile 9 mm polyp at 65 cm (cold snare) Partially-pedunculated polyp at 55 cm (cold snare and Resolution 360 clip placement) Recommendations:: Timing of repeat colonoscopy is pending pathology will likely be around 6-12 months with extended bowel preparation secondary to moderate preparation, profound tortuosity, significant spasticity, and size/nature of polyps. Consider barium enema in near future secondary to profound tortuosity (particularly sigmoid) Complications:: No immediate Estimated blood obtained (mL): 1 Colonoscopy Component Colonoscopy Component Was a colonoscopy performed during today's procedure?: Yes Recommended follow up colonoscopy of at least 10 years?: No If no, follow up colonoscopy recommended in ___ years?: (See above) Reason for not recommending >/= 10 yr follow-up interval?: (See above)
[2024-06-07 11:57] VITALS: O2SAT 98
[2024-06-07 12:25] VITALS: BP 106/59; PULSE 69; RESP 16; O2SAT 94
[2024-06-07 12:35] VITALS: BP 135/74; PULSE 72; RESP 16; O2SAT 96
[2024-06-07 12:45] VITALS: BP 156/92; PULSE 73; RESP 16; O2SAT 96
[2024-06-07 12:55] VITALS: BP 140/92; PULSE 70; RESP 16; O2SAT 97
== END 2024-06-07 13:00 | disposition home or self-care (01) ==
PROVIDERS: PCP Nurse Practitioner Family; Visit Provider Surgery
PROC: 0DJD8ZZ Inspection of Lower Intestinal Tract, Via Natural or Artificial Opening Endoscopic (ICD-10-PCS; CPT 45385; principal; 2024-06-07 12:30)
DX: Z12.11 Encounter for screening for malignant neoplasm of colon (principal); D12.4 Benign neoplasm of descending colon; D12.3 Benign neoplasm of transverse colon; K63.5 Polyp of colon
CPT/HCPCS: 45385; 88305

== ENCOUNTER 2024-10-20 13:12 | Outpatient (CLI) | payer MEDICARE, SELFPAY | END 2024-10-20 23:59 | disposition home or self-care (01) | LOC: LAB.DROPOF 13:13 | PROVIDERS: PCP Nurse Practitioner Family; Visit Provider Nurse Practitioner Family | DX: R35.0 Frequency of micturition (principal); R82.90 Unspecified abnormal findings in urine; R39.15 Urgency of urination; R30.0 Dysuria; M54.50 Low back pain, unspecified; R10.30 Lower abdominal pain, unspecified | CPT/HCPCS: 87086 ==

== ENCOUNTER 2025-01-20 20:33 | Emergency (ER) | payer MEDICARE, SELFPAY ==
[2025-01-20] VITALS (7 sets, daily range): BP systolic 119–156; BP diastolic 72–91; PULSE 63–77; RESP 12–18; TEMP 36.9; O2SAT 93–97; BMI 28.6
--- NOTE | 2025-01-20 20:34 | ECG_ITS ---
APPROVED REPORT Exam: Resting ECG HR:78 bpm ECG Measurements Heart Rate 78 AXES RI 178 P 65 QRSd 89 QRS 66 QT 378 T 40 QTc 412 Conclusion SINUS RHYTHM MODERATE ST DEPRESSION [0.05+ mV ST DEPRESSION] ABNORMAL ECG UNCONFIRMED REPORT Electronically signed by : Janak Castillo, 01/20/2025 23:03:35
--- NOTE | 2025-01-20 20:40 | XR_ITS ---
PROCEDURE INFORMATION: Exam: XR Chest Exam date and time: 01/20/2025 8:48 PM Age: 74 years old Clinical indication: Shortness of breath; Additional info: Short of breath TECHNIQUE: Imaging protocol: Radiologic exam of the chest. Views: 1 view. COMPARISON: CR XR CHEST PORTABLE 05/30/2024 11:10 AM FINDINGS: Lungs: Unremarkable. No consolidation. Pleural spaces: Unremarkable. No pleural effusion. No pneumothorax. Heart/Mediastinum: Unremarkable. No cardiomegaly. Vasculature: Moderate atherosclerotic calcification of the aortic arch. Bones/joints: Mild degenerative changes of the spine and shoulders. No acute osseous abnormality. IMPRESSION: No acute abnormality
--- NOTE | 2025-01-20 20:43 | [facility].EDCP ---
Discharge Plan Disposition Patient Disposition: Home, Self-Care Condition: Good Prescriptions Prescriptions: New isosorbide mononitrate 30 mg tablet extended release 24 hr 30 mg PO DAILY Qty: 30 12RF No Action albuterol sulfate 90 mcg/actuation HFA aerosol inhaler 2 inh INHALATION Q4-6H PRN (Reason: shortness of breath or wheezing) Qty: 8.5 10RF clonazepam [Klonopin] 0.5 mg tablet 0.5 mg PO DAILY PRN (Reason: anxiety) Qty: 20 0RF melatonin 5 mg tablet 5 mg PO HS PRN (Reason: Sleep) atorvastatin 80 mg tablet 80 mg PO DAILY Qty: 90 2RF clopidogrel 75 mg tablet 75 mg PO DAILY Qty: 90 3RF montelukast 10 mg tablet 10 mg PO QHS Qty: 90 0RF ranolazine 500 mg tablet extended release 12 hr 500 mg PO BID 30 Days Qty: 60 5RF furosemide 20 mg tablet 20 mg PO BID Qty: 180 2RF bisoprolol fumarate 5 mg tablet 5 mg PO DAILY Qty: 90 0RF escitalopram oxalate 10 mg tablet See Rx Instructions .ROUTE .COMPLEX Qty: 90 0RF Dose Instruction: Take 1 tablet by mouth once daily Rx Instructions: Take 1 tablet by mouth once daily levothyroxine [Levo-T] 50 mcg tablet 50 mcg PO DAILY Qty: 90 0RF pantoprazole [Protonix] 40 mg tablet,delayed release (DR/EC) See Rx Instructions .ROUTE DAILY Qty: 90 0RF Rx Instructions: Take on empty stomach at least 40 minutes before a meal. daily; fluticasone propion-salmeterol [Advair Diskus] 250-50 mcg/dose blister with device 1 inh IH BID Referrals Follow up/Referrals: Provider,Referral, MD [Referring, Medical] - See instructions Activity Restrictions/Add. Instructions Additional Instructions/Restrictions: You were evaluated in the ER and are believed to be appropriate for discharge at this time with the additional medications that have been prescribed to you. Take the new medications as prescribed. Continue taking your other home medications as previously prescribed. Call the cardiology office first thing Thursday morning and make an appointment for immediate follow-up. I recommend that you be seen in the cardiology office on Thursday. Also follow-up with your primary care doctor. Return to the ER with any new, worsening, or otherwise concerning symptoms. Clinical Impressions Clinical Impression: Chest pain Print Language Print Language: Guamanian Discharge ED Provider: Kimi Castillo HPI <Buffysusie North (ED), [employer] - Last Filed: 01/20/25 21:33> General Chief Complaint: Chest Pain Stated Complaint: Chest Pain Time Seen by Provider: 01/20/25 20:35 History of Present Illness HPI narrative: 74-year-old female presents to the ED today for complaint of feeling like she is having a heart attack . Pain started at 4 PM today and she feels like she is trying to vomit hot grease . Patient states that she did vomit 1 time. She has 8 out of 10 chest pain in her upper chest with shortness of breath. She does have pressure that goes to her back as well. She does have upper epigastric pain. 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 She is not a smoker. Nondrinker. Patient has history of anxiety and depression, colon cancer, CAD, ischemic heart disease, hypothyroidism, GERD and hypertension. Related Data Home Medications ?Medication ?Instructions ?Recorded ?Confirmed melatonin 5 mg tablet 5 mg PO HS PRN Sleep 05/26/22 10/20/24 fluticasone 250 mcg-salmeterol 50 1 inh inhalation BID 05/31/24 10/20/24 mcg/dose blistr powdr for inhalation (Advair Diskus) Previous Rx's ?Medication ?Instructions ?Recorded albuterol sulfate 90 mcg/actuation 2 inh inhalation Q4-6H PRN 03/29/24 aerosol inhaler shortness of breath or wheezing #8.5 grams atorvastatin 80 mg tablet 80 mg PO DAILY #90 tabs 05/02/24 clopidogrel 75 mg tablet 75 mg PO DAILY #90 tabs 06/26/24 clonazepam 0.5 mg tablet (Klonopin) 0.5 mg PO DAILY PRN anxiety #20 06/30/24 tabs montelukast 10 mg tablet 10 mg PO QHS breathing issues #90 07/22/24 tabs ranolazine 500 mg tablet,extended 500 mg PO BID 30 days #60 tabs 10/31/24 release,12 hr furosemide 20 mg tablet 20 mg PO BID #180 tabs 01/15/25 bisoprolol fumarate 5 mg tablet 5 mg PO DAILY BP #90 tabs 01/20/25 escitalopram oxalate 10 mg tablet See Rx Instructions .Route 01/20/25 .COMPLEX #90 tabs levothyroxine 50 mcg tablet 50 mcg PO DAILY hypothyroid #90 01/20/25 (Levo-T) tabs pantoprazole 40 mg tablet,delayed See Rx Instructions .Route DAILY 01/20/25 release (Protonix) gerd #90 tabs isosorbide mononitrate 30 mg 30 mg PO DAILY #30 tabs 01/21/25 tablet,extended release 24 hr Allergies Allergy/AdvReac Type Severity Reaction Status Date / Time No Known Allergies Allergy Verified 10/20/24 10:16 PFS <Buffy North (ED), [employer] - Last Filed: 01/20/25 21:33> [facility] Disclaimer: The information contained in this section may have been updated after the patient was seen, as this information can be updated by other users. Medical History (Updated 01/20/25 @ 22:56 by Kimi Castillo MD) UTI (urinary tract infection) Near syncope Fatigue Right shoulder pain Headache COVID-19 Encounter for screening colonoscopy Low Back Pain Hemorrhoids Acute bacterial bronchitis Varicose veins of both legs with edema Edema Calcaneal spur of left foot Acquired pes planus of both feet Acute pain of left foot Varicose veins of bilateral lower extremities with pain Bilateral lower extremity edema Hypotension Acute dehydration Orthostatic syncope Pain in left foot Dislocation of second toe, left, closed Hallux valgus (acquired), left foot Metatarsalgia, left foot Acute bronchitis Back pain Acute dysfunction of left eustachian tube Wheezing Exposure to COVID-19 virus Fall Facial abrasion Forehead laceration Wasp sting Hymenoptera sting Lumbar back pain Primary osteoarthritis of right hip Bronchitis Aortic insufficiency Diastolic dysfunction Encounter for pre-operative cardiovascular clearance Dizzy Vitamin D insufficiency Sinusitis Arm pain Anxiety and depression History of gastroesophageal reflux (GERD) Hypothyroid Hypertension Hyperlipidemia Unstable angina Dyspnea Typical angina Mild persistent asthma Allergic rhinitis, unspecified Dyspnea on exertion Gallbladder sludge Bilateral carotid artery stenosis Right carotid bruit Surgical History History of colonoscopy History of total right hip arthroplasty History of hysterectomy Hx of heart artery stent History of breast biopsy History of total hip replacement Family History Other Diabetes Heart attack Social History Smoking Status: Never smoker second hand exposure: No alcohol intake: never substance use type: denies use current occupational status: disabled Travel in the last 8 weeks?: None household members: none housing: house current occupational exposures/hazards: No caffeine: Yes Have you lived/traveled outside [place] in past 30 days?: No Contact w/someone who lives/traveled outside US past 30 days?: No Exposure to someone with infectious disease in past 14 days?: No Do you have a fever (greater than 100.4 F or 38 C)?: No Have you tested positive for COVID-19?: No Exposed to someone with COVID-19 in past 14 days?: No Do you have a sore throat?: No Do you have a cough?: No Do you have any weakness?: No Do you have any diarrhea?: No Are you experiencing any unusual bleeding?: No Do you have any muscle aches/pain?: No Do you have any abdominal pain?: No Are you experiencing loss of taste or smell?: No Other Medical History Have you received the Flu Vaccine for this season: No Have you received the Pneumonia Vaccine: No <Buffy North (ED), [employer] - Last Filed: 01/20/25 21:33> ROS Obtained: Yes Systems reviewed as appropriate & no additional complaints except as documented Constitutional Constitutional: Reports as per HPI Physical Exam <Buffy Notrh (ED), [employer] - Last Filed: 01/20/25 21:33> General General appearance: alert, anxious and in distress Head Head exam: normocephalic Eye Eye exam: Present normal appearance and PERRL ENT ENT exam: Present mucous membranes moist Neck Neck exam: Present trachea midline Chest Chest inspection: Present normal inspection and symmetric chest wall rise Respiratory Respiratory exam: Present normal lung sounds bilaterally Cardiovascular Cardiovascular exam: Present regular rate, normal rhythm, normal heart sounds, +S1 and +S2 Abdominal Exam Abdominal exam: Present tenderness and normal bowel sounds Abdominal tenderness: Present epigastrium Extremities Exam Extremities exam: Present normal inspection, full ROM and normal capillary refill Back Exam Back exam: Present full ROM Neurological Exam Neurological exam: Present alert, oriented X3 and normal gait Psychiatric Psychiatric exam: Present normal affect Skin Skin exam: Present warm and dry HEART Score <Buffy North (ED), [employer] - Last Filed: 01/20/25 21:33> HEART Score HEART Score assessment performed?: Yes History (anamnesis): Moderately suspicious ECG: Normal Age: >65 years Risk factors: Atherosclerosis history Troponin: </= normal limit HEART Score: 5 <iKmi Castillo MD - Last Filed: 01/20/25 22:56> HEART Score HEART Score: 5 <Torrie Gambino MD - Last Filed: 01/21/25 03:48> HEART Score HEART Score: 5 Critical Care <Kimi Castillo MD - Last Filed: 01/20/25 22:56> Critical Care Time Critical Care Time: No Medical Decision Making <Buffy North (ED), [employer] - Last Filed: 01/20/25 21:33> Medical Records Medical records reviewed: Yes I reviewed the patient's medical records. Adryan Inquiry Pt receiving controlled substance: No Adryan was queried for this patient: No Vital Signs Vital Signs: 01/20/25 20:41 01/20/25 21:01 01/20/25 22:00 Temperature 98.5 F Temperature Source Oral Pulse Rate 77 74 Pulse Rate [Left] 74 Respiratory Rate 12 16 16 Blood Pressure 140/75 141/80 H Blood Pressure [Right Arm] 156/91 H Blood Pressure Mean 89 Blood Pressure Mean [Right Arm] 112 Blood Pressure Position 02 Sat by Pulse Oximetry 97 94 L 94 L Oxygen Delivery Method Room Air 01/20/25 22:30 01/20/25 22:56 01/20/25 23:00 Temperature Temperature Source Pulse Rate 66 67 63 Pulse Rate [Left] Respiratory Rate 18 15 13 Blood Pressure 135/75 146/73 H 151/72 H Blood Pressure [Right Arm] Blood Pressure Mean Blood Pressure Mean [Right Arm] Blood Pressure Position 02 Sat by Pulse Oximetry 95 97 97 Oxygen Delivery Method 01/20/25 23:32 01/21/25 00:01 01/21/25 01:26 Temperature 98 F Temperature Source Pulse Rate 67 63 59 L Pulse Rate [Left] Respiratory Rate 16 14 11 L Blood Pressure 119/86 161/97 H 150/90 H Blood Pressure [Right Arm] Blood Pressure Mean Blood Pressure Mean [Right Arm] Blood Pressure Position Sitting 02 Sat by Pulse Oximetry 93 L 94 L Oxygen Delivery Method Room Air Lab Data Labs: Lab Results 01/20/25 20:39: WBC 6.6, RBC 4.23, Hgb 13.6, Hct 39.8, MCV 94.1, MCH 32.2 H, MCHC 34.2, RDW 13.6, Plt Count 228, MPV 10.2, Neut % (Auto) 50.8, Lymph % (Auto) 35.7, Phillips % (Auto) 9.4 H, Eos % (Auto) 3.2, Baso % (Auto) 0.6, Neut # (Auto) 3.4, Lymph # (Auto) 2.4, Phillips # (Auto) 0.6, Eos # (Auto) 0.2, Baso # (Auto) 0.0, PT 10.6, INR 0.95, APTT 23.9, D-Dimer 0.49, Sodium 137, Potassium 4.1, Chloride 106, Carbon Dioxide 27, Anion Gap 8.1, BUN 25 H, Creatinine 0.90, Estimated Creat Clear 59, Estimated GFR 61, Est GFR ( Amer) 74, Glucose 126 H, Calcium 9.5, Magnesium 1.9, Total Bilirubin 0.7, AST 30, ALT 20, Alkaline Phosphatase 82, Troponin I < 0.01, NT-Pro-B Natriuret Pep 157 H, Total Protein 6.8, Albumin 4.3, Globulin 2.5, Albumin/Globulin Ratio 1.7, Lipase 176 01/20/25 22:56: Troponin I 0.02 01/20/25 20:39 01/20/25 20:39 Response Orders (Tests/Meds): ED MEDICATIONS Discontinued Medications Generic Name Dose Route Start Last Admin Trade Name Raheel PRN Reason Stop Dose Admin Aspirin 324 mg 01/20/25 20:40 01/20/25 20:54 Aspirin 81mg Chewable Tablet PO 01/20/25 20:41 324 mg ONCE ONE Administration Famotidine 20 mg 01/20/25 20:40 01/20/25 20:54 Famotidine 20mg/2ml Vial IV 01/20/25 20:41 20 mg ONCE ONE Administration Isosorbide Mononitrate 30 mg 01/21/25 00:55 01/21/25 01:15 Isosorbide Phillips 30mg Tab.Er.24h PO 01/21/25 00:56 30 mg ONCE ONE Administration Nitroglycerin 0.4 mg 01/20/25 20:40 Nitroglycerin 0.4mg Sl Tablet SL 01/21/25 20:41 Q5MINP PRN Chest Pain Ondansetron HCl 4 mg 01/20/25 20:40 01/20/25 20:54 Ondansetron 4mg/2ml Vial IV 01/20/25 20:41 4 mg ONCE ONE Administration Sodium Chloride 8 ml 01/20/25 20:40 Sodium Chloride 0.9% 10ml Vial IV 02/19/25 20:39 NEEDED PRN dilute pepcid ORDERS Category Date Time Status Chest XR -- portable [XR chest portable] Stat Exams 01/20/25 20:40 Completed Activated Partial Thrombo Time Stat Lab 01/20/25 20:39 Completed CBC [Complete Blood Count Auto Diff] Stat Lab 01/20/25 20:39 Completed Comprehensive Metabolic Panel Stat Lab 01/20/25 20:39 Completed D-Dimer Stat Lab 01/20/25 20:39 Completed Lipase Stat Lab 01/20/25 20:39 Completed Magnesium Stat Lab 01/20/25 20:39 Completed NT Pro Brain Natriuretic Pep. Stat Lab 01/20/25 20:39 Completed Prothrombin Time INR Stat Lab 01/20/25 20:39 Completed Trop I [Troponin I] Stat Lab 01/20/25 20:39 Completed Troponin I Q3H Lab 01/20/25 22:56 Completed MDM Narrative Medical Decision Narrative: patient is a 74-year-old female presenting to the emergency department for evaluation of chest pain, shortness of breath and epigastric pain and vomiting. This started at 4 PM today. Patient is hemodynamically stable and anxious appearing upon arrival, afebrile. Differential diagnosis includes SD, CAD, CHF, viral illness, angina among others. Workup will be conducted with hematologic labs, specific imaging, provocative tests. Initial inventions include analgesics, famotidine, nausea meds. Initial workup reviewed by me first troponin was negative, D-dimer was unremarkable and labs were nonactionable this far. Imaging informally interpreted by me and remarkable for a small amount of vascular congestion. No focal pneumonia. I am still awaiting for the formal imaging read. Upon repeat evaluation patient's pain is improved, appears better perfused. I did discuss with patient that the first troponin was negative and that I am still waiting on the x-ray read. I discussed that we would be doing a second level troponin in 2 hours. <Kimi Castillo MD - Last Filed: 01/20/25 22:56> Vital Signs Vital Signs: 01/20/25 20:41 01/20/25 21:01 01/20/25 22:00 Temperature 98.5 F Temperature Source Oral Pulse Rate 77 74 Pulse Rate [Left] 74 Respiratory Rate 12 16 16 Blood Pressure 140/75 141/80 H Blood Pressure [Right Arm] 156/91 H Blood Pressure Mean 89 Blood Pressure Mean [Right Arm] 112 Blood Pressure Position 02 Sat by Pulse Oximetry 97 94 L 94 L Oxygen Delivery Method Room Air 01/20/25 22:30 01/20/25 22:56 01/20/25 23:00 Temperature Temperature Source Pulse Rate 66 67 63 Pulse Rate [Left] Respiratory Rate 18 15 13 Blood Pressure 135/75 146/73 H 151/72 H Blood Pressure [Right Arm] Blood Pressure Mean Blood Pressure Mean [Right Arm] Blood Pressure Position 02 Sat by Pulse Oximetry 95 97 97 Oxygen Delivery Method 01/20/25 23:32 01/21/25 00:01 01/21/25 01:26 Temperature 98 F Temperature Source Pulse Rate 67 63 59 L Pulse Rate [Left] Respiratory Rate 16 14 11 L Blood Pressure 119/86 161/97 H 150/90 H Blood Pressure [Right Arm] Blood Pressure Mean Blood Pressure Mean [Right Arm] Blood Pressure Position Sitting 02 Sat by Pulse Oximetry 93 L 94 L Oxygen Delivery Method Room Air Lab Data Lab results reviewed: Yes I reviewed the patient's lab results. Labs: Lab Results 01/20/25 20:39: WBC 6.6, RBC 4.23, Hgb 13.6, Hct 39.8, MCV 94.1, MCH 32.2 H, MCHC 34.2, RDW 13.6, Plt Count 228, MPV 10.2, Neut % (Auto) 50.8, Lymph % (Auto) 35.7, Phillips % (Auto) 9.4 H, Eos % (Auto) 3.2, Baso % (Auto) 0.6, Neut # (Auto) 3.4, Lymph # (Auto) 2.4, Phillips # (Auto) 0.6, Eos # (Auto) 0.2, Baso # (Auto) 0.0, PT 10.6, INR 0.95, APTT 23.9, D-Dimer 0.49, Sodium 137, Potassium 4.1, Chloride 106, Carbon Dioxide 27, Anion Gap 8.1, BUN 25 H, Creatinine 0.90, Estimated Creat Clear 59, Estimated GFR 61, Est GFR ( Amer) 74, Glucose 126 H, Calcium 9.5, Magnesium 1.9, Total Bilirubin 0.7, AST 30, ALT 20, Alkaline Phosphatase 82, Troponin I < 0.01, NT-Pro-B Natriuret Pep 157 H, Total Protein 6.8, Albumin 4.3, Globulin 2.5, Albumin/Globulin Ratio 1.7, Lipase 176 01/20/25 22:56: Troponin I 0.02 Response Orders (Tests/Meds): ED MEDICATIONS Discontinued Medications Generic Name Dose Route Start Last Admin Trade Name Freq PRN Reason Stop Dose Admin Aspirin 324 mg 01/20/25 20:40 01/20/25 20:54 Aspirin 81mg Chewable Tablet PO 01/20/25 20:41 324 mg ONCE ONE Administration Famotidine 20 mg 01/20/25 20:40 01/20/25 20:54 Famotidine 20mg/2ml Vial IV 01/20/25 20:41 20 mg ONCE ONE Administration Isosorbide Mononitrate 30 mg 01/21/25 00:55 01/21/25 01:15 Isosorbide Phillips 30mg Tab.Er.24h PO 01/21/25 00:56 30 mg ONCE ONE Administration Nitroglycerin 0.4 mg 01/20/25 20:40 Nitroglycerin 0.4mg Sl Tablet SL 01/21/25 20:41 Q5MINP PRN Chest Pain Ondansetron HCl 4 mg 01/20/25 20:40 01/20/25 20:54 Ondansetron 4mg/2ml Vial IV 01/20/25 20:41 4 mg ONCE ONE Administration Sodium Chloride 8 ml 01/20/25 20:40 Sodium Chloride 0.9% 10ml Vial IV 02/19/25 20:39 NEEDED PRN dilute pepcid ORDERS Category Date Time Status Chest XR -- portable [XR chest portable] Stat Exams 01/20/25 20:40 Completed Activated Partial Thrombo Time Stat Lab 01/20/25 20:39 Completed CBC [Complete Blood Count Auto Diff] Stat Lab 01/20/25 20:39 Completed Comprehensive Metabolic Panel Stat Lab 01/20/25 20:39 Completed D-Dimer Stat Lab 01/20/25 20:39 Completed Lipase Stat Lab 01/20/25 20:39 Completed Magnesium Stat Lab 01/20/25 20:39 Completed NT Pro Brain Natriuretic Pep. Stat Lab 01/20/25 20:39 Completed Prothrombin Time INR Stat Lab 01/20/25 20:39 Completed Trop I [Troponin I] Stat Lab 01/20/25 20:39 Completed Troponin I Q3H Lab 01/20/25 22:56 Completed MDM Narrative Medical Decision Narrative: patient is a 74-year-old female presenting to the emergency department for evaluation of chest pain, shortness of breath and epigastric pain and vomiting. This started at 4 PM today. Patient is hemodynamically stable and anxious appearing upon arrival, afebrile. Differential diagnosis includes SD, CAD, CHF, viral illness, angina among others. Workup will be conducted with hematologic labs, specific imaging, provocative tests. Initial inventions include analgesics, famotidine, nausea meds. Initial workup reviewed by me first troponin was negative, D-dimer was unremarkable and labs were nonactionable this far. Imaging informally interpreted by me and remarkable for a small amount of vascular congestion. No focal pneumonia. I am still awaiting for the formal imaging read. Upon repeat evaluation patient's pain is improved, appears better perfused. I did discuss with patient that the first troponin was negative and that I am still waiting on the x-ray read. I discussed that we would be doing a second level troponin in [address] Castillo 11 PM care we transitioned to Dr. Gambino pending second troponin and final disposition. <Torrie Gambino MD - Last Filed: 01/21/25 03:48> Vital Signs Vital Signs: 01/20/25 20:41 01/20/25 21:01 01/20/25 22:00 Temperature 98.5 F Temperature Source Oral Pulse Rate 77 74 Pulse Rate [Left] 74 Respiratory Rate 12 16 16 Blood Pressure 140/75 141/80 H Blood Pressure [Right Arm] 156/91 H Blood Pressure Mean 89 Blood Pressure Mean [Right Arm] 112 Blood Pressure Position 02 Sat by Pulse Oximetry 97 94 L 94 L Oxygen Delivery Method Room Air 01/20/25 22:30 01/20/25 22:56 01/20/25 23:00 Temperature Temperature Source Pulse Rate 66 67 63 Pulse Rate [Left] Respiratory Rate 18 15 13 Blood Pressure 135/75 146/73 H 151/72 H Blood Pressure [Right Arm] Blood Pressure Mean Blood Pressure Mean [Right Arm] Blood Pressure Position 02 Sat by Pulse Oximetry 95 97 97 Oxygen Delivery Method 01/20/25 23:32 01/21/25 00:01 01/21/25 01:26 Temperature 98 F Temperature Source Pulse Rate 67 63 59 L Pulse Rate [Left] Respiratory Rate 16 14 11 L Blood Pressure 119/86 161/97 H 150/90 H Blood Pressure [Right Arm] Blood Pressure Mean Blood Pressure Mean [Right Arm] Blood Pressure Position Sitting 02 Sat by Pulse Oximetry 93 L 94 L Oxygen Delivery Method Room Air Lab Data Labs: Lab Results 01/20/25 20:39: WBC 6.6, RBC 4.23, Hgb 13.6, Hct 39.8, MCV 94.1, MCH 32.2 H, MCHC 34.2, RDW 13.6, Plt Count 228, MPV 10.2, Neut % (Auto) 50.8, Lymph % (Auto) 35.7, Phillips % (Auto) 9.4 H, Eos % (Auto) 3.2, Baso % (Auto) 0.6, Neut # (Auto) 3.4, Lymph # (Auto) 2.4, Phillips # (Auto) 0.6, Eos # (Auto) 0.2, Baso # (Auto) 0.0, PT 10.6, INR 0.95, APTT 23.9, D-Dimer 0.49, Sodium 137, Potassium 4.1, Chloride 106, Carbon Dioxide 27, Anion Gap 8.1, BUN 25 H, Creatinine 0.90, Estimated Creat Clear 59, Estimated GFR 61, Est GFR ( Amer) 74, Glucose 126 H, Calcium 9.5, Magnesium 1.9, Total Bilirubin 0.7, AST 30, ALT 20, Alkaline Phosphatase 82, Troponin I < 0.01, NT-Pro-B Natriuret Pep 157 H, Total Protein 6.8, Albumin 4.3, Globulin 2.5, Albumin/Globulin Ratio 1.7, Lipase 176 01/20/25 22:56: Troponin I 0.02 Response Orders (Tests/Meds): ED MEDICATIONS Discontinued Medications Generic Name Dose Route Start Last Admin Trade Name Freq PRN Reason Stop Dose Admin Aspirin 324 mg 01/20/25 20:40 01/20/25 20:54 Aspirin 81mg Chewable Tablet PO 01/20/25 20:41 324 mg ONCE ONE Administration Famotidine 20 mg 01/20/25 20:40 01/20/25 20:54 Famotidine 20mg/2ml Vial IV 01/20/25 20:41 20 mg ONCE ONE Administration Isosorbide Mononitrate 30 mg 01/21/25 00:55 01/21/25 01:15 Isosorbide Phillips 30mg Tab.Er.24h PO 01/21/25 00:56 30 mg ONCE ONE Administration Nitroglycerin 0.4 mg 01/20/25 20:40 Nitroglycerin 0.4mg Sl Tablet SL 01/21/25 20:41 Q5MINP PRN Chest Pain Ondansetron HCl 4 mg 01/20/25 20:40 01/20/25 20:54 Ondansetron 4mg/2ml Vial IV 01/20/25 20:41 4 mg ONCE ONE Administration Sodium Chloride 8 ml 01/20/25 20:40 Sodium Chloride 0.9% 10ml Vial IV 02/19/25 20:39 NEEDED PRN dilute pepcid ORDERS Category Date Time Status Chest XR -- portable [XR chest portable] Stat Exams 01/20/25 20:40 Completed Activated Partial Thrombo Time Stat Lab 01/20/25 20:39 Completed CBC [Complete Blood Count Auto Diff] Stat Lab 01/20/25 20:39 Completed Comprehensive Metabolic Panel Stat Lab 01/20/25 20:39 Completed D-Dimer Stat Lab 01/20/25 20:39 Completed Lipase Stat Lab 01/20/25 20:39 Completed Magnesium Stat Lab 01/20/25 20:39 Completed NT Pro Brain Natriuretic Pep. Stat Lab 01/20/25 20:39 Completed Prothrombin Time INR Stat Lab 01/20/25 20:39 Completed Trop I [Troponin I] Stat Lab 01/20/25 20:39 Completed Troponin I Q3H Lab 01/20/25 22:56 Completed MDM Narrative Medical Decision Narrative: patient is a 74-year-old female presenting to the emergency department for evaluation of chest pain, shortness of breath and epigastric pain and vomiting. This started at 4 PM today. Patient is hemodynamically stable and anxious appearing upon arrival, afebrile. Differential diagnosis includes SD, CAD, CHF, viral illness, angina among others. Workup will be conducted with hematologic labs, specific imaging, provocative tests. Initial inventions include analgesics, famotidine, nausea meds. Initial workup reviewed by me first troponin was negative, D-dimer was unremarkable and labs were nonactionable this far. Imaging informally interpreted by me and remarkable for a small amount of vascular congestion. No focal pneumonia. I am still awaiting for the formal imaging read. Upon repeat evaluation patient's pain is improved, appears better perfused. I did discuss with patient that the first troponin was negative and that I am still waiting on the x-ray read. I discussed that we would be doing a second level troponin in [address] Castillo 11 PM care we transitioned to Dr. Gambino pending second troponin and final disposition. Gambino: Upon my assumption of care patient is stable, now resting comfortably, she states her symptoms have started to let up in the last hour and she reports at this time she has just recently become asymptomatic. I agree with the assessment and plan from Dr. Castillo, repeat troponin was 0.02 which is within normal limits but is a slight increase. Given patient's extensive cardiac history including numerous stents and long family history of multiple cardiac deaths, this does increase my concern that with her slight change in troponin she may have had a cardiac event and is just now starting to demonstrate troponin leak. I recommended admission to the patient with which she is amenable, I discussed this case with the hospitalist. Hospitalist Dr. Kruger came down and talked with the patient at bedside. He was able to obtain additional history that was not provided to us by the patient that she had been out of her medications and then just took them for the first time this afternoon. Hospitalist is recommending additional antianginal therapy with isosorbide which he is prescribing. He does not believe patient requires admission and believes she is appropriate for discharge. Since she is hemodynamically stable and asymptomatic I believe this is reasonable since additional management is being prescribed by the hospitalist. Patient follows with cardiology and I recommended she see cardiology first thing on Thursday. She was instructed to call the cardiology office and make an immediate appointment. Patient was given instructions on symptomatic management including use of new medication, follow up instructions including with cardiology, and return precautions for the emergency department. Patient indicated understanding and was discharged in stable condition.
[2025-01-20 20:47] LABS: Basophils % 0.6 % (0.1-2.0); Eosinophils # 0.2 Kmm3 (0.0-0.4); Eosinophils % 3.2 % (0.1-12.0); Hematocrit 39.8 % (37.0-47.0); Hemoglobin 13.6 g/dL (12.2-16.2); Immature Granulocytes # 0.02 10^3uL; Immature Granulocytes % 0.3 %; Lymphocytes # 2.4 K/mm3 (0.7-4.5); Lymphocytes % 35.7 % (10-50); Mean Corpuscular HGB Conc 34.2 g/dL (31.8-35.4); Mean Corpuscular Hemoglobin 32.2 pg (27.0-31.2); Mean Corpuscular Volume 94.1 fl (81-99); Mean Platelet Volume 10.2 fl (7.4-10.4); Monocytes # 0.6 K/mm3 (0.1-1.0); Monocytes % 9.4 % (1.7-9.3); Neutrophils # 3.4 K/mm3 (1.8-7.8); Neutrophils % 50.8 % (37.0-80.0); Nucleated Red Blood Cells # 0 10^3/uL; Nucleated Red Blood Cells % 0 %; Platelet Count 228 K/mm3 (142-424); Red Blood Count 4.23 M/mm3 (4.20-5.40); Red Cell Distribution Width 13.6 % (11.5-17.5); Red Cell Distribution Width-SD 47.2 fL; White Blood Count 6.6 K/mm3 (4.8-10.8)
[2025-01-20] MEDS: FAMOTIDINE 20MG/2ML VIAL 20 MG IV (20:54)
[2025-01-20] MEDS: ONDANSETRON 4MG/2ML VIAL 4 MG IV (20:54)
[2025-01-20] MEDS: ASPIRIN 81MG CHEWABLE TABLET 324 MG PO (20:54)
[2025-01-20 21:00] LABS: Alanine Aminotransferase 20 U/L (12-78); Albumin Level 4.3 g/dl (3.5-5.0); Albumin/Globulin Ratio 1.7 (1.1-1.8); Alkaline Phosphatase 82 U/L (38-126); Anion Gap 8.1 mEq/L (5-15); Aspartate Amino Transferase 30 U/L (14-36); Bilirubin,Total 0.7 mg/dl (0.2-1.3); Blood Urea Nitrogen 25 mg/dl (7-17); Calcium 9.5 mg/dl (8.4-10.2); Carbon Dioxide 27 mmol/L (22.0-30.0); Chloride 106 mmol/L (98-107); Creatinine Clearance Estimated 59 mL/min (50-200); Estimated Glomerular Filt Rate 61 ml/min (>60); GFR (African American) 74 ML/MIN (>60); Globulin 2.5 g/dL (1.3-3.2); Glucose 126 mg/dl (74-100); Lipase 176 U/L (23-300); Magnesium 1.9 mg/dl (1.6-2.3); Potassium 4.1 mmoL/L (3.5-5.1); Sodium 137 mmol/L (136-145); Total Protein,Serum 6.8 g/dl (6.3-8.2)
[2025-01-20 21:04] LABS: Activated Partial Thrombo Time 23.9 seconds (22.8-30.6); INR 0.95 (0.9-1.1); Prothrombin Time 10.6 seconds (10.1-12.5)
[2025-01-20 21:12] LABS: NT Pro Brain Natriuretic Pep. 157 pg/mL (0-125)
[2025-01-20 21:13] LABS: D-Dimer 0.49 ug/mL (0.0-0.5)
[2025-01-20 21:15] LABS: Troponin I < 0.01 ng/ml (0.00-0.034)
--- NOTE | 2025-01-20 22:16 | PC.NURSE ---
pt ambulatory to radiology department with tech, slow steady gait noted.
--- NOTE | 2025-01-20 22:57 | PC.NURSE ---
2nd joshua collected and sent to the lab at this time.
[2025-01-20 23:23] LABS: Troponin I 0.02 ng/ml (0.00-0.034)
[2025-01-21 00:01] VITALS: BP 161/97; PULSE 63; RESP 14; O2SAT 94
--- NOTE | 2025-01-21 00:33 | PC.NURSE ---
admitting doctor at the bedside to discuss POC with patient.
--- NOTE | 2025-01-21 00:45 | EXP.HP ---
History of Present Illness *Admission Date: 01/21/25 *Reason for visit:: Chest pain *History of present illness: 7-year-old female presents emergency department due to acute chest pain starting at 4 PM on 01/20/2025. She states that she ran out of all of her medicines about 4 days ago and just received her refills at around 1 or 2:00 PM just prior to chest pain onset. Medications that were refilled include antianginals antihypertensive medications. At the time of symptom onset her blood pressure was approximately 195 mmHg. She took all of her medicines and noted that her chest pain continued to occur. Symptoms are described as substernal burning and a sensation of belching. Due to persistence of her symptoms she sought emergency room evaluation. In the emergency department EKG is consistent with prior. Is normal sinus rhythm with mild ST depressions inferolateral leads, these are chronic in comparison to old EKGs. Troponins negative. Currently she is feeling much better and her chest pain has subsided. Additionally her blood pressure has improved and is now in the 160s. Extensive discussion regarding the findings and her current medication regimen. Advised patient that we can admit for further out the observation, however since her symptoms have resolved, blood work has returned negative, and her clinical presentation is consistent with ischemia secondary to hypertension from missing her medications it would be reasonable to discharge on further antianginal therapy with follow-up in cardiology clinic on Thursday. Patient elected that she would rather start new medications and to go home to be evaluated soon. Particularly given that her left heart cath obtained in May 2024 showed widely patent stents and nonobstructive residual CAD. Will prescribe isosorbide and discharged with cardiology follow-up. History independently obtained. Diagnostics independently interpreted. Discussed case with ER physician. Prior records reviewed [facility] Disclaimer: The information contained in this section may have been updated after the patient was seen, as this information can be updated by other users. Medical History (Updated 01/20/25 @ 22:56 by Kimi Castillo MD) UTI (urinary tract infection) Near syncope Fatigue Right shoulder pain Headache COVID-19 Encounter for screening colonoscopy Low Back Pain Hemorrhoids Acute bacterial bronchitis Varicose veins of both legs with edema Edema Calcaneal spur of left foot Acquired pes planus of both feet Acute pain of left foot Varicose veins of bilateral lower extremities with pain Bilateral lower extremity edema Hypotension Acute dehydration Orthostatic syncope Pain in left foot Dislocation of second toe, left, closed Hallux valgus (acquired), left foot Metatarsalgia, left foot Acute bronchitis Back pain Acute dysfunction of left eustachian tube Wheezing Exposure to COVID-19 virus Fall Facial abrasion Forehead laceration Wasp sting Hymenoptera sting Lumbar back pain Primary osteoarthritis of right hip Bronchitis Aortic insufficiency Diastolic dysfunction Encounter for pre-operative cardiovascular clearance Dizzy Vitamin D insufficiency Sinusitis Arm pain Anxiety and depression History of gastroesophageal reflux (GERD) Hypothyroid Hypertension Hyperlipidemia Unstable angina Dyspnea Typical angina Mild persistent asthma Allergic rhinitis, unspecified Dyspnea on exertion Gallbladder sludge Bilateral carotid artery stenosis Right carotid bruit Surgical History History of colonoscopy History of total right hip arthroplasty History of hysterectomy Hx of heart artery stent History of breast biopsy History of total hip replacement Family History Other Diabetes Heart attack Social History Smoking Status: Never smoker second hand exposure: No alcohol intake: never substance use type: denies use current occupational status: disabled Travel in the last 8 weeks?: None household members: none housing: house current occupational exposures/hazards: No caffeine: Yes Have you lived/traveled outside [place] in past 30 days?: No Contact w/someone who lives/traveled outside [place] past 30 days?: No Exposure to someone with infectious disease in past 14 days?: No Do you have a fever (greater than 100.4 F or 38 C)?: No Have you tested positive for COVID-19?: No Exposed to someone with COVID-19 in past 14 days?: No Do you have a sore throat?: No Do you have a cough?: No Do you have any weakness?: No Do you have any diarrhea?: No Are you experiencing any unusual bleeding?: No Do you have any muscle aches/pain?: No Do you have any abdominal pain?: No Are you experiencing loss of taste or smell?: No Other Medical History Have you received the Flu Vaccine for this season: No Have you received the Pneumonia Vaccine: No Review of Systems Review of Systems Review of systems:: pertinent systems reviewed and negative unless documented below Meds Home Medications and Allergies Home Medications ?Medication ?Instructions ?Recorded ?Confirmed ?Type melatonin 5 mg tablet 5 mg PO HS PRN Sleep 05/26/22 10/20/24 History albuterol sulfate 90 mcg/actuation 2 inh inhalation Q4-6H PRN 03/29/24 10/20/24 Rx aerosol inhaler shortness of breath or wheezing #8.5 grams atorvastatin 80 mg tablet 80 mg PO DAILY #90 tabs 05/02/24 10/20/24 Rx fluticasone 250 mcg-salmeterol 50 1 inh inhalation BID 05/31/24 10/20/24 History mcg/dose blistr powdr for inhalation (Advair Diskus) clopidogrel 75 mg tablet 75 mg PO DAILY #90 tabs 06/26/24 10/20/24 Rx clonazepam 0.5 mg tablet (Klonopin) 0.5 mg PO DAILY PRN anxiety #20 06/30/24 10/20/24 Rx tabs montelukast 10 mg tablet 10 mg PO QHS breathing issues #90 07/22/24 10/20/24 Rx tabs ranolazine 500 mg tablet,extended 500 mg PO BID 30 days #60 tabs 10/31/24 Rx release,12 hr furosemide 20 mg tablet 20 mg PO BID #180 tabs 01/15/25 Rx bisoprolol fumarate 5 mg tablet 5 mg PO DAILY BP #90 tabs 01/20/25 Rx escitalopram oxalate 10 mg tablet See Rx Instructions .Route 01/20/25 Rx .COMPLEX #90 tabs levothyroxine 50 mcg tablet 50 mcg PO DAILY hypothyroid #90 01/20/25 Rx (Levo-T) tabs pantoprazole 40 mg tablet,delayed See Rx Instructions .Route DAILY 01/20/25 Rx release (Protonix) gerd #90 tabs isosorbide mononitrate 30 mg 30 mg PO DAILY #30 tabs 01/21/25 Rx tablet,extended release 24 hr New Prescriptions to Start Prescriptions: isosorbide mononitrate Lani Kruger Allergies Allergy/AdvReac Type Severity Reaction Status Date / Time No Known Allergies Allergy Verified 10/20/24 10:16 Exam Data for Last 24 hours Vital signs and Labs for Last 24 Hours: Temp Pulse Resp BP Pulse Ox O2 Del Method 98.5 F 63 14 161/97 H 94 L Room Air 01/20/25 20:41 01/21/25 00:01 01/21/25 00:01 01/21/25 00:01 01/21/25 00:01 01/20/25 20:41 Laboratory Results - last 24 hr 01/20/25 20:39: WBC 6.6, RBC 4.23, Hgb 13.6, Hct 39.8, MCV 94.1, MCH 32.2 H, MCHC 34.2, RDW 13.6, Plt Count 228, MPV 10.2, Neut % (Auto) 50.8, Lymph % (Auto) 35.7, [place] % (Auto) 9.4 H, Eos % (Auto) 3.2, Baso % (Auto) 0.6, Neut # (Auto) 3.4, Lymph # (Auto) 2.4, [place] # (Auto) 0.6, Eos # (Auto) 0.2, Baso # (Auto) 0.0, PT 10.6, INR 0.95, APTT 23.9, D-Dimer 0.49, Sodium 137, Potassium 4.1, Chloride 106, Carbon Dioxide 27, Anion Gap 8.1, BUN 25 H, Creatinine 0.90, Estimated Creat Clear 59, Estimated GFR 61, Est GFR ( Amer) 74, Glucose 126 H, Calcium 9.5, Magnesium 1.9, Total Bilirubin 0.7, AST 30, ALT 20, Alkaline Phosphatase 82, Troponin I < 0.01, NT-Pro-B Natriuret Pep 157 H, Total Protein 6.8, Albumin 4.3, Globulin 2.5, Albumin/Globulin Ratio 1.7, Lipase 176 01/20/25 22:56: Troponin I 0.02 I & O for Last 24 hours: Intake & Output 01/18/25 01/19/25 01/20/25 01/21/25 23:59 23:59 23:59 23:59 Weight 75.75 kg Constitutional Constitutional: no acute distress *Routine HEENT Exam Head: Present normocephalic Eye: Present EOMI and PERRL ENT: Present mucous membranes moist *Routine Neck Exam Neck: Present supple; Absent lymphadenopathy *Routine Respiratory Exam Respiratory: Present CTA bilaterally *Routine Cardiovascular Exam Cardiovascular: Present RRR *Routine Abdominal Exam Abdominal: Present soft and normoactive bowel sounds; Absent tenderness *Routine Rectal Exam Rectal:: deferred *Routine Genitalia Exam Genitalia:: deferred *Routine Extremities Exam Extremities: Absent cyanosis, clubbing or edema *Routine Skin Exam Skin: Present warm; Absent rash *Routine Neurological Exam Neurological: Present alert and oriented X3 Assessment and Plan *Assessment and plan (1) Chest pain: Status: Acute Category: Medical Code(s): R07.9 - Chest pain, unspecified (2) Hypothyroidism: Status: Acute Qualifiers: Hypothyroidism type: acquired Qualified Code(s): E03.9 - Hypothyroidism, unspecified Category: Medical Code(s): E03.9 - Hypothyroidism, unspecified (3) HLD (hyperlipidemia): Status: Chronic Qualifiers: Hyperlipidemia type: mixed hyperlipidemia Qualified Code(s): E78.2 - Mixed hyperlipidemia Category: Medical Code(s): E78.5 - Hyperlipidemia, unspecified (4) HTN (hypertension): Status: Chronic Qualifiers: Hypertension type: essential hypertension Qualified Code(s): I10 - Essential (primary) hypertension Category: Medical Code(s): I10 - Essential (primary) hypertension Plan 7-year-old female presenting with acute chest pain in the setting of hypertension and missing her medications. Recent heart cath with widely patent stents and nonobstructive residual disease, this was performed in May 2024. Troponins been negative and EKG shows consistent findings with prior. Discussed different options for management including increasing antianginal medications and having follow-up cardiology clinic on Thursday, patient was agreeable to this plan. Stable coronary artery disease Hypertension - Continue bisoprolol - Continue Ranexa - Will prescribe Imdur 30 mg - will avoid amlodipine now due to varicose veins and le swelling to avoid worsening - Cardiology follow-up on Thursday increase antihypertensive regimen as necessary - LDL goal 55, continue high intensity statin, add Zetia if not at goal - Risk factor modification secondary prevention of coronary artery disease
[2025-01-21] MEDS: ISOSORBIDE MONO 30MG TAB.ER.24H 30 MG PO (01:15)
[2025-01-21 01:26] VITALS: BP 150/90; PULSE 59; RESP 11; TEMP 36.6; O2SAT 94
== END 2025-01-21 01:28 | disposition home or self-care (01) ==
PROVIDERS: Nurse Practitioner; Emergency Provider Student in an Organized Health Care Education/Training Program; PCP Family Medicine
DX: R07.9 Chest pain, unspecified (principal); R06.02 Shortness of breath; R10.13 Epigastric pain; E03.9 Hypothyroidism, unspecified; I10 Essential (primary) hypertension; E78.2 Mixed hyperlipidemia
CPT/HCPCS: 71045; 80053; 83690; 83735; 83880; 84484; 85025; 85378; 85610; 85730; 93005; 96374; 96375; 99285; J2405

== ENCOUNTER 2025-01-22 11:24 | Emergency (ER) | payer MEDICARE, SELFPAY ==
[2025-01-22] VITALS (23 sets, daily range): BP systolic 63–131; BP diastolic 39–82; PULSE 50–73; RESP 11–21; TEMP 36.7–37; O2SAT 92–99; BMI 29.2
--- NOTE | 2025-01-22 11:27 | XR_ITS ---
PROCEDURE INFORMATION: Exam: XR Chest Exam date and time: 01/22/2025 11:59 AM Age: 74 years old Clinical indication: Pain; Chest pressure; Additional info: Chest pain TECHNIQUE: Imaging protocol: Radiologic exam of the chest. Views: 2 views. COMPARISON: CR XR CHEST PORTABLE 01/20/2025 8:48 PM FINDINGS: Lungs: Unremarkable. No consolidation. Pleural spaces: Unremarkable. No pleural effusion. No pneumothorax. Heart/Mediastinum: Unremarkable. No cardiomegaly. Bones/joints: No acute bony abnormalities detected. IMPRESSION: Negative chest. No active disease.
--- NOTE | 2025-01-22 11:29 | ECG_ITS ---
APPROVED REPORT Exam: Resting ECG HR:61 bpm ECG Measurements Heart Rate 61 AXES HI 198 P 60 QRSd 80 QRS 51 QT 398 T 43 QTc 402 Conclusion SINUS RHYTHM LOW QRS VOLTAGE IN PRECORDIAL LEADS [QRS DEFLECTION < 1.0 mV IN CHEST LEADS] No STEMI Electronically signed by : MONAE POTTS, 01/22/2025 15:29:42
--- NOTE | 2025-01-22 11:33 | [facility].EDCP ---
Discharge Plan Disposition Patient Disposition: Home, Self-Care Condition: Good Prescriptions Prescriptions: New ondansetron 4 mg tablet,disintegrating 4 mg PO Q8H PRN (Reason: nausea and vomiting) 4 Days Qty: 12 0RF No Action albuterol sulfate 90 mcg/actuation HFA aerosol inhaler 2 inh INHALATION Q4-6H PRN (Reason: shortness of breath or wheezing) Qty: 8.5 10RF clonazepam [Klonopin] 0.5 mg tablet 0.5 mg PO DAILY PRN (Reason: anxiety) Qty: 20 0RF melatonin 5 mg tablet 5 mg PO HS PRN (Reason: Sleep) atorvastatin 80 mg tablet 80 mg PO DAILY Qty: 90 2RF clopidogrel 75 mg tablet 75 mg PO DAILY Qty: 90 3RF montelukast 10 mg tablet 10 mg PO QHS Qty: 90 0RF ranolazine 500 mg tablet extended release 12 hr 500 mg PO BID 30 Days Qty: 60 5RF furosemide 20 mg tablet 20 mg PO BID Qty: 180 2RF bisoprolol fumarate 5 mg tablet 5 mg PO DAILY Qty: 90 0RF escitalopram oxalate 10 mg tablet See Rx Instructions .ROUTE .COMPLEX Qty: 90 0RF Dose Instruction: Take 1 tablet by mouth once daily Rx Instructions: Take 1 tablet by mouth once daily levothyroxine [Levo-T] 50 mcg tablet 50 mcg PO DAILY Qty: 90 0RF pantoprazole [Protonix] 40 mg tablet,delayed release (DR/EC) See Rx Instructions .ROUTE DAILY Qty: 90 0RF Rx Instructions: Take on empty stomach at least 40 minutes before a meal. daily; isosorbide mononitrate 30 mg tablet extended release 24 hr 30 mg PO DAILY Qty: 30 12RF fluticasone propion-salmeterol [Advair Diskus] 250-50 mcg/dose blister with device 1 inh IH BID Referrals Follow up/Referrals: Alyssa Badillo APRN [Primary Care Provider, Family Practice] - See instructions Craig Cordova MD [Staff Physician, Cardiology] - See instructions Activity Restrictions/Add. Instructions Additional Instructions/Restrictions: You were evaluated in the emergency department today. As we discussed, we considered admission today, however since you are electing to go home, it is important that you follow-up very closely. You were diagnosed with colitis or inflammation of your colon. Please take Tylenol and ibuprofen at home as needed for pain related to this. 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 Eat a bland diet until your symptoms have resolved. I recommend starting with clear liquids. Follow-up close with your primary care provider as well as with cardiology over the next 48 hours. Return to the emergency department right away for new or worsening symptoms. Clinical Impressions Clinical Impression: Colitis, Chest pain Instructions Patient Instructions: DI for Chest Pain, DI for Colitis Print Language Print Language: Palestinian Discharge ED Provider: Polly Rees HPI General Chief Complaint: Chest Pain Stated Complaint: cp Time Seen by Provider: 01/22/25 11:26 History of Present Illness HPI narrative: This patient is a 74-year-old female with a history of CAD, hypertension, hyperlipidemia, hypothyroidism, unstable angina, and GERD presenting to the emergency department for evaluation with concern for chest tightness/pressure that radiates to her back that started acutely this morning while she was lying in bed just prior to arrival. She notes she took nitro which resolved the symptoms and she is feeling a lot better. She was evaluated here 01/20/2025 for similar symptoms and states that the symptoms are the exact same as when she was here. At that point, she was noted to have been out of her medications for several days and had not been taking her antianginals. She notes that she did refill these and has been taking them, but the pain restarted today without provocation. Right now she is doing okay and is not having any current symptoms. Related Data Home Medications ?Medication ?Instructions ?Recorded ?Confirmed melatonin 5 mg tablet 5 mg PO HS PRN Sleep 05/26/22 10/20/24 fluticasone 250 mcg-salmeterol 50 1 inh inhalation BID 05/31/24 10/20/24 mcg/dose blistr powdr for inhalation (Advair Diskus) Previous Rx's ?Medication ?Instructions ?Recorded albuterol sulfate 90 mcg/actuation 2 inh inhalation Q4-6H PRN 03/29/24 aerosol inhaler shortness of breath or wheezing #8.5 grams atorvastatin 80 mg tablet 80 mg PO DAILY #90 tabs 05/02/24 clopidogrel 75 mg tablet 75 mg PO DAILY #90 tabs 06/26/24 clonazepam 0.5 mg tablet (Klonopin) 0.5 mg PO DAILY PRN anxiety #20 06/30/24 tabs montelukast 10 mg tablet 10 mg PO QHS breathing issues #90 07/22/24 tabs ranolazine 500 mg tablet,extended 500 mg PO BID 30 days #60 tabs 10/31/24 release,12 hr furosemide 20 mg tablet 20 mg PO BID #180 tabs 01/15/25 bisoprolol fumarate 5 mg tablet 5 mg PO DAILY BP #90 tabs 01/20/25 escitalopram oxalate 10 mg tablet See Rx Instructions .Route 01/20/25 .COMPLEX #90 tabs levothyroxine 50 mcg tablet 50 mcg PO DAILY hypothyroid #90 01/20/25 (Levo-T) tabs pantoprazole 40 mg tablet,delayed See Rx Instructions .Route DAILY 01/20/25 release (Protonix) gerd #90 tabs isosorbide mononitrate 30 mg 30 mg PO DAILY #30 tabs 01/21/25 tablet,extended release 24 hr ondansetron 4 mg disintegrating 4 mg PO Q8H PRN nausea and 01/22/25 tablet vomiting 4 days #12 tabs Allergies Allergy/AdvReac Type Severity Reaction Status Date / Time No Known Allergies Allergy Verified 10/20/24 10:16 [facility] Disclaimer: The information contained in this section may have been updated after the patient was seen, as this information can be updated by other users. Medical History UTI (urinary tract infection) Near syncope Fatigue Right shoulder pain Headache COVID-19 Encounter for screening colonoscopy Low Back Pain Hemorrhoids Acute bacterial bronchitis Varicose veins of both legs with edema Edema Calcaneal spur of left foot Acquired pes planus of both feet Acute pain of left foot Varicose veins of bilateral lower extremities with pain Bilateral lower extremity edema Hypotension Acute dehydration Orthostatic syncope Pain in left foot Dislocation of second toe, left, closed Hallux valgus (acquired), left foot Metatarsalgia, left foot Acute bronchitis Back pain Acute dysfunction of left eustachian tube Wheezing Exposure to COVID-19 virus Fall Facial abrasion Forehead laceration Wasp sting Hymenoptera sting Lumbar back pain Primary osteoarthritis of right hip Bronchitis Aortic insufficiency Diastolic dysfunction Encounter for pre-operative cardiovascular clearance Dizzy Vitamin D insufficiency Sinusitis Arm pain Anxiety and depression History of gastroesophageal reflux (GERD) Hypothyroid Hypertension Hyperlipidemia Unstable angina Dyspnea Typical angina Mild persistent asthma Allergic rhinitis, unspecified Dyspnea on exertion Gallbladder sludge Bilateral carotid artery stenosis Right carotid bruit Surgical History History of colonoscopy History of total right hip arthroplasty History of hysterectomy Hx of heart artery stent History of breast biopsy History of total hip replacement Family History Other Diabetes Heart attack Social History Smoking Status: Never smoker second hand exposure: No alcohol intake: never substance use type: denies use current occupational status: disabled Travel in the last 8 weeks?: None household members: none housing: house current occupational exposures/hazards: No caffeine: Yes Have you lived/traveled outside [place] in past 30 days?: No Contact w/someone who lives/traveled outside [place] past 30 days?: No Exposure to someone with infectious disease in past 14 days?: No Do you have a fever (greater than 100.4 F or 38 C)?: No Have you tested positive for COVID-19?: No Exposed to someone with COVID-19 in past 14 days?: No Do you have a sore throat?: No Do you have a cough?: No Do you have any weakness?: No Do you have any diarrhea?: No Are you experiencing any unusual bleeding?: No Do you have any muscle aches/pain?: No Do you have any abdominal pain?: No Are you experiencing loss of taste or smell?: No Other Medical History Have you received the Flu Vaccine for this season: No Have you received the Pneumonia Vaccine: No ROS Obtained: Yes All systems reviewed & no additional complaints except as documented Physical Exam General General appearance: alert and anxious Comment: Anxious appearing, fidgety Head Head exam: atraumatic and normocephalic Eye Eye exam: Present normal appearance, PERRL and EOMI ENT ENT exam: Present normal exam, normal oropharynx, mucous membranes moist and normal external ear exam Neck Neck exam: Present normal inspection, full ROM and trachea midline; Absent tenderness Chest Chest inspection: Present normal inspection and symmetric chest wall rise; Absent tenderness Respiratory Respiratory exam: Present normal lung sounds bilaterally; Absent respiratory distress, wheezes, stridor or accessory muscle use Cardiovascular Cardiovascular exam: Present regular rate and normal rhythm Abdominal Exam Abdominal exam: Present soft; Absent distention, tenderness or guarding Extremities Exam Extremities exam: Present normal inspection, full ROM and normal capillary refill; Absent tenderness or edema Back Exam Back exam: Present normal inspection and full ROM; Absent tenderness Neurological Exam Neurological exam: Present alert, oriented X3, CN II-XII intact and normal gait; Absent motor sensory deficit Psychiatric Psychiatric exam: Present anxious Skin Skin exam: Present warm and dry HEART Score HEART Score HEART Score assessment performed?: Yes History (anamnesis): Slightly suspicious ECG: Normal Age: >65 years Risk factors: Atherosclerosis history Troponin: </= normal limit HEART Score: 4 Critical Care Critical Care Time Critical Care Time: Yes Attestation: On 01/22/25, the high probability of a clinically significant, sudden or life threatening deterioration of the following system(s) required my full and direct attention, intervention and personal management. The time I documented below is in addition to time spent performing reported procedures but includes the following listed in this critical care notation. Total Time Total Critical Care Time: 35 Medical Decision Making Adryan Inquiry Pt receiving controlled substance: No Vital Signs Vital Signs: 01/22/25 11:30 01/22/25 11:50 01/22/25 12:00 Temperature 98.6 F Temperature Source Oral Pulse Rate 61 61 Pulse Rate [Right Radial] 73 Respiratory Rate 11 L 15 15 Blood Pressure 99/76 L 113/75 Blood Pressure [Right Arm] 131/81 Blood Pressure Mean [Right Arm] 97 Blood Pressure Source [Right Arm] Automatic Cuff Blood Pressure Position [Right Arm] Supine 02 Sat by Pulse Oximetry 98 95 95 Oxygen Delivery Method Room Air Room Air 01/22/25 12:30 01/22/25 12:33 01/22/25 12:43 Temperature Temperature Source Pulse Rate 60 58 L 61 Pulse Rate [Right Radial] Respiratory Rate 18 21 16 Blood Pressure 88/57 L 85/56 L 67/40 L Blood Pressure [Right Arm] Blood Pressure Mean [Right Arm] Blood Pressure Source [Right Arm] Blood Pressure Position [Right Arm] 02 Sat by Pulse Oximetry 95 97 98 Oxygen Delivery Method 01/22/25 12:45 01/22/25 12:48 01/22/25 12:50 Temperature Temperature Source Pulse Rate 50 L 60 59 L Pulse Rate [Right Radial] Respiratory Rate 14 11 L 12 Blood Pressure 63/39 L 76/44 L 93/56 L Blood Pressure [Right Arm] Blood Pressure Mean [Right Arm] Blood Pressure Source [Right Arm] Blood Pressure Position [Right Arm] 02 Sat by Pulse Oximetry 93 L 92 L 93 L Oxygen Delivery Method 01/22/25 12:52 01/22/25 13:08 01/22/25 13:11 Temperature Temperature Source Pulse Rate 59 L 65 64 Pulse Rate [Right Radial] Respiratory Rate 19 12 13 Blood Pressure 99/58 L 127/65 124/69 Blood Pressure [Right Arm] Blood Pressure Mean [Right Arm] Blood Pressure Source [Right Arm] Blood Pressure Position [Right Arm] 02 Sat by Pulse Oximetry 95 97 98 Oxygen Delivery Method 01/22/25 13:20 01/22/25 13:30 01/22/25 13:40 Temperature Temperature Source Pulse Rate 65 68 Pulse Rate [Right Radial] Respiratory Rate 15 15 13 Blood Pressure 119/63 119/65 Blood Pressure [Right Arm] Blood Pressure Mean [Right Arm] Blood Pressure Source [Right Arm] Blood Pressure Position [Right Arm] 02 Sat by Pulse Oximetry 96 97 Oxygen Delivery Method 01/22/25 13:50 01/22/25 14:00 01/22/25 14:10 Temperature Temperature Source Pulse Rate 61 64 Pulse Rate [Right Radial] Respiratory Rate 14 12 12 Blood Pressure 112/68 115/68 104/54 L Blood Pressure [Right Arm] Blood Pressure Mean [Right Arm] Blood Pressure Source [Right Arm] Blood Pressure Position [Right Arm] 02 Sat by Pulse Oximetry 95 94 L Oxygen Delivery Method 01/22/25 14:21 01/22/25 14:30 01/22/25 14:40 Temperature Temperature Source Pulse Rate 64 64 61 Pulse Rate [Right Radial] Respiratory Rate 13 18 14 Blood Pressure 119/73 112/64 111/60 Blood Pressure [Right Arm] Blood Pressure Mean [Right Arm] Blood Pressure Source [Right Arm] Blood Pressure Position [Right Arm] 02 Sat by Pulse Oximetry 92 L 93 L 95 Oxygen Delivery Method 01/22/25 14:50 Temperature Temperature Source Pulse Rate 61 Pulse Rate [Right Radial] Respiratory Rate 14 Blood Pressure 104/82 L Blood Pressure [Right Arm] Blood Pressure Mean [Right Arm] Blood Pressure Source [Right Arm] Blood Pressure Position [Right Arm] 02 Sat by Pulse Oximetry 94 L Oxygen Delivery Method Lab Data Labs: Lab Results 01/22/25 11:30: WBC 5.8, RBC 4.27, Hgb 13.8, Hct 40.3, MCV 94.4, MCH 32.3 H, MCHC 34.2, RDW 13.6, Plt Count 233, MPV 10.5 H, Neut % (Auto) 53.3, Lymph % (Auto) 34.0, [place] % (Auto) 8.8, Eos % (Auto) 2.9, Baso % (Auto) 0.7, Neut # (Auto) 3.1, Lymph # (Auto) 2.0, [place] # (Auto) 0.5, Eos # (Auto) 0.2, Baso # (Auto) 0.0, D-Dimer 0.54 H, Sodium 139, Potassium 4.0, Chloride 104, Carbon Dioxide 30, Anion Gap 9.0, BUN 17 D, Creatinine 0.90, Estimated Creat Clear 60, Estimated GFR 61, Est GFR ( Amer) 74, Glucose 90, Calcium 9.3, Total Bilirubin 0.9, AST 29, ALT 19, Alkaline Phosphatase 72, Troponin I < 0.01, Total Protein 6.9, Albumin 4.5, Globulin 2.4, Albumin/Globulin Ratio 1.9 H, Lipase 142, TSH 4.56, Thyroxine (T4) 6.8 01/22/25 13:53: Lactate 0.9 01/22/25 14:12: Troponin I < 0.01 01/22/25 14:18: Urine Color Yellow, Urine Appearance Clear, Urine pH 7.5, Ur Specific [place] 1.010, Urine Protein Negative, Urine Glucose (UA) Negative, Urine Ketones Negative, Urine Blood Negative, Urine Nitrate Negative, Urine Bilirubin Negative, Urine Urobilinogen 0.2, Ur Leukocyte Esterase Negative, Urine RBC None, Urine WBC None, Ur Squamous Epith Cells Occasional, Urine Bacteria Trace 01/22/25 11:30 01/22/25 11:30 Response Orders (Tests/Meds): ED MEDICATIONS Generic Name Dose Route Start Last Admin Trade Name Freq PRN Reason Stop Dose Admin Naproxen 500 mg 01/22/25 15:19 01/22/25 15:25 Naproxen 500mg Tablet PO 01/22/25 15:20 500 mg ONCE ONE Administration Sodium Chloride 10 ml 01/22/25 13:00 01/22/25 13:03 Sodium Chloride 0.9% 10ml Syr (Rad Only) IV 02/21/25 12:59 10 ml NEEDED PRN Administration Maintain IV Site Discontinued Medications Generic Name Dose Route Start Last Admin Trade Name Raheel PRN Reason Stop Dose Admin Aspirin 324 mg 01/22/25 11:27 01/22/25 11:47 Aspirin 81mg Chewable Tablet PO 01/22/25 11:28 324 mg ONCE ONE Administration Belladonna Alkaloids 60 ml 01/22/25 11:27 01/22/25 11:47 Belladonna Alkaloids 60 Ml Ml PO 01/22/25 11:28 60 ml ONCE ONE Administration Lactated Ringer's 1,000 mls @ 999 mls/hr 01/22/25 12:49 01/22/25 12:51 Lactated Ringer's 1000 Ml Bag IV 01/22/25 13:49 999 mls/hr .Q1H1M ONE Administration Iopamidol 80 ml 01/22/25 13:00 01/22/25 13:03 Iopamidol-370 (76%);100ml Bottle IV 01/22/25 13:01 80 ml ONCE ONE Administration Ondansetron HCl 4 mg 01/22/25 12:47 01/22/25 12:51 Ondansetron 4mg/2ml Vial IV 01/22/25 12:48 4 mg ONCE ONE Administration Sodium Chloride 50 ml 01/22/25 13:00 01/22/25 13:03 0.9 % Sodium Chloride 50 Ml Vial IV 01/22/25 13:01 50 ml ONCE ONE Administration ORDERS Category Date Time Status CT angio abdomen pelvis Stat Cat Scan 01/22/25 12:48 Completed CTA Chest [CT angio chest - dissection] Stat Cat Scan 01/22/25 12:48 Completed CXR 2 view (NOT portable) [XR chest 2V] Stat Exams 01/22/25 11:27 Completed Complete Blood Count Auto Diff Stat Lab 01/22/25 11:30 Completed Comprehensive Metabolic Panel Stat Lab 01/22/25 11:30 Completed D-Dimer Stat Lab 01/22/25 11:30 Completed Lactic Acid Stat Lab 01/22/25 13:53 Completed Lipase Stat Lab 01/22/25 11:30 Completed T4 (Thyroxine) Stat Lab 01/22/25 11:30 Completed TSH [Thyroid Stimulating Hormone] Stat Lab 06/08/25 11:30 Completed Trop I [Troponin I] Stat Lab 01/22/25 11:30 Completed Troponin I Q3H Lab 01/22/25 14:12 Completed Troponin I Q3H Lab 01/22/25 17:30 Ordered UA [Urinalysis and Microscopic] Stat Lab 01/22/25 14:18 Completed ECG Data Tracing #1: Attestation: I reviewed this ECG and interpreted as documented below: ECG Narrative: Sinus rhythm with a ventricular of [address] changes concerning for ischemia. Normal intervals ECG initial impression date: 01/22/25 ECG initial impression time: 11:32 Tracing #2: Attestation: I reviewed this ECG and interpreted as documented below: ECG Narrative: Sinus bradycardia with a ventricular to [address] changes concerning for STEMI. Normal intervals otherwise ECG initial impression date: 01/22/25 ECG initial impression time: 12:46 MDM Narrative Medical Decision Narrative: In summary, this patient is a 74-year-old female presenting to the Emergency Department for evaluation of chest pain that resolved after taking nitroglycerin prior to arrival. Differential diagnoses considered include but are not limited to ACS, dysrhythmia, GERD, costochondritis, esophageal spasms, PE, aortic dissection. Ruling out the most morbid conditions drove assessment. It should be noted patient's history includes hypertension, hyperlipidemia, CAD, unstable angina, GERD which may or may not be at goal therapy. This complicates all aspects of care by increasing patient's risk for morbidity. I reviewed patient's past medical records and noted elevation 01/20/2025 for similar symptoms, at which point patient was discharged home with refills of her medications that she had not been taking. On exam, the patient is lying in bed. She is anxious appearing and fidgety, but she is in no acute distress. Vitals are normal and cardiac telemetry, and cardiopulmonary dam is reassuring. She also has no calf pain or swelling. Workup included CBC, CMP, troponin, lipase, TSH, T4, D-dimer, chest x-ray, EKG. She was given oral aspirin as well as GI cocktail for symptomatic improvement.. EKG obtained is reassuring. Initial labs are reassuring with reassuring CBC with no significant leukocytosis or anemia, reassuring chemistry with negative initial troponin, D-dimer is negative per years criteria. I independently interpreted chest x-ray prior to radiology read and noted no acute focal consolidation, no pneumothorax. At 1245, patient had acute worsening in her pain, both chest pain and now new left lower quadrant abdominal pain. She states that the pain in her chest radiates straight through to her back. She also became bradycardic and hypotensive. It is possible she could have had a vagal response to the pain, but nonetheless her symptoms are very concerning for potential aortic pathology versus other acute concern. Repeat EKG was obtained that did not demonstrate any acute STEMI or heart block, only sinus bradycardia. Pressure bag was hung with fluids, and patient's blood pressure did improve to normotension. Her symptoms also resolved without need for pain medication. Given the concerning symptoms, I elected to obtain CTA chest, abdomen, and pelvis. I independently interpreted CTA prior to the radiologist read and noted no acute aortic dissection. Please see their read for final interpretation. Radiology notes concern for mild segmental colitis. I added on a lactic acid, which was negative, reassuring against ischemic colitis. On multiple subsequent reassessments, the patient is still feeling a whole lot better, though she does have some left lower quadrant tenderness on exam. She does note some diarrhea that she is been having lately, so it is possible she could have an acute infectious colitis. Second troponin is pending currently. I discussed with the patient potential admission for further evaluation and management of both her chest pain, abdominal pain, and colitis, however she states that she would rather try going home. Second troponin resulted and was also negative. Patient is feeling much better on reassessment with normal vitals on cardiac telemetry. I suspect that her earlier episode of bradycardia and hypotension was a vagal episode in response to her abdominal pain. I considered admission given that this is her second visit for chest pain this week and now she has this new abdominal pain with colitis, however she states that she wants to try going home. She states she will come back if symptoms get worse. Given this, will discharge via patient directed discharge. She is not able to provide stool specimen here to help differentiate etiology of her colitis, but the patient has no severe features such as fever, tachycardia, bloody diarrhea, leukocytosis, or elevation of lactic acid. will defer antibiotic treatment at this time. I gave her instructions for bowel rest and supportive care at home as well as prescription for Zofran. 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 Patient was discharged after all questions were answered with instructions for very close follow-up
[2025-01-22] MEDS: BELLADONNA ALKALOIDS 60 ML ML PO (11:47)
[2025-01-22] MEDS: ASPIRIN 81MG CHEWABLE TABLET 324 MG PO (11:47)
[2025-01-22 11:48] LABS: Basophils % 0.7 % (0.1-2.0); Eosinophils # 0.2 Kmm3 (0.0-0.4); Eosinophils % 2.9 % (0.1-12.0); Hematocrit 40.3 % (37.0-47.0); Hemoglobin 13.8 g/dL (12.2-16.2); Immature Granulocytes # 0.02 10^3uL; Immature Granulocytes % 0.3 %; Mean Corpuscular HGB Conc 34.2 g/dL (31.8-35.4); Mean Corpuscular Hemoglobin 32.3 pg (27.0-31.2); Mean Corpuscular Volume 94.4 fl (81-99); Mean Platelet Volume 10.5 fl (7.4-10.4); Monocytes # 0.5 K/mm3 (0.1-1.0); Monocytes % 8.8 % (1.7-9.3); Neutrophils # 3.1 K/mm3 (1.8-7.8); Neutrophils % 53.3 % (37.0-80.0); Nucleated Red Blood Cells # 0 10^3/uL; Nucleated Red Blood Cells % 0 %; Platelet Count 233 K/mm3 (142-424); Red Blood Count 4.27 M/mm3 (4.20-5.40); Red Cell Distribution Width 13.6 % (11.5-17.5); Red Cell Distribution Width-SD 47.1 fL; White Blood Count 5.8 K/mm3 (4.8-10.8)
[2025-01-22 11:59] LABS: Alanine Aminotransferase 19 U/L (12-78); Albumin Level 4.5 g/dl (3.5-5.0); Albumin/Globulin Ratio 1.9 (1.1-1.8); Alkaline Phosphatase 72 U/L (38-126); Aspartate Amino Transferase 29 U/L (14-36); Bilirubin,Total 0.9 mg/dl (0.2-1.3); Blood Urea Nitrogen 17 mg/dl (7-17); Calcium 9.3 mg/dl (8.4-10.2); Carbon Dioxide 30 mmol/L (22.0-30.0); Chloride 104 mmol/L (98-107); Creatinine Clearance Estimated 60 mL/min (50-200); Estimated Glomerular Filt Rate 61 ml/min (>60); GFR (African American) 74 ML/MIN (>60); Globulin 2.4 g/dL (1.3-3.2); Glucose 90 mg/dl (74-100); Lipase 142 U/L (23-300); Sodium 139 mmol/L (136-145); Total Protein,Serum 6.9 g/dl (6.3-8.2)
[2025-01-22 12:04] LABS: D-Dimer 0.54 ug/mL (0.0-0.5)
[2025-01-22 12:15] LABS: Troponin I < 0.01 ng/ml (0.00-0.034)
[2025-01-22 12:18] LABS: T4 (Thyroxine) 6.8 ug/dl (5.53-11.0)
[2025-01-22 12:31] LABS: Thyroid Stimulating Hormone 4.56 uIU/mL (0.465-4.68)
--- NOTE | 2025-01-22 12:40 | PC.NURSE ---
went to [facility] room to check on her she was feeling sweaty clammy and having chest pain. provider notifed, ekg performed, bg checked, new orders.
--- NOTE | 2025-01-22 12:45 | ECG_ITS ---
APPROVED REPORT Exam: Resting ECG HR:50 bpm ECG Measurements Heart Rate 50 AXES NC 182 P 43 QRSd 92 QRS 18 QT 436 T 37 QTc 409 Conclusion SINUS BRADYCARDIA BORDERLINE ECG No STEMI Electronically signed by : MONAE POTTS, 01/22/2025 15:29:19
--- NOTE | 2025-01-22 12:48 | CT_ITS ---
PROCEDURE INFORMATION: Exam: CTA Abdomen and Pelvis With Contrast Exam date and time: 01/22/2025 1:00 PM Age: 74 years old Clinical indication: Hypotension; Additional info: Chest pain to back, new hypotension TECHNIQUE: Imaging protocol: Computed tomographic angiography of the abdomen and pelvis with contrast. Exam focused on the arteries. 3D rendering (Not supervised by radiologist): MIP and/or 3D reconstructed images were created by the technologist. Radiation optimization: All CT scans at this facility use at least one of these dose optimization techniques: automated exposure control; mA and/or kV adjustment per patient size (includes targeted exams where dose is matched to clinical indication); or iterative reconstruction. Contrast material: ISOVUE 370; Contrast volume: 80 ml; Contrast route: INTRAVENOUS (IV); COMPARISON: CT ABDOMEN PELVIS W CON 09/25/2020 10:53 PM FINDINGS: Aorta: Abdominal aorta is unremarkable. No evidence of dilated. Aortic aneurysm, dissection or occlusion. Celiac trunk and mesenteric arteries: No occlusion or significant stenosis. Renal arteries: No occlusion or significant stenosis. Right iliac arteries: No occlusion or significant stenosis. Left iliac arteries: No occlusion or significant stenosis. Liver: No mass. Gallbladder and biliary ducts: Unremarkable. No calcified stones. No ductal dilation. Pancreas: Unremarkable. No mass. No ductal dilation. Spleen: Unremarkable. No splenomegaly. Adrenal glands: Unremarkable. No mass. Kidneys and ureters: Unremarkable. No solid mass. No hydronephrosis. Stomach and bowel: Portions of the large bowel involving the transverse colon and descending colon appear mildly thickened with some engorgement of adjacent pericolonic vasculature raising possibility of significant colitis. Remainder large bowel somewhat distended was still. Remainder of the GI tract is unremarkable. Appendix: No evidence of appendicitis. Intraperitoneal space: Unremarkable. No free air. No significant fluid collection. Lymph nodes: Unremarkable. No enlarged lymph nodes. Urinary bladder: Unremarkable. No mass. Reproductive: Unremarkable as visualized. Bones/joints: Mild degenerative changes L5-S1. Prior right hip replacement. No acute bony abnormalities. Soft tissues: Unremarkable. IMPRESSION: 1. Unremarkable CTA of the abdomen and pelvis. No evidence of aortic aneurysm or dissection. 2. Findings suspicious for segmental colitis involving portions of the large bowel. Please correlate clinically.
--- NOTE | 2025-01-22 12:48 | CT_ITS ---
PROCEDURE INFORMATION: Exam: CTA Chest With Contrast Exam date and time: 01/22/2025 1:00 PM Age: 74 years old Clinical indication: Pain; Chest pressure; Additional info: Chest pain to back, new hypotension TECHNIQUE: Imaging protocol: Computed tomographic angiography of the chest with contrast. Exam focused on the arteries. 3D rendering (Not supervised by radiologist): MIP and/or 3D reconstructed images were created by the technologist. Radiation optimization: All CT scans at this facility use at least one of these dose optimization techniques: automated exposure control; mA and/or kV adjustment per patient size (includes targeted exams where dose is matched to clinical indication); or iterative reconstruction. Contrast material: ISOVUE 370; Contrast volume: 80 ml; Contrast route: INTRAVENOUS (IV); COMPARISON: CT ANGIO CHEST PE PROTOCOL 10/09/2021 2:18 PM FINDINGS: Pulmonary arteries: Pulmonary vasculature is adequately opacified. No evidence of acute pulmonary embolism. 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 Aorta: Thoracic aorta is unremarkable. No evidence aortic aneurysm dissection or occlusion. Lungs: Hypoventilatory changes along the paravertebral gutters. No acute infiltrates. Pleural spaces: Unremarkable. No pneumothorax. No pleural effusion. Heart: Heart is mildly enlarged. Moderate calcification of coronary arteries. Evidence of prior coronary artery bypass graft. No significant pericardial effusion. Lymph nodes: Unremarkable. No enlarged lymph nodes. Bones/joints: Mild degenerative changes of the thoracic spine. No acute bony abnormalities. Soft tissues: Unremarkable. IMPRESSION: Unremarkable CTA of the chest. No evidence of pulmonary embolism, aortic aneurysm or dissection.
[2025-01-22] MEDS: LACTATED RINGERS 1000ML 1,000 ML 999 ML IV (12:51)
[2025-01-22] MEDS: ONDANSETRON 4MG/2ML VIAL 4 MG IV (12:51)
--- NOTE | 2025-01-22 12:56 | PC.NURSE ---
pt gone to CT. informed radiology to change to urgent per itzel
[2025-01-22] MEDS: SODIUM CHLORIDE 0.9% 10ML SYR (RAD ONLY) 10 ML IV (13:03)
[2025-01-22] MEDS: IOPAMIDOL-370 (76%);100ML BOTTLE 80 ML IV (13:03)
[2025-01-22] MEDS: 0.9 % SODIUM CHLORIDE 50 ML VIAL IV (13:03)
[2025-01-22 14:24] LABS: Microscopic, Urine URINE MICROSCOPIC (MICROSCOPIC)
[2025-01-22 14:27] LABS: Lactic Acid 0.9 mmol/L (0.7-2.1)
[2025-01-22 14:29] LABS: Appearance,Urine CLEAR (Clear); Bilirubin,Urine Negative (Negative); Blood, Urine Negative (Negative); Color,Urine YELLOW (Yellow); Glucose,Urine (UA) Negative (Negative); Ketones,Urine Negative (Negative); Leukocyte Esterase,Urine Negative (Negative); Nitrate,Urine Negative (Negative); PH,Urine 7.5 (5.0-8.5); Protein,Urine Negative (Negative); Urobilinogen,Urine 0.2 EU/dl (0.2)
[2025-01-22 14:40] LABS: Bacteria,Urine Trace /lpf; Squamous Epithelial Cell,Urine Occasional #/hpf (0-5)
[2025-01-22 15:05] LABS: Troponin I < 0.01 ng/ml (0.00-0.034)
[2025-01-22] MEDS: NAPROXEN 500MG TABLET 500 MG PO (15:25)
== END 2025-01-22 15:33 | disposition home or self-care (01) ==
PROVIDERS: Emergency Provider Emergency Medicine; PCP Family Medicine
DX: R07.89 Other chest pain (principal); R00.1 Bradycardia, unspecified; R10.32 Left lower quadrant pain; K52.9 Noninfective gastroenteritis and colitis, unspecified
CPT/HCPCS: 71046; 71275; 74174; 80053; 81001; 83605; 83690; 84436; 84443; 84484; 85025; 85378; 93005; 96361; 96374; 99285; J2405; J7120; Q9967

== ENCOUNTER 2025-02-14 08:44 | Outpatient (CLI) | payer MEDICARE, SELFPAY ==
[2025-02-14 08:48] LABS: Adenovirus F 40/41, stool Not Detected (NotDetected); Clostridium Difficile A/B, PCR Not Detected (NotDetected); Cyclospora Cayetanesis Not Detected (NotDetected); Plesimonas Shigalloides, PCR Not Detected (NotDetected); Salmonella, PCR Not Detected (NotDetected); Shiga-like toxin E coli Not Detected (NotDetected); Shigella Enterovasive E coli Not Detected (NotDetected); Vibrio, PCR Not Detected (NotDetected); Yersinia Entercolitica, PCR Not Detected (NotDetected)
== END 2025-02-14 23:59 | disposition home or self-care (01) ==
LOC: LAB 08:45
PROVIDERS: PCP Nurse Practitioner Family; Visit Provider Nurse Practitioner Family
DX: R19.7 Diarrhea, unspecified (principal)
CPT/HCPCS: 87506

== ENCOUNTER 2025-02-16 13:30 | Emergency (ER) | payer MEDICARE, SELFPAY ==
--- NOTE | 2025-02-16 13:34 | ECG_ITS ---
APPROVED REPORT Exam: Resting ECG HR:66 bpm ECG Measurements Heart Rate 66 AXES MA 185 P 36 QRSd 92 QRS 24 QT 417 T 39 QTc 431 Conclusion SINUS RHYTHM NORMAL ECG Electronically signed by : BRIGITTE WHEELER, 02/21/2025 08:20:23
[2025-02-16 13:36] VITALS: BP 149/95; PULSE 69; RESP 18; TEMP 36.9; O2SAT 100; BMI 29.2
--- NOTE | 2025-02-16 13:38 | XR_ITS ---
PROCEDURE INFORMATION: Exam: XR Chest Exam date and time: 02/16/2025 1:59 PM Age: 74 years old Clinical indication: Shortness of breath; Additional info: SOA TECHNIQUE: Imaging protocol: Radiologic exam of the chest. Views: 1 view. COMPARISON: CT ANGIO CHEST 01/22/2025 1:00 PM FINDINGS: Lungs: Unremarkable. No consolidation. Pleural spaces: Unremarkable. No pleural effusion. No pneumothorax. Heart/Mediastinum: Cardiomegaly. Vasculature: Atherosclerotic aorta. Bones/joints: Arthritic changes in the shoulders. IMPRESSION: No acute findings.
--- NOTE | 2025-02-16 13:38 | CT_ITS ---
PROCEDURE INFORMATION: Exam: CT Head Without Contrast Exam date and time: 02/16/2025 1:46 PM Age: 74 years old Clinical indication: Stroke-like symptoms; Drowsines/somnolence; Additional info: Possible stroke TECHNIQUE: Imaging protocol: Computed tomography of the head without contrast. Radiation optimization: All CT scans at this facility use at least one of these dose optimization techniques: automated exposure control; mA and/or kV adjustment per patient size (includes targeted exams where dose is matched to clinical indication); or iterative reconstruction. Other technique: STROKE PROTOCOL was implemented. COMPARISON: CT ANGIO HEAD 03/23/2024 9:53 AM FINDINGS: Brain: Extensive small vessel ischemic changes in the deep white matter with moderate central and cortical atrophy. No intracranial hemorrhage. No midline shift. Cerebral ventricles: No ventriculomegaly. Paranasal sinuses: Visualized sinuses are unremarkable. No fluid levels. Mastoid air cells: Visualized mastoid air cells are well aerated. Bones: Unremarkable. No acute fracture. Soft tissues: Unremarkable. IMPRESSION: Chronic age related change. ASSESSMENT: ASPECTS ([place] Stroke Program Early CT Score) is 10.
--- NOTE | 2025-02-16 13:38 | CT_ITS ---
PROCEDURE INFORMATION: Exam: CTA Neck With Contrast Exam date and time: 02/16/2025 1:48 PM Age: 74 years old Clinical indication: Stroke-like symptoms; Drowsines/somnolence; Additional info: Possible stroke TECHNIQUE: Imaging protocol: Computed tomographic angiography of the neck with contrast. Exam focused on the cervical segments of the vasculature. 3D rendering (Not supervised by radiologist): MIP and/or 3D reconstructed images were created by the technologist. Radiation optimization: All CT scans at this facility use at least one of these dose optimization techniques: automated exposure control; mA and/or kV adjustment per patient size (includes targeted exams where dose is matched to clinical indication); or iterative reconstruction. Contrast material: ISOVUE; Contrast volume: 80 ml; Contrast route: INTRAVENOUS (IV); COMPARISON: CT ANGIO NECK 03/23/2024 9:53 AM FINDINGS: Right common carotid artery: No stenosis. No dissection or occlusion. Right internal carotid artery: Calcification with 30-50% stenosis involving the proximal right internal carotid artery. Right external carotid artery: No occlusion or stenosis of the origin. Left common carotid artery: No stenosis. No dissection or occlusion. Left internal carotid artery: No stenosis of the extracranial segment. No dissection or occlusion. Left external carotid artery: No occlusion or stenosis of the origin. Right vertebral artery: Small diminutive unremarkable otherwise right vertebral artery which is homogeneous. Left vertebral artery: No stenosis. No dissection or occlusion. Right subclavian artery: Aberrant right subclavian artery with atherosclerotic disease at its origin and less than 30% stenosis. Left subclavian artery: Mild kinking of the left subclavian artery with 30-50% narrowing at the kink. Soft tissues: Normal. No significant soft tissue swelling. Bones/joints: No acute fracture. IMPRESSION: No evidence of a hemodynamically significant stenosis. REFERENCES: NASCET CRITERIA. The degree of stenosis in the cervical segment of the internal carotid artery is based on NASCET criteria. Normal is no stenosis. Mild is less than 50% stenosis. Moderate is 50-69% stenosis. Severe is 70% to 99% stenosis. Total occlusion is no detectable patent lumen.
--- NOTE | 2025-02-16 13:38 | CT_ITS ---
PROCEDURE INFORMATION: Exam: CTA Head With Contrast, Arteriography Exam date and time: 02/16/2025 1:48 PM Age: 74 years old Clinical indication: Stroke-like symptoms; Drowsines/somnolence; Additional info: Possible stroke TECHNIQUE: Imaging protocol: Computed tomographic angiography of the head with contrast. Exam focused on the arteries. 3D rendering (Not supervised by radiologist): MIP and/or 3D reconstructed images were created by the technologist. Radiation optimization: All CT scans at this facility use at least one of these dose optimization techniques: automated exposure control; mA and/or kV adjustment per patient size (includes targeted exams where dose is matched to clinical indication); or iterative reconstruction. Contrast material: ISOVUE; Contrast volume: 80 ml; Contrast route: INTRAVENOUS (IV); COMPARISON: CT ANGIO HEAD 03/23/2024 9:53 AM FINDINGS: ANTERIOR CIRCULATION: Right internal carotid artery: Intracranial segment is patent with no significant stenosis. No aneurysm. Right middle cerebral artery: No occlusion or significant stenosis. No aneurysm. Right anterior cerebral artery: No occlusion or significant stenosis. No aneurysm. Left internal carotid artery: Intracranial segment is patent with no significant stenosis. No aneurysm. Left middle cerebral artery: No occlusion or significant stenosis. No aneurysm. Left anterior cerebral artery: No occlusion or significant stenosis. No aneurysm. POSTERIOR CIRCULATION: Right vertebral artery: No occlusion or significant stenosis. No aneurysm. Left vertebral artery: No occlusion or significant stenosis. No aneurysm. Basilar artery: Small basilar artery. There is an area of suspected basilar occlusion spanning 4 mm. The findings are identical to the previous examination and chronic. Right posterior cerebral artery: No occlusion or significant stenosis. No aneurysm. Left posterior cerebral artery: No occlusion or significant stenosis. No aneurysm. Other arteries: Persistent circulation on the left. Brain: No definite mass, mass effect, or midline shift. Cerebral ventricles: No ventriculomegaly. Bones/joints: Unremarkable. No acute fracture. Soft tissues: Unremarkable. Other findings: Large bilateral posterior communicating arteries. IMPRESSION: 1. 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 2. Possible vertebrobasilar insufficiency.
--- NOTE | 2025-02-16 13:40 | ED_ITS ---
Discharge Plan Disposition Patient Disposition: Home, Self-Care Prescriptions Prescriptions: No Action clonazepam [Klonopin] 0.5 mg tablet 0.5 mg PO DAILY PRN (Reason: anxiety) Qty: 20 0RF Linzess 145 mcg capsule 145 mcg PO DAILY Qty: 30 2RF metronidazole 250 mg tablet 250 mg PO TID 10 Days Qty: 30 0RF ciprofloxacin HCl 500 mg tablet 500 mg PO BID 10 Days Qty: 20 0RF budesonide 3 mg capsule,delayed,extend.release 3 mg PO BID Qty: 30 0RF atorvastatin 80 mg tablet 80 mg PO DAILY Qty: 90 2RF clopidogrel 75 mg tablet 75 mg PO DAILY Qty: 90 3RF montelukast 10 mg tablet 10 mg PO QHS Qty: 90 0RF furosemide 20 mg tablet 20 mg PO BID Qty: 180 2RF bisoprolol fumarate 5 mg tablet 5 mg PO DAILY Qty: 90 0RF escitalopram oxalate 10 mg tablet See Rx Instructions .ROUTE .COMPLEX Qty: 90 0RF Dose Instruction: Take 1 tablet by mouth once daily Rx Instructions: Take 1 tablet by mouth once daily levothyroxine [Levo-T] 50 mcg tablet 50 mcg PO DAILY Qty: 90 0RF pantoprazole [Protonix] 40 mg tablet,delayed release (DR/EC) See Rx Instructions .ROUTE DAILY Qty: 90 0RF Rx Instructions: Take on empty stomach at least 40 minutes before a meal. daily; sodium,potassium,mag sulfates [Suprep Bowel Prep Kit] 17.5-3.13-1.6 gram recon soln See Rx Instructions PO .COMPLEX Qty: 354 0RF Rx Instructions: DILUTE; drink full amount early evening before AND next morning at least 4-5 hr before procedure; follow w 960 mL water PO peg 3350-electrolytes [Golytely] 236-22.74-6.74 -5.86 gram recon soln 240 ml PO Q10M Qty: 4000 0RF Rx Instructions: at 6pm day before surgery take first dose. After mixing prep as directed, drink half of the gallon by drinking 8 ounces, or 1 cup, every 15 mins until half is remaining. refrigerate the remaining and continue clear liquids till midnight. 5-6 hours before exam, take the second dosage, 8oz every 15 mins till gone. isosorbide mononitrate 30 mg tablet extended release 24 hr 30 mg PO DAILY Qty: 30 12RF fluticasone propion-salmeterol [Advair Diskus] 250-50 mcg/dose blister with device 1 inh IH BID Referrals Follow up/Referrals: Mica Kumar MD [Staff Physician, Neurology] - See instructions Jessica Conley APRN [Primary Care Provider, Family Practice] - See instructions Activity Restrictions/Add. Instructions Additional Instructions/Restrictions: Today you were evaluated in the ED. Your CT scans did not show any acute changes. Clinical Impressions Clinical Impression: Weakness generalized Instructions Patient Instructions: DI for Muscle Weakness Print Language Print Language: Uzbek Discharge ED Provider: Khoa Aguilar General Adult HPI <Anaid Murillo APRN - Last Filed: 02/16/25 15:01> General Chief complaint: Dizziness Stated complaint: SOA Time Seen by Provider: 02/16/25 13:33 History of Present Illness HPI narrative: patient is a 74-year-old female PMHx history of colitis, anxiety, depression, TYSON, CAD, hypothyroidism, HLD, HTN, history of unstable angina who presents to the ED for complaints of shortness of breath and generalized weakness. Patient reports that the symptoms started 1 hour prior to arrival and were associated with a centrally located chest pain and palpitations. Patient states the chest pain and palpitations have since resolved but she still feels generally weak. Related Data Home Medications ?Medication ?Instructions ?Recorded ?Confirmed fluticasone 250 mcg-salmeterol 50 1 inh inhalation BID 05/31/24 01/31/25 mcg/dose blistr powdr for inhalation (Advair Diskus) Previous Rx's ?Medication ?Instructions ?Recorded atorvastatin 80 mg tablet 80 mg PO DAILY #90 tabs 04/17 02/07 clopidogrel 75 mg tablet 75 mg PO DAILY #90 tabs 06/17 clonazepam 0.5 mg tablet (Klonopin) 0.5 mg PO DAILY VT N anxiety #20 06/30/24 tabs montelukast 10 mg tablet 10 mg PO QHS breathing issue s #90 07/22/24 tabs furosemide 20 mg tablet 20 mg PO BID #180 tabs 01/15 bisoprolol fumarate 5 mg tablet 5 mg PO DAILY BP #90 t abs 01/20/25 escitalopram oxalate 10 mg tablet See Rx Instructions .Route 01/20/25 .COMPLEX #90 tabs levothyroxine 50 mcg tablet 50 mcg PO DAILY hypothyroi d #90 01/20/25 (Levo-T) tabs pantoprazole 40 mg tablet,delayed See Rx Instructions .Route DAILY 01/20/25 release (Protonix) gerd #90 tabs isosorbide mononitrate 30 mg 30 mg PO DAILY #30 tabs 0 01/21/25 tablet,extended release 24 hr budesonide 3 mg 3 mg PO BID #30 ea 01/25/25 capsule,delayed,extended release ciprofloxacin HCl 500 mg tablet 500 mg PO BID 10 days #20 tabs 01/25/25 linaclotide 145 mcg capsule 145 mcg PO DAILY #30 caps 01/25/25 (Linzess) metronidazole 250 mg tablet 250 mg PO TID 10 days #30 tabs 01/25/25 sodium,potassium,mag sulfates 17.5 See Rx Instructions PO .COMPLEX 02/06/25 gram-3.13 gram-1.6 gram oral soln #354 mL (Suprep Bowel Prep Kit) peg 3350-electrolytes 236 240 ml PO Q10M colonscopy #4 ,000 mL 02/13/25 gram-22.74 gram-6.74 gram-5.86 gram solution (Golytely) Allergies Allergy/AdvReac Type Severity Reaction Status Date / Time No Known Allergies Allergy Verified 01/31/25 14:41 [facility] <Anaid Murillo APRN - Last Filed: 02/16/25 15:01> [facility] Disclaimer: The information contained in this section may have been updated after the patient was seen, as this information can be updated by other users. Medical History UTI (urinary tract infection) Near syncope Fatigue Right shoulder pain Headache COVID-19 Encounter for screening colonoscopy Low Back Pain Hemorrhoids Acute bacterial bronchitis Varicose veins of both legs with edema Edema Calcaneal spur of left foot Acquired pes planus of both feet Acute pain of left foot Varicose veins of bilateral lower extremities with pain Bilateral lower extremity edema Hypotension Acute dehydration Orthostatic syncope Pain in left foot Dislocation of second toe, left, closed Hallux valgus (acquired), left foot Metatarsalgia, left foot Acute bronchitis Back pain Acute dysfunction of left eustachian tube Wheezing Exposure to COVID-19 virus Fall Facial abrasion Forehead laceration Wasp sting Hymenoptera sting Lumbar back pain Primary osteoarthritis of right hip Bronchitis Aortic insufficiency Diastolic dysfunction Encounter for pre-operative cardiovascular clearance Dizzy Vitamin D insufficiency Sinusitis Arm pain Anxiety and depression History of gastroesophageal reflux (GERD) Hypothyroid Hypertension Hyperlipidemia Unstable angina Dyspnea Typical angina Mild persistent asthma Allergic rhinitis, unspecified Dyspnea on exertion Gallbladder sludge Bilateral carotid artery stenosis Right carotid bruit Surgical History History of colonoscopy History of total right hip arthroplasty History of hysterectomy Hx of heart artery stent History of breast biopsy History of total hip replacement Family History Other Diabetes Heart attack Social History Smoking Status: Never smoker second hand exposure: No alcohol intake: never substance use type: denies use current occupational status: disabled Travel in the last 8 weeks?: None household members: none housing: house current occupational exposures/hazards: No caffeine: Yes Have you lived/traveled outside [place] in past 30 days?: No Contact w/someone who lives/traveled outside [place] past 30 days?: No Exposure to someone with infectious disease in past 14 days?: No Do you have a fever (greater than 100.4 F or 38 C)?: No Have you tested positive for COVID-19?: No Exposed to someone with COVID-19 in past 14 days?: No Do you have a sore throat?: No Do you have a cough?: No Do you have any weakness?: No Do you have any diarrhea?: No Are you experiencing any unusual bleeding?: No Do you have any muscle aches/pain?: No Do you have any abdominal pain?: No Are you experiencing loss of taste or smell?: No Other Medical History Have you received the Flu Vaccine for this season: No Have you received the Pneumonia Vaccine: Yes <Anaid Murillo APRN - Last Filed: 02/16/25 15:01> ROS Obtained: Yes Systems reviewed as appropriate & no additional complaints except as documented Physical Exam <Anaid Murillo APRN - Last Filed: 02/16/25 15:01> General General appearance: alert Head Head exam: atraumatic, normocephalic and other (Mild cyanosis of lips, right sided mouth droop ) Eye Eye exam: Present normal appearance and PERRL ENT ENT exam: Present normal exam Neck Neck exam: Present normal inspection Chest Chest inspection: Present normal inspection and symmetric chest wall rise Respiratory Respiratory exam: Present normal lung sounds bilaterally and other (Tachypnea) Cardiovascular Cardiovascular exam: Present regular rate Abdominal Exam Abdominal exam: Present soft and normal bowel sounds; Absent tenderness Extremities Exam Extremities exam: Present other (Bilateral, equal weakness, mild bilateral lower extremity edema, 1+. Bilateral, equal upper extremity weakness) Back Exam Back exam: Present normal inspection and full ROM Neurological Exam Neurological exam: Present alert and oriented X3 Psychiatric Psychiatric exam: Present normal affect and normal mood Skin Skin exam: Present dry and pallor Medical Decision Making <Anaid Murillo APRN - Last Filed: 02/16/25 15:01> Medical Records Screening: Per USPSTF and CDC recommendations, given the prevalence of disease in our region, it is our hospital?s policy to screen for HIV and viral Hepatitis for all patients aged 18 and over and those with ongoing risk factors. Adryan Inquiry Pt receiving controlled substance: No Adryan was queried for this patient: No Vital Signs: 02/16/25 13:36 02/16/25 13:53 02/16/25 14:07 Temperature 98.4 F Temperature Source Oral Pulse Rate 64 69 Pulse Rate [Right Radial] 69 Respiratory Rate 18 15 12 Blood Pressure 157/77 H 133/66 Blood Pressure [Right Arm] 149/95 H Blood Pressure Mean 103 101 Blood Pressure Mean [Right Arm] 113 Blood Pressure Source Blood Pressure Source [Right Arm] Automatic Cuff Blood Pressure Position Blood Pressure Position [Right Arm] Supine 02 Sat by Pulse Oximetry 100 97 93 L Oxygen Delivery Method Room Air 02/16/25 15:10 Temperature 98.1 F Temperature Source Oral Pulse Rate 69 Pulse Rate [Right Radial] Respiratory Rate 15 Blood Pressure 129/70 Blood Pressure [Right Arm] Blood Pressure Mean Blood Pressure Mean [Right Arm] Blood Pressure Source Automatic Cuff Blood Pressure Source [Right Arm] Blood Pressure Position Sitting Blood Pressure Position [Right Arm] 02 Sat by Pulse Oximetry Oxygen Delivery Method Room Air Lab Data Lab Results 02/16/25 13:44: VBG pH 7.48 H, VBG pCO2 31.2 L, VBG pO2 45.9 H, VBG HCO3 22.9 L, VBG Total CO2 23.9, VBG O2 Saturation 85.6 H, VBG Base Excess -0.5, VBG Lactic Acid 1.7 02/16/25 14:41: Urine Color Yellow, Urine Appearance Clear, Urine pH 7.0, Ur Specific Dyer 1.010, Urine Protein Negative, Urine Glucose (UA) Negative, Urine Ketones Negative, Urine Blood Negative, Urine Nitrate Negative, Urine Bilirubin Negative, Urine Urobilinogen 0.2, Ur Leukocyte Esterase Negative, Urine RBC None, Urine WBC None, Ur Squamous Epith Cells Occasional, Urine Bacteria Trace 02/16/25 14:43: Urine Opiates Screen Negative, Urine Methadone Screen Negative, Ur Barbituates Screen Negative, Ur Phencyclidine Scrn Negative, Ur Amphetamines Screen Negative, U Benzodiazepines Scrn Negative, Urine Cocaine Screen Negative, U Marijuana (THC) Screen Negative 02/16/25 : WBC 7.0, RBC 4.14 L, Hgb 13.3, Hct 38.2, MCV 92.3, MCH 32.1 H, MCHC 34.8, RDW 13.8, Plt Count 237, MPV 10.3, Neut % (Auto) 57.7, Lymph % (Auto) 30.1, Gibson % (Auto) 9.0, Eos % (Auto) 2.1, Baso % (Auto) 0.7, Neut # (Auto) 4.0, Lymph # (Auto) 2.1, Gibson # (Auto) 0.6, Eos # (Auto) 0.2, Baso # (Auto) 0.1, PT 10.5, INR 0.94, APTT 22.5 L, Sodium 138, Potassium 3.5, Chloride 102, Carbon Dioxide 27, Anion Gap 12.5, BUN 13, Creatinine 0.90, Estimated Creat Clear 60, Estimated GFR 61, Est GFR ( Amer) 74, Glucose 95, Calcium 9.2, Total Bilirubin 1.0, AST 32, ALT 21, Alkaline Phosphatase 76, Troponin I < 0.01, Total Protein 7.1, Albumin 4.5, Globulin 2.6, Albumin/Globulin Ratio 1.7, Triglycerides 123, Cholesterol 205 H, LDL Cholesterol Direct 94.33 L, VLDL Cholesterol 25, HDL Cholesterol 65 H, Cholesterol/HDL Ratio 3.2, Plasma/Serum Alcohol < 10 02/16/25 Unknown 02/16/25 Unknown Orders (Tests/Meds): ED MEDICATIONS Discontinued Medications Generic Name Dose Route Start Last Admin Trade Name Raheel PRN Reason Stop Dose Admin Acetaminophen 1,000 mg 02/16/25 14:03 02/16/25 14:07 Acetaminophen 1,000mg/100ml Vial IV 02/16/25 14:04 1,000 mg ONCE ONE Administration Iopamidol 80 ml 02/16/25 13:48 02/16/25 13:48 Iopamidol-370 (76%);100ml Bottle IV 02/16/25 13:49 80 ml ONCE ONE Administration Sodium Chloride 10 ml 02/16/25 13:38 02/16/25 13:49 Sodium Chloride 0.9% 10ml Flush Syringe IV 03/18/25 13:37 10 ml NEEDED PRN Administration Maintain IV Site Sodium Chloride 50 ml 02/16/25 13:48 02/16/25 13:48 0.9 % Sodium Chloride 50 Ml Vial IV 02/16/25 13:49 50 ml ONCE ONE Administration Sodium Chloride 10 ml 02/16/25 13:48 Sodium Chloride 0.9% 10ml Syr (Rad Only) IV 02/16/25 13:49 ONCE ONE ORDERS Category Date Time Status CT angio head Stat Cat Scan 02/16/25 13:[address] angio neck Stat Cat Scan 02/16/25 13:[address] head/brain wo con Stat Cat Scan 02/16/25 13:38 Completed XR chest portable Stat Exams 02/16/25 13:38 Completed Activated Partial Thrombo Time Stat Lab 02/16/25 Completed Complete Blood Count Auto Diff Stat Lab 02/16/25 Completed Comprehensive Metabolic Panel Stat Lab 02/16/25 Completed Drug Screen,Urine Stat Lab 02/16/25 14:43 Completed Ethyl Alcohol Stat Lab 02/16/25 Completed Lipid Panel Stat Lab 02/16/25 Completed Prothrombin Time INR Stat Lab 02/16/25 Completed Troponin I Stat Lab 02/16/25 Completed Urinalysis and Microscopic Stat Lab 02/16/25 14:41 Completed Urine , HCG Qual. Stat Lab 02/16/25 13:38 Ordered VBG [Venous Blood Gas] Stat RT 02/16/25 13:56 Ordered Venous Blood Gas Routine RT 02/16/25 13:44 Completed Medical Decision Narrative: In summary, patient is a 74-year-old female PMHx history of colitis, anxiety, depression, TYSON, CAD, hypothyroidism, HLD, HTN, history of unstable angina who presents to the ED for complaints of shortness of breath and generalized weakness. Patient reports that the symptoms started 1 hour prior to arrival and were associated with a centrally located chest pain and palpitations. Patient states the chest pain and palpitations have since resolved but she still feels generally weak. Patient states that she was trying to take a bath when the symptoms occurred. Denies any recent falls or trauma. Her boyfriend is at bedside. Upon initial evaluation in the ED patient is alert, oriented and cooperative. She is tachypneic, pale, mild cyanosis noted around lips, mild right sided mouth droop, generalized upper and lower extremity weakness, not worse on one side. Patient's abdomen is soft and nontender. PERRLA. Boyfriend of 5 years at bedside and states that she does not normally have a facial droop. Differential diagnosis include stroke, ICH, mass, respiratory failure, hypoxia, hypercarbia, electrolyte abnormality, sepsis, among others. Discussed with patient we will proceed with stroke alert. CBC unremarkable for any leukocytosis, stable H&H. VBG pH 7.48, CO2 31.2, PO2 45.9, HCO3 22.9, respiratory alkalosis noted. CBC unremarkable for any actionable abnormalities. First troponin < 0.01. Final reads reviewed, neck CTA shows no evidence of significant stenosis. Head CTA shows a stable occlusion of the right basilar artery with reconstitution, possible vertebrobasilar insufficiency. Head CT unremarkable for anything acute noted to have chronic age-related changes. Chest x-ray unremarkable for any acute findings. Patient was able to tolerate PO and and ambulatory around the ED without difficulty. I retested patient's laborer wrecking and salvaging strength and it has greatly improved. She states that she feels much better. Given this, and the fact that she has remained stable while in the ED, I feel safe that we can discharge her home at this time. Patient states that she will be going home with her boyfriend. I discussed that due to her chronic findings on her head CT she could follow-up with neurology. Advised her to follow-up with PCP. We discussed return precautions to the ED and patient verbalized understanding. <Khoa Aguilar MD - Last Filed: 02/16/25 15:27> Vital Signs: 02/16/25 13:36 02/16/25 13:53 02/16/25 14:07 Temperature 98.4 F Temperature Source Oral Pulse Rate 64 69 Pulse Rate [Right Radial] 69 Respiratory Rate 18 15 12 Blood Pressure 157/77 H 133/66 Blood Pressure [Right Arm] 149/95 H Blood Pressure Mean 103 101 Blood Pressure Mean [Right Arm] 113 Blood Pressure Source Blood Pressure Source [Right Arm] Automatic Cuff Blood Pressure Position Blood Pressure Position [Right Arm] Supine 02 Sat by Pulse Oximetry 100 97 93 L Oxygen Delivery Method Room Air 02/16/25 15:10 Temperature 98.1 F Temperature Source Oral Pulse Rate 69 Pulse Rate [Right Radial] Respiratory Rate 15 Blood Pressure 129/70 Blood Pressure [Right Arm] Blood Pressure Mean Blood Pressure Mean [Right Arm] Blood Pressure Source Automatic Cuff Blood Pressure Source [Right Arm] Blood Pressure Position Sitting Blood Pressure Position [Right Arm] 02 Sat by Pulse Oximetry Oxygen Delivery Method Room Air Lab Data Lab Results 02/16/25 13:44: VBG pH 7.48 H, VBG pCO2 31.2 L, VBG pO2 45.9 H, VBG HCO3 22.9 L, VBG Total CO2 23.9, VBG O2 Saturation 85.6 H, VBG Base Excess -0.5, VBG Lactic Acid 1.7 02/16/25 14:41: Urine Color Yellow, Urine Appearance Clear, Urine pH 7.0, Ur Specific Dyer 1.010, Urine Protein Negative, Urine Glucose (UA) Negative, Urine Ketones Negative, Urine Blood Negative, Urine Nitrate Negative, Urine Bilirubin Negative, Urine Urobilinogen 0.2, Ur Leukocyte Esterase Negative, Urine RBC None, Urine WBC None, Ur Squamous Epith Cells Occasional, Urine Bacteria Trace 02/16/25 14:43: Urine Opiates Screen Negative, Urine Methadone Screen Negative, Ur Barbituates Screen Negative, Ur Phencyclidine Scrn Negative, Ur Amphetamines Screen Negative, U Benzodiazepines Scrn Negative, Urine Cocaine Screen Negative, U Marijuana (THC) Screen Negative 02/16/25 : WBC 7.0, RBC 4.14 L, Hgb 13.3, Hct 38.2, MCV 92.3, MCH 32.1 H, MCHC 34.8, RDW 13.8, Plt Count 237, MPV 10.3, Neut % (Auto) 57.7, Lymph % (Auto) 30.1, Gibson % (Auto) 9.0, Eos % (Auto) 2.1, Baso % (Auto) 0.7, Neut # (Auto) 4.0, Lymph # (Auto) 2.1, Gibson # (Auto) 0.6, Eos # (Auto) 0.2, Baso # (Auto) 0.1, PT 10.5, INR 0.94, APTT 22.5 L, Sodium 138, Potassium 3.5, Chloride 102, Carbon Dioxide 27, Anion Gap 12.5, BUN 13, Creatinine 0.90, Estimated Creat Clear 60, Estimated GFR 61, Est GFR ( Amer) 74, Glucose 95, Calcium 9.2, Total Bilirubin 1.0, AST 32, ALT 21, Alkaline Phosphatase 76, Troponin I < 0.01, Total Protein 7.1, Albumin 4.5, Globulin 2.6, Albumin/Globulin Ratio 1.7, Triglycerides 123, Cholesterol 205 H, LDL Cholesterol Direct 94.33 L, VLDL Cholesterol 25, HDL Cholesterol 65 H, Cholesterol/HDL Ratio 3.2, Plasma/Serum Alcohol < 10 Orders (Tests/Meds): ED MEDICATIONS Discontinued Medications Generic Name Dose Route Start Last Admin Trade Name Freq PRN Reason Stop Dose Admin Acetaminophen 1,000 mg 02/16/25 14:03 02/16/25 14:07 Acetaminophen 1,000mg/100ml Vial IV 02/16/25 14:04 1,000 mg ONCE ONE Administration Iopamidol 80 ml 02/16/25 13:48 02/16/25 13:48 Iopamidol-370 (76%);100ml Bottle IV 02/16/25 13:49 80 ml ONCE ONE Administration Sodium Chloride 10 ml 02/16/25 13:38 02/16/25 13:49 Sodium Chloride 0.9% 10ml Flush Syringe IV 03/18/25 13:37 10 ml NEEDED PRN Administration Maintain IV Site Sodium Chloride 50 ml 02/16/25 13:48 02/16/25 13:48 0.9 % Sodium Chloride 50 Ml Vial IV 02/16/25 13:49 50 ml ONCE ONE Administration Sodium Chloride 10 ml 02/16/25 13:48 Sodium Chloride 0.9% 10ml Syr (Rad Only) IV 02/16/25 13:49 ONCE ONE ORDERS Category Date Time Status CT angio head Stat Cat Scan 02/16/25 13:[address] angio neck Stat Cat Scan 02/16/25 13:[address] head/brain wo con Stat Cat Scan 02/16/25 13:38 Completed XR chest portable Stat Exams 02/16/25 13:38 Completed Activated Partial Thrombo Time Stat Lab 02/16/25 Completed Complete Blood Count Auto Diff Stat Lab 02/16/25 Completed Comprehensive Metabolic Panel Stat Lab 02/16/25 Completed Drug Screen,Urine Stat Lab 02/16/25 14:43 Completed Ethyl Alcohol Stat Lab 02/16/25 Completed Lipid Panel Stat Lab 02/16/25 Completed Prothrombin Time INR Stat Lab 02/16/25 Completed Troponin I Stat Lab 02/16/25 Completed Urinalysis and Microscopic Stat Lab 02/16/25 14:41 Completed Urine , HCG Qual. Stat Lab 02/16/25 13:38 Ordered VBG [Venous Blood Gas] Stat RT 02/16/25 13:56 Ordered Venous Blood Gas Routine RT 02/16/25 13:44 Completed Medical Decision Narrative: In summary, patient is a 74-year-old female PMHx history of colitis, anxiety, depression, TYSON, CAD, hypothyroidism, HLD, HTN, history of unstable angina who presents to the ED for complaints of shortness of breath and generalized weakness. Patient reports that the symptoms started 1 hour prior to arrival and were associated with a centrally located chest pain and palpitations. Patient states the chest pain and palpitations have since resolved but she still feels generally weak. Patient states that she was trying to take a bath when the symptoms occurred. Denies any recent falls or trauma. Her boyfriend is at bedside. Upon initial evaluation in the ED patient is alert, oriented and cooperative. She is tachypneic, pale, mild cyanosis noted around lips, mild right sided mouth droop, generalized upper and lower extremity weakness, not worse on one side. Patient's abdomen is soft and nontender. PERRMARLYS. Boyfriend of 5 years at bedside and states that she does not normally have a facial droop. Differential diagnosis include stroke, ICH, mass, respiratory failure, hypoxia, hypercarbia, electrolyte abnormality, sepsis, among others. Discussed with patient we will proceed with stroke alert. CBC unremarkable for any leukocytosis, stable H&H. VBG pH 7.48, CO2 31.2, PO2 45.9, HCO3 22.9, respiratory alkalosis noted. CBC unremarkable for any actionable abnormalities. First troponin < 0.01. Final reads reviewed, neck CTA shows no evidence of significant stenosis. Head CTA shows a stable occlusion of the right basilar artery with reconstitution, possible vertebrobasilar insufficiency. Head CT unremarkable for anything acute noted to have chronic age-related changes. Chest x-ray unremarkable for any acute findings. Patient was able to tolerate PO and and ambulatory around the ED without difficulty. I retested patient's laborer wrecking and salvaging strength and it has greatly improved. She states that she feels much better. Given this, and the fact that she has remained stable while in the ED, I feel safe that we can discharge her home at this time. Patient states that she will be going home with her boyfriend. I discussed that due to her chronic findings on her head CT she could follow-up with neurology. Advised her to follow-up with PCP. We discussed return precautions to the ED and patient verbalized understanding. I was consulted by the LILI, and we discussed the complexity of the problems being addressed. I approve the treatment and management plan for this patient's care in the emergency department, thus performing a substantive portion of the medical decision making. Patient's initial NIH was 1 due to mild facial droop. CT imaging was interpreted by me personally and demonstrated no intracranial hemorrhage or large vessel occlusion. 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 On reassessment, patient reported improvement in her symptoms and NIH was 0 at this time. No TNK or thrombectomy indicated at this time. Patient was able to ambulate in the emergency department without difficulty. Lab work grossly unremarkable and nonactionable, as stated above. Patient being referred to neurology given her dizziness and vertebrobasilar insufficiency but is felt to be appropriate for discharge at this time. Khoa Aguilar MD Critical Care <Anaid Murillo, HAM BONER - Last Filed: 02/16/25 15:01> Critical Care Time Critical Care Time: No
[2025-02-16 13:47] LABS: Hematocrit 38.2 % (37.0-47.0); Hemoglobin 13.3 g/dL (12.2-16.2); Immature Granulocytes % 0.4 %; Mean Corpuscular HGB Conc 34.8 g/dL (31.8-35.4); Mean Corpuscular Hemoglobin 32.1 pg (27.0-31.2); Mean Corpuscular Volume 92.3 fl (81-99); Nucleated Red Blood Cells % 0 %; Platelet Count 237 K/mm3 (142-424); Red Blood Count 4.14 M/mm3 (4.20-5.40); Red Cell Distribution Width-SD 47.6 fL; White Blood Count 7.0 K/mm3 (4.8-10.8)
[2025-02-16] MEDS: IOPAMIDOL-370 (76%);100ML BOTTLE 80 ML IV (13:48)
[2025-02-16] MEDS: 0.9 % SODIUM CHLORIDE 50 ML VIAL IV (13:48)
[2025-02-16 13:49] LABS: Lactate Venous 1.7 mmol/L (0.4-2.0); VBG HCO3 22.9 mmol/L (23-30); VBG PCO2 31.2 mmol/L (35-51); VBG PH 7.48 mmol/L (7.31-7.41); VBG PO2 45.9 mmol/L (28-40)
[2025-02-16] MEDS: SODIUM CHLORIDE 0.9% 10ML FLUSH SYRINGE 10 ML IV (13:49)
[2025-02-16 13:53] VITALS: BP 157/77; PULSE 64; RESP 15; O2SAT 97
[2025-02-16 13:53] LABS: Albumin Level 4.5 g/dl (3.5-5.0); Chloride 102 mmol/L (98-107); Potassium 3.5 mmoL/L (3.5-5.1); Sodium 138 mmol/L (136-145)
[2025-02-16 13:56] LABS: Alanine Aminotransferase 21 U/L (12-78); Albumin/Globulin Ratio 1.7 (1.1-1.8); Alkaline Phosphatase 76 U/L (38-126); Anion Gap 12.5 mEq/L (5-15); Aspartate Amino Transferase 32 U/L (14-36); Bilirubin,Total 1.0 mg/dl (0.2-1.3); Blood Urea Nitrogen 13 mg/dl (7-17); Calcium 9.2 mg/dl (8.4-10.2); Carbon Dioxide 27 mmol/L (22.0-30.0); Cholesterol 205 mg/dl (140-200); Creatinine Clearance Estimated 60 mL/min (50-200); Creatinine,Serum 0.90 mg/dl (0.52-1.04); Estimated Glomerular Filt Rate 61 ml/min (>60); GFR (African American) 74 ML/MIN (>60); Globulin 2.6 g/dL (1.3-3.2); Glucose 95 mg/dl (74-100); Total Protein,Serum 7.1 g/dl (6.3-8.2); Triglycerides 123 mg/dl (30-150)
[2025-02-16 13:57] LABS: HDL Cholesterol 65 mg/dl (40-60)
--- NOTE | 2025-02-16 14:03 | PC.NURSE ---
Dr. Aguilar spoke to [facility] regarding CT. They advised CT Head was negative, and they would call back about CTA
[2025-02-16 14:07] VITALS: BP 133/66; PULSE 69; RESP 12; O2SAT 93
[2025-02-16] MEDS: ACETAMINOPHEN 1,000MG/100ML VIAL 1000 MG IV (14:07)
[2025-02-16 14:12] LABS: Activated Partial Thrombo Time 22.5 seconds (22.8-30.6); INR 0.94 (0.9-1.1); Prothrombin Time 10.5 seconds (10.1-12.5); Troponin I < 0.01 ng/ml (0.00-0.034)
[2025-02-16 14:47] LABS: Microscopic, Urine URINE MICROSCOPIC (MICROSCOPIC)
[2025-02-16 14:49] LABS: Bilirubin,Urine Negative (Negative); Color,Urine YELLOW (Yellow); Glucose,Urine (UA) Negative (Negative); Ketones,Urine Negative (Negative); Leukocyte Esterase,Urine Negative (Negative); PH,Urine 7.0 (5.0-8.5); Protein,Urine Negative (Negative); Specific Gravity, Urine 1.010 (1.005-1.030); Urobilinogen,Urine 0.2 EU/dl (0.2)
[2025-02-16 14:57] LABS: Bacteria,Urine Trace /lpf; Squamous Epithelial Cell,Urine Occasional #/hpf (0-5)
[2025-02-16 15:00] LABS: Barbiturates Screen,Urine Negative ng/ml (<200)
[2025-02-16 15:01] LABS: Amphetamine/Metha Screen,Urine Negative ng/ml (<1000); Benzodiazepines Screen,Urine Negative ng/ml (<200)
[2025-02-16 15:03] LABS: Methadone Screen,Urine Negative ng/ml (<300)
[2025-02-16 15:04] LABS: Opiate Screen,Urine Negative ng/ml (<300); Phencyclidine Screen,Urine Negative ng/ml (<25)
[2025-02-16 15:10] VITALS: BP 129/70; PULSE 69; RESP 15; TEMP 36.7; O2SAT 95
== END 2025-02-16 15:11 | disposition home or self-care (01) ==
PROVIDERS: Nurse Practitioner; Emergency Provider Student in an Organized Health Care Education/Training Program; PCP Nurse Practitioner Family
DX: R06.82 Tachypnea, not elsewhere classified (principal); R29.810 Facial weakness; R53.1 Weakness; I10 Essential (primary) hypertension; E78.5 Hyperlipidemia, unspecified; I25.110 Atherosclerotic heart disease of native coronary artery with unstable angina pectoris
CPT/HCPCS: 70450; 70496; 70498; 71045; 80053; 80061; 80307; 80320; 81001; 82803; 84484; 85025; 85610; 85730; 93005; 96374; 99285; J0131; Q9967

== ENCOUNTER 2025-02-20 06:22 | Day surgery (SDC) | payer MEDICARE, SELFPAY ==
[2025-02-20 08:22] VITALS: BMI 29.2
[2025-02-20] MEDS: LACTATED RINGERS 1000ML 1,000 ML 50 ML IV (08:24)
[2025-02-20 08:36] VITALS: BP 165/79; PULSE 74; RESP 18; TEMP 36.1; O2SAT 96
--- NOTE | 2025-02-20 08:50 | P.PNANES_ITS ---
[facility] Disclaimer: The information contained in this section may have been updated after the patient was seen, as this information can be updated by other users. Medical History UTI (urinary tract infection) Near syncope Fatigue Right shoulder pain Headache COVID-19 Encounter for screening colonoscopy Low Back Pain Hemorrhoids Acute bacterial bronchitis Varicose veins of both legs with edema Edema Calcaneal spur of left foot Acquired pes planus of both feet Acute pain of left foot Varicose veins of bilateral lower extremities with pain Bilateral lower extremity edema Hypotension Acute dehydration Orthostatic syncope Pain in left foot Dislocation of second toe, left, closed Hallux valgus (acquired), left foot Metatarsalgia, left foot Acute bronchitis Back pain Acute dysfunction of left eustachian tube Wheezing Exposure to COVID-19 virus Fall Facial abrasion Forehead laceration Wasp sting Hymenoptera sting Lumbar back pain Primary osteoarthritis of right hip Bronchitis Aortic insufficiency Diastolic dysfunction Encounter for pre-operative cardiovascular clearance Dizzy Vitamin D insufficiency Sinusitis Arm pain Anxiety and depression History of gastroesophageal reflux (GERD) Hypothyroid Hypertension Hyperlipidemia Unstable angina Dyspnea Typical angina Mild persistent asthma Allergic rhinitis, unspecified Dyspnea on exertion Gallbladder sludge Bilateral carotid artery stenosis Right carotid bruit Surgical History History of colonoscopy History of total right hip arthroplasty History of hysterectomy Hx of heart artery stent History of breast biopsy History of total hip replacement Family History Other Diabetes Heart attack Social History Smoking Status: Never smoker second hand exposure: No alcohol intake: never substance use type: denies use current occupational status: disabled Travel in the last 8 weeks?: None household members: none housing: house current occupational exposures/hazards: No caffeine: Yes Have you lived/traveled outside US in past 30 days?: No Contact w/someone who lives/traveled outside US past 30 days?: No Exposure to someone with infectious disease in past 14 days?: No Do you have a fever (greater than 100.4 F or 38 C)?: No Have you tested positive for COVID-19?: No Exposed to someone with COVID-19 in past 14 days?: No Do you have a sore throat?: No Do you have a cough?: No Do you have any weakness?: No Do you have any diarrhea?: No Are you experiencing any unusual bleeding?: No Do you have any muscle aches/pain?: No Do you have any abdominal pain?: No Are you experiencing loss of taste or smell?: No [facility] Anesthesia Checklist Patient Identification Patient Identification: Arm Band and Verbal (Name & ) Structural Data Admitted From: Home Planned Operative Procedure/s: colonscopy Consent for Planned Operative Procedure(s) Verified: Yes Verified Documents: Surgical Consent and History and Physical NPO Status Verified Time NPO: 00:00 Additional verifications Anesthesia Reactions: No Hx Blood Transfusions: No Blood Transfusion Reaction: No Airway Assessment Mallampati Score:: Class II Neurological Assessment Level of Consciousness: Awake, Alert and Appropriate Hx Seizures: No Anesthesia Plan Anesthesia Risk discussed: Yes Anesthesia Plan: Verified ASA Class: III Anesthesia Type: MAC
--- NOTE | 2025-02-20 09:07 | EXP.HP ---
History of Present Illness *Admission Date: 02/20/25 *History of present illness: Mrs. De Dios is a 74-year-old female who is here for diagnostic colonoscopy. The patient has had chronically loose stools and a couple of months ago was having left lower abdominal pain. Last month, she went to the ED with chest pain, abdominal pain and diarrhea with urgency and incontinence. She did have some dark blood in her stool and what appeared to be coffee-ground's. She also had some mucus with her bowel movement. She did have a colonoscopy with Dr. Brian Mcintyre M.D. in May 2024 with tortuosity and moderate bowel prep. She had 2 polyps (tubular adenoma x 1 and serrated adenoma x 1) which were removed. The preparation was fair to poor. The examination is deemed medically necessary for diagnostic colonoscopy. The patient has been seen, interviewed and examined prior to the procedure by both myself and the anesthesia provider. [facility] Disclaimer: The information contained in this section may have been updated after the patient was seen, as this information can be updated by other users. Medical History UTI (urinary tract infection) Near syncope Fatigue Right shoulder pain Headache COVID-19 Encounter for screening colonoscopy Low Back Pain Hemorrhoids Acute bacterial bronchitis Varicose veins of both legs with edema Edema Calcaneal spur of left foot Acquired pes planus of both feet Acute pain of left foot Varicose veins of bilateral lower extremities with pain Bilateral lower extremity edema Hypotension Acute dehydration Orthostatic syncope Pain in left foot Dislocation of second toe, left, closed Hallux valgus (acquired), left foot Metatarsalgia, left foot Acute bronchitis Back pain Acute dysfunction of left eustachian tube Wheezing Exposure to COVID-19 virus Fall Facial abrasion Forehead laceration Wasp sting Hymenoptera sting Lumbar back pain Primary osteoarthritis of right hip Bronchitis Aortic insufficiency Diastolic dysfunction Encounter for pre-operative cardiovascular clearance Dizzy Vitamin D insufficiency Sinusitis Arm pain Anxiety and depression History of gastroesophageal reflux (GERD) Hypothyroid Hypertension Hyperlipidemia Unstable angina Dyspnea Typical angina Mild persistent asthma Allergic rhinitis, unspecified Dyspnea on exertion Gallbladder sludge Bilateral carotid artery stenosis Right carotid bruit Surgical History History of colonoscopy History of total right hip arthroplasty History of hysterectomy Hx of heart artery stent History of breast biopsy History of total hip replacement Family History Other Diabetes Heart attack Social History Smoking Status: Never smoker second hand exposure: No alcohol intake: never substance use type: denies use current occupational status: disabled Travel in the last 8 weeks?: None household members: none housing: house current occupational exposures/hazards: No caffeine: Yes Have you lived/traveled outside US in past 30 days?: No Contact w/someone who lives/traveled outside US past 30 days?: No Exposure to someone with infectious disease in past 14 days?: No Do you have a fever (greater than 100.4 F or 38 C)?: No Have you tested positive for COVID-19?: No Exposed to someone with COVID-19 in past 14 days?: No Do you have a sore throat?: No Do you have a cough?: No Do you have any weakness?: No Do you have any diarrhea?: No Are you experiencing any unusual bleeding?: No Do you have any muscle aches/pain?: No Do you have any abdominal pain?: No Are you experiencing loss of taste or smell?: No Other Medical History Have you received the Flu Vaccine for this season: No Have you received the Pneumonia Vaccine: Yes Review of Systems Review of Systems Review of systems (narrative): Negative *Cardiovascular Comments: Negative *Gastrointestinal Comments: Negative *Genitourinary Comments: Negative *Musculoskeletal Comments: Negative *Neurologic Comments: Negative Meds Home Medications and Allergies Home Medications ?Medication ?Instructions ?Recorded ?Confirmed ?Type atorvastatin 80 mg tablet 80 mg PO DAILY #90 tabs 05/02/24 02/20/25 Rx fluticasone 250 mcg-salmeterol 50 1 inh inhalation BID 05/31/24 02/20/25 History mcg/dose blistr powdr for inhalation (Advair Diskus) clopidogrel 75 mg tablet 75 mg PO DAILY #90 tabs 06/26/24 02/20/25 Rx clonazepam 0.5 mg tablet (Klonopin) 0.5 mg PO DAILY PRN anxiety #20 06/30/24 02/20/25 Rx tabs montelukast 10 mg tablet 10 mg PO QHS breathing issues #90 07/22/24 02/20/25 Rx tabs furosemide 20 mg tablet 20 mg PO BID #180 tabs 01/15/25 02/20/25 Rx bisoprolol fumarate 5 mg tablet 5 mg PO DAILY BP #90 tabs 01/20/25 02/20/25 Rx escitalopram oxalate 10 mg tablet See Rx Instructions .Route 01/20/25 02/20/25 Rx .COMPLEX #90 tabs levothyroxine 50 mcg tablet 50 mcg PO DAILY hypothyroid #90 01/20/25 02/20/25 Rx (Levo-T) tabs pantoprazole 40 mg tablet,delayed See Rx Instructions .Route DAILY 01/20/25 02/20/25 Rx release (Protonix) gerd #90 tabs isosorbide mononitrate 30 mg 30 mg PO DAILY #30 tabs 01/21/25 02/20/25 Rx tablet,extended release 24 hr budesonide 3 mg 3 mg PO BID #30 ea 01/25/25 02/20/25 Rx capsule,delayed,extended release linaclotide 145 mcg capsule 145 mcg PO DAILY #30 caps 01/25/25 02/20/25 Rx (Linzess) metronidazole 250 mg tablet 250 mg PO TID 10 days #30 tabs 01/25/25 02/20/25 Rx New Prescriptions to Start Prescriptions: Allergies Allergy/AdvReac Type Severity Reaction Status Date / Time No Known Allergies Allergy Verified 02/20/25 08:31 Exam Data for Last 24 hours Vital signs and Labs for Last 24 Hours: Temp Pulse Resp BP Pulse Ox O2 Del Method 97.0 F L 74 18 165/79 H 96 Room Air 02/20/25 08:36 02/20/25 08:36 02/20/25 08:36 02/20/25 08:36 02/20/25 08:36 02/20/25 08:36 I & O for Last 24 hours: Intake & Output 02/17/25 02/18/25 02/19/25 02/20/25 23:59 23:59 23:59 23:59 Weight 170 lb *Routine HEENT Exam Head: Present normocephalic Eye: Present EOMI and PERRL ENT: Present mucous membranes moist *Routine Neck Exam Neck: Present supple *Routine Respiratory Exam Respiratory: Present CTA bilaterally *Routine Cardiovascular Exam Cardiovascular: Present RRR *Routine Abdominal Exam Abdominal: Present soft and normoactive bowel sounds; Absent tenderness *Routine Rectal Exam Rectal:: deferred *Routine Genitalia Exam Genitalia:: deferred *Routine Extremities Exam Extremities: Absent cyanosis, clubbing or edema *Routine Skin Exam Skin: Present warm; Absent rash *Routine Neurological Exam Neurological: Present alert and oriented X3 Assessment and Plan *Assessment and plan (1) Blood in stool: Status: Acute Category: Medical Code(s): K92.1 - Melena (2) Diarrhea: Status: Acute Category: Medical Code(s): R19.7 - Diarrhea, unspecified (3) Fecal urgency: Status: Acute Category: Medical Code(s): R15.2 - Fecal urgency (4) LLQ abdominal pain: Status: Acute Category: Medical Code(s): R10.32 - Left lower quadrant pain (5) Incontinence of feces: Status: Acute Category: Medical Code(s): R15.9 - Full incontinence of feces (6) Tubular adenoma of colon: Status: Acute Category: Medical Code(s): D12.6 - Benign neoplasm of colon, unspecified (7) Serrated adenoma of colon: Status: Acute Category: Medical Code(s): D12.6 - Benign neoplasm of colon, unspecified Plan A/P: 1. Blood in stool with diarrhea, urgency, left lower quadrant abdominal pain and incontinence is the preprocedural diagnosis. She did have a poorly prepped colon last year with adenomatous polyps removed. The patient will be anesthetized/sedated using MAC sedation. The patient has been seen and examined. Cardiac and lung assessment prior to the examination is stable. Proceed with planned diagnostic colonoscopy.
--- NOTE | 2025-02-20 09:18 | P.PCN_ITS ---
[facility] Procedure Note Date: 02/20/25 Time: 09:43 Procedure Note:: Colonoscopy Procedure Report: Colonoscopy with cold snare polypectomy and hemorrhoid band ligation Endoscopist: Nico Clayton II, MD Referring physician: ALEJANDRA Keating Date of Procedure: February 20, 2025 Equipment: Olympus 190 variable stiffness pediatric colonoscope Sedation: MAC sedation Indication: Mrs. De Dios is a 74-year-old female who is here for diagnostic colonoscopy secondary to left lower quadrant abdominal pain and rectal bleeding. She reports both dark blood and some bright red blood with her bowel movements. She does report small caliber stools. The blood began when she started having the left lower quadrant pain within the last 1 to 2 months. She did have a colonoscopy by Dr. Brian Mcintyre M.D. in May 2020 for with moderate tortuosity and fair bowel prep. She did have 2 polyps (tubular adenoma x 1 and serrated adenoma x 1) removed. He did recommend repeat colonoscopy in 6 to 12 months with improved preparation. The patient reports no weight loss or family history of colon cancer. She does get moderate bloating and gassiness. She also reports having a prolapsed internal hemorrhoid. The patient did have a CT scan of the abdomen pelvis on January 22, 2025 while she was in the ED. This did show portions of the large bowel involving the transverse and descending colon with mildly thickened colonic wall and engorgement of the pericolonic vasculature raising the possibility of segmental colitis. Procedure: Prior to the procedure, a history and physical exam was performed, and patient's medications and allergies were reviewed. The risks, benefits and alternatives of the sedation and procedure were discussed with the patient. All questions were answered and informed consent was obtained. The patient was brought to the procedure room. Patient identification and proposed procedure were verified by the physician and the nurse. The patient was placed in a left lateral decubitus position and the scope was passed under direct vision. Throughout the procedure, the patient's blood pressure, pulse, and oxygen saturations were monitored continuously. The colonoscopy was accomplished without difficulty. The patient tolerated the procedure well. Findings: On digital rectal examination there was normal rectal tone. There was some prolapsing internal hemorrhoids. The colonoscope was introduced through the anal canal to the rectum and advanced to the cecum. The ileocecal valve and appendiceal orifice were identified. The scope was advanced a short distance into the ileum which appeared grossly normal. The scope was then withdrawn into the colon. There were 7 colon polyps (cecum x 2 (5 and 8 mm), ascending x 3 (4, 4 and 5 mm) and transverse x 2 (4 and 4 mm)). These were all removed via cold snare polypectomy. The remaining cecum, ascending and transverse colon and mucosa were grossly normal. There were scattered diverticuli throughout the descending and sigmoid colon (LEFT colon). The rectum itself was normal. Upon retroflexion within the rectum there were grade 2-3 internal hemorrhoids. 3 columns of hemorrhoids were banded using 3 bands with excellent ligation effect. The preparation was excellent throughout with [place] Preparation Score of 9. T he cecal time was 12 minutes. Impression: 1. Colonic polyps x 7 2. Left-sided diverticulosis 3. Grade 2?3 internal hemorrhoids status post band ligation x 3 Plan: I will follow-up the polyp histology and recommend repeat surveillance colonoscopy again in 3 years based upon the pathology. I would encourage dietary measures and bulking FiberCon 2 tablets p.o. every morning.
[2025-02-20 09:52] VITALS: BP 117/64; PULSE 65; RESP 18; TEMP 36.4; O2SAT 96
[2025-02-20 10:02] VITALS: BP 121/68; PULSE 67; RESP 18; O2SAT 97
[2025-02-20 10:12] VITALS: BP 145/71; PULSE 62; RESP 18; O2SAT 96
[2025-02-20 10:22] VITALS: BP 148/89; PULSE 61; RESP 18; TEMP 36.4; O2SAT 97
[2025-02-20] MEDS: KETOROLAC 30MG/ML VIAL 30 MG (10:26)
== END 2025-02-20 10:43 | disposition home or self-care (01) ==
PROVIDERS: PCP Nurse Practitioner Family; Visit Provider Internal Medicine Gastroenterology
PROC: 0DJD8ZZ Inspection of Lower Intestinal Tract, Via Natural or Artificial Opening Endoscopic (ICD-10-PCS; CPT 45378; principal; 2025-02-20 09:00)
DX: K64.2 Third degree hemorrhoids (principal); K21.9 Gastro-esophageal reflux disease without esophagitis; E03.9 Hypothyroidism, unspecified; I10 Essential (primary) hypertension; E78.5 Hyperlipidemia, unspecified; K57.30 Diverticulosis of large intestine without perforation or abscess without bleeding; D12.2 Benign neoplasm of ascending colon; D12.0 Benign neoplasm of cecum; K51.40 Inflammatory polyps of colon without complications; Z86.0101 Personal history of adenomatous and serrated colon polyps; J45.30 Mild persistent asthma, uncomplicated; Z91.81 History of falling; Z79.899 Other long term (current) drug therapy; Z79.02 Long term (current) use of antithrombotics/antiplatelets; Z79.51 Long term (current) use of inhaled steroids; Z79.890 Hormone replacement therapy; Z79.52 Long term (current) use of systemic steroids
CPT/HCPCS: 45385; 45398; 88305; C1889; J1885; J2003; J2704; J7120

== ENCOUNTER 2025-03-27 09:56 | Outpatient (CLI) | payer MEDICARE, SELFPAY ==
--- NOTE | 2025-03-27 10:00 | XR_ITS ---
FINAL REPORT CLINICAL HISTORY: Pain of left foot x 2-3 months COMPARISON: 03/24/2023 FINDINGS: Three views of the left foot show no evidence of acute displaced fracture or dislocation of the visualized bony architecture. There is severe hallux valgus deformity. Severe degenerative changes are noted of the 1st MTP joint. There are moderate degenerative changes of the midfoot. Moderate plantar calcaneal spurring is noted. IMPRESSION: Chronic changes without acute process. Reviewed, Interpreted and Dictated by Aaron Rock MD Transcribed by Iris Naik Authenticated and [facility]
--- OUTSIDE RECORDS SUMMARY | 2025-03-27 10:04 | XMS_ITS | Clinical Summary ---
[facility] Address [address] [place] [address] Care Team Providers Care Retail Coordinator Name Role Phone Davey Nj MD Primary Care Provider [phone] Social History Tobacco Use Types Packs/Day Years Used Date Smoking Tobacco: Never Assessed Abuse Screen Answer Date Recorded Unsafe at Home or Work/School Not on file Feels Threatened by Someone? Not on file 05/2023 Does Anyone Keep You from Co ntacting Others or Doint Things Outside the Home? Not on file 05/26/2023 Physical Sign of Abuse Present Not on file 1 Housing Stability Answer Date Recorded Current Living Arrangements Not on file 05/17 Potentially Unsafe Housing Conditions Not on jayjay e 05/26/2023 Family and Community Support Answer Mundo e Recorded Help with Day-to-Day Activities Not on file 05/26/2023 Lonely or Isolated Not on file 05/26/2023 Employment Answer Date Recorded Do you want help finding or keeping work or a brenton b? Not on file 05/26/2023 Disabilities Answer Date Recorded Concentrating, Remembering, or Making Decisions Difficulty Not on file 05/26/2023 Doing Errands Independently Difficulty Not on fi le 05/26/2023 Education Answer Date Recorded Help with school or training? Not on file Preferred Language Not on file 05/26/2023 Comments Unknown Sex and Gender Information Value Date Recorded Sex Assigned at Not on file Legal Sex Female 1:40 PM EDT Gender Identity Not on file Sexual Orientation Not on file Plan of Treatment Health Maintenance Due Date Last Done Comments ANNUAL PHYSICAL 1950 DXA SCAN 1950 HEPATITIS C SCREENING 1950 TDAP/TD VACCINES (1 - Tdap) 1969 MAMMOGRAM 1990 COLOGUARD 1995 COLON CANCER SCREENING 5 YEAR SIGMOIDOSCOPY 1995 COLONOSCOPY 1995 COLORECTAL CANCER SCREENING 1995 CT COLONOGRAPHY 1995 FECAL OCCULT BLOOD TEST 1995 FIT Testing (1 year) 1995 Pneumococcal Vaccine 50+ (1 of 1 - PCV) 2000 ZOSTER VACCINE (1 of 2) 2000 COVID-19 Vaccine (1 - 2023- season) 2024 INFLUENZA VACCINE 05/17/2025 Insurance [employer] Care Teams Retail Coordinator Relationship Specialty Start Date End Date Davey Nj MD [facility] [address] ATTN: [place] [address] PCP - General Emergency Medicine 09/09/16
== END 2025-03-27 23:59 ==
LOC: RAD 09:57
PROVIDERS: PCP Nurse Practitioner Family; Visit Provider Podiatrist
DX: M19.072 Primary osteoarthritis, left ankle and foot (principal); M20.12 Hallux valgus (acquired), left foot; M77.32 Calcaneal spur, left foot
CPT/HCPCS: 73630

== ENCOUNTER 2025-06-01 10:40 | Emergency (ER) | payer MEDICARE, SELFPAY ==
[2025-06-01] VITALS (9 sets, daily range): BP systolic 142–187; BP diastolic 66–99; PULSE 55–71; RESP 16; TEMP 36.7–36.8; O2SAT 95–98; BMI 27.4
--- NOTE | 2025-06-01 10:50 | CT_ITS ---
FINAL REPORT TECHNIQUE: Pre-and postcontrast images of the abdomen through the pelvis were performed by computed tomography. A CTA was performed for evaluation of GI bleed. This study was performed with techniques to keep radiation doses as low as reasonably achievable (ALARA). Individualized dose reduction techniques using automated exposure control or adjustment of mA and/or kV according to the patient's size were employed. CLINICAL HISTORY: abdominal pain/gi bleed COMPARISON: None FINDINGS: CTA: No abdominal aortic aneurysm. No evidence of aortic dissection. 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 The SMA and SHERRI are patent without significant stenosis. The iliac arteries are patent. No convincing site of active GI bleeding identified. There is curvilinear enhancement along the colonic mucosa of the descending colon on delaying imaging that is favored to be mucosal enhancement, not active bleeding. On the portal venous phase imaging, there is an area of hypodensity in the inferior right lobe of the liver not seen on the arterial phase imaging. This measures 28 mm and is indeterminate. The spleen, pancreas, adrenal glands, and kidneys are without acute abnormality. There is no evidence of small-bowel obstruction. The appendix is not seen but there are no secondary signs of appendicitis. There is long segment wall thickening of the distal colon involving the descending colon and sigmoid colon consistent with colitis. This is favored to be infectious or inflammatory in etiology. The uterus is absent. There is no abdominal or pelvic lymphadenopathy. No ascites. IMPRESSION: No convincing evidence of active GI bleed identified. Wall thickening of the descending and sigmoid colon consistent with colitis. Favored to be infectious or inflammatory in etiology. Ischemic colitis less likely. Area of hypodensity in the right lobe of the liver seen only on delayed imaging is nonspecific. Consider liver mass protocol MRI in the outpatient setting. Reviewed, Interpreted and Dictated by Idalmis Flores MD Transcribed by Iris Naik Authenticated and [facility]
--- NOTE | 2025-06-01 10:50 | XR_ITS ---
FINAL REPORT CLINICAL HISTORY: short of breath COMPARISON: 02/16/2025 FINDINGS: A portable view of the chest was obtained. Cardiac and mediastinal silhouettes are within normal limits. The lungs are clear. There is no pleural effusion or pneumothorax. IMPRESSION: No acute process on this portable exam. Reviewed, Interpreted and Dictated by Idalmis Flores MD Transcribed by Iris Naik Authenticated and [facility]
--- OUTSIDE RECORDS SUMMARY | 2025-06-01 10:57 | XMS_ITS | Clinical Summary ---
[facility] Address [address] [place] [address] Care Team Providers Care Emergency Medical Technician/Driver Name Role Phone Davey Nj MD Primary Care Provider [phone] Social History Tobacco Use Types Packs/Day Years [...] 2000 ZOSTER VACCINE (1 of 2) 2000 INFLUENZA VACCINE 03/17/2025 COVID-19 Vaccine (1 - 2023- season) 2025 Insurance [employer] Care Teams Emergency Medical Technician/Driver Relationship Specialty Start Date End Date Davey Nj MD [facility] [address] ATTN: [place] [address] PCP - General Emergency Medicine 09/09/16
--- NOTE | 2025-06-01 10:59 | ECG_ITS ---
APPROVED REPORT Exam: Resting ECG HR:55 bpm ECG Measurements Heart Rate 55 AXES MT 170 P 23 QRSd 91 QRS 33 QT 441 T 21 QTc 431 Conclusion SINUS BRADYCARDIA LOW QRS VOLTAGE IN PRECORDIAL LEADS [QRS DEFLECTION < 1.0 mV IN CHEST LEADS] MINIMAL ST DEPRESSION [0.025+ mV ST DEPRESSION] BORDERLINE ECG UNCONFIRMED REPORT Electronically signed by : Janak Castillo, 06/03/2025 15:07:46
--- NOTE | 2025-06-01 10:59 | ED_ITS ---
<Statement entered by Kimi Castillo MD - 06/01/25 14:35> I was consulted by the LILI, and we discussed the complexity of the problems being addressed. I approved the treatment and management plan for this patient's care in the emergency department, thus performing a substantive portion of the medical decision making. Kimi Castillo MD, TOMMY, FACEP Discharge Plan Disposition Patient Disposition: Home, Self-Care Prescriptions Prescriptions: New amoxicillin-pot clavulanate 875-125 mg tablet 1 tab PO BID Qty: 20 0RF No Action Linzess 145 mcg capsule 145 mcg PO DAILY Qty: 30 2RF ondansetron 4 mg tablet,disintegrating 4 mg PO Q8H PRN (Reason: nausea and vomiting) Qty: 20 1RF diclofenac sodium [Voltaren Arthritis Pain] 1 % gel 4 g topical QID PRN (Reason: pain) 30 Days Qty: 100 2RF Rx Instructions: apply to heel; ankle, foot; for foot includes sole/toes/top of foot Get over the counter if insurance does not cover polyethylene glycol 3350 [Miralax] 17 gram/dose powder 17 g PO DAILY Metamucil (sugar) Powder 1 tbsp PO DAILY fluticasone propion-salmeterol 250-50 mcg/dose blister with device 1 inh inhalation BID Qty: 180 3RF levothyroxine [Levo-T] 50 mcg tablet 50 mcg PO QAM Qty: 90 3RF bisoprolol fumarate 5 mg tablet 5 mg PO DAILY Qty: 90 3RF dicyclomine 10 mg capsule 10 mg PO TID Qty: 90 3RF Rx Instructions: Please take 1 capsule p.o. 3 times daily escitalopram oxalate 10 mg tablet 10 mg PO DAILY Qty: 90 3RF montelukast 10 mg tablet 10 mg PO QHS Qty: 90 3RF ranolazine 500 mg tablet extended release 12 hr 500 mg PO BID Qty: 180 3RF atorvastatin 80 mg tablet 80 mg PO QHS Qty: 90 3RF furosemide 20 mg tablet 20 mg PO BID Qty: 180 3RF clopidogrel 75 mg tablet 75 mg PO DAILY Qty: 90 3RF isosorbide mononitrate 30 mg tablet extended release 24 hr 30 mg PO DAILY Qty: 90 3RF albuterol sulfate 90 mcg/actuation HFA aerosol inhaler 2 inh INHALATION Q4-6H PRN (Reason: shortness of breath or wheezing) Qty: 25.5 3RF pantoprazole [Protonix] 40 mg tablet,delayed release (DR/EC) See Rx Instructions .ROUTE DAILY Qty: 90 0RF Rx Instructions: Take on empty stomach at least 40 minutes before a meal. daily; Referrals Follow up/Referrals: Jessica Conley APRN [Primary Care Provider, Family Practice] - See instructions Activity Restrictions/Add. Instructions Additional Instructions/Restrictions: Increase fluids and rest. Take meds as directed. Please call Dr. Clayton for follow-up appointment. Also see Vinicius Conley on Thursday for repeat H&H as we discussed. Clinical Impressions Clinical Impression: Diverticulitis Instructions Patient Instructions: DI for Diverticulitis, DI for Acute Abdominal Pain Print Language Print Language: Jamaican Discharge ED Provider: Kimi Castillo General Adult HPI General Chief complaint: Abdominal Pain Stated complaint: rectum bleeding, abd pain Time Seen by Provider: 06/01/25 10:42 History of Present Illness HPI narrative: 74-year-old female presents to the ED today with complaint of having some dark blood clots in her stool. She has been going to the bathroom every 30 to 45 minutes since yesterday. She is having diarrhea. No vomiting. No nausea. She is not a drinker. She says that she has a low abdominal pain that feels like cramping. Yesterday it was 10 out of 10 today is 9 out of 10. She has taken Tylenol for this. She did have a colonoscopy [address] Clayton where he found 7 polyps and she tells me that she was diagnosed with IBS. She denies fevers or chills. Patient also has history of diverticular disease, she has had blood in her stool in the past. She also has history of CAD, hypothyroid, GERD angina, hyperlipidemia and hypertension. Patient does take Plavix. When Dr. Clayton had her colonoscopy he did band hemorrhoids and he found left-sided diverticulitis. Related Data Home Medications ?Medication ?Instructions ?Recorded ?Confirmed polyethylene glycol 3350 17 17 g PO DAILY 04/11/25 gram/dose oral powder (Miralax) psyllium seed (sugar) oral powder 1 tbsp PO DAILY 03/1806/01/25 (Metamucil (sugar) oral powder) Previous Rx's ?Medication ?Instructions ?Recorded linaclotide 145 mcg capsule 145 mcg PO DAILY #30 caps 01/25/25 (Linzess) ondansetron 4 mg disintegrating 4 mg PO Q8H PRN nausea and 03/14/25 tablet vomiting #20 tabs diclofenac sodium 1 % topical gel 4 g topical QID PRN pain 30 days 03/28/25 (Voltaren Arthritis Pain) #100 grams albuterol sulfate 90 mcg/actuation 2 inh inhalation Q4 -6H PRN 04/06/25 aerosol inhaler shortness of breath or wheez ing #25.5 grams atorvastatin 80 mg tablet 80 mg PO QHS #90 tabs bisoprolol fumarate 5 mg tablet 5 mg PO DAILY BP #90 t abs 04/06/25 clopidogrel 75 mg tablet 75 mg PO DAILY #90 tabs 03/18 09/10 dicyclomine 10 mg capsule 10 mg PO TID #90 caps escitalopram oxalate 10 mg tablet 10 mg PO DAILY #90 t abs 04/06/25 fluticasone 250 mcg-salmeterol 50 1 inh inhalation BID #180 ea 04/06/25 mcg/dose blistr powdr for inhalation furosemide 20 mg tablet 20 mg PO BID #180 tabs 04/06 isosorbide mononitrate 30 mg 30 mg PO DAILY #90 tabs 0 04/06/25 tablet,extended release 24 hr levothyroxine 50 mcg tablet 50 mcg PO QAM hypothyroid #90 tabs 04/06/25 (Levo-T) montelukast 10 mg tablet 10 mg PO QHS #90 tabs ranolazine 500 mg tablet,extended 500 mg PO BID #180 t abs 04/06/25 release,12 hr pantoprazole 40 mg tablet,delayed See Rx Instructions .Route DAILY 04/12/25 release (Protonix) gerd #90 tabs amoxicillin 875 mg-potassium 1 tab PO BID #20 tabs clavulanate 125 mg tablet Allergies Allergy/AdvReac Type Severity Reaction Status Date / Time No Known Allergies Allergy Verified 06/01/25 10:08 [facility] Disclaimer: The information contained in this section may have been updated after the patient was seen, as this information can be updated by other users. Medical History (Updated 06/01/25 @ 14:02 by Buffy North (ED), ANIMAL CRUELTY INVESTIGATOR) Chest pain Colitis Abdominal cramps Generalized abdominal pain Dry heaves Abdominal cramping in left lower quadrant Acute gastroenteritis Nausea Fatigue UTI (urinary tract infection) Near syncope Right shoulder pain Headache COVID-19 Encounter for screening colonoscopy Low Back Pain Hemorrhoids Acute bacterial bronchitis Varicose veins of both legs with edema Edema Calcaneal spur of left foot Acquired pes planus of both feet Acute pain of left foot Varicose veins of bilateral lower extremities with pain Bilateral lower extremity edema Hypotension Acute dehydration Orthostatic syncope Pain in left foot Dislocation of second toe, left, closed Hallux valgus (acquired), left foot Metatarsalgia, left foot Acute bronchitis Back pain Acute dysfunction of left eustachian tube Wheezing Exposure to COVID-19 virus Fall Facial abrasion Forehead laceration Wasp sting Hymenoptera sting Lumbar back pain Primary osteoarthritis of right hip Bronchitis Aortic insufficiency Diastolic dysfunction Encounter for pre-operative cardiovascular clearance Dizzy Vitamin D insufficiency Sinusitis Arm pain Anxiety and depression History of gastroesophageal reflux (GERD) Hypothyroid Hypertension Hyperlipidemia Unstable angina Dyspnea Typical angina Mild persistent asthma Allergic rhinitis, unspecified Dyspnea on exertion Gallbladder sludge Bilateral carotid artery stenosis Right carotid bruit Surgical History History of colonoscopy History of total right hip arthroplasty History of hysterectomy Hx of heart artery stent History of breast biopsy History of total hip replacement Family History Other Diabetes Heart attack Social History Smoking Status: Never smoker second hand exposure: No alcohol intake: never substance use type: denies use current occupational status: disabled Travel in the last 8 weeks?: None household members: none housing: house current occupational exposures/hazards: No caffeine: Yes Have you lived/traveled outside [place] in past 30 days?: No Contact w/someone who lives/traveled outside US past 30 days?: No Exposure to someone with infectious disease in past 14 days?: No Do you have a fever (greater than 100.4 F or 38 C)?: No Have you tested positive for COVID-19?: No Exposed to someone with COVID-19 in past 14 days?: No Do you have a sore throat?: No Do you have a cough?: No Do you have any weakness?: No Do you have any diarrhea?: No Are you experiencing any unusual bleeding?: Yes Do you have any muscle aches/pain?: No Do you have any abdominal pain?: Yes Are you experiencing loss of taste or smell?: No Other Medical History Have you received the Flu Vaccine for this season: No Have you received the Pneumonia Vaccine: Yes ROS Obtained: Yes Systems reviewed as appropriate & no additional complaints except as documented Constitutional Constitutional: Reports as per HPI Physical Exam General General appearance: alert and in distress Head Head exam: normocephalic Eye Eye exam: Present PERRL and EOMI ENT ENT exam: Present normal oropharynx and mucous membranes moist Neck Neck exam: Present full ROM and trachea midline Respiratory Respiratory exam: Present normal lung sounds bilaterally Cardiovascular Cardiovascular exam: Present regular rate, normal rhythm, normal heart sounds, +S1 and +S2 Abdominal Exam Abdominal exam: Present soft and normal bowel sounds Abdominal tenderness: Present RLQ, LLQ and moderate Extremities Exam Extremities exam: Present full ROM, normal capillary refill and edema (Lower extremity) Neurological Exam Neurological exam: Present alert, oriented X3 and normal gait Skin Skin exam: Present warm, dry and intact Medical Decision Making Medical Records Screening: Per USPSTF and CDC recommendations, given the prevalence of disease in our region, it is our hospital?s policy to screen for HIV and viral Hepatitis for all patients aged 18 and over and those with ongoing risk factors. Adryan Inquiry Pt receiving controlled substance: No Adryan was queried for this patient: No Vital Signs: 06/01/25 10:41 06/01/25 11:01 06/01/25 12:00 Temperature 98.1 F Temperature Source Oral Pulse Rate 60 60 Pulse Rate [Left Radial] 61 Respiratory Rate 16 Blood Pressure 142/83 H 162/91 H Blood Pressure [Right Arm] 166/91 H Blood Pressure Mean [Right Arm] 116 Blood Pressure Source [Right Arm] Automatic Cuff Blood Pressure Position [Right Arm] Sitting 02 Sat by Pulse Oximetry 96 96 96 Oxygen Delivery Method Room Air Room Air 06/01/25 12:30 06/01/25 13:01 06/01/25 13:30 Temperature Temperature Source Pulse Rate 58 L 55 L 63 Pulse Rate [Left Radial] Respiratory Rate Blood Pressure 170/99 H 187/79 H 155/85 H Blood Pressure [Right Arm] Blood Pressure Mean [Right Arm] Blood Pressure Source [Right Arm] Blood Pressure Position [Right Arm] 02 Sat by Pulse Oximetry 95 95 95 Oxygen Delivery Method Room Air Room Air Room Air Lab Data Lab Results 06/01/25 10:13: Urine Color Yellow, Urine Appearance Clear, Urine pH 5.5, Ur Specific [place] 1.010, Urine Protein Negative, Urine Glucose (UA) Negative, Urine Ketones Negative, Urine Blood Negative, Urine Nitrate Negative, Urine Bilirubin Negative, Urine Urobilinogen 0.2, Ur Leukocyte Esterase 2+ A, Urine RBC 3-5, Urine WBC 3-5, Ur Squamous Epith Cells 5-10, Amorphous Sediment Trace, Urine Bacteria 1+ 06/01/25 10:56: WBC 9.2, RBC 3.99 L, Hgb 13.2, Hct 37.5, MCV 94.0, MCH 33.1 H, MCHC 35.2, RDW 13.6, Plt Count 213, MPV 10.2, Neut % (Auto) 70.6, Lymph % (Auto) 18.8, Fleming % (Auto) 9.1, Eos % (Auto) 1.0, Baso % (Auto) 0.3, Neut # (Auto) 6.5, Lymph # (Auto) 1.7, Fleming # (Auto) 0.8, Eos # (Auto) 0.1, Baso # (Auto) 0.0, ESR 20, PT 11.0, INR 0.99, APTT 23.6, Sodium 138, Potassium 3.6, Chloride 104, Carbon Dioxide 27, Anion Gap 10.6, BUN 19 H, Creatinine 0.80, Estimated GFR 70, Est GFR ( Amer) 85, Glucose 120 H, Calcium 9.0, Magnesium 1.8, Total Bilirubin 0.9, AST 26, ALT 18, Alkaline Phosphatase 73, Troponin I < 0.01, C- Reactive Protein 4.4 H, Total Protein 6.7, Albumin 4.1, Globulin 2.6, Albumin/Globulin Ratio 1.6, Lipase 95 06/01/25 10:56 06/01/25 10:56 Orders (Tests/Meds): ED MEDICATIONS Generic Name Dose Route Start Last Admin Trade Name Freq PRN Reason Stop Dose Admin Sodium Chloride 10 ml 06/01/25 10:50 Sodium Chloride 0.9% 10ml Vial IV 07/01/25 10:49 NEEDED PRN dilute protonix Discontinued Medications Generic Name Dose Route Start Last Admin Trade Name Freq PRN Reason Stop Dose Admin Sodium Chloride 1,000 mls @ 999 mls/hr 06/01/25 10:50 06/01/25 12:24 Sod Chlor 0.9% 1000ml Bag IV 06/01/25 11:50 Infused .Q1H1M ONE Infusion Iopamidol 80 ml 06/01/25 11:30 06/01/25 11:31 Iopamidol-370 (76%);100ml Bottle IV 06/01/25 11:31 80 ml ONCE ONE Administration Pantoprazole Sodium 40 mg 06/01/25 10:50 06/01/25 11:14 Pantoprazole 40mg Vial IV 06/01/25 10:51 40 mg ONCE ONE Administration Sodium Chloride 50 ml 06/01/25 11:30 06/01/25 11:31 0.9 % Sodium Chloride 50 Ml Vial IV 06/01/25 11:31 50 ml ONCE ONE Administration Sodium Chloride 10 ml 06/01/25 11:30 06/01/25 11:31 Sodium Chloride 0.9% 10ml Syr (Rad Only) IV 06/01/25 11:31 10 ml ONCE ONE Administration ORDERS Category Date Time Status CT angio abd/pel - GI Bleed Stat Cat Scan 06/01/25 10:50 Completed Chest XR -- portable [XR chest portable] Stat Exams 06/01/25 10:50 Completed CBC [Complete Blood Count Auto Diff] Stat Lab 06/01/25 10:56 Completed CRP [C-Reactive Protein] Stat Lab 06/01/25 10:56 Completed Comprehensive Metabolic Panel Stat Lab 06/01/25 10:56 Completed Diarrhea 23 Panel, PCR Stat Lab 06/01/25 11:21 Ordered Erythrocyte Sedimentation Rate Stat Lab 06/01/25 10:56 Completed Lipase Stat Lab 06/01/25 10:56 Completed Magnesium Stat Lab 06/01/25 10:56 Completed PT INR [Prothrombin Time INR] Stat Lab 06/01/25 10:56 Completed PTT [Activated Partial Thrombo Time] Stat Lab 06/01/25 10:56 Completed Trop I [Troponin I] Stat Lab 06/01/25 10:56 Completed Troponin I Q3H Lab 06/01/25 14:00 Ordered Troponin I Q3H Lab 06/01/25 17:00 Ordered Urinalysis and Microscopic Stat Lab 06/01/25 10:13 Completed Urine Culture Stat Micro 06/01/25 10:13 Received Medical Decision Narrative: patient is a 74-year-old female presenting to the emergency department for evaluation of lower abdominal pain, diarrhea every 30 to 45 minutes with clots. Patient is hemodynamically stable and nontoxic-appearing upon arrival, afebrile. Differential diagnosis includes GI bleed, colon cancer, anemia, diverticulitis, IBS among others. Workup will be conducted with hematologic labs, specific imaging. Initial inventions include crystalloid bolus, analgesics. Initial workup reviewed by me hematologic labs are remarkable forH&H is 13 and 37, normal BUN and creatinine, normal troponin less than 0.01. Other labs were nonactionable. CT scan showed colitis. No convincing evidence of active GI bleed identified on the scan. She had wall thickening of the descending and sigmoid colon consistent with colitis favored to be infectious or inflammatory in etiology. Patient's colonoscopy 3 months ago did favor diverticulitis so we will treat as diverticulitis. Will give patient Augmentin. Discussed with patient that she needs to bring a stool back to the hospital for a GI panel. Patient will be discharged with this plan. I did try to get a hold of Dr. Clayton but was unable to. I told her to make an appointment with Dr. Clayton for follow-up. I want her to see Vinicius Conley in follow-up on Thursday for a repeat H&H. Return for any problems or concerns Critical Care Critical Care Time Critical Care Time: No
[2025-06-01 11:03] LABS: Hematocrit 37.5 % (37.0-47.0); Hemoglobin 13.2 g/dL (12.2-16.2); Immature Granulocytes % 0.2 %; Mean Corpuscular HGB Conc 35.2 g/dL (31.8-35.4); Mean Corpuscular Hemoglobin 33.1 pg (27.0-31.2); Mean Corpuscular Volume 94.0 fl (81-99); Nucleated Red Blood Cells % 0 %; Platelet Count 213 K/mm3 (142-424); Red Blood Count 3.99 M/mm3 (4.20-5.40); Red Cell Distribution Width-SD 46.8 fL; White Blood Count 9.2 K/mm3 (4.8-10.8)
[2025-06-01 11:13] LABS: Albumin Level 4.1 g/dl (3.5-5.0); Chloride 104 mmol/L (98-107); Potassium 3.6 mmoL/L (3.5-5.1); Sodium 138 mmol/L (136-145)
[2025-06-01] MEDS: 0.9 % SODIUM CHLORIDE 1000ML 1,000 ML 999 ML IV (11:14)
[2025-06-01] MEDS: PANTOPRAZOLE 40MG VIAL 40 MG IV (11:14)
[2025-06-01 11:15] LABS: Blood Urea Nitrogen 19 mg/dl (7-17); Creatinine,Serum 0.80 mg/dl (0.52-1.04); Estimated Glomerular Filt Rate 70 ml/min (>60); GFR (African American) 85 ML/MIN (>60)
[2025-06-01 11:16] LABS: Alanine Aminotransferase 18 U/L (12-78); Albumin/Globulin Ratio 1.6 (1.1-1.8); Alkaline Phosphatase 73 U/L (38-126); Anion Gap 10.6 mEq/L (5-15); Aspartate Amino Transferase 26 U/L (14-36); Bilirubin,Total 0.9 mg/dl (0.2-1.3); Calcium 9.0 mg/dl (8.4-10.2); Carbon Dioxide 27 mmol/L (22.0-30.0); Globulin 2.6 g/dL (1.3-3.2); Glucose 120 mg/dl (74-100); Lipase 95 U/L (23-300); Magnesium 1.8 mg/dl (1.6-2.3); Total Protein,Serum 6.7 g/dl (6.3-8.2)
[2025-06-01 11:22] LABS: Activated Partial Thrombo Time 23.6 seconds (22.8-30.6)
[2025-06-01] MEDS: 0.9 % SODIUM CHLORIDE 50 ML VIAL IV (11:31)
[2025-06-01] MEDS: SODIUM CHLORIDE 0.9% 10ML SYR (RAD ONLY) 10 ML IV (11:31)
[2025-06-01] MEDS: IOPAMIDOL-370 (76%);100ML BOTTLE 80 ML IV (11:31)
[2025-06-01 11:34] LABS: INR 0.99 (0.9-1.1); Prothrombin Time 11.0 seconds (10.1-12.5)
[2025-06-01 11:36] LABS: Troponin I < 0.01 ng/ml (0.00-0.034)
[2025-06-01 11:51] LABS: C-Reactive Protein 4.4 mg/L (0-4)
[2025-06-01 12:38] LABS: Microscopic, Urine URINE MICROSCOPIC (MICROSCOPIC)
[2025-06-01 12:45] LABS: Bilirubin,Urine Negative (Negative); Color,Urine YELLOW (Yellow); Glucose,Urine (UA) Negative (Negative); Ketones,Urine Negative (Negative); Leukocyte Esterase,Urine 2+ (Negative); PH,Urine 5.5 (5.0-8.5); Protein,Urine Negative (Negative); Specific Gravity, Urine 1.010 (1.005-1.030); Urobilinogen,Urine 0.2 EU/dl (0.2)
[2025-06-01 13:07] LABS: Amorphous Sediment,Urine Trace /lpf; Bacteria,Urine 1+ /lpf
== END 2025-06-01 14:18 | disposition home or self-care (01) ==
PROVIDERS: Nurse Practitioner; Emergency Provider Student in an Organized Health Care Education/Training Program; PCP Nurse Practitioner Family
DX: K57.32 Diverticulitis of large intestine without perforation or abscess without bleeding (principal); R10.30 Lower abdominal pain, unspecified
CPT/HCPCS: 71045; 74174; 80053; 81001; 83690; 83735; 84484; 85025; 85610; 85651; 85730; 86140; 87086; 93005; 96361; 96374; 99285; J2470; J7030; Q9967

== ENCOUNTER 2025-06-17 18:57 | Observation (INO) | payer MEDICARE, SELFPAY ==
[2025-06-17] VITALS (12 sets, daily range): BP systolic 98–138; BP diastolic 58–78; PULSE 58–72; RESP 13–18; TEMP 36.7; O2SAT 92–97; BMI 26.6
--- NOTE | 2025-06-17 18:58 | ECG_ITS ---
APPROVED REPORT Exam: Resting ECG HR:72 bpm ECG Measurements Heart Rate 72 AXES KS 188 P 46 QRSd 90 QRS 63 QT 390 T 25 QTc 413 Conclusion SINUS RHYTHM NORMAL ECG Electronically signed by : BRIGITTE WHEELER, 06/17/2025 22:38:02
--- NOTE | 2025-06-17 18:59 | XR_ITS ---
PROCEDURE INFORMATION: Exam: XR Chest Exam date and time: 06/17/2025 7:09 PM Age: 74 years old Clinical indication: Shortness of breath; Additional info: Soa/cp TECHNIQUE: Imaging protocol: Radiologic exam of the chest. Views: 1 view. COMPARISON: CR XR CHEST PORTABLE 06/01/2025 11:11 AM FINDINGS: Tubes, catheters and devices: Leads overlying chest. Lungs: No consolidation. Pleural spaces: No significant pleural effusion. No pneumothorax. Heart/Mediastinum: No cardiomegaly. Bones/joints: Degenerative changes of shoulders. Soft tissues: Unremarkable. IMPRESSION: No definite acute cardiopulmonary disease.
--- OUTSIDE RECORDS SUMMARY | 2025-06-17 19:09 | XMS_ITS | Clinical Summary ---
[facility] Address [address] [place] [address] Care Team Providers Care Residential Real Estate Agent Name Role Phone Davey Nj MD Primary Care Provider [phone] Social History Tobacco Use Types Packs/Day Years [...] help finding or keeping work or a rbenton b? Not on file 05/26/2023 Disabilities Answer [...] season) 2025 Insurance [employer]ILRO[employer] MEDICARE Care Teams Residential Real Estate Agent Relationship Specialty Start Date End Date Davey Nj MD [facility] [address] ATTN: [place] [address] PCP - General Emergency Medicine 09/09/16
--- NOTE | 2025-06-17 19:16 | [facility].EDCP ---
Discharge Plan Disposition Patient Disposition: Admitted Prescriptions Prescriptions: No Action Linzess 145 mcg capsule 145 mcg PO DAILY Qty: 30 2RF ondansetron 4 mg tablet,disintegrating 4 mg PO Q8H PRN (Reason: nausea and vomiting) Qty: 20 1RF diclofenac sodium [Voltaren Arthritis Pain] 1 % gel 4 g topical QID PRN (Reason: pain) 30 Days Qty: 100 2RF Rx Instructions: apply to heel; ankle, foot; for foot includes sole/toes/top of foot Get over the counter if insurance does not cover polyethylene glycol 3350 [Miralax] 17 gram/dose powder 17 g PO DAILY Metamucil (sugar) Powder 1 tbsp PO DAILY fluticasone propion-salmeterol 250-50 mcg/dose blister with device 1 inh inhalation BID Qty: 180 3RF levothyroxine [Levo-T] 50 mcg tablet 50 mcg PO QAM Qty: 90 3RF bisoprolol fumarate 5 mg tablet 5 mg PO DAILY Qty: 90 3RF dicyclomine 10 mg capsule 10 mg PO TID Qty: 90 3RF Rx Instructions: Please take 1 capsule p.o. 3 times daily escitalopram oxalate 10 mg tablet 10 mg PO DAILY Qty: 90 3RF montelukast 10 mg tablet 10 mg PO QHS Qty: 90 3RF ranolazine 500 mg tablet extended release 12 hr 500 mg PO BID Qty: 180 3RF atorvastatin 80 mg tablet 80 mg PO QHS Qty: 90 3RF furosemide 20 mg tablet 20 mg PO BID Qty: 180 3RF clopidogrel 75 mg tablet 75 mg PO DAILY Qty: 90 3RF isosorbide mononitrate 30 mg tablet extended release 24 hr 30 mg PO DAILY Qty: 90 3RF albuterol sulfate 90 mcg/actuation HFA aerosol inhaler 2 inh INHALATION Q4-6H PRN (Reason: shortness of breath or wheezing) Qty: 25.5 3RF pantoprazole [Protonix] 40 mg tablet,delayed release (DR/EC) See Rx Instructions .ROUTE DAILY Qty: 90 0RF Rx Instructions: Take on empty stomach at least 40 minutes before a meal. daily; amoxicillin-pot clavulanate 875-125 mg tablet 1 tab PO BID Qty: 20 0RF Referrals Follow up/Referrals: Jessica Conley APRN [Primary Care Provider, Family Practice] - See instructions Clinical Impressions Clinical Impression: Unstable angina Print Language Print Language: Kinyarwanda Discharge ED Provider: Sebastián Hugo HPI <ALEXIS Cerda - Last Filed: 06/17/25 21:48> General Chief Complaint: Chest Pain Stated Complaint: Chest pain Time Seen by Provider: 06/17/25 18:59 Mode of Arrival: Wheelchair Source of Information: Patient and Significant Other Description of Symptoms (Recalled from ER Triage Doc. by RN): reports chest pain that started @1830. took a nitro with no relief. History of Present Illness HPI narrative: 74-year-old female presents the emergency department with right sided substernal chest pain nonradiating that occurred around 1830, patient took 1 sublingual nitroglycerin, with no relief initially this prompted emergency department visit. Currently patient is a 7 out of 10 chest pain, was at maximal 9 out of 10, patient has associated symptoms with nausea shortness of breath, denies any fever chills no URI type symptomatology to include cough congestion, did have what sounds like an episode of presyncope, patient tells me that she felt she has got a pass out , initially when the chest pain hit her. Patient [place] any overt abdominal pain, no vomiting, no constipation no urinary symptomatology, no melena no hematochezia no hematemesis or hemoptysis, patient is a non-smoker he denies any alcohol or drug use, other past medical history to include CAD status post 6 stents placements follows with cardiology, varicosities of the lower extremities, IBS, diverticulosis, iCAD, hypothyroidism, GERD, hyperlipidemia, hypertension, patient takes a baby aspirin daily, denies any Plavix or any other anticoagulation or antiplatelet use. Initial triage vitals are unremarkable. Please note that above description of symptoms, in this electronic medical record under categorization of recalled from ER triage doctor by RN are reflective of an initial nursing assessment, however, is not reflective of my full history and physical exam that was personally taken and clarified. Consequentially, this preceding description of symptoms, which may include the patient's categorized chief complaint in the EMR, do not reflect my personal clinical impression, and the ultimate description of history of present illness and patient stated complaints should be deferred to this section of the note. Unless stated otherwise or congruent with this section of the note, additional signs, symptoms, or incongruence should be interpreted as inaccurate with my clinical impression. MD complaint: chest pain Related Data Home Medications ?Medication ?Instructions ?Recorded ?Confirmed polyethylene glycol 3350 17 17 g PO DAILY 04/11/25 06/15/25 gram/dose oral powder (Miralax) psyllium seed (sugar) oral powder 1 tbsp PO DAILY 04/11/25 06/15/25 (Metamucil (sugar) oral powder) Previous Rx's ?Medication ?Instructions ?Recorded linaclotide 145 mcg capsule 145 mcg PO DAILY #30 caps 01/25/25 (Linzess) ondansetron 4 mg disintegrating 4 mg PO Q8H PRN nausea and 03/14/25 tablet vomiting #20 tabs diclofenac sodium 1 % topical gel 4 g topical QID PRN pain 30 days 03/28/25 (Voltaren Arthritis Pain) #100 grams albuterol sulfate 90 mcg/actuation 2 inh inhalation Q4-6H PRN 04/06/25 aerosol inhaler shortness of breath or wheezing #25.5 grams atorvastatin 80 mg tablet 80 mg PO QHS #90 tabs 04/06/25 bisoprolol fumarate 5 mg tablet 5 mg PO DAILY BP #90 tabs 04/06/25 clopidogrel 75 mg tablet 75 mg PO DAILY #90 tabs 04/06/25 dicyclomine 10 mg capsule 10 mg PO TID #90 caps 04/06/25 escitalopram oxalate 10 mg tablet 10 mg PO DAILY #90 tabs 04/06/25 fluticasone 250 mcg-salmeterol 50 1 inh inhalation BID #180 ea 04/06/25 mcg/dose blistr powdr for inhalation furosemide 20 mg tablet 20 mg PO BID #180 tabs 04/06/25 isosorbide mononitrate 30 mg 30 mg PO DAILY #90 tabs 04/06/25 tablet,extended release 24 hr levothyroxine 50 mcg tablet 50 mcg PO QAM hypothyroid #90 tabs 04/06/25 (Levo-T) montelukast 10 mg tablet 10 mg PO QHS #90 tabs 04/06/25 ranolazine 500 mg tablet,extended 500 mg PO BID #180 tabs 04/06/25 release,12 hr pantoprazole 40 mg tablet,delayed See Rx Instructions .Route DAILY 04/12/25 release (Protonix) gerd #90 tabs amoxicillin 875 mg-potassium 1 tab PO BID #20 tabs 06/01/25 clavulanate 125 mg tablet Allergies Allergy/AdvReac Type Severity Reaction Status Date / Time No Known Allergies Allergy Verified 06/15/25 11:16 [facility] <ALEXIS Cerda - Last Filed: 06/17/25 21:48> [facility] Disclaimer: The information contained in this section may have been updated after the patient was seen, as this information can be updated by other users. Medical History Chest pain Colitis Abdominal cramps Generalized abdominal pain Dry heaves Abdominal cramping in left lower quadrant Acute gastroenteritis Nausea Fatigue UTI (urinary tract infection) Near syncope Right shoulder pain Headache COVID-19 Encounter for screening colonoscopy Low Back Pain Hemorrhoids Acute bacterial bronchitis Varicose veins of both legs with edema Edema Calcaneal spur of left foot Acquired pes planus of both feet Acute pain of left foot Varicose veins of bilateral lower extremities with pain Bilateral lower extremity edema Hypotension Acute dehydration Orthostatic syncope Pain in left foot Dislocation of second toe, left, closed Hallux valgus (acquired), left foot Metatarsalgia, left foot Acute bronchitis Back pain Acute dysfunction of left eustachian tube Wheezing Exposure to COVID-19 virus Fall Facial abrasion Forehead laceration Wasp sting Hymenoptera sting Lumbar back pain Primary osteoarthritis of right hip Bronchitis Aortic insufficiency Diastolic dysfunction Encounter for pre-operative cardiovascular clearance Dizzy Vitamin D insufficiency Sinusitis Arm pain Anxiety and depression History of gastroesophageal reflux (GERD) Hypothyroid Hypertension Hyperlipidemia Unstable angina Dyspnea Typical angina Mild persistent asthma Allergic rhinitis, unspecified Dyspnea on exertion Gallbladder sludge Bilateral carotid artery stenosis Right carotid bruit Surgical History History of colonoscopy History of total right hip arthroplasty History of hysterectomy Hx of heart artery stent History of breast biopsy History of total hip replacement Family History Other Diabetes Heart attack Social History Smoking Status: Never smoker second hand exposure: No alcohol intake: never substance use type: denies use current occupational status: disabled Travel in the last 8 weeks?: None household members: none housing: house current occupational exposures/hazards: No caffeine: Yes Have you lived/traveled outside [place] in past 30 days?: No Contact w/someone who lives/traveled outside [place] past 30 days?: No Exposure to someone with infectious disease in past 14 days?: No Do you have a fever (greater than 100.4 F or 38 C)?: No Have you tested positive for COVID-19?: No Exposed to someone with COVID-19 in past 14 days?: No Do you have a sore throat?: No Do you have a cough?: No Do you have any weakness?: No Do you have any diarrhea?: No Are you experiencing any unusual bleeding?: No Do you have any muscle aches/pain?: No Do you have any abdominal pain?: No Are you experiencing loss of taste or smell?: No Other Medical History Have you received the Flu Vaccine for this season: No Have you received the Pneumonia Vaccine: Yes <ALEXIS Cerda - Last Filed: 06/17/25 21:48> ROS Obtained: Yes All systems reviewed & no additional complaints except as documented Physical Exam <ALEXIS Cerda - Last Filed: 06/17/25 21:48> General General appearance: alert and in no apparent distress Head Head exam: atraumatic and normocephalic Eye Eye exam: Present normal appearance, PERRL and EOMI Neck Neck exam: Present full ROM; Absent meningismus Chest Chest inspection: Present normal inspection and tenderness Respiratory Respiratory exam: Absent respiratory distress, wheezes, stridor, accessory muscle use or prolonged expiratory phase Cardiovascular Cardiovascular exam: Present normal rhythm and other (Pulses equal and symmetric in bilateral upper and lower extremities) Abdominal Exam Abdominal exam: Absent distention, tenderness, guarding or rebound Extremities Exam Extremities exam: Absent edema Neurological Exam Neurological exam: Present alert Psychiatric Psychiatric exam: Present normal affect Skin Skin exam: Present warm, dry and other (Diffuse bilateral lower extremity varicosities that are chronic, no edema pitting or nonpitting bilaterally) HEART Score <ALEXIS Cerda - Last Filed: 06/17/25 21:48> HEART Score HEART Score assessment performed?: Yes HEART Score: 4 <Sebasitán Hugo MD - Last Filed: 06/17/25 21:50> HEART Score History (anamnesis): Moderately suspicious ECG: Normal Age: >65 years Risk factors: Atherosclerosis history Troponin: </= normal limit HEART Score: 5 Critical Care <ALEXIS Cerda - Last Filed: 06/17/25 21:48> Critical Care Time Critical Care Time: No Medical Decision Making <ALEXIS Cerda - Last Filed: 06/17/25 21:48> Medical Records Medical records reviewed: Yes I reviewed the patient's medical records. Adryan Inquiry Pt receiving controlled substance: Yes Adryan was queried for this patient: No Reason not queried -: Emergent pt cond-no time Risks and benefits of using a controlled substance: were discussed with pt by me Vital Signs Vital Signs: 06/17/25 19:00 06/17/25 19:04 06/17/25 19:30 Temperature 98.1 F Temperature Source Oral Pulse Rate 72 63 Pulse Rate [Right] 68 Respiratory Rate 18 18 Blood Pressure 134/78 103/68 L Blood Pressure [Right Arm] 134/78 Blood Pressure Mean 86 77 Blood Pressure Mean [Right Arm] 96 02 Sat by Pulse Oximetry 97 96 95 Oxygen Delivery Method Room Air 06/17/25 19:35 06/17/25 20:00 06/17/25 20:31 Temperature Temperature Source Pulse Rate 71 58 L Pulse Rate [Right] Respiratory Rate 13 Blood Pressure 104/58 L 110/65 Blood Pressure [Right Arm] Blood Pressure Mean 78 Blood Pressure Mean [Right Arm] 02 Sat by Pulse Oximetry 95 95 Oxygen Delivery Method 06/17/25 21:01 Temperature Temperature Source Pulse Rate 68 Pulse Rate [Right] Respiratory Rate 18 Blood Pressure 138/70 Blood Pressure [Right Arm] Blood Pressure Mean Blood Pressure Mean [Right Arm] 02 Sat by Pulse Oximetry 95 Oxygen Delivery Method Lab Data Lab results reviewed: Yes I reviewed the patient's lab results. Labs: Lab Results 06/17/25 19:00: WBC 6.9, RBC 3.97 L, Hgb 12.5, Hct 37.7, MCV 95.0, MCH 31.5 H, MCHC 33.2, RDW 13.2, Plt Count 240, MPV 10.6 H, Neut % (Auto) 54.4, Lymph % (Auto) 31.9, Wolfe % (Auto) 10.2 H, Eos % (Auto) 2.3, Baso % (Auto) 0.9, Neut # (Auto) 3.8, Lymph # (Auto) 2.2, Wolfe # (Auto) 0.7, Eos # (Auto) 0.2, Baso # (Auto) 0.1, PT 11.2, INR 1.01, D-Dimer 1.04 H, Sodium 137, Potassium 3.7, Chloride 99, Carbon Dioxide 31 H, Anion Gap 10.7, BUN 20 H, Creatinine 1.20 H, Estimated Creat Clear 47, Estimated GFR 44 L, Est GFR ( Amer) 53 L, Glucose 121 H, Calcium 9.1, Magnesium 1.7, Total Bilirubin 0.8, AST 31, ALT 17, Alkaline Phosphatase 84, Troponin I < 0.01, NT-Pro-B Natriuret Pep 236 H, Total Protein 7.0, Albumin 3.7, Globulin 3.3 H, Albumin/Globulin Ratio 1.1, Lipase 162 06/17/25 19:00 06/17/25 19:00 Response Orders (Tests/Meds): ED MEDICATIONS Generic Name Dose Route Start Last Admin Trade Name Freq PRN Reason Stop Dose Admin Sodium Chloride 10 ml 06/17/25 20:52 06/17/25 20:53 Sodium Chloride 0.9% 10ml Syr (Rad Only) IV 07/17/25 20:51 10 ml NEEDED PRN Administration Maintain IV Site Discontinued Medications Generic Name Dose Route Start Last Admin Trade Name Freq PRN Reason Stop Dose Admin Aspirin 243 mg 06/17/25 19:21 06/17/25 19:29 Aspirin 81mg Chewable Tablet PO 06/17/25 19:22 243 mg ONCE ONE Administration Iopamidol 70 ml 06/17/25 20:52 06/17/25 20:53 Iopamidol-370 (76%);100ml Bottle IV 06/17/25 20:53 70 ml ONCE ONE Administration Morphine Sulfate 2 mg 06/17/25 19:22 06/17/25 19:29 Morphine 2mg/Ml Syringe IV 06/17/25 19:23 2 mg ONCE ONE Administration Nitroglycerin 0.4 mg 06/17/25 19:22 06/17/25 19:29 Nitroglycerin 0.4mg Sl Tablet SL 06/17/25 19:23 0.4 mg ONCE ONE Administration Ondansetron HCl 4 mg 06/17/25 19:22 06/17/25 19:29 Ondansetron 4mg/2ml Vial IV 06/17/25 19:23 4 mg ONCE ONE Administration Sodium Chloride 40 ml 06/17/25 20:52 06/17/25 20:53 0.9 % Sodium Chloride 50 Ml Vial IV 06/17/25 20:53 40 ml ONCE ONE Administration ORDERS Category Date Time Status CT angio chest PE protocol Stat Cat Scan 06/17/25 20:26 Completed XR chest portable Stat Exams 06/17/25 18:59 Completed Complete Blood Count Auto Diff Stat Lab 06/17/25 19:00 Completed Comprehensive Metabolic Panel Stat Lab 06/17/25 19:00 Completed D-Dimer Stat Lab 06/17/25 19:00 Completed Lipase Stat Lab 06/17/25 19:00 Completed Magnesium Stat Lab 06/17/25 19:00 Completed NT Pro Brain Natriuretic Pep. Stat Lab 06/17/25 19:00 Completed PT INR [Prothrombin Time INR] Stat Lab 06/17/25 19:00 Completed Troponin I Q3H Lab 06/17/25 22:00 Ordered Troponin I Q3H Lab 06/18/25 01:00 Ordered Troponin I Stat Lab 06/17/25 19:00 Completed MDM Narrative Medical Decision Narrative: 74-year-old female presents emergency department chest pain shortness of breath and nausea that occurred 1 hour prior to arrival, differential diagnose include but not limited to, ACS, cardiac arrhythmia, electrolyte disturbance pneumonia, PE, costochondritis, panic attack, GERD, gastritis, anxiety reaction among others. I discussed this patient's case with the attending physician Dr. Hugo Will obtain basic laboratory studies, chest x-ray, EKG, D-dimer lipase magnesium level proBNP, coags, troponin, will give 243 mg p.o. aspirin for pain 2 mg IV morphine for pain, 0.4 mg sublingual nitroglycerin p.o., as well as 4 mg IV Zofran for nausea. CBC unremarkable, coags within normal limits D-dimer is elevated at 1.04, thus obtain CTA chest with and without contrast PE protocol. CMP is notable for elevated BUN at 20, creatinine elevation 1.2, initial troponin is less than 0.01, proBNP is mildly evaded to 36, otherwise unremarkable CMP I reviewed the patient's chest x-ray along the corresponding radiologic report, no definitive acute cardiopulmonary disease. I reviewed the patient's CTA chest with and without contrast PE protocol along the corresponding radiologic report, no definitive CT evidence of pulmonary embolism. Attending physician saw and examined the patient, patient is having chest pain, discussed with hospitalist, for possible admission for unstable angina, see attending physician documentation for this. <Sebastián Hugo MD - Last Filed: 06/17/25 21:50> Vital Signs Vital Signs: 06/17/25 19:00 06/17/25 19:04 06/17/25 19:30 Temperature 98.1 F Temperature Source Oral Pulse Rate 72 63 Pulse Rate [Right] 68 Respiratory Rate 18 18 Blood Pressure 134/78 103/68 L Blood Pressure [Right Arm] 134/78 Blood Pressure Mean 86 77 Blood Pressure Mean [Right Arm] 96 02 Sat by Pulse Oximetry 97 96 95 Oxygen Delivery Method Room Air 06/17/25 19:35 06/17/25 20:00 06/17/25 20:31 Temperature Temperature Source Pulse Rate 71 58 L Pulse Rate [Right] Respiratory Rate 13 Blood Pressure 104/58 L 110/65 Blood Pressure [Right Arm] Blood Pressure Mean 78 Blood Pressure Mean [Right Arm] 02 Sat by Pulse Oximetry 95 95 Oxygen Delivery Method 06/17/25 21:01 Temperature Temperature Source Pulse Rate 68 Pulse Rate [Right] Respiratory Rate 18 Blood Pressure 138/70 Blood Pressure [Right Arm] Blood Pressure Mean Blood Pressure Mean [Right Arm] 02 Sat by Pulse Oximetry 95 Oxygen Delivery Method Lab Data Labs: Lab Results 06/17/25 19:00: WBC 6.9, RBC 3.97 L, Hgb 12.5, Hct 37.7, MCV 95.0, MCH 31.5 H, MCHC 33.2, RDW 13.2, Plt Count 240, MPV 10.6 H, Neut % (Auto) 54.4, Lymph % (Auto) 31.9, Wolfe % (Auto) 10.2 H, Eos % (Auto) 2.3, Baso % (Auto) 0.9, Neut # (Auto) 3.8, Lymph # (Auto) 2.2, Wolfe # (Auto) 0.7, Eos # (Auto) 0.2, Baso # (Auto) 0.1, PT 11.2, INR 1.01, D-Dimer 1.04 H, Sodium 137, Potassium 3.7, Chloride 99, Carbon Dioxide 31 H, Anion Gap 10.7, BUN 20 H, Creatinine 1.20 H, Estimated Creat Clear 47, Estimated GFR 44 L, Est GFR ( Amer) 53 L, Glucose 121 H, Calcium 9.1, Magnesium 1.7, Total Bilirubin 0.8, AST 31, ALT 17, Alkaline Phosphatase 84, Troponin I < 0.01, NT-Pro-B Natriuret Pep 236 H, Total Protein 7.0, Albumin 3.7, Globulin 3.3 H, Albumin/Globulin Ratio 1.1, Lipase 162 Response Orders (Tests/Meds): ED MEDICATIONS Generic Name Dose Route Start Last Admin Trade Name Freq PRN Reason Stop Dose Admin Sodium Chloride 10 ml 06/17/25 20:52 06/17/25 20:53 Sodium Chloride 0.9% 10ml Syr (Rad Only) IV 07/17/25 20:51 10 ml NEEDED PRN Administration Maintain IV Site Discontinued Medications Generic Name Dose Route Start Last Admin Trade Name Freq PRN Reason Stop Dose Admin Aspirin 243 mg 06/17/25 19:21 06/17/25 19:29 Aspirin 81mg Chewable Tablet PO 06/17/25 19:22 243 mg ONCE ONE Administration Iopamidol 70 ml 06/17/25 20:52 06/17/25 20:53 Iopamidol-370 (76%);100ml Bottle IV 06/17/25 20:53 70 ml ONCE ONE Administration Morphine Sulfate 2 mg 06/17/25 19:22 06/17/25 19:29 Morphine 2mg/Ml Syringe IV 06/17/25 19:23 2 mg ONCE ONE Administration Nitroglycerin 0.4 mg 06/17/25 19:22 06/17/25 19:29 Nitroglycerin 0.4mg Sl Tablet SL 06/17/25 19:23 0.4 mg ONCE ONE Administration Ondansetron HCl 4 mg 06/17/25 19:22 06/17/25 19:29 Ondansetron 4mg/2ml Vial IV 06/17/25 19:23 4 mg ONCE ONE Administration Sodium Chloride 40 ml 06/17/25 20:52 06/17/25 20:53 0.9 % Sodium Chloride 50 Ml Vial IV 06/17/25 20:53 40 ml ONCE ONE Administration ORDERS Category Date Time Status CT angio chest PE protocol Stat Cat Scan 06/17/25 20:26 Completed XR chest portable Stat Exams 06/17/25 18:59 Completed Complete Blood Count Auto Diff Stat Lab 06/17/25 19:00 Completed Comprehensive Metabolic Panel Stat Lab 06/17/25 19:00 Completed D-Dimer Stat Lab 06/17/25 19:00 Completed Lipase Stat Lab 06/17/25 19:00 Completed Magnesium Stat Lab 06/17/25 19:00 Completed NT Pro Brain Natriuretic Pep. Stat Lab 06/17/25 19:00 Completed PT INR [Prothrombin Time INR] Stat Lab 06/17/25 19:00 Completed Troponin I Q3H Lab 06/17/25 22:00 Ordered Troponin I Q3H Lab 06/18/25 01:00 Ordered Troponin I Stat Lab 06/17/25 19:00 Completed ECG Data Tracing #1: ECG Narrative: Independently inter by me rate 72, rhythm is regular, axis is normal, no ST elevation in anatomical contiguous leads, QTc 413. MDM Narrative Medical Decision Narrative: 74-year-old female presents emergency department chest pain shortness of breath and nausea that occurred 1 hour prior to arrival, differential diagnose include but not limited to, ACS, cardiac arrhythmia, electrolyte disturbance pneumonia, PE, costochondritis, panic attack, GERD, gastritis, anxiety reaction among others. I discussed this patient's case with the attending physician Dr. Hugo Will obtain basic laboratory studies, chest x-ray, EKG, D-dimer lipase magnesium level proBNP, coags, troponin, will give 243 mg p.o. aspirin for pain 2 mg IV morphine for pain, 0.4 mg sublingual nitroglycerin p.o., as well as 4 mg IV Zofran for nausea. CBC unremarkable, coags within normal limits D-dimer is elevated at 1.04, thus obtain CTA chest with and without contrast PE protocol. CMP is notable for elevated BUN at 20, creatinine elevation 1.2, initial troponin is less than 0.01, proBNP is mildly evaded to 36, otherwise unremarkable CMP I reviewed the patient's chest x-ray along the corresponding radiologic report, no definitive acute cardiopulmonary disease. I reviewed the patient's CTA chest with and without contrast PE protocol along the corresponding radiologic report, no definitive CT evidence of pulmonary embolism. Attending physician saw and examined the patient, patient is having chest pain, discussed with hospitalist, for possible admission for unstable angina, see attending physician documentation for this. Sebastián Hugo MD: I was consulted by the LILI, and we discussed the complexity of the problems being addressed. I approved the treatment and management plan for this patient's care in the emergency department, thus performing a substantive portion of the medical decision making. Patient requires admission for high risk chest pain.
[2025-06-17] MEDS: MORPHINE 2MG/ML SYRINGE 2 MG IV (19:29)
[2025-06-17] MEDS: ASPIRIN 81MG CHEWABLE TABLET 243 MG PO (19:29)
[2025-06-17] MEDS: NITROGLYCERIN 0.4MG SL TABLET 0.4 MG SL (19:29)
[2025-06-17] MEDS: ONDANSETRON 4MG/2ML VIAL 4 MG IV (19:29)
[2025-06-17 19:30] LABS: Hematocrit 37.7 % (37.0-47.0); Hemoglobin 12.5 g/dL (12.2-16.2); Immature Granulocytes % 0.3 %; Mean Corpuscular HGB Conc 33.2 g/dL (31.8-35.4); Mean Corpuscular Hemoglobin 31.5 pg (27.0-31.2); Mean Corpuscular Volume 95.0 fl (81-99); Nucleated Red Blood Cells % 0 %; Platelet Count 240 K/mm3 (142-424); Red Blood Count 3.97 M/mm3 (4.20-5.40); Red Cell Distribution Width-SD 45.5 fL; White Blood Count 6.9 K/mm3 (4.8-10.8)
[2025-06-17 19:44] LABS: INR 1.01 (0.9-1.1); Prothrombin Time 11.2 seconds (10.1-12.5)
[2025-06-17 19:49] LABS: Alanine Aminotransferase 17 U/L (12-78); Albumin Level 3.7 g/dl (3.5-5.0); Albumin/Globulin Ratio 1.1 (1.1-1.8); Alkaline Phosphatase 84 U/L (38-126); Anion Gap 10.7 mEq/L (5-15); Aspartate Amino Transferase 31 U/L (14-36); Bilirubin,Total 0.8 mg/dl (0.2-1.3); Blood Urea Nitrogen 20 mg/dl (7-17); Calcium 9.1 mg/dl (8.4-10.2); Carbon Dioxide 31 mmol/L (22.0-30.0); Chloride 99 mmol/L (98-107); Creatinine Clearance Estimated 47 mL/min (50-200); Creatinine,Serum 1.20 mg/dl (0.52-1.04); Estimated Glomerular Filt Rate 44 ml/min (>60); GFR (African American) 53 ML/MIN (>60); Globulin 3.3 g/dL (1.3-3.2); Glucose 121 mg/dl (74-100); Lipase 162 U/L (23-300); Magnesium 1.7 mg/dl (1.6-2.3); Potassium 3.7 mmoL/L (3.5-5.1); Sodium 137 mmol/L (136-145); Total Protein,Serum 7.0 g/dl (6.3-8.2)
[2025-06-17 19:55] LABS: D-Dimer 1.04 ug/mL (0.0-0.5)
[2025-06-17 20:06] LABS: NT Pro Brain Natriuretic Pep. 236 pg/mL (0-125)
[2025-06-17 20:09] LABS: Troponin I < 0.01 ng/ml (0.00-0.034)
--- NOTE | 2025-06-17 20:26 | CT_ITS ---
PROCEDURE INFORMATION: Exam: CTA Chest With Contrast Exam date and time: 06/17/2025 8:55 PM Age: 74 years old Clinical indication: Abnormal findings; Abnormal diagnostic tests; Elevated d-dimer; Shortness of breath; Additional info: Soa/cp elevated d-dimer TECHNIQUE: Imaging protocol: Computed tomographic angiography of the chest with contrast. Exam focused on the arteries. 3D rendering (Not supervised by radiologist): MIP and/or 3D reconstructed images were created by the technologist. Radiation optimization: All CT scans at this facility use at least one of these dose optimization techniques: automated exposure control; mA and/or kV adjustment per patient size (includes targeted exams where dose is matched to clinical indication); or iterative reconstruction. Contrast material: ISOUVE 370; Contrast volume: 70 ml; Contrast route: INTRAVENOUS (IV); COMPARISON: CT ANGIO CHEST 01/22/2025 1:00 PM FINDINGS: Limitations: Motion artifact - mild. Pulmonary arteries: No definite pulmonary embolism. Great vessels off aortic arch: Aberrant RIGHT subclavian artery. Vasculature: Moderate atherosclerotic disease. No aneurysm. Lungs: Minimal atelectasis/scarring. No consolidation. Pleural spaces: No significant pleural effusion. No pneumothorax. Heart: No cardiomegaly. No significant pericardial effusion. Coronary arteries: Coronary artery calcifications. Lymph nodes: No pathologically enlarged lymph nodes. Bones/joints: Degenerative changes of shoulders and spine. No acute fracture. Soft tissues: Unremarkable. IMPRESSION: No definite CT evidence of pulmonary embolism.
[2025-06-17] MEDS: IOPAMIDOL-370 (76%);100ML BOTTLE 70 ML IV (20:53)
[2025-06-17] MEDS: SODIUM CHLORIDE 0.9% 10ML SYR (RAD ONLY) 10 ML IV (20:53)
[2025-06-17] MEDS: 0.9 % SODIUM CHLORIDE 50 ML VIAL 40 ML IV (20:53)
[2025-06-17] MEDS: AMIODARONE HCL 150 MG in DEXTROSE 5 % IN WATER 100 ML 618 MG IV (23:30)
[2025-06-17] MEDS: AMIODARONE HCL 900 MG in DEXTROSE 5 % IN WATER 500 ML 34.53 MG IV (23:49)
[2025-06-18] VITALS (41 sets, daily range): BP systolic 94–163; BP diastolic 45–85; PULSE 45–69; RESP 11–22; TEMP 36.3–36.8; O2SAT 91–98; BMI 29.1; BMI 29.0
[2025-06-18 00:40] LABS: Troponin I < 0.01 ng/ml (0.00-0.034)
--- NOTE | 2025-06-18 01:09 | PC.NURSE ---
Ezequiel jean baptiste paused per provider phone order
--- NOTE | 2025-06-18 01:26 | P.HP_ITS ---
<Statement entered by Janak Benítez MD - 06/18/25 16:18> Rounded on patient after nurse practitioner. Personally examined and interviewed patient. Agree with exam findings and care plan as documented. Patient developed bradycardia on amiodarone. Amiodarone was discontinued. History of Present Illness *Admission Date: 06/17/25 *Reason for visit:: Chest pain *History of present illness: Patient is a 74-year-old female with past medical history significant for CAD, s/p six stent placements, diverticular disease of colon, anxiety and depression, hypothyroidism GERD, HTN, HLD, cerebral atherosclerosis. Presents to [facility] emergency department for further evaluation of chest pain. Reports chest pain began around 6 PM tonight (06/17/25) described as midsternal chest pain, nonradiating with associated shortness of breath and nausea, lightheadedne ss. Reports chest pain presentation was similar to her prior cardiac events requiring stent placement. Reports taking nitroglycerin without any symptomatic relief. Patient reported taking a daily aspirin and compliant with routine home medications. Per chart review home meds also included clopidogrel, ranolazine and statin therapy. Denies use of tobacco and/or alcohol use. Denies fever, chills, abdominal pain, vomiting, urinary symptoms. Initial ED workup included laboratory studies and imaging. Significant laboratory findings included D-dimer 1.04, creatinine 1.20, BNP 236, UA with 2+ leukocyte esterase, 1+ bacteria. Imaging study included CTA chest, I personally reviewed, showing no evidence of pulmonary embolism. Chest x-ray unremarkable for any acute findings. While in the emergency department patient was found to have an episode of ventricular tachycardia. ED provider notified cardiology, Dr. Kruger who recommended amiodarone drip. [facility] Disclaimer: The information contained in this section may have been updated after the patient was seen, as this information can be updated by other users. Medical History Chest pain Colitis Abdominal cramps Generalized abdominal pain Dry heaves Abdominal cramping in left lower quadrant Acute gastroenteritis Nausea Fatigue UTI (urinary tract infection) Near syncope Right shoulder pain Headache COVID-19 Encounter for screening colonoscopy Low Back Pain Hemorrhoids Acute bacterial bronchitis Varicose veins of both legs with edema Edema Calcaneal spur of left foot Acquired pes planus of both feet Acute pain of left foot Varicose veins of bilateral lower extremities with pain Bilateral lower extremity edema Hypotension Acute dehydration Orthostatic syncope Pain in left foot Dislocation of second toe, left, closed Hallux valgus (acquired), left foot Metatarsalgia, left foot Acute bronchitis Back pain Acute dysfunction of left eustachian tube Wheezing Exposure to COVID-19 virus Fall Facial abrasion Forehead laceration Wasp sting Hymenoptera sting Lumbar back pain Primary osteoarthritis of right hip Bronchitis Aortic insufficiency Diastolic dysfunction Encounter for pre-operative cardiovascular clearance Dizzy Vitamin D insufficiency Sinusitis Arm pain Anxiety and depression History of gastroesophageal reflux (GERD) Hypothyroid Hypertension Hyperlipidemia Unstable angina Dyspnea Typical angina Mild persistent asthma Allergic rhinitis, unspecified Dyspnea on exertion Gallbladder sludge Bilateral carotid artery stenosis Right carotid bruit Surgical History History of colonoscopy History of total right hip arthroplasty History of hysterectomy Hx of heart artery stent History of breast biopsy History of total hip replacement Family History Other Diabetes Heart attack Social History (Reviewed 06/18/25 @ 01:50 EDT by Lisa Dukes RN) Smoking Status: Never smoker second hand exposure: No alcohol intake: never substance use type: denies use current occupational status: disabled Travel in the last 8 weeks?: None household members: none housing: house current occupational exposures/hazards: No caffeine: Yes Have you lived/traveled outside [place] in past 30 days?: No Contact w/someone who lives/traveled outside [place] past 30 days?: No Exposure to someone with infectious disease in past 14 days?: No Do you have a fever (greater than 100.4 F or 38 C)?: No Have you tested positive for COVID-19?: No Exposed to someone with COVID-19 in past 14 days?: No Do you have a sore throat?: No Do you have a cough?: No Do you have any weakness?: No Do you have any diarrhea?: No Are you experiencing any unusual bleeding?: No Do you have any muscle aches/pain?: No Do you have any abdominal pain?: No Are you experiencing loss of taste or smell?: No Other Medical History Have you received the Flu Vaccine for this season: No Have you received the Pneumonia Vaccine: Yes Review of Systems Review of Systems Review of systems:: pertinent systems reviewed and negative unless documented below Constitutional Constitutional: Reports as per HPI Eyes Eyes: Reports system reviewed and no additional complaints, except as documented and Reports as per HPI ENT Ears, Nose, Mouth, and Throat: Reports system reviewed and no additional complaints, except as documented and Reports as per HPI *Cardiovascular Cardiovascular: Reports as per HPI, Reports chest pain, Reports dyspnea and Reports lightheadedness *Respiratory Respiratory: Reports as per HPI and Reports dyspnea *Gastrointestinal Gastrointestinal: Reports system reviewed and no additional complaints, except as documented *Genitourinary Genitourinary: Reports system reviewed and no additional complaints, except as documented *Musculoskeletal Musculoskeletal: Reports system reviewed and no additional complaints, except as documented Integumentary/Breasts Skin/Breast: Reports system reviewed and no additional complaints, except as documented and Reports as per HPI *Neurologic Neurologic: Reports system reviewed and no additional complaints, except as documented and Reports as per HPI Psychiatric Psychiatric: Reports system reviewed and no additional complaints, except as documented and Reports as per HPI Endocrine Endocrine: Reports system reviewed and no additional complaints, except as documented and Reports as per HPI Hematologic/Lymphatic Hematologic/Lymphatic: Reports system reviewed and no additional complaints, except as documented and Reports as per HPI Allergic/Immunologic Allergic/Immunologic: Reports system reviewed and no additional complaints, except as documented and Reports as per HPI Meds Home Medications and Allergies Home Medications ?Medication ?Instructions ?Recorded ?Confirmed ?Type linaclotide 145 mcg capsule 145 mcg PO DAILY #30 caps 01/25/25 06/18/25 Rx (Linzess) ondansetron 4 mg disintegrating 4 mg PO Q8H PRN nausea and 03/14/25 06/18/25 Rx tablet vomiting #20 tabs diclofenac sodium 1 % topical gel 4 g topical QID PRN pain 30 days 03/28/25 06/18/25 Rx (Voltaren Arthritis Pain) #100 grams albuterol sulfate 90 mcg/actuation 2 inh inhalation Q4 -6H PRN 04/06/25 06/18/25 Rx aerosol inhaler shortness of breath or wheez ing #25.5 grams atorvastatin 80 mg tablet 80 mg PO QHS #90 tabs 06/18/25 Rx bisoprolol fumarate 5 mg tablet 5 mg PO DAILY BP #90 t abs 04/06/25 06/18/25 Rx clopidogrel 75 mg tablet 75 mg PO DAILY #90 tabs 03/1806/18/25 Rx dicyclomine 10 mg capsule 10 mg PO TID #90 caps 06/18/25 Rx escitalopram oxalate 10 mg tablet 10 mg PO DAILY #90 t abs 04/06/25 06/18/25 Rx fluticasone 250 mcg-salmeterol 50 1 inh inhalation BID #180 ea 04/06/25 06/18/25 Rx mcg/dose blistr powdr for inhalation furosemide 20 mg tablet 20 mg PO BID #180 tabs 04/0606/18/25 Rx isosorbide mononitrate 30 mg 30 mg PO DAILY #90 tabs 0 04/06/25 06/18/25 Rx tablet,extended release 24 hr levothyroxine 50 mcg tablet 50 mcg PO QAM hypothyroid #90 tabs 04/06/25 06/18/25 Rx (Levo-T) montelukast 10 mg tablet 10 mg PO QHS #90 tabs 06/18/25 Rx ranolazine 500 mg tablet,extended 500 mg PO BID #180 t abs 04/06/25 06/18/25 Rx release,12 hr polyethylene glycol 3350 17 17 g PO DAILY 04/11/2510/11 History gram/dose oral powder (Miralax) psyllium seed (sugar) oral powder 1 tbsp PO DAILY 03/1806/18/25 History (Metamucil (sugar) oral powder) pantoprazole 40 mg tablet,delayed See Rx Instructions .Route DAILY 04/12/25 06/18/25 Rx release (Protonix) gerd #90 tabs New Prescriptions to Start Prescriptions: Allergies Allergy/AdvReac Type Severity Reaction Status Date / Time No Known Allergies Allergy Verified 06/15/25 11:16 Exam Data for Last 24 hours Vital signs and Labs for Last 24 Hours: Temp Pulse Resp BP Pulse Ox O2 Del Method 98.3 F 59 L 15 120/63 95 Room Air 06/18/25 01:09 EDT 06/18/25 01:09 EDT 06/18/25 01:09 EDT 06/18/25 01:09 EDT 06/18/25 01:09 EDT 06/18/25 01:09 EDT Laboratory Results - last 24 hr 06/17/25 19:00: WBC 6.9, RBC 3.97 L, Hgb 12.5, Hct 37.7, MCV 95.0, MCH 31.5 H, MCHC 33.2, RDW 13.2, Plt Count 240, MPV 10.6 H, Neut % (Auto) 54.4, Lymph % (Auto) 31.9, [place] % (Auto) 10.2 H, Eos % (Auto) 2.3, Baso % (Auto) 0.9, Neut # (Auto) 3.8, Lymph # (Auto) 2.2, [place] # (Auto) 0.7, Eos # (Auto) 0.2, Baso # (Auto) 0.1, PT 11.2, INR 1.01, D-Dimer 1.04 H, Sodium 137, Potassium 3.7, Chloride 99, Carbon Dioxide 31 H, Anion Gap 10.7, BUN 20 H, Creatinine 1.20 H, Estimated Creat Clear 47, Estimated GFR 44 L, Est GFR ( Amer) 53 L, G lucose 121 H, Calcium 9.1, Magnesium 1.7, Total Bilirubin 0.8, AST 31, ALT 17, Alkaline Phosphatase 84, Troponin I < 0.01, NT-Pro-B Natriuret Pep 236 H, Total Protein 7.0, Albumin 3.7, Globulin 3.3 H, Albumin/Globulin Ratio 1.1, Lipase 162 06/17/25 22:20: Troponin I < 0.01 I & O for Last 24 hours: Intake & Output 06/15/25 06/16/25 06/17/25 06/18/25 23:59 23:59 23:59 22:59 Intake Total 103 / 103 Balance 103 / 103 Weight 72.575 kg 77.1 kg Constitutional Constitutional: no acute distress *Routine HEENT Exam Head: Present normocephalic and atraumatic Eye: Present EOMI, PERRL and normal accommodation ENT: Present mucous membranes moist *Routine Neck Exam Neck: Present supple and full ROM *Routine Respiratory Exam Respiratory: Present normal respiratory effort *Routine Cardiovascular Exam Cardiovascular: Present Normal S1, Normal S2 and bradycardia *Routine Abdominal Exam Abdominal: Present soft and normoactive bowel sounds *Routine Rectal Exam Rectal:: deferred *Routine Genitalia Exam Genitalia:: deferred *Routine Extremities Exam Extremities: Present full ROM, pulses intact and normal capillary refill Routine Back/Spine/Pelvis Exam Back/Spine: Present full ROM *Routine Skin Exam Skin: Present intact *Routine Neurological Exam Neurological: Present alert, oriented X3 and CN II-XII intact Routine Psychiatric Exam Psychiatric: Present normal affect and normal thought process Assessment and Plan *Assessment and plan (1) Chest pain: Status: Acute Qualifiers: Chest pain type: unspecified Qualified Code(s): R07.9 - Chest pain, unspecified Category: Medical Code(s): R07.9 - Chest pain, unspecified (2) Ventricular tachycardia, monomorphic: Status: Acute Category: Medical Code(s): I47.29 - Other ventricular tachycardia (3) HTN (hypertension): Status: Chronic Qualifiers: Hypertension type: essential hypertension Qualified Code(s): I10 - Essential (primary) hypertension Category: Medical Code(s): I10 - Essential (primary) hypertension (4) HLD (hyperlipidemia): Status: Chronic Qualifiers: Hyperlipidemia type: mixed hyperlipidemia Qualified Code(s): E78.2 - Mixed hyperlipidemia Category: Medical Code(s): E78.5 - Hyperlipidemia, unspecified (5) CAD (coronary artery disease): Problem Comment: SEP 2020-Successful stenting of the distal left main artery severe disease reduced to 0% with 1 drug-eluting stent Successful stenting of the ostial proximal LAD severe disease reduced to 0% with 1 drug-eluting stent Successful stenting of the ostial proximal circumflex artery severe disease reduced to 0% with 2 drug-eluting stents Persistent mid LAD stenosis moderate in severity Persistent proximal to mid right coronary artery stenosis moderate in severity Preserved ejection fraction Mild elevated LVEDP Status: Chronic Qualifiers: Coronary Disease-Associated Artery/Lesion type: teller artery [place] vs. transplanted heart: teller heart Associated angina: with other forms of angina Qualified Code(s): I25.118 - Atherosclerotic heart disease of teller c oronary artery with other forms of angina pectoris Category: Medical Code(s): I25.10 - Atherosclerotic heart disease of teller coronary artery without angina pectoris (6) Hypothyroidism: Status: Acute Qualifiers: Hypothyroidism type: acquired Qualified Code(s): E03.9 - Hypothyroidism, unspecified Category: Medical Code(s): E03.9 - Hypothyroidism, unspecified (7) GERD (gastroesophageal reflux disease): Status: Acute Qualifiers: Esophagitis presence: esophagitis presence not specified Qualified Code(s): K21.9 - Gastro-esophageal reflux disease without esophagitis Category: Medical Code(s): K21.9 - Gastro-esophageal reflux disease without esophagitis (8) Anxiety and depression: Status: Acute Category: Medical Code(s): F41.9 - Anxiety disorder, unspecified; F32.A - Depression, unspecified Plan 1. Chest pain: Onset chest pain approximately 6 PM on 06/17-reported associated symptoms of nausea and shortness of breath. Received 243 mg p.o. aspirin, 2 mg IV morphine and 0.4 mg sublingual nitroglycerin while in the emergency department. D-dimer elevated at 1.04, CTA obtained without any evidence of pulmonary embolism. Initial twelve-lead ECG, normal sinus rhythm, heart rate 72, no ST elevation. Troponin thus far unremarkable. Will continue to monitor/trend troponin level, monitoring and evaluation advisor, sublingual nitro as needed for chest pain. Consult placed to cardiology for further evaluation. 2. Ventricular tachycardia: After initial assessment in the emergency department and twelve-lead which was noted to be normal sinus rhythm patient was reported to have an episode of ventricular tachycardia. As noted patient was in and out of nonsustained V. tach with 1 episode of monomorphic ventricular tachycardia. Magnesium level obtained, 1.7, remaining electrolytes within normal limits. ED provider discussed with Dr. Kruger who recommended amiodarone drip. Repeat labs in the morning. Admitted to ICU close cardiac monitoring. 3. HTN/HLD/CAD: Cardiac catheterization hx;April 2023 severe circumflex artery in-stent restenosis with successful stenting, severe stenosis in the proximal dominant RCA with successful stenting. October 2021 successful stenting of the the critically diseased circumflex artery followed by post stent angioplasty of the left main artery and ostial proximal LAD 2020. [facility] 2023 widely patent CAD, no stents. Normotensive blood pressure; noted Home medication consists of isosorbide mononitrate ER 30 mg, bisoprolol fumarate 5 mg daily, clopidogrel 75 mg, ranolazine extended release 500 mg, aspirin 81 mg daily. Lipid panel with morning labs. 4. Hypothyroidism: Home medication consists of levothyroxine 50 mcg daily, TSH and free T4 requested with morning labs. 5. GERD: Resume home PPI. 6. Anxiety and depression: Without acute issue. Medication regimen includes escitalopram oxalate 10 mg. 7. DVT prophylaxis: Full code Cardiac diet I personally discussed the management of this patient with the emergency department provider Dr. Hugo, in agreement to admit for high risk chest pain. Acute arrhythmia nonsustained V. tach and 1 episode of monomorphic ventricular tachycardia. Cardiology consult, ED discussed case with cardiology recommended amiodarone drip. ICU management close cardiac monitoring.
[2025-06-18 06:24] LABS: Hematocrit 38.1 % (37.0-47.0); Hemoglobin 12.4 g/dL (12.2-16.2); Immature Granulocytes % 0.4 %; Mean Corpuscular HGB Conc 32.5 g/dL (31.8-35.4); Mean Corpuscular Hemoglobin 32.1 pg (27.0-31.2); Mean Corpuscular Volume 98.7 fl (81-99); Nucleated Red Blood Cells % 0 %; Platelet Count 204 K/mm3 (142-424); Red Blood Count 3.86 M/mm3 (4.20-5.40); Red Cell Distribution Width-SD 49.6 fL; White Blood Count 4.9 K/mm3 (4.8-10.8)
[2025-06-18 06:40] LABS: Anion Gap 9.8 mEq/L (5-15); Blood Urea Nitrogen 21 mg/dl (7-17); Calcium 8.7 mg/dl (8.4-10.2); Carbon Dioxide 28 mmol/L (22.0-30.0); Chloride 103 mmol/L (98-107); Cholesterol 138 mg/dl (140-200); Creatinine Clearance Estimated 60 mL/min (50-200); Creatinine,Serum 0.90 mg/dl (0.52-1.04); Estimated Glomerular Filt Rate 61 ml/min (>60); GFR (African American) 74 ML/MIN (>60); Glucose 91 mg/dl (74-100); HDL Cholesterol 42 mg/dl (40-60); Magnesium 1.9 mg/dl (1.6-2.3); Potassium 3.8 mmoL/L (3.5-5.1); Sodium 137 mmol/L (136-145); Triglycerides 77 mg/dl (30-150)
[2025-06-18 06:50] LABS: NT Pro Brain Natriuretic Pep. 166 pg/mL (0-125)
[2025-06-18 07:05] LABS: Free T4 (Free Thyroxine) 0.89 ng/dl (0.78-2.19)
[2025-06-18 07:12] LABS: Thyroid Stimulating Hormone 2.94 uIU/mL (0.465-4.68)
--- NOTE | 2025-06-18 09:32 | HMH.PHAINT1 ---
Pharmacy Intervention Comments: MEDICATION RECONCILIATION COMPLETE USING EXTERNAL PHARMACY FILL HISTORY AND RECENT PRIMARY CARE OFFICE VISIT NOTE.
[2025-06-18] MEDS: ESCITALOPRAM 10MG TABLET 10 MG PO (10:23)
[2025-06-18] MEDS: LEVOTHYROXINE 50MCG (0.05MG) TAB 50 MCG PO (10:23)
[2025-06-18] MEDS: CLOPIDOGREL 75MG TAB 75 MG PO (10:23)
--- NOTE | 2025-06-18 14:30 | P.PN_ITS ---
Subjective *Date: 06/18/25 *Time: 17:31 Interval history: Feeling better this morning. No further palpitations. Heart rate remains low in the 50s however appears sinus on telemetry. Stable on room air. No nausea or vomiting. Will continue to monitor on telemetry. Medical Exam Vital signs and Labs for Last 24 Hours: Vital Signs Temp Pulse Pulse Resp BP BP Pulse Ox 06/18/25 14:00 56 L 16 120/60 94 L 06/18/25 13:00 06/18/25 12:00 97.4 F L 57 L 16 115/55 L 94 L 06/18/25 12:00 48 L 06/18/25 11:00 45 L 14 105/47 L 93 L 06/18/25 11:00 06/18/25 10:45 48 L 12 94 L 06/18/25 10:30 52 L 15 94 L 06/18/25 10:00 48 L 12 99/48 L 91 L 06/18/25 09:45 55 L 12 94 L 06/18/25 09:30 54 L 16 95 06/18/25 09:15 52 L 14 96 06/18/25 09:00 52 L 16 138/73 95 06/18/25 09:00 06/18/25 08:39 55 L 16 133/74 98 06/18/25 08:09 63 06/18/25 08:01 97.4 F L 62 16 163/85 H 94 L 06/18/25 08:00 95 06/18/25 07:01 45 L 16 122/52 L 95 06/18/25 06:47 06/18/25 06:00 53 L 12 107/55 L 95 06/18/25 05:01 56 L 11 L 128/59 L 95 06/18/25 05:00 06/18/25 04:01 47 L 12 108/49 L 95 06/18/25 04:00 97.6 F 06/18/25 04:00 96 06/18/25 04:00 62 06/18/25 04:00 96 06/18/25 03:00 48 L 11 L 94/45 L 94 L 06/18/25 03:00 06/18/25 02:01 48 L 15 94/52 L 95 06/18/25 02:00 50 L 12 98/48 L 94 L 06/18/25 02:00 16 11/02/25 01:03 EST 60 12 94/52 L 93 L 06/18/25 01:00 EST 96 06/18/25 01:00 EST 94 L 06/18/25 01:00 EST 69 06/18/25 01:28 EDT 06/18/25 01:09 EDT 98.3 F 59 L 15 120/63 95 06/18/25 00:47 98.1 F 64 14 107/61 L 06/18/25 00:00 98.3 F 60 14 111/57 L 95 06/17/25 23:01 64 14 138/68 94 L 06/17/25 22:47 60 17 118/58 L 93 L 06/17/25 22:31 58 L 18 108/59 L 92 L 06/17/25 22:00 60 18 98/58 L 96 06/17/25 21:30 61 15 117/62 96 06/17/25 21:01 68 18 138/70 95 06/17/25 20:31 110/65 95 06/17/25 20:00 58 L 13 104/58 L 95 06/17/25 19:35 71 06/17/25 19:30 63 18 103/68 L 95 06/17/25 19:04 98.1 F 68 18 134/78 96 06/17/25 19:00 72 134/78 97 O2 Del Method 06/18/25 14:00 Room Air 06/18/25 13:00 Room Air 06/18/25 12:00 Room Air 06/18/25 12:00 06/18/25 11:00 Room Air 06/18/25 11:00 Room Air 06/18/25 10:45 Room Air 06/18/25 10:30 Room Air 06/18/25 10:00 Room Air 06/18/25 09:45 06/18/25 09:30 06/18/25 09:15 06/18/25 09:00 Room Air 06/18/25 09:00 Room Air 06/18/25 08:39 Room Air 06/18/25 08:09 06/18/25 08:01 Room Air 06/18/25 08:00 Room Air 06/18/25 07:01 Room Air 06/18/25 06:47 Room Air 06/18/25 06:00 Room Air 06/18/25 05:01 Room Air 06/18/25 05:00 Room Air 06/18/25 04:01 Room Air 06/18/25 04:00 06/18/25 04:00 Room Air 06/18/25 04:00 06/18/25 04:00 Room Air 06/18/25 03:00 06/18/25 03:00 Room Air 06/18/25 02:01 Room Air 06/18/25 02:00 Room Air 06/18/25 02:00 06/18/25 01:03 EST 06/18/25 01:00 EST Room Air 06/18/25 01:00 EST Room Air 06/18/25 01:00 EST 06/18/25 01:28 EDT Room Air 06/18/25 01:09 EDT Room Air 06/18/25 00:47 Room Air 06/18/25 00:00 Room Air 06/17/25 23:01 06/17/25 22:47 06/17/25 22:31 06/17/25 22:00 06/17/25 21:30 06/17/25 21:01 06/17/25 20:31 06/17/25 20:00 06/17/25 19:35 06/17/25 19:30 06/17/25 19:04 Room Air 06/17/25 19:00 Intake and Output 06/17/25 06/18/25 06/18/25 23:59 06:59 15:59 Intake Total 103 / 103 81.146 / 5251.640 2756 / 1271.146 Output Total 300 / 300 Balance 103 / 103 -218.854 / 635.672 4305 / 971.146 Intake: Intake, Oral Amount 1190 / 1190 Intake, Total IV Amount 103 / 103 81.146 / 81.146 0 / 81.146 Amiodarone HCl 150 mg In 103 / 103 Dextrose 5 % in Water 100 ml @ 618 mls/hr IV ONCE ONE Rx#: [id number] Amiodarone HCl 900 mg In 81.146 / 81.146 0 / 81.146 Dextrose 5 % in Water 500 ml @ 1 MG/MIN 34.533 mls/hr IV . Q15H1M [facility] Rx#:[id number] Output: Output, Urine Amount 300 / 300 Other: Number of Unmeasured Voids 1 Weight 72.575 kg 77.1 kg Patient Weight 06/18/25 22:59 Weight 77.1 kg Laboratory Results - last 24 hr 06/17/25 19:00: WBC 6.9, RBC 3.97 L, Hgb 12.5, Hct 37.7, MCV 95.0, MCH 31.5 H, MCHC 33.2, RDW 13.2, Plt Count 240, MPV 10.6 H, Neut % (Auto) 54.4, Lymph % (Auto) 31.9, [place] % (Auto) 10.2 H, Eos % (Auto) 2.3, Baso % (Auto) 0.9, Neut # (Auto) 3.8, Lymph # (Auto) 2.2, [place] # (Auto) 0.7, Eos # (Auto) 0.2, Baso # (Auto) 0.1, PT 11.2, INR 1.01, D-Dimer 1.04 H, Sodium 137, Potassium 3.7, Chloride 99, Carbon Dioxide 31 H, Anion Gap 10.7, BUN 20 H, Creatinine 1.20 H, Estimated Creat Clear 47, Estimated GFR 44 L, Est GFR ( Amer) 53 L, Glucose 121 H, Calcium 9.1, Magnesium 1.7, Total Bilirubin 0.8, AST 31, ALT 17, Alkaline Phosphatase 84, Troponin I < 0.01, NT-Pro-B Natriuret Pep 236 H, Total Protein 7.0, Albumin 3.7, Globulin 3.3 H, Albumin/Globulin Ratio 1.1, Lipase 162 06/17/25 22:20: Troponin I < 0.01 06/18/25 05:23: WBC 4.9 D, RBC 3.86 L, Hgb 12.4, Hct 38.1, MCV 98.7, MCH 32.1 H , MCHC 32.5, RDW 13.5, Plt Count 204, MPV 10.6 H, Neut % (Auto) 40.0, Lymph % (Auto) 43.4, [place] % (Auto) 12.1 H, Eos % (Auto) 3.1, Baso % (Auto) 1.0, Neut # (Auto) 2.0, Lymph # (Auto) 2.1, [place] # (Auto) 0.6, Eos # (Auto) 0.2, Baso # (Auto) 0.1, Sodium 137, Potassium 3.8, Chloride 103, Carbon Dioxide 28, Anion Gap 9.8, BUN 21 H, Creatinine 0.90 D, Estimated Creat Clear 60, Estimated GFR 61, Est GFR ( Amer) 74 D, Glucose 91 D, Calcium 8.7, Magnesium 1.9 D, NT-Pro-B Natriuret Pep 166 H, Triglycerides 77, Cholesterol 138 L, LDL Cholesterol Direct 59.29 L, VLDL Cholesterol 15, HDL Cholesterol 42, Cholesterol/HDL Ratio 3.3, TSH 2.94, Free T4 0.89 I & O for Labs for Last 24 Hours: Intake & Output 06/15/25 06/16/25 06/17/25 06/18/25 23:59 23:59 23:59 22:59 Intake Total 103 / 103 1271.146 / 1271.146 Output Total 300 / 300 Balance 103 / 103 971.146 / 971.146 Weight 72.575 kg 77.1 kg Constitutional: Present no acute distress, chronically ill appearing and cooperative Head: Present atraumatic and normocephalic Respiratory: Present normal respiratory effort; Absent respiratory distress, stridor, wheezes or crackles Cardiac: Present Regular Rate and Bradycardia GI: Present soft, tenderness (Diffuse, nonfocal, baseline) and normal bowel sounds; Absent distention Extremities: Present normal inspection and full ROM Skin: Present intact; Absent erythema Neuro: Present Grossly Intact, alert, awake, oriented x 3 and moves all extremities Assessment and Plan *Assessment and plan (1) Chest pain: Status: Acute Qualifiers: Chest pain type: unspecified Qualified Code(s): R07.9 - Chest pain, unspecified Category: Medical Code(s): R07.9 - Chest pain, unspecified (2) Ventricular tachycardia, monomorphic: Status: Acute Category: Medical Code(s): I47.29 - Other ventricular tachycardia (3) HTN (hypertension): Status: Chronic Qualifiers: Hypertension type: essential hypertension Qualified Code(s): I10 - Essential (primary) hypertension Category: Medical Code(s): I10 - Essential (primary) hypertension (4) HLD (hyperlipidemia): Status: Chronic Qualifiers: Hyperlipidemia type: mixed hyperlipidemia Qualified Code(s): E78.2 - Mixed hyperlipidemia Category: Medical Code(s): E78.5 - Hyperlipidemia, unspecified (5) CAD (coronary artery disease): Problem Comment: SEP 2020-Successful stenting of the distal left main artery severe disease reduced to 0% with 1 drug-eluting stent Successful stenting of the ostial proximal LAD severe disease reduced to 0% with 1 drug-eluting stent Successful stenting of the ostial proximal circumflex artery severe disease reduced to 0% with 2 drug-eluting stents Persistent mid LAD stenosis moderate in severity Persistent proximal to mid right coronary artery stenosis moderate in severity Preserved ejection fraction Mild elevated LVEDP Status: Chronic Qualifiers: Associated angina: with other forms of angina Coronary Disease- Associated Artery/Lesion type: [place] artery [place] vs. transplanted heart: [place] heart Qualified Code(s): I25.118 - Atherosclerotic heart disease of [place] coronary artery with other forms of angina pectoris Category: Medical Code(s): I25.10 - Atherosclerotic heart disease of [place] coronary artery without angina pectoris (6) Hypothyroidism: Status: Acute Qualifiers: Hypothyroidism type: acquired Qualified Code(s): E03.9 - Hypothyroidism, unspecified Category: Medical Code(s): E03.9 - Hypothyroidism, unspecified (7) GERD (gastroesophageal reflux disease): Status: Acute Qualifiers: Esophagitis presence: esophagitis presence not specified Qualified Code(s): K21.9 - Gastro-esophageal reflux disease without esophagitis Category: Medical Code(s): K21.9 - Gastro-esophageal reflux disease without esophagitis (8) Anxiety and depression: Status: Acute Category: Medical Code(s): F41.9 - Anxiety disorder, unspecified; F32.A - Depression, unspecified Plan 74-year-old who presented with chest discomfort. Concern for episode of V. tach. Was initially started on Amio that was held due to bradycardia. Overall feeling better this morning. Will continue to monitor overnight with cardiology evaluation in the morning. Anticipate discharge tomorrow. Downgrade to [facility] with telemetry. Problems addressed as follows: Chest pain: Onset chest pain approximately 6 PM on 06/17-reported associated symptoms of nausea and shortness of breath. Received 243 mg p.o. aspirin, 2 mg IV morphine and 0.4 mg sublingual nitroglycerin while in the emergency department. D-dimer elevated at 1.04, CTA obtained without any evidence of pulmonary embolism. Initial twelve-lead ECG, normal sinus rhythm, heart rate 72, no ST elevation. Troponin thus far unremarkable. Will continue to monitor/trend troponin level, child monitor, sublingual nitro as needed for chest pain. Consult placed to cardiology for further evaluation. Ventricular tachycardia: After initial assessment in the emergency department and twelve-lead which was noted to be normal sinus rhythm patient was reported to have an episode of ventricular tachycardia. As noted patient was in and out of nonsustained V. tach with 1 episode of monomorphic ventricular tachycardia. - Intolerant of amiodarone as she became bradycardic. Discontinued. Monitor on telemetry. No further episodes. Cardiology to evaluate in the morning. - Kidney function normal BUN 21, creatinine 0.9. Potassium 3.8. Calcium 8.7. Magnesium 1.9. -Repeat CBC, CMP, magnesium ordered for the morning. HTN/HLD/CAD: Cardiac catheterization hx;April 2023 severe circumflex artery in-stent restenosis with successful stenting, severe stenosis in the proximal dominant RCA with successful stenting. October 2021 successful stenting of the the critically diseased circumflex artery followed by post stent angioplasty of the left main artery and ostial proximal LAD 2020. [facility] 2023 widely patent CAD, no stents. - Blood pressure little soft this morning. Will hold her ranolazine, bisoprolol, and isosorbide. Reevaluate in the morning - Continue clopidogrel 75 mg and aspirin 81 mg daily. - Resume Lipitor nightly 80 mg Functional bowel pain: On extensive regimen. Follows with GI. Can sinew MiraLAX daily, Bentyl 10 g 3 times a day, Hypothyroidism: Resume home levothyroxine 50 mcg daily, TSH 2.9 GERD: Resume home PPI. Anxiety and depression: stable, resume home Lexapro 10 mg daily DVT prophylaxis: Lovenox 40 subcu once Full code Cardiac diet
--- NOTE | 2025-06-18 17:01 | PC.NURSE ---
Report given to PAMELA Fernandez. Patient transferred to Medical Surgical floor via wheelchair by [employer]PECTOR at this time.
--- NOTE | 2025-06-18 17:03 | PC.NURSE ---
arrived by w/c from ED
[2025-06-18] MEDS: RANOLAZINE 500MG ER TABLET 500 MG PO (20:17)
[2025-06-18] MEDS: ATORVASTATIN 40MG TABLET 80 MG PO (20:17)
[2025-06-18] MEDS: MONTELUKAST SODIUM 10MG TAB 10 MG PO (20:17)
[2025-06-19] VITALS: PULSE 50
[2025-06-19 04:00] VITALS: BP 127/72; PULSE 50; PULSE 61; RESP 12; TEMP 36.6; O2SAT 94; BMI 29.6
[2025-06-19] MEDS: LEVOTHYROXINE 50MCG (0.05MG) TAB 50 MCG PO (06:29)
[2025-06-19 06:43] LABS: Hematocrit 38.2 % (37.0-47.0); Hemoglobin 12.5 g/dL (12.2-16.2); Immature Granulocytes % 0.2 %; Mean Corpuscular HGB Conc 32.7 g/dL (31.8-35.4); Mean Corpuscular Hemoglobin 31.3 pg (27.0-31.2); Mean Corpuscular Volume 95.7 fl (81-99); Nucleated Red Blood Cells % 0 %; Platelet Count 196 K/mm3 (142-424); Red Blood Count 3.99 M/mm3 (4.20-5.40); Red Cell Distribution Width-SD 47.4 fL; White Blood Count 4.8 K/mm3 (4.8-10.8)
[2025-06-19 06:59] LABS: Alanine Aminotransferase 15 U/L (12-78); Albumin Level 3.8 g/dl (3.5-5.0); Albumin/Globulin Ratio 1.5 (1.1-1.8); Alkaline Phosphatase 71 U/L (38-126); Anion Gap 10.1 mEq/L (5-15); Aspartate Amino Transferase 23 U/L (14-36); Bilirubin,Total 0.6 mg/dl (0.2-1.3); Blood Urea Nitrogen 22 mg/dl (7-17); Calcium 8.9 mg/dl (8.4-10.2); Carbon Dioxide 28 mmol/L (22.0-30.0); Chloride 104 mmol/L (98-107); Creatinine Clearance Estimated 61 mL/min (50-200); Creatinine,Serum 0.90 mg/dl (0.52-1.04); Estimated Glomerular Filt Rate 61 ml/min (>60); GFR (African American) 74 ML/MIN (>60); Globulin 2.6 g/dL (1.3-3.2); Glucose 100 mg/dl (74-100); Magnesium 1.8 mg/dl (1.6-2.3); Potassium 4.1 mmoL/L (3.5-5.1); Sodium 138 mmol/L (136-145); Total Protein,Serum 6.4 g/dl (6.3-8.2)
[2025-06-19 08:00] VITALS: BP 150/83; PULSE 68; PULSE 70; RESP 19; TEMP 36.6; O2SAT 95
--- NOTE | 2025-06-19 08:40 | CA_ITS ---
APPROVED REPORT EXAM: Comprehensive 2D, Doppler, and color-flow Echocardiogram Hide Examiner: Moraima Tyler CRT Ht: 5 ft 4 in Wt: 173lbs BSA: 1.84 BP: 127/72 mmHg Indications: Chest Pain, Congestive Heart Failure, Shortness of Breath, CAD, Hyperlipidemia, 6 stents 2D Dimensions LA Volume 46.00 mL LA Volume Index 25.00 mL/m2 (M/F) 16-34 M-Mode Dimensions RVDd 2.24 cm (0.9-2.6) LA Diam 4.06 cm (1.9-4.0) LVDd 4.51 cm (3.5-5.7) LVDs 3.16 cm (3.5-5.7) IVSd 1.49 cm (0.6-1.1) PWd 0.91 cm (0.6-1.1) EF (Teich) 57.30% FS 29.90% EDV (Teich) 92.90 mL TAPSE 2.71 (<1.7) ESV (Teich) 39.70 mL LV Diastology E Decel Time 173 (160-240 msec) E/A Ratio 1.6 MED A' 12.40 cm/s LAT A' 8.10 cm/s Aortic Valve AO Peak GR. 5.50 mmHg Mitral Valve MV E Max Marek. 107.0 (40-130 cm/s) MV A Velocity 66.0 (40-130 cm/s) E/A Ratio 1.61 MV PHT 51.0 ms Pulmonary Valve PV Peak Velocity 85.0 (50-150 cm/s) Tricuspid Valve TR P. Velocity 263.00 cm/s RAP Estimate 10.00 mmHg RVSP 37.80 mmHg Left Ventricle The left ventricle is normal size. Left ventricular systolic function is normal. The left ventricular ejection fraction is within the normal range. There is increased left ventricular wall thickness. There is normal LV segmental wall motion. The left ventricular diastolic function is normal. LVEF is 55%. Right Ventricle The right ventricle is mildly dilated. The right ventricular systolic function is normal. Atria Left atrium is mildly dilated. Right atrium is mildly dilated. There is no color Doppler evidence of interatrial shunt. Aortic Valve The aortic valve is mildly thickened. There is no hemodynamically significant aortic valvular stenosis. Trace aortic regurgitation is present. Mitral Valve The mitral valve is normal in structure. No evidence of mitral valve stenosis. Trace mitral regurgitation is present. Tricuspid Valve The tricuspid valve leaflets are thin and pliable. Mild tricuspid regurgitation. RVSP is 30-35 mmHg. Pulmonic Valve The pulmonary valve is grossly normal in structure. Trace pulmonic valve regurgitation is present. Great Vessels The aortic root is normal in size. IVC is normal in size and collapses >50% with inspiration. Pericardium There is no pericardial effusion. Other Information Study Quality: Fair Conclusion Normal biventricular systolic function. Mild RV dilation. Mild biatrial dilation. Mild TR. Electronically signed by : Mine Cordova MD 06/19/2025 12:52:58
--- NOTE | 2025-06-19 08:50 | EXP.DC.SUM ---
General Admission date:: 06/17/25 Discharge date: 06/19/25 HPI HPI HPI: Patient is a 74-year-old female with past medical history significant for CAD, s/p six stent placements, diverticular disease of colon, anxiety and depression, hypothyroidism GERD, HTN, HLD, cerebral atherosclerosis. Presents to [facility] emergency department for further evaluation of chest pain. Reports chest pain began around 6 PM tonight (06/17/25) described as midsternal chest pain, nonradiating with associated shortness of breath and nausea, lightheadedness. Reports chest pain presentation was similar to her prior cardiac events requiring stent placement. Reports taking nitroglycerin without any symptomatic relief. Patient reported taking a daily aspirin and compliant with routine home medications. Per chart review home meds also included clopidogrel, ranolazine and statin therapy. Denies use of tobacco and/or alcohol use. Denies fever, chills, abdominal pain, vomiting, urinary symptoms. Initial ED workup included laboratory studies and imaging. Significant laboratory findings included D-dimer 1.04, creatinine 1.20, BNP 236, UA with 2+ leukocyte esterase, 1+ bacteria. Imaging study included CTA chest, I personally reviewed, showing no evidence of pulmonary embolism. Chest x-ray unremarkable for any acute findings. While in the emergency department patient was found to have an episode of ventricular tachycardia. ED provider notified cardiology, Dr. Kruger who recommended amiodarone drip. Hospital Course Hospital Course Hospital Course: 74-year-old who presented with chest discomfort. Concern for episode of V. tach. Was initially started on Amio that was held due to bradycardia. Did well throughout duration of admission with no further episodes of arrhythmia. Cardiology evaluated. Will discharge home with event monitor. Problems addressed as follows: Chest pain: Onset chest pain approximately 6 PM on 06/17-reported associated symptoms of nausea and shortness of breath. Received 243 mg p.o. aspirin, 2 mg IV morphine and 0.4 mg sublingual nitroglycerin while in the emergency department. D-dimer elevated at 1.04, CTA obtained without any evidence of pulmonary embolism. Initial twelve-lead ECG, normal sinus rhythm, heart rate 72, no ST elevation. Troponins were unremarkable. While in the ER however had concern for episode of ventricular tachycardia while on telemetry. Troponin thus far unremarkable. Will continue to monitor/trend troponin level, satellite project site monitor, sublingual nitro as needed for chest pain. Consult placed to cardiology for further evaluation. Ventricular tachycardia: After initial assessment in the emergency department and twelve-lead which was noted to be normal sinus rhythm patient was reported to have an episode of ventricular tachycardia. Also was reportedly in and out of nonsustained V. tach. Reviewed telemetry logs with cardiology, the arrhythmias appear more related to patient movement than V. tach. She had no further episodes during duration of admission. Attempted to initiate amiodarone and she became bradycardic so it was discontinued. Patient remained stable for 48 hours on telemetry with no further arrhythmia episodes. Will discharge on 2-week event monitor. Electrolytes stable during admission. Follow-up with cardiology in 1 to 2 weeks after discharge. HTN/HLD/CAD: Cardiac catheterization hx;April 2023 severe circumflex artery in-stent restenosis with successful stenting, severe stenosis in the proximal dominant RCA with successful stenting. October 2021 successful stenting of the the critically diseased circumflex artery followed by post stent angioplasty of the left main artery and ostial proximal LAD 2020. [facility] 2023 widely patent CAD, no stents. -Blood pressures remained acceptable during admission. Okay to resume home regimen of ranolazine, bisoprolol, isosorbide. Continue clopidogrel 75 mg and aspirin 81 mg daily. - Resume Lipitor nightly 80 mg Functional bowel pain: On extensive regimen. Follows with GI. continue MiraLAX daily, Bentyl 10 g 3 times a day, Hypothyroidism: continue home levothyroxine 50 mcg daily, TSH 2.9 GERD: Resume home PPI. Anxiety and depression: stable, continue home Lexapro 10 mg daily Total time spent on discharge 38 minutes in counseling, documentation, chart review, and direct care with patient. Exam Data for Last 24 hours Vital signs and Labs for Last 24 Hours: Temp Pulse Resp BP Pulse Ox O2 Del Method 97.8 F 61 12 127/72 94 L Room Air 06/19/25 04:00 06/19/25 04:00 06/19/25 04:00 06/19/25 04:00 06/19/25 04:00 06/19/25 06:48 Laboratory Results - last 24 hr 06/19/25 06:06: WBC 4.8, RBC 3.99 L, Hgb 12.5, Hct 38.2, MCV 95.7, MCH 31.3 H, MCHC 32.7, RDW 13.2, Plt Count 196, MPV 10.6 H, Neut % (Auto) 43.6, Lymph % (Auto) 40.5, [place] % (Auto) 11.0 H, Eos % (Auto) 3.7, Baso % (Auto) 1.0, Neut # (Auto) 2.1, Lymph # (Auto) 2.0, [place] # (Auto) 0.5, Eos # (Auto) 0.2, Baso # (Auto) 0.1, Sodium 138, Potassium 4.1, Chloride 104, Carbon Dioxide 28, Anion Gap 10.1, BUN 22 H, Creatinine 0.90, Estimated Creat Clear 61, Estimated GFR 61, Est GFR ( Amer) 74, Glucose 100, Calcium 8.9, Magnesium 1.8, Total Bilirubin 0.6, AST 23 D, ALT 15, Alkaline Phosphatase 71, Total Protein 6.4, Albumin 3.8, Globulin 2.6, Albumin/Globulin Ratio 1.5 I & O for Last 24 hours: Intake & Output 06/16/25 06/17/25 06/18/25 06/19/25 23:59 23:59 22:59 23:59 Intake Total 103 / 103 1751.146 / 1751.146 Output Total 500 / 500 Balance 103 / 103 1251.146 / 1251.146 Weight 72.575 kg 77.1 kg 78.744 kg Constitutional Constitutional: no acute distress, average body habitus and cooperative *Routine HEENT Exam Head: Present normocephalic and atraumatic ENT: Present mucous membranes moist *Routine Neck Exam Neck: Present supple Routine Chest/Breast/Axilla Exam Comments: abrasion from removal of tape from left breast *Routine Respiratory Exam Respiratory: Present CTA bilaterally; Absent rhonchi or wheezes *Routine Cardiovascular Exam Cardiovascular: Present RRR; Absent murmur, gallop or rubs *Routine Abdominal Exam Abdominal: Present soft *Routine Rectal Exam Patient deferred: visual exam *Routine Exam Patient deferred: external exam *Routine Extremities Exam Extremities: Absent cyanosis, clubbing or edema Comments: vericosities of Bilateral LE *Routine Skin Exam Skin: Present intact; Absent cyanosis *Routine Neurological Exam Neurological: Present alert, oriented X3 and moving all extremities; Absent altered mental status Results Data Completed and Pending Labs on day of discharge: Labs from last 24 hours 06/19/25 06:06 WBC 4.8 RBC 3.99 L Hgb 12.5 Hct 38.2 MCV 95.7 MCH 31.3 H MCHC 32.7 RDW 13.2 Plt Count 196 MPV 10.6 H Neut % (Auto) 43.6 Lymph % (Auto) 40.5 [place] % (Auto) 11.0 H Eos % (Auto) 3.7 Baso % (Auto) 1.0 Neut # (Auto) 2.1 Lymph # (Auto) 2.0 Cass # (Auto) 0.5 Eos # (Auto) 0.2 Baso # (Auto) 0.1 Sodium 138 Potassium 4.1 Chloride 104 Carbon Dioxide 28 Anion Gap 10.1 BUN 22 H Creatinine 0.90 Estimated Creat Clear 61 Estimated GFR 61 Est GFR ( Amer) 74 Glucose 100 Calcium 8.9 Magnesium 1.8 Total Bilirubin 0.6 AST 23 D ALT 15 Alkaline Phosphatase 71 Total Protein 6.4 Albumin 3.8 Globulin 2.6 Albumin/Globulin Ratio 1.5 DS: Diagnosis Discharge Diagnosis (1) Chest pain: Status: Acute Code(s): R07.9 - Chest pain, unspecified Qualifiers: Chest pain type: unspecified Qualified Code(s): R07.9 - Chest pain, unspecified (2) Ventricular tachycardia, monomorphic: Status: Ruled-out Code(s): I47.29 - Other ventricular tachycardia (3) HTN (hypertension): Status: Chronic Code(s): I10 - Essential (primary) hypertension Qualifiers: Hypertension type: essential hypertension Qualified Code(s): I10 - Essential (primary) hypertension (4) HLD (hyperlipidemia): Status: Chronic Code(s): E78.5 - Hyperlipidemia, unspecified Qualifiers: Hyperlipidemia type: mixed hyperlipidemia Qualified Code(s): E78.2 - Mixed hyperlipidemia (5) CAD (coronary artery disease): Status: Chronic Code(s): I25.10 - Atherosclerotic heart disease of robinson coronary artery without angina pectoris Qualifiers: Associated angina: with other forms of angina Coronary Disease-Associated Artery/Lesion type: [place] artery [place] vs. transplanted heart: robinson heart Qualified Code(s): I25.118 - Atherosclerotic heart disease of robinson coronary artery with other forms of angina pectoris Problem details: SEP 2020-Successful stenting of the distal left main artery severe disease reduced to 0% with 1 drug-eluting stent Successful stenting of the ostial proximal LAD severe disease reduced to 0% with 1 drug-eluting stent Successful stenting of the ostial proximal circumflex artery severe disease reduced to 0% with 2 drug-eluting stents Persistent mid LAD stenosis moderate in severity Persistent proximal to mid right coronary artery stenosis moderate in severity Preserved ejection fraction Mild elevated LVEDP (6) Hypothyroidism: Status: Acute Code(s): E03.9 - Hypothyroidism, unspecified Qualifiers: Hypothyroidism type: acquired Qualified Code(s): E03.9 - Hypothyroidism, unspecified (7) GERD (gastroesophageal reflux disease): Status: Acute Code(s): K21.9 - Gastro-esophageal reflux disease without esophagitis Qualifiers: Esophagitis presence: esophagitis presence not specified Qualified Code(s): K21.9 - Gastro-esophageal reflux disease without esophagitis (8) Anxiety and depression: Status: Acute Code(s): F41.9 - Anxiety disorder, unspecified; F32.A - Depression, unspecified Meds Home Medications and Allergies Home Medications ?Medication ?Instructions ?Recorded ?Confirmed ?Type linaclotide 145 mcg capsule 145 mcg PO DAILY #30 caps 01/25/25 06/18/25 Rx (Linzess) bisoprolol fumarate 5 mg tablet 5 mg PO DAILY BP #90 tabs 04/06/25 06/18/25 Rx clopidogrel 75 mg tablet 75 mg PO DAILY #90 tabs 04/06/25 06/18/25 Rx dicyclomine 10 mg capsule 10 mg PO TID #90 caps 04/06/25 06/18/25 Rx escitalopram oxalate 10 mg tablet 10 mg PO DAILY #90 tabs 04/06/25 06/18/25 Rx isosorbide mononitrate 30 mg 30 mg PO DAILY #90 tabs 04/06/25 06/18/25 Rx tablet,extended release 24 hr ranolazine 500 mg tablet,extended 500 mg PO BID #180 tabs 04/06/25 06/18/25 Rx release,12 hr psyllium seed (sugar) oral powder 1 tbsp PO DAILY 04/11/25 06/18/25 History (Metamucil (sugar) oral powder) albuterol sulfate 90 mcg/actuation 2 puff inhalation Q4HP PRN 06/18/25 06/18/25 History aerosol inhaler Shortness Of Breath atorvastatin 80 mg tablet 80 mg PO HS 06/18/25 06/18/25 History diclofenac sodium 1 % topical gel 4 g topical QIDP PRN Mild Pain 06/18/25 06/18/25 History (Scale Score 1-4) fluticasone 250 mcg-salmeterol 50 1 inh inhalation BIDRT 06/18/25 06/18/25 History mcg/dose blistr powdr for inhalation (Advair Diskus) furosemide 20 mg tablet 20 mg PO BIDL 06/18/25 06/18/25 History levothyroxine 50 mcg tablet 50 mcg PO DAILYDM 06/18/25 06/18/25 History (Synthroid) montelukast 10 mg tablet 10 mg PO HS 06/18/25 06/18/25 History ondansetron 4 mg disintegrating 4 mg PO Q8HP PRN Nausea And 06/18/25 06/18/25 History tablet Vomiting pantoprazole 40 mg tablet,delayed 40 mg PO DAILY 06/18/25 06/18/25 History release New Prescriptions to Start Prescriptions: Allergies Allergy/AdvReac Type Severity Reaction Status Date / Time No Known Allergies Allergy Verified 06/15/25 11:16 Discharge Plan Disposition Patient Disposition: Home, Self-Care Condition: Fair Follow up Plan Follow up with: Khoa Quan PA [Physician Traffic Or System Dispatcher, Cardiology] - 07/05/25 10:15 am Jessica Conley APRN [Primary Care Provider, Family Practice] - 06/26/25 3:45 pm Prescriptions/Medication Reconciliation: Continued Linzess 145 mcg capsule 145 mcg PO DAILY Qty: 30 2RF Metamucil (sugar) Powder 1 tbsp PO DAILY bisoprolol fumarate 5 mg tablet 5 mg PO DAILY Qty: 90 3RF dicyclomine 10 mg capsule 10 mg PO TID Qty: 90 3RF escitalopram oxalate 10 mg tablet 10 mg PO DAILY Qty: 90 3RF ranolazine 500 mg tablet extended release 12 hr 500 mg PO BID Qty: 180 3RF clopidogrel 75 mg tablet 75 mg PO DAILY Qty: 90 3RF isosorbide mononitrate 30 mg tablet extended release 24 hr 30 mg PO DAILY Qty: 90 3RF fluticasone propion-salmeterol [Advair Diskus] 250-50 mcg/dose Blister With Device 1 inh INHALATION BIDRT atorvastatin 80 mg tablet 80 mg PO HS levothyroxine [Synthroid] 50 mcg tablet 50 mcg PO DAILYDM pantoprazole 40 mg tablet,delayed release (DR/EC) 40 mg PO DAILY montelukast 10 mg tablet 10 mg PO HS furosemide 20 mg tablet 20 mg PO BIDL albuterol sulfate 90 mcg/actuation HFA aerosol inhaler 2 puff INHALATION Q4HP PRN (Reason: Shortness Of Breath) ondansetron 4 mg tablet,disintegrating 4 mg PO Q8HP PRN (Reason: Nausea And Vomiting) diclofenac sodium 1 % Gel 4 g TOPICAL QIDP PRN (Reason: Mild Pain (Scale Score 1-4)) Rx Instructions: apply to single knee, ankle, foot; for foot includes sole/toes/top of foot Problem Reconciliation Problems Reviewed?: Yes Patient Discharge Instructions ACTIVITY: Continue current activity DIET: continue same diet Patient Instructions: DI for Angina, DI for Ventricular Tachycardia Print Language: Kosovan Providers Primary Care Provider: Jessica Conley Admit Provider: Janak Benítez Attending Provider: Janak Benítez
[2025-06-19] MEDS: RANOLAZINE 500MG ER TABLET 500 MG PO (09:07)
[2025-06-19] MEDS: FUROSEMIDE 20MG TABLET 20 MG PO (09:08)
[2025-06-19] MEDS: ESCITALOPRAM 10MG TABLET 10 MG PO (09:11)
[2025-06-19] MEDS: CLOPIDOGREL 75MG TAB 75 MG PO (09:11)
[2025-06-19] MEDS: PANTOPRAZOLE 40MG TABLET 40 MG PO (09:12)
[2025-06-19] MEDS: ISOSORBIDE MONO 30MG TAB.ER.24H 30 MG PO (09:12)
[2025-06-19] MEDS: POLYETHYLENE GLYCOL 3350 17 GM PACKET PO (09:13)
--- NOTE | 2025-06-19 11:22 | EXP.CARD.CON ---
History of Present Illness History of Present Illness Consult date: 06/19/25 Requesting physician: Janak Benítez Consult reason: chest pain Chief complaint: chest pain, palpitations Additional Medical History:: 1. CAD A. Cardiac cath, 05/2024, patent left main stent extending into the LAD. LAD with mid vessel 30% stenosis. Nondominant circumflex with 20 to 30% stenosis. Dominant RCA with proximal stents widely patent. B. GANESH to circumflex, 10/2021 C. GANESH to left main/LAD/circumflex, 2020 2. Hypertension 3. Hyperlipidemia 4. Carotid artery stenosis A. R ICA 20-49%, LICA less than 20%, 2021 5. GI issues A. History of GERD B. Colonoscopy, 02/2025, 7 colonic polyps, left-sided diverticulosis, grade 2-3 internal hemorrhoids status post band ligation x 3, Dr. Clayton History of present illness: Patient is a 74-year-old female with past medical history significant for CAD, s/p six stent placements, diverticular disease of colon, anxiety and depression, hypothyroidism GERD, HTN, HLD, cerebral atherosclerosis. Presents to [facility] emergency department for further evaluation of chest pain. Reports chest pain began around 6 PM tonight (06/17/25) described as midsternal chest pain, nonradiating with associated shortness of breath and nausea, lightheadedness. Reports chest pain presentation was similar to her prior cardiac events requiring stent placement. Reports taking nitroglycerin without any symptomatic relief. Patient reported taking a daily aspirin and compliant with routine home medications. Per chart review home meds also included clopidogrel, ranolazine and statin therapy. Denies use of tobacco and/or alcohol use. Denies fever, chills, abdominal pain, vomiting, urinary symptoms. Initial ED workup included laboratory studies and imaging. Significant laboratory findings included D-dimer 1.04, creatinine 1.20, BNP 236, UA with 2+ leukocyte esterase, 1+ bacteria. Imaging study included CTA chest, I personally reviewed, showing no evidence of pulmonary embolism. Chest x-ray unremarkable for any acute findings. While in the emergency department patient was found to have an episode of ventricular tachycardia. ED provider notified cardiology, Dr. Kruger who recommended amiodarone drip. The above per Dr. Benítez Patient confirms events as noted above. She does relate taking some antibiotics recently for diverticulosis/-itis with improvement in symptoms. She describes significant heart palpitations recently but no significant arrhythmias noted on printed telemetry strips in the chart. I have asked the ER to try to find the report strip showing ventricular tachycardia. Patient was started on amiodarone but due to significant bradycardia this was discontinued. [facility] Disclaimer: The information contained in this section may have been updated after the patient was seen, as this information can be updated by other users. Medical History Chest pain Colitis Abdominal cramps Generalized abdominal pain Dry heaves Abdominal cramping in left lower quadrant Acute gastroenteritis Nausea Fatigue UTI (urinary tract infection) Near syncope Right shoulder pain Headache COVID-19 Encounter for screening colonoscopy Low Back Pain Hemorrhoids Acute bacterial bronchitis Varicose veins of both legs with edema Edema Calcaneal spur of left foot Acquired pes planus of both feet Acute pain of left foot Varicose veins of bilateral lower extremities with pain Bilateral lower extremity edema Hypotension Acute dehydration Orthostatic syncope Pain in left foot Dislocation of second toe, left, closed Hallux valgus (acquired), left foot Metatarsalgia, left foot Acute bronchitis Back pain Acute dysfunction of left eustachian tube Wheezing Exposure to COVID-19 virus Fall Facial abrasion Forehead laceration Wasp sting Hymenoptera sting Lumbar back pain Primary osteoarthritis of right hip Bronchitis Aortic insufficiency Diastolic dysfunction Encounter for pre-operative cardiovascular clearance Dizzy Vitamin D insufficiency Sinusitis Arm pain Anxiety and depression History of gastroesophageal reflux (GERD) Hypothyroid Hypertension Hyperlipidemia Unstable angina Dyspnea Typical angina Mild persistent asthma Allergic rhinitis, unspecified Dyspnea on exertion Gallbladder sludge Bilateral carotid artery stenosis Right carotid bruit Surgical History History of colonoscopy History of total right hip arthroplasty History of hysterectomy Hx of heart artery stent History of breast biopsy History of total hip replacement Family History Other Diabetes Heart attack Social History (Reviewed 06/18/25 @ 01:50 EDT by Lisa Dukes RN) Smoking Status: Never smoker second hand exposure: No alcohol intake: never substance use type: denies use current occupational status: disabled Travel in the last 8 weeks?: None household members: none housing: house current occupational exposures/hazards: No caffeine: Yes Review of Systems Review of Systems Review of systems:: pertinent systems reviewed and negative unless documented below *Cardiovascular Cardiovascular: Reports chest pain, Reports dyspnea and Reports rapid heart rate *Respiratory Respiratory: Reports dyspnea *Gastrointestinal Gastrointestinal: Reports as per HPI *Neurologic Neurologic: Reports system reviewed and no additional complaints, except as documented and Reports as per HPI Exam Data for Last 24 hours Vital signs and Labs for Last 24 Hours: Temp Pulse Resp BP Pulse Ox O2 Del Method 97.9 F 68 19 150/83 H 95 Room Air 06/19/25 08:00 06/19/25 08:00 06/19/25 08:00 06/19/25 08:00 06/19/25 08:00 06/19/25 09:00 Laboratory Results - last 24 hr 06/19/25 06:06: WBC 4.8, RBC 3.99 L, Hgb 12.5, Hct 38.2, MCV 95.7, MCH 31.3 H, MCHC 32.7, RDW 13.2, Plt Count 196, MPV 10.6 H, Neut % (Auto) 43.6, Lymph % (Auto) 40.5, [place] % (Auto) 11.0 H, Eos % (Auto) 3.7, Baso % (Auto) 1.0, Neut # (Auto) 2.1, Lymph # (Auto) 2.0, [place] # (Auto) 0.5, Eos # (Auto) 0.2, Baso # (Auto) 0.1, Sodium 138, Potassium 4.1, Chloride 104, Carbon Dioxide 28, Anion Gap 10.1, BUN 22 H, Creatinine 0.90, Estimated Creat Clear 61, Estimated GFR 61, Est GFR ( Amer) 74, Glucose 100, Calcium 8.9, Magnesium 1.8, Total Bilirubin 0.6, AST 23 D, ALT 15, Alkaline Phosphatase 71, Total Protein 6.4, Albumin 3.8, Globulin 2.6, Albumin/Globulin Ratio 1.5 I & O for Last 24 hours: Intake & Output 06/16/25 06/17/25 06/18/25 06/19/25 11:59 11:59 10:59 11:59 Intake Total 954.146 / 519.059 8286 / 1020 Output Total 300 / 300 200 / 200 Balance 654.146 / 654.146 820 / 820 Weight 169 lb 15.622 oz 173 lb 9.6 oz Constitutional Constitutional: no acute distress *Routine Respiratory Exam Respiratory: Present CTA bilaterally *Routine Cardiovascular Exam Cardiovascular: Present RRR; Absent murmur, gallop or rubs Meds Home Medications and Allergies Home Medications ?Medication ?Instructions ?Recorded ?Confirmed ?Type linaclotide 145 mcg capsule 145 mcg PO DAILY #30 caps 01/25/25 06/18/25 Rx (Linzess) bisoprolol fumarate 5 mg tablet 5 mg PO DAILY BP #90 tabs 04/06/25 06/18/25 Rx clopidogrel 75 mg tablet 75 mg PO DAILY #90 tabs 04/06/25 06/18/25 Rx dicyclomine 10 mg capsule 10 mg PO TID #90 caps 04/06/25 06/18/25 Rx escitalopram oxalate 10 mg tablet 10 mg PO DAILY #90 tabs 04/06/25 06/18/25 Rx isosorbide mononitrate 30 mg 30 mg PO DAILY #90 tabs 04/06/25 06/18/25 Rx tablet,extended release 24 hr ranolazine 500 mg tablet,extended 500 mg PO BID #180 tabs 04/06/25 06/18/25 Rx release,12 hr psyllium seed (sugar) oral powder 1 tbsp PO DAILY 04/11/25 06/18/25 History (Metamucil (sugar) oral powder) albuterol sulfate 90 mcg/actuation 2 puff inhalation Q4HP PRN 06/18/25 06/18/25 History aerosol inhaler Shortness Of Breath atorvastatin 80 mg tablet 80 mg PO HS 06/18/25 06/18/25 History diclofenac sodium 1 % topical gel 4 g topical QIDP PRN Mild Pain 06/18/25 06/18/25 History (Scale Score 1-4) fluticasone 250 mcg-salmeterol 50 1 inh inhalation BIDRT 06/18/25 06/18/25 History mcg/dose blistr powdr for inhalation (Advair Diskus) furosemide 20 mg tablet 20 mg PO BIDL 06/18/25 06/18/25 History levothyroxine 50 mcg tablet 50 mcg PO DAILYDM 06/18/25 06/18/25 History (Synthroid) montelukast 10 mg tablet 10 mg PO HS 06/18/25 06/18/25 History ondansetron 4 mg disintegrating 4 mg PO Q8HP PRN Nausea And 06/18/25 06/18/25 History tablet Vomiting pantoprazole 40 mg tablet,delayed 40 mg PO DAILY 06/18/25 06/18/25 History release New Prescriptions to Start Prescriptions: Allergies Allergy/AdvReac Type Severity Reaction Status Date / Time No Known Allergies Allergy Verified 06/15/25 11:16 Assessment and Plan *Assessment and plan (1) Ventricular tachycardia, monomorphic: Status: Acute Category: Medical Code(s): I47.29 - Other ventricular tachycardia (2) Unstable angina: Status: Acute Category: Medical Code(s): I20.0 - Unstable angina (3) CAD (coronary artery disease): Status: Acute Qualifiers: Associated angina: with unstable angina Coronary Disease-Associated Artery/Lesion type: elem artery [place] vs. transplanted heart: elem heart Qualified Code(s): I25.110 - Atherosclerotic heart disease of elem coronary artery with unstable angina pectoris Category: Medical Code(s): I25.10 - Atherosclerotic heart disease of elem coronary artery without angina pectoris (4) HTN (hypertension): Status: Chronic Qualifiers: Hypertension type: essential hypertension Qualified Code(s): I10 - Essential (primary) hypertension Category: Medical Code(s): I10 - Essential (primary) hypertension (5) HLD (hyperlipidemia): Status: Chronic Qualifiers: Hyperlipidemia type: mixed hyperlipidemia Qualified Code(s): E78.2 - Mixed hyperlipidemia Category: Medical Code(s): E78.5 - Hyperlipidemia, unspecified Plan 1. Chest pain with reports of monomorphic ventricular tachycardia in the ER -Troponins normal -On bisoprolol, Imdur and Ranexa at home -Printed telemetry strips reviewed with no evidence of V. tach noted -Elevated D-dimer with CTA negative for PE -Last cardiac cath was 05/2024 showing widely patent stent -Continues on Plavix, isosorbide and ranolazine 2. Hypertension -On bisoprolol 3. Hyperlipidemia -On atorvastatin at home Trying to retrieve the ER strip showing V. tach Patient recently on some antibiotics and GI medications with possibility that arrhythmias could be caused from these. Echocardiogram pending and if normal then consider discharge with event monitor and follow-up in 2 to 3 weeks. Addendum: Echo shows normal BiV systolic function with mild RV dilation, mild biatrial dilation and mild TR. Review of ER strips showed no evidence of ventricular tachycardia however 1 strip is labeled nonsustained V. tach but heart rate is 51 bpm. In light of the above findings, would recommend discharging patient home on home medications with a 2-week event monitor and follow-up in our office in 3 weeks.
[2025-06-19 12:00] VITALS: BP 134/73; PULSE 60; PULSE 72; RESP 16; TEMP 36.5; O2SAT 93
[2025-06-19] MEDS: BISOPROLOL 5MG TABLET 5 MG PO (13:01)
--- NOTE | 2025-06-21 10:38 | SW/DCPLANNER ---
Phoned patient x2. Left messages with name and a call back number. Rad Alvarez
== END 2025-06-19 15:10 | disposition home or self-care (01) ==
LOC: ER 21:48 → 2ND 22:09 → ICU 23:00 → 2ND 06-18 15:31
PROVIDERS: Nurse Practitioner Acute Care; Physician Assistant; Admitting Provider Internal Medicine Adolescent Medicine; Emergency Provider Emergency Medicine; PCP Nurse Practitioner Family; Visit Provider Internal Medicine Adolescent Medicine
DX: I25.110 Atherosclerotic heart disease of native coronary artery with unstable angina pectoris (principal); I47.29 Other ventricular tachycardia; I10 Essential (primary) hypertension; E78.2 Mixed hyperlipidemia; E03.9 Hypothyroidism, unspecified; K21.9 Gastro-esophageal reflux disease without esophagitis; J45.30 Mild persistent asthma, uncomplicated; I65.21 Occlusion and stenosis of right carotid artery; F41.8 Other specified anxiety disorders; K57.32 Diverticulitis of large intestine without perforation or abscess without bleeding; Z82.49 Family history of ischemic heart disease and other diseases of the circulatory system; Z95.5 Presence of coronary angioplasty implant and graft; Z79.02 Long term (current) use of antithrombotics/antiplatelets; Z79.890 Hormone replacement therapy; Z79.51 Long term (current) use of inhaled steroids; Z79.899 Other long term (current) drug therapy
CPT/HCPCS: 36415; 71045; 71275; 80048; 80053; 80061; 83690; 83735; 83880; 84439; 84443; 84484; 85025; 85378; 85610; 87081; 93005; 93270; 93306; 94640; 96372; 96374; 96375; 96376; 99285; G0378; J0282; J1650; J2270; J2405; J7060; Q9967